=== PATIENT | male | born 1960 | race Caucasian/White ===

== ENCOUNTER 2020-03-05 08:00 | Outpatient (RCR) | payer MEDICARE, BC, MEDICAID, SELFPAY | END 2020-05-26 07:43 | disposition home or self-care (01) | LOC: HO.WCC 08:00 | PROVIDERS: PCP Internal Medicine; Visit Provider Physician Assistant Surgical | DX: I70.233 Atherosclerosis of native arteries of right leg with ulceration of ankle (principal); L89.513 Pressure ulcer of right ankle, stage 3; I69.351 Hemiplegia and hemiparesis following cerebral infarction affecting right dominant side; I69.320 Aphasia following cerebral infarction; G25.81 Restless legs syndrome; I48.91 Unspecified atrial fibrillation; Z79.01 Long term (current) use of anticoagulants; Z95.0 Presence of cardiac pacemaker | CPT/HCPCS: 11042; 15271; 15275; 17250; 99212; 99213; Q4186 ==

== ENCOUNTER 2020-09-14 08:56 | Outpatient (RCR) | payer MEDICARE, BC, SELFPAY | END 2020-11-03 12:17 | disposition home or self-care (01) | LOC: HO.WCC 08:56 | PROVIDERS: Visit Provider Physician Assistant | DX: L89.513 Pressure ulcer of right ankle, stage 3 (principal); I69.351 Hemiplegia and hemiparesis following cerebral infarction affecting right dominant side; I73.9 Peripheral vascular disease, unspecified; I10 Essential (primary) hypertension; I48.91 Unspecified atrial fibrillation; Z95.0 Presence of cardiac pacemaker | CPT/HCPCS: 11042; 15271; 15275; 99212; 99213; Q4186 ==

== ENCOUNTER → 2020-10-25 13:07 | Outpatient (BNVA) | payer MEDICARE, MEDICAID, BC, SELFPAY | PROVIDERS: PCP Internal Medicine; Visit Provider Internal Medicine Cardiovascular Disease | DX: Z45.018 Encounter for adjustment and management of other part of cardiac pacemaker (principal); I48.20 Chronic atrial fibrillation, unspecified; I10 Essential (primary) hypertension | CPT/HCPCS: 93005; 99212 ==

== ENCOUNTER → 2020-12-17 08:27 | Outpatient (REF) | payer MEDICARE, BC, MEDICAID, SELFPAY ==
--- NOTE | 2020-12-17 08:30 | CA_ITS ---
Transthoracic Echocardiogram Patient (Last, First, Middle): Jayden Mendiola, Gender: Male Date of : 1960 Age: 60 Procedure Date: 12/17/2020 Procedure Type: Transthoracic Echocardiogram Location: OP Height: 187.96 cm Weight: 127.01 kg BSA: 2.51 m2 Heart Rate: bpm BP: 135 / 80 mmHg [employer] Supervisor: LE Referring MD: Don Orr MD Symptoms: Z95.0 - Presence of cardiac pacemaker Conclusions: - Normal left ventricular size and systolic function. - There is moderately increased left ventricular wall thickness. - Normal right ventricular cavity size and systolic function. - There is mild dilatation of the ascending aorta measuring 3.90 cm. Findings Left Ventricle Normal left ventricular size and systolic function. There is moderately increased left ventricular wall thickness. The visually estimated ejection fraction is between 60-65%. There is no evidence of regional wall motion abnormalities. There is paradoxical septal motion consistent with a left bundle branch block. Diastolic function is indeterminate on the basis of available data. Right Ventricle Normal right ventricular cavity size and systolic function. Atria Both atria are normal in size. Aortic Valve Normal aortic valve structure and function. There is no aortic valve stenosis. There is no aortic valve regurgitation. Mitral Valve Normal mitral valve structure and function. There is no mitral valve regurgitation. There is no mitral valve stenosis. Pulmonic Valve The pulmonic valve is likely normal. Tricuspid Valve Normal tricuspid valve structure and function. There is no tricuspid valve regurgitation. Tricuspid regurgitation envelope is inadequate for calculation of right ventricular systolic pressure. Indeterminate right atrial pressure. Great Vessels There is mild dilatation of the ascending aorta measuring 3.90 cm. The visualized portions of the pulmonary artery and branches are normal. Venous The inferior vena cava was not well visualized. Pericardium/Pleural There is no evidence of pericardial effusion. Prior Study Comparison No change compared to prior study dated: 03/04/2018. Measurements 2D Linear Measurements IVSd: 1.54 0.6-0.9/0.6-1.0 cm LVIDd: 3.65 3.9-5.3/4.2-5.9 cm LVIDd Index: 1.45 2.4-3.2/2.2-3.1 cm/m2 LVIDs: 2.27 2.0-3.6 cm LVPWd: 1.26 0.7-1.1 cm LA Diam: 4.10 2.7-3.8/3.0-4.0 cm LAIDs Index: 1.63 1.5-2.3 cm/m2 LV Mass: 228.50 67-162/88-224 g LV Mass Index: 91.03 43-95/49-115 g/m2 LVOT Diam: 2.60 3.0+(-)1.3 cm 2D Systolic Function EF 4C: 81.50 >55% EF 2C: 70.40 >55% Mitral Valve MV Pk E: 0.78 MV Decel Time: 119.00 E'Lateral: 9.03 E'Medial: 7.83 E/E' Med: 10.00 E/E' Lat: 8.60 PHT: 35.00 MVA PHT: 6.29 Decel [place]: 6.60 Aortic Valve AoV Pk Michael: 1.05 AoV Pk Grad: 4.00 LVOT LVOT Pk Michael: 0.82 LVOT Mn Michael: 0.52 LVOT VTI: 0.15 LVOT Pk Grad: 3.00 LVOT Mn Grad: 1.00 LVOT Diam: 2.60 LVOT Area: 5.31 Diastolic Function MV Pk E: 0.78 E'Medial: 7.83 E/E' Med: 10.00 E' Laterial: 9.03 E/E' Lat: 8.60 Right Ventricle TAPSE (mm): 1.80 Tricuspid Valve TR Pk Michael: 2.21 TR Pk Grad: 20.00 Great Vessels Aorta Ao Asc: 3.90 2.1-3.4 cm Updated in Other Vendor System with Status of Final Zhou Erazo MD electronically signed on 12/19/2020 10:36:45 PM with status of Final
== END ==
LOC: HO.CARD 08:27
PROVIDERS: PCP Internal Medicine; Visit Provider Internal Medicine Cardiovascular Disease
DX: I48.20 Chronic atrial fibrillation, unspecified (principal); Z95.0 Presence of cardiac pacemaker
CPT/HCPCS: 93306; Q9957

== ENCOUNTER → 2021-05-13 10:50 | Outpatient (REF) | payer MEDICARE, BC, SELFPAY ==
--- NOTE | 2021-05-13 10:55 | HM_ITS ---
Conclusion : 1. Patient was monitored for total of 3 days and 14 hours 2. Underlying rhythm appears to be venricularly paced rhythm with average HR of 67 bpm 3. Underlying AF cannot be ruled out. 4. No other arrhythmias noted 5. No patient reported events MTDD
== END ==
LOC: HO.CARD 10:50
PROVIDERS: PCP Internal Medicine; Visit Provider Nurse Practitioner Family
DX: I48.20 Chronic atrial fibrillation, unspecified (principal); R00.0 Tachycardia, unspecified
CPT/HCPCS: 93242

== ENCOUNTER → 2021-10-24 13:22 | Outpatient (BNVA) | payer MEDICARE, BC, SELFPAY | PROVIDERS: PCP Emergency Medicine; Visit Provider Internal Medicine Cardiovascular Disease | DX: Z45.018 Encounter for adjustment and management of other part of cardiac pacemaker (principal); I48.20 Chronic atrial fibrillation, unspecified | CPT/HCPCS: 93005; 99212 ==

== ENCOUNTER 2022-06-29 13:01 | Outpatient (RCR) | payer MEDICARE, BC, SELFPAY | END 2022-08-10 16:00 | disposition home or self-care (01) | LOC: HO.WCC 13:01 | PROVIDERS: PCP Internal Medicine; Visit Provider Surgery | DX: L89.513 Pressure ulcer of right ankle, stage 3 (principal); G82.22 Paraplegia, incomplete; I73.9 Peripheral vascular disease, unspecified; I69.351 Hemiplegia and hemiparesis following cerebral infarction affecting right dominant side; Z79.01 Long term (current) use of anticoagulants; Z79.82 Long term (current) use of aspirin; Z79.899 Other long term (current) drug therapy | CPT/HCPCS: 11042; 15271; 15275; 99212; Q4187 ==

== ENCOUNTER → 2022-09-27 08:59 | Outpatient (REF) | payer MEDICARE, BC, SELFPAY ==
--- NOTE | 2022-09-27 09:01 | CA_ITS ---
Transthoracic Echocardiogram Patient (Last, First, Middle): Jayden Mendiola, Gender: Male Date of : 1960 Age: 62 Procedure Date: 09/27/2022 Procedure Type: Transthoracic Echocardiogram Location: OP Height: 187.96 cm Weight: 124.74 kg BSA: 2.49 m2 Heart Rate: bpm BP: 130 / 78 mmHg Veterinary Parasitologist: TO Referring MD: Don Orr MD Cake Washer: Don Orr MD Symptoms: I48.20 - Chronic atrial fibrillation, unspecified Study Quality: Technically Difficult/Contrast ECG Rhythm: Ventriculary paced rhythm Conclusions: - 1. Technically limited study despite use of contrast agent 2. Normal LV systolic function with probably mild LVH 3. Limited visualization cardiac valves with normal cardiac valvular Doppler 4. Mildly dilated ascending aorta 4.3 cm 5. Normal RV systolic pressure Findings Procedure Information Contrast agent, definity, is being given per protocol without apparent complications. The quality of the study was technically difficult. Left Ventricle Normal left ventricular size and systolic function. There is mildly increased left ventricular wall thickness. The visually estimated ejection fraction is between 60-65%. Diastolic function is indeterminate on the basis of available data. Right Ventricle The right ventricle was not well visualized. Atria The left atrium was not well visualized. Interatrial shunt cannot be excluded. The right atrium was not well visualized. Aortic Valve The aortic valve was not well visualized. There is no aortic valve stenosis. There is no aortic valve regurgitation. Mitral Valve The mitral valve was not well visualized. There is no mitral valve regurgitation. There is no mitral valve stenosis. Pulmonic Valve The pulmonic valve was not well visualized. Tricuspid Valve The tricuspid valve was not well visualized. There is trace tricuspid valve regurgitation. Normal right atrial pressure. There is no evidence of pulmonary hypertension. Great Vessels The pulmonary artery was not well visualized. There is mild dilatation of the ascending aorta measuring 4.30 cm. Venous The inferior vena cava is normal in size and collapses greater than 50% with inspiration. Pericardium/Pleural There is no evidence of pericardial effusion. Prior Study Comparison Changes noted compared to prior study dated: 12/17/2020. ascending aorta is further enlarged to 4.3 cm. Remainder of the study is technically limited Measurements 2D Linear Measurements IVSd: 1.26 0.6-0.9/0.6-1.0 cm LVIDd: 4.52 3.9-5.3/4.2-5.9 cm LVIDd Index: 1.82 2.4-3.2/2.2-3.1 cm/m2 LVIDs: 2.86 2.0-3.6 cm LVPWd: 0.91 0.7-1.1 cm LA Diam: 3.60 2.7-3.8/3.0-4.0 cm LAIDs Index: 1.45 1.5-2.3 cm/m2 LV Mass: 215.36 67-162/88-224 g LV Mass Index: 86.49 43-95/49-115 g/m2 LVOT Diam: 2.40 3.0+(-)1.3 cm 2D Systolic Function EF 4C: 65.50 >55% Mitral Valve E'Lateral: 9.57 E'Medial: 7.29 Aortic Valve AoV Pk Michael: 1.03 AoV Mn Michael: 0.72 AoV VTI: 0.16 AoV Pk Grad: 4.00 Aov Mn Grad: 2.00 DEONTE Cont.VTI: 3.20 LVOT LVOT Pk Michael: 0.70 LVOT Mn Michael: 0.44 LVOT VTI: 0.11 LVOT Pk Grad: 2.00 LVOT Mn Grad: 1.00 LVOT Diam: 2.40 LVOT Area: 4.52 Diastolic Function E'Medial: 7.29 E' Laterial: 9.57 Tricuspid Valve TR Pk Michael: 1.93 TR Pk Grad: 15.00 RA Press: 3.00 RVSP: 18.00 Great Vessels Aorta Sinus of Valsalva: 4.16 2.0-3.[address] Ridge: 3.36 1.7-3.4 cm Ao Asc: 4.30 2.1-3.4 cm Updated in Other Vendor System with Status of Final Don Orr MD electronically signed on 09/27/2022 3:18:44 PM with status of Final
== END ==
LOC: HO.CARD 08:59
PROVIDERS: PCP Internal Medicine; Visit Provider Internal Medicine Cardiovascular Disease
DX: I48.20 Chronic atrial fibrillation, unspecified (principal)
CPT/HCPCS: 93306; Q9957

== ENCOUNTER 2022-10-02 14:04 | Outpatient (RCR) | payer MEDICARE, BC, SELFPAY | END 2022-10-13 13:22 | disposition home or self-care (01) | LOC: HO.WCC 14:04 | PROVIDERS: PCP Internal Medicine; Visit Provider Physician Assistant | DX: Z09 Encounter for follow-up examination after completed treatment for conditions other than malignant neoplasm (principal); I69.351 Hemiplegia and hemiparesis following cerebral infarction affecting right dominant side; I10 Essential (primary) hypertension; I73.9 Peripheral vascular disease, unspecified; I48.91 Unspecified atrial fibrillation; Z95.0 Presence of cardiac pacemaker; Z91.81 History of falling; Z87.2 Personal history of diseases of the skin and subcutaneous tissue | CPT/HCPCS: 99212 ==

== ENCOUNTER → 2022-10-23 12:31 | Outpatient (BNVA) | payer MEDICARE, BC, SELFPAY | PROVIDERS: PCP Internal Medicine; Referring Provider Internal Medicine; Visit Provider Internal Medicine Cardiovascular Disease | DX: I48.20 Chronic atrial fibrillation, unspecified (principal); I71.20 Thoracic aortic aneurysm, without rupture, unspecified; Z45.018 Encounter for adjustment and management of other part of cardiac pacemaker; Z79.01 Long term (current) use of anticoagulants | CPT/HCPCS: 93005; 99212 ==

== ENCOUNTER → 2022-12-04 23:59 | Outpatient (BNV) | payer MEDICARE, BC, MEDICAID, SELFPAY ==
--- NOTE | 2022-12-12 11:13 | A.OFFVIS_ITS ---
Intake Intake Visit Reasons: Remote Device Check- Biotronik Allergies codeine [CODEINE] Allergy (Unknown, Verified 10/23/22 13:21) UNKNOWN [facility] Medical History Cardiac pacemaker in situ Chronic atrial fibrillation CVA (cerebral vascular accident) HTN (hypertension) Surgical History History of permanent cardiac pacemaker placement Family History Father No problems noted. Mother No problems noted. Office Procedures Cardiac Device Check Cardiac Device Check Details: Remote pacemaker report generated 12/04/2022. Pacemaker function is adequate [id number] Cardiac Device Interrogation, pacemaker Procedure code (CPT) selection complete Coding Level of Care Code Procedure Only Diagnoses CPT Codes Cardiac Device Check - Cardiac Device 12: [id number] Cardiac Device Interrogation, pacemaker ([id number])
== END ==
PROVIDERS: PCP Internal Medicine; Visit Provider Internal Medicine Cardiovascular Disease
DX: I48.20 Chronic atrial fibrillation, unspecified (principal); Z95.0 Presence of cardiac pacemaker
CPT/HCPCS: 93294

== ENCOUNTER 2022-12-11 08:37 | Outpatient (RCR) | payer MEDICARE, BC, MEDICAID, SELFPAY | END 2023-04-23 15:00 | disposition home or self-care (01) | LOC: HO.WCC 08:37 | PROVIDERS: PCP Internal Medicine; Visit Provider Physician Assistant | DX: L89.513 Pressure ulcer of right ankle, stage 3 (principal); I73.9 Peripheral vascular disease, unspecified; I10 Essential (primary) hypertension; I69.351 Hemiplegia and hemiparesis following cerebral infarction affecting right dominant side; Z95.0 Presence of cardiac pacemaker | CPT/HCPCS: 11042; 15271; 97602; 99212; Q4187 ==

== ENCOUNTER → 2023-03-05 23:59 | Outpatient (BNV) | payer MEDICARE, BC, MEDICAID, SELFPAY ==
--- NOTE | 2023-03-05 13:02 | MHC.OFFVIS ---
Intake Intake Visit Reasons: Remote Device Check- Biotronik Allergies codeine [CODEINE] Allergy (Unknown, Verified 10/23/22 13:21) UNKNOWN [facility] Medical History Cardiac pacemaker in situ Chronic atrial fibrillation CVA (cerebral vascular accident) HTN (hypertension) Surgical History History of permanent cardiac pacemaker placement Family History Father No problems noted. Mother No problems noted. Office Procedures Cardiac Device Check Cardiac Device Check Details: Remote pacemaker report generated 03/05/2023. Pacemaker function is adequate [id number] Cardiac Device Interrogation, pacemaker Procedure code (CPT) selection complete Coding Level of Care Code Procedure Only CPT Codes Cardiac Device Check - Cardiac Device 12: [id number] Cardiac Device Interrogation, pacemaker ([id number])
== END ==
PROVIDERS: PCP Internal Medicine; Visit Provider Internal Medicine Cardiovascular Disease
DX: I48.20 Chronic atrial fibrillation, unspecified (principal); Z95.0 Presence of cardiac pacemaker
CPT/HCPCS: 93294

== ENCOUNTER 2023-04-09 09:49 | Outpatient (REF) | payer MEDICARE, BC, MEDICAID, SELFPAY ==
--- NOTE | ~2023-04-09 | XR_ITS ---
EXAMINATION: XR ANKLE, RIGHT CLINICAL INFORMATION: Skin ulcer right ankle with fat layer exposed COMPARISON: None available. TECHNIQUE: AP, lateral, and mortise views of the right ankle. FINDINGS: Diffuse soft tissue swelling at the lower leg and imaged foot with extensive soft tissue calcification, likely vascular. Severe diffuse bony demineralization. Small plantar and dorsal calcaneal spurs. Degenerative changes with hypertrophic change at the midfoot. XR/XR ankle RT min 3V IMPRESSION: Severe bony demineralization with advanced degenerative changes and diffuse soft tissue swelling. MRI recommended for further evaluation if there is clinical concern for osteomyelitis or other pathology.
[2023-04-09 10:21] LABS: Basophils Absolute Auto 0.1 X10*3/uL (0.0-0.2); Basophils Percent Auto 1.1 % (0-2); Eosinophils Absolute Auto 0.2 X10*3/uL (0.0-0.4); Eosinophils Percent Auto 2.3 % (0-4); Hematocrit 47.1 % (42.0-52.0); Hemoglobin 15.5 g/dl (14.0-18.0); Imm Gran Abs Auto 0.03 X10*3/uL (0.00-0.03); Imm Gran Pct Auto 0.5 % (0.0-0.4); Lymphocytes Absolute Auto 1.5 X10*3/uL (1.2-4.9); MANUAL DIFF FLAG NO; Mean Corpuscular HGB Conc 32.9 g/dl (31.0-36.0); Mean Corpuscular Hemoglobin 30.8 pg (27.0-33.0); Mean Corpuscular Volume 93.6 fL (80.0-98.0); Mean Platelet Volume 10.3 fL (9.4-12.4); Monocytes Absolute Auto 0.6 X10*3/uL (0.1-1.2); Monocytes Percent Auto 8.5 % (2-11); Neutrophils Absolute Auto 4.2 x10*3/uL (2.0-8.3); Neutrophils Percent Auto 64.6 % (45-73); Platelet Count 170 X10*3/uL (160-400); Red Blood Count 5.03 X10*6/uL (4.60-5.80); Red Cell Distribution Width 13.3 % (11.0-16.0); White Blood Count 6.4 X10*3/uL (4.8-10.8)
[2023-04-09 10:49] LABS: Alanine Aminotransferase 7 U/L (0-40); Albumin Level 3.9 g/dL (3.5-5.0); Alkaline Phosphatase 69 U/L (39-117); Anion Gap 11 (12-20); Aspartate Amino Transferase 14 U/L (5-37); Bilirubin Total 0.8 mg/dL (0.0-1.0); Blood Urea Nitrogen 15 mg/dL (9-16); C Reactive Protein 0.14 mg/dL (< or = 0.50); Calcium 9.4 mg/dL (8.4-10.2); Carbon Dioxide 28 mmol/L (22-29); Chloride 106 mmol/L (96-108); Estimated Glomerular Filt Rate > 60; Glucose Random 93 mg/dL (60-115); Potassium 4.6 mmol/L (3.3-5.1); Sodium 140 mmol/L (135-145); Total Protein 6.8 g/dL (6.5-8.0)
[2023-04-09 11:05] LABS: Erythrocyte Sedimentation Rate 2 MM/HR (0-15)
== END 2023-04-09 09:50 | disposition home or self-care (01) ==
LOC: HO.LAB 09:49
PROVIDERS: PCP Internal Medicine; Visit Provider Podiatrist
DX: L03.115 Cellulitis of right lower limb (principal); L97.312 Non-pressure chronic ulcer of right ankle with fat layer exposed
CPT/HCPCS: 36415; 73610; 80053; 85025; 85652; 86140

== ENCOUNTER → 2023-06-05 23:59 | Outpatient (BNV) | payer MEDICARE, BC, MEDICAID, SELFPAY ==
--- NOTE | 2023-06-06 10:00 | MHC.OFFVIS ---
Intake Intake Visit Reasons: Remote Device Check- Biotronik Allergies codeine [CODEINE] Allergy (Unknown, Verified 10/23/22 13:21) UNKNOWN [facility] Medical History Cardiac pacemaker in situ Chronic atrial fibrillation CVA (cerebral vascular accident) HTN (hypertension) Surgical History History of permanent cardiac pacemaker placement Family History Father No problems noted. Mother No problems noted. Office Procedures Cardiac Device Check Cardiac Device Check Details: Remote pacemaker report generated 06/05/2023. Pacemaker function is adequate. Patient pacer dependent in the ventricle [id number] Cardiac Device Interrogation, pacemaker Procedure code (CPT) selection complete Assessment & Plan Assessment & Plan (1) Cardiac pacemaker in situ: Comment: Biotronik single-chamber pacemaker placed November of 2016 for complete heart block Code(s): Z95.0 - Presence of cardiac pacemaker Plan: See above Coding Level of Care Code Procedure Only Diagnoses Cardiac pacemaker in situ Z95.0 CPT Codes Cardiac Device Check - Cardiac Device 12: [id number] Cardiac Device Interrogation, pacemaker ([id number])
== END ==
PROVIDERS: PCP Internal Medicine; Visit Provider Internal Medicine Cardiovascular Disease
DX: I48.20 Chronic atrial fibrillation, unspecified (principal); Z95.0 Presence of cardiac pacemaker
CPT/HCPCS: 93294

== ENCOUNTER → 2023-09-04 23:59 | Outpatient (BNV) | payer MEDICARE, BC, MEDICAID, SELFPAY ==
--- NOTE | 2023-09-04 14:00 | MHC.OFFVIS ---
Intake Intake Visit Reasons: Remote Device Check- Biotronik Allergies codeine [CODEINE] Allergy (Unknown, Verified 10/23/22 13:21) [facility]KNOWN [facility] Medical History Cardiac pacemaker in situ Chronic atrial fibrillation CVA (cerebral vascular accident) HTN (hypertension) Surgical History History of permanent cardiac pacemaker placement Family History Father No problems noted. Mother No problems noted. Office Procedures Cardiac Device Check Cardiac Device Check Details: Remote pacemaker report generated 09/03/2023. Pacemaker function is adequate. Patient ventricular pacer dependent. [id number] Cardiac Device Interrogation, pacemaker Procedure code (CPT) selection complete Assessment & Plan Assessment & Plan (1) Cardiac pacemaker in situ: Comment: Biotronik single-chamber pacemaker placed November of 2016 for complete heart block Code(s): Z95.0 - Presence of cardiac pacemaker Plan: See above Coding Level of Care Code Procedure Only Diagnoses Cardiac pacemaker in situ Z95.0 CPT Codes Cardiac Device Check - Cardiac Device 12: [id number] Cardiac Device Interrogation, pacemaker ([id number])
== END ==
PROVIDERS: PCP Internal Medicine; Visit Provider Internal Medicine Cardiovascular Disease
DX: Z95.0 Presence of cardiac pacemaker (principal)
CPT/HCPCS: 93294

== ENCOUNTER → 2023-10-04 09:40 | Outpatient (REF) | payer MEDICARE, BC, MEDICAID, SELFPAY ==
--- NOTE | 2023-10-04 09:43 | CA_ITS ---
Transthoracic Echocardiogram Patient (Last, First, Middle): Jayden Mendiola, Gender: Male Date of : 1960 Age: 63 Procedure Date: 10/04/2023 Procedure Type: Transthoracic Echocardiogram Location: OP Height: 187.96 cm Weight: 129.28 kg BSA: 2.53 m2 Heart Rate: bpm BP: 130 / 80 mmHg Stone Layer: TO Referring MD: Don Orr MD Symptoms: I71.20 - Thoracic aortic aneurysm, without rupture, unspecified Study Quality: Technically Difficult/unable to tolerate ECG Rhythm: Sinus Conclusions: - The left ventricular systolic function is normal. The visually estimated ejection fraction is between 55-60%. - No obvious valvular pathology seen on this study. - There is mild dilatation of the sinuses of Valsalva measuring 4.35 cm and mild dilatation of the ascending aorta measuring 4.10 cm. Findings Procedure Information The study quality is limited by the patients inability to tolerate the test. Left Ventricle Normal left ventricular cavity size. The left ventricular systolic function is normal. The visually estimated ejection fraction is between 55-60%. Regional wall motion abnormalities can not be excluded due to suboptimal endocardial definition. Diastolic function is indeterminate on the basis of available data. There is moderate septal asymmetric hypertrophy. Right Ventricle Normal right ventricular cavity size. There is mildly decreased right ventricular systolic function. Atria The left atrium was not well visualized. The right atrium was not well visualized. Aortic Valve There is a normal trileaflet aortic valve. There is mild calcification of the aortic valve. There is no aortic valve stenosis. There is no aortic valve regurgitation. Mitral Valve The mitral valve was not well visualized. There is mild mitral annular calcification. There is no mitral valve regurgitation. There is no mitral valve stenosis. Pulmonic Valve The pulmonic valve is likely normal. Tricuspid Valve There is trace tricuspid valve regurgitation. There is no evidence of pulmonary hypertension. Great Vessels The aortic arch is normal in size. There is mild dilatation of the sinuses of Valsalva measuring 4.35 cm and mild dilatation of the ascending aorta measuring 4.10 cm. Venous The inferior vena cava is normal in size and collapses greater than 50% with inspiration. Pericardium/Pleural There is no evidence of pericardial effusion. Prior Study Comparison Changes noted compared to prior study dated: 09/27/2022. Ascending aortic dimension smaller, but could also be technical. Recommendations, Care & Conclusions No obvious valvular pathology seen on this study. Measurements 2D Linear Measurements IVSd: 1.35 0.6-0.9/0.6-1.0 cm LVIDd: 4.40 3.9-5.3/4.2-5.9 cm LVIDd Index: 1.74 2.4-3.2/2.2-3.1 cm/m2 LVIDs: 2.78 2.0-3.6 cm LVPWd: 0.93 0.7-1.1 cm LV Mass: 221.55 67-162/88-224 g LV Mass Index: 87.57 43-95/49-115 g/m2 LVOT Diam: 2.50 3.0+(-)1.3 cm Mitral Valve E'Lateral: 9.90 E'Medial: 6.53 Aortic Valve AoV Pk Michael: 0.98 AoV Mn Michael: 0.66 AoV VTI: 0.16 AoV Pk Grad: 4.00 Aov Mn Grad: 2.00 DEONTE Cont.VTI: 3.96 LVOT LVOT Pk Michael: 0.84 LVOT Mn Michael: 0.55 LVOT VTI: 0.13 LVOT Pk Grad: 3.00 LVOT Mn Grad: 1.00 LVOT Diam: 2.50 LVOT Area: 4.91 Diastolic Function E'Medial: 6.53 E' Laterial: 9.90 Right Ventricle TVS' Michael: 8.70 Tricuspid Valve TR Pk Michael: 1.82 TR Pk Grad: 13.00 Great Vessels Aorta Sinus of Valsalva: 4.35 2.0-3.[address] Ridge: 3.57 1.7-3.4 cm Ao Asc: 4.10 2.1-3.4 cm Ao Arch: 3.10 Updated in Other Vendor System with Status of Final Mckay Noriega MD electronically signed on 10/06/2023 12:24:20 PM with status of Final
== END ==
LOC: HO.CARD 09:40
PROVIDERS: PCP Internal Medicine; Visit Provider Internal Medicine Cardiovascular Disease
DX: I71.20 Thoracic aortic aneurysm, without rupture, unspecified (principal)
CPT/HCPCS: 93306

== ENCOUNTER → 2023-10-04 09:43 | Outpatient (BNV) | payer MEDICARE, BC, MEDICAID, SELFPAY | PROVIDERS: PCP Internal Medicine; Visit Provider Internal Medicine | DX: I71.21 Aneurysm of the ascending aorta, without rupture (principal); I42.2 Other hypertrophic cardiomyopathy; I34.81 Nonrheumatic mitral (valve) annulus calcification | CPT/HCPCS: 93306 ==

== ENCOUNTER 2023-10-22 12:49 | Outpatient (AMB) | payer MEDICARE, BC, SELFPAY ==
[2023-10-22 13:07] VITALS: BP 110/68; PULSE 73
--- NOTE | 2023-10-22 13:07 | A.OFFVIS_ITS ---
Vital Signs 10/22/23 13:07 Height 6 ft 2 in BMI Reason not done Patient refused/unable BP 110/68 Blood Pressure Location Lt brachial Position Sitting Pulse 73 Intake Visit Reasons: 1 year follow up Intake Note: [facility] feeling good Fishing Accessories Maker Required: No Rehabilitation Caseworker: Rehabilitation Caseworker Present Accompanied by: Spouse Allergies codeine [CODEINE] Allergy (Unknown, Verified 10/23/22 13:21) UNKNOWN Medication List - Last Reconciled 10/22/23 by Don Orr MD apixaban 5 mg PO BID aspirin (Adult Aspirin Regimen) 81 mg PO DAILY atorvastatin 20 mg PO DAILY baclofen 40 mg PO DAILY lisinopril 10 mg PO DAILY terazosin 2 mg PO BEDTIME HPI Comments Details: Jayden comes for follow-up of his pacemaker as well as atrial fibrillation for annual follow-up. He is accompanied by his . He has been doing well from cardiac perspective. Unfortunately his pacemaker could not be interrogated today as it has a Biotronik pacemaker. Remotely his pacemaker has been followed in working well. His echocardiogram recently showed normal LV ejection fraction with mildly dilated ascending aorta without any significant changes. He denies any bleeding issues or neurologic events. Denies any orthopnea, PND, leg edema. [facility] Medical History HTN (hypertension) CVA (cerebral vascular accident) Cardiac pacemaker in situ Chronic atrial fibrillation Surgical History History of permanent cardiac pacemaker placement Family History Father No problems noted. Mother No problems noted. Review of Systems Const Denies chills, Denies fatigue, Denies fever(s), Denies frequent falls, Denies weakness, Denies weight gain and Denies weight loss ENT Denies dizziness Card Denies chest pain, Denies leg edema, Denies lightheadedness, Denies palpitations, Denies dyspnea, Denies dyspnea on exertion, Denies orthopnea and Denies other (loss of consciousness) Resp Denies cough, Denies dyspnea and Denies dyspnea on exertion GI Denies hematochezia and Denies change in stool character Musc Denies abnormal gait, Denies muscle weakness, Denies numbness, Denies radiating pain into limb and Denies tingling Neuro Denies abnormal gait, Denies dizziness, Denies frequent falls, Denies numbness, Denies tingling and Denies weakness Endo Denies fatigue and Denies palpitations Physical Exam Vital Signs: Last Vital Signs Pulse 73 10/22/23 13:07 BP 110/68 10/22/23 13:07 Office Procedures EKG Details: EKG shows ventricularly paced rhythm 73 beats per minute [id number], Complete Assessment & Plan Assessment & Plan (1) Cardiac pacemaker in situ: Comment: Biotronik single-chamber pacemaker placed November of 2016 for complete heart block Code(s): Z95.0 - Presence of cardiac pacemaker Category: Medical Plan: Cardiac pacemaker in-situ for complete heart block. Pacemaker is working well, single-chamber Biotronik pacemaker. Unfortunately could not be checked phys ically today. Will continue follow remotely every 3 months. Follow up in the clinic in 6 months time. (2) Chronic atrial fibrillation: Code(s): I48.20 - Chronic atrial fibrillation, unspecified Category: Medical Plan: Chronic rate control atrial fibrillation with complete heart block. Prior CVA with residual disability. Continue full oral anticoagulation, currently on Eliquis 5 mg b.i.d.. Also on low-dose aspirin therapy. Semi annual renal function test is recommended. (3) Thoracic aortic aneurysm: Code(s): I71.20 - Thoracic aortic aneurysm, without rupture, unspecified Category: Medical Plan: Mild thoracic aortic aneurysm which has remained stable. No interventions required surgically. Continue medical interventions, currently on lisinopril therapy with well optimized blood pressure. Heart rate is well controlled. Currently also on full oral anticoagulation as well as aspirin therapy. Also on statin therapy with target goal LDL less than 100 mg/dL. Follow up in the clinic in 6 months time, sooner p.r.n.. Thank you for allowing me to partake in his care Orders: Orders Basic Metabolic Panel Today I48.20 - Chronic atrial fibrillation, unspecified Coding Level of Care Code Est Pt Level 4 (90036) Diagnoses Cardiac pacemaker in situ Z95.0 Chronic atrial fibrillation I48.20 Thoracic aortic aneurysm I71.20 CPT Codes EKG - CPT: 53345-[id number], Complete ([id number])
== END 2023-10-22 13:27 | disposition home or self-care (01) ==
PROVIDERS: Visit Provider Internal Medicine Cardiovascular Disease
DX: I48.20 Chronic atrial fibrillation, unspecified (principal); I71.20 Thoracic aortic aneurysm, without rupture, unspecified; Z95.0 Presence of cardiac pacemaker
CPT/HCPCS: 93010; 99214

== ENCOUNTER 2023-10-22 12:49 | Outpatient (REF) | payer MEDICARE, BC, SELFPAY ==
[2023-10-22 15:05] LABS: Anion Gap 14 (12-20); Blood Urea Nitrogen 19 mg/dL (9-16); Calcium 9.6 mg/dL (8.4-10.2); Carbon Dioxide 23 mmol/L (22-29); Chloride 106 mmol/L (96-108); Estimated Glomerular Filt Rate > 60; Glucose Random 86 mg/dL (60-115); Potassium 4.2 mmol/L (3.3-5.1); Sodium 139 mmol/L (135-145)
== END 2023-10-22 12:50 | disposition home or self-care (01) ==
LOC: HO.LAB 12:49
PROVIDERS: PCP Internal Medicine; Visit Provider Internal Medicine Cardiovascular Disease
DX: I48.20 Chronic atrial fibrillation, unspecified (principal); Z95.0 Presence of cardiac pacemaker; I71.20 Thoracic aortic aneurysm, without rupture, unspecified
CPT/HCPCS: 36415; 80048; 93005; 99212

== ENCOUNTER → 2023-12-11 23:59 | Outpatient (BNV) | payer MEDICARE, BC, SELFPAY ==
--- NOTE | 2023-12-17 17:01 | MHC.OFFVIS ---
Intake Visit Reasons: Remote Device Check- Biotronik Allergies codeine [CODEINE] Allergy (Unknown, Verified 10/23/22 13:21) UNKNOWN [facility] Medical History HTN (hypertension) CVA (cerebral vascular accident) Cardiac pacemaker in situ Chronic atrial fibrillation Surgical History History of permanent cardiac pacemaker placement Family History Father No problems noted. Mother No problems noted. Office Procedures Cardiac Device Check Cardiac Device Check Details: remote pacemaker report generated 12/11/2023. Pacemaker function is adequate. Ventricular pacing 100% of the time [id number] Cardiac Device Interrogation, pacemaker Procedure code (CPT) selection complete Assessment & Plan Assessment & Plan (1) Cardiac pacemaker in situ: Comment: Biotronik single-chamber pacemaker placed November of 2016 for complete heart block Code(s): Z95.0 - Presence of cardiac pacemaker Category: Medical Plan: see above Coding Level of Care Code Procedure Only Diagnoses Cardiac pacemaker in situ Z95.0 CPT Codes Cardiac Device Check - Cardiac Device 12: [id number] Cardiac Device Interrogation, pacemaker ([id number])
== END ==
PROVIDERS: PCP Internal Medicine; Visit Provider Internal Medicine Cardiovascular Disease
DX: Z45.018 Encounter for adjustment and management of other part of cardiac pacemaker (principal)
CPT/HCPCS: 93294

== ENCOUNTER → 2024-03-03 23:59 | Outpatient (BNV) | payer MEDICARE, BC, SELFPAY ==
--- NOTE | 2024-03-04 11:42 | MHC.OFFVIS ---
Intake Visit Reasons: Remote device check- Biotronik Allergies codeine [CODEINE] Allergy (Unknown, Verified 10/23/22 13:21) UNKNOWN [facility] Medical History HTN (hypertension) CVA (cerebral vascular accident) Cardiac pacemaker in situ Chronic atrial fibrillation Surgical History History of permanent cardiac pacemaker placement Family History Father No problems noted. Mother No problems noted. Office Procedures Cardiac Device Check Cardiac Device Check Details: Remote pacemaker report generated 03/03/2024. Pacemaker function is adequate. Battery life is at 49% [id number] Cardiac Device Interrogation, pacemaker Procedure code (CPT) selection complete Assessment & Plan Assessment & Plan (1) Cardiac pacemaker in situ: Comment: Biotronik single-chamber pacemaker placed November of 2016 for complete heart block Code(s): Z95.0 - Presence of cardiac pacemaker Category: Medical Plan: See above Coding Level of Care Code Procedure Only Diagnoses Cardiac pacemaker in situ Z95.0 CPT Codes Cardiac Device Check - Cardiac Device 12: [id number] Cardiac Device Interrogation, pacemaker ([id number])
== END ==
PROVIDERS: PCP Internal Medicine; Visit Provider Internal Medicine Cardiovascular Disease
DX: I44.2 Atrioventricular block, complete (principal); Z95.0 Presence of cardiac pacemaker
CPT/HCPCS: 93294

== ENCOUNTER 2024-04-28 12:58 | Outpatient (AMB) | payer MEDICARE, BC, SELFPAY ==
--- NOTE | 2024-04-28 13:13 | MHC.OFFVIS ---
Vital Signs 04/28/24 13:14 Height 6 ft 2 in BP 134/84 Blood Pressure Location Lt brachial Position Sitting Pulse 84 Intake Visit Reasons: 6 mth f/up w/ biotronic Intake Note: 6 month follow-up after Biotronic check feeling good Director Of Retail Marketing Required: No Senior Technical Support Analyst: Senior Technical Support Analyst Present Accompanied by: Spouse Allergies codeine [CODEINE] Allergy (Unknown, Verified 10/23/22 13:21) UNKNOWN Medication List - Last Reconciled 04/28/24 by Don Orr MD apixaban 5 mg PO BID aspirin (Adult Aspirin Regimen) 81 mg PO DAILY atorvastatin 20 mg PO DAILY baclofen 40 mg PO DAILY lisinopril 10 mg PO DAILY terazosin 2 mg PO BEDTIME HPI Comments Details: Jayden comes for follow-up, accompanied by his . He continues to gradually progress in his neurologic function with improved speech. Obviously limited with his overall general function. He has no cardiac symptoms. Denies any prolonged palpitations. No lightheadedness, syncope. No heart failure symptoms of orthopnea, PND, leg edema. Takes all his medications. No bleeding issues or neurologic events. Blood pressure recordings at home have all been below 120 systolic [facility] Medical History HTN (hypertension) CVA (cerebral vascular accident) Cardiac pacemaker in situ Chronic atrial fibrillation Surgical History History of permanent cardiac pacemaker placement Family History Father No problems noted. Mother No problems noted. Review of Systems Const Denies chills, Denies fatigue, Denies fever(s), Denies frequent falls, Denies weakness, Denies weight gain and Denies weight loss ENT Denies dizziness Card Denies chest pain, Denies leg edema, Denies lightheadedness, Denies palpitations, Denies dyspnea, Denies dyspnea on exertion, Denies orthopnea and Denies other (loss of consciousness) Resp Denies cough, Denies dyspnea and Denies dyspnea on exertion GI Denies hematochezia and Denies change in stool character Musc Denies abnormal gait, Denies muscle weakness, Denies numbness, Denies radiating pain into limb and Denies tingling Neuro Denies abnormal gait, Denies dizziness, Denies frequent falls, Denies numbness, Denies tingling and Denies weakness Endo Denies fatigue and Denies palpitations Physical Exam Vital Signs: Last Vital Signs Pulse 84 04/28/24 13:14 BP 134/84 04/28/24 13:14 Const General: cooperative, comfortable, no acute distress, alert and awake Nutritional Appearance: overweight Limitations: wheelchair Neck Neck: Yes trachea midline, Yes supple and Yes no JVD Resp Effort & Inspection: normal respiratory effort Auscultation: clear to auscultation bilaterally Cardio Rate: regular rate Rhythm: regular rhythm Heart sounds: S1 normal heart sound present and S2 normal heart sound present GI Auscultation: normal bowel sounds Skin General skin exam: no rashes or lesions noted Extrem General: Yes no clubbing, cyanosis or edema Office Procedures Cardiac Device Check Cardiac Device Check Details: Single-chamber Biotronik pacemaker in place. Ventricular pacing 100% time. Battery life is 4 and half years. Ventricular sensing is adequate. Ventricular pacing thresholds adequate. Pacing lead impedance is stable. One episode of high ventricular rate consistent with rapid atrial fibrillation [place] [id number] Cardiac Device Check, leadless/single lead pacemaker Procedure code (CPT) selection complete Assessment & Plan Assessment & Plan (1) Chronic atrial fibrillation: Code(s): I48.20 - Chronic atrial fibrillation, unspecified Category: Medical Plan: Chronic rate control atrial fibrillation. Overall has been doing well. No signs or symptoms of heart failure. Continue rate control approach. Prior stroke and therefore high risk for recurrent thromboembolic event. Continue Eliquis therapy. Semi annual renal function test should be pursued. (2) Cardiac pacemaker in situ: Comment: Biotronik single-chamber pacemaker placed November of 2016 for complete heart block Code(s): Z95.0 - Presence of cardiac pacemaker Category: Medical Plan: Cardiac pacemaker in-situ for bradycardia. Pacer dependent 100% time. Continue monitor remotely every 3 months. Follow up in the clinic in 1 year's time. (3) Thoracic aortic aneurysm: Code(s): I71.20 - Thoracic aortic aneurysm, without rupture, unspecified Category: Medical Plan: Mild thoracic aortic aneurysm without any symptoms. Continue to follow annually with echocardiogram. Continue aggressive blood pressure control which most often his well optimized on current therapy. Importance of good blood pressure control was discussed. Continue risk factor modification with statin therapy with target goal LDL less than 100 mg/dL. Will follow up in the clinic in 1 year's time, sooner p.r.n.. Thank you for allowing me to partake in his care Orders: Orders CA echo transthoracic complete 1 Year I71.20 - Thoracic aortic aneurysm, without rupture, unspecified Coding Level of Care Code Est Pt Level 4 (00479) Complex EM visit Add On G2211 Diagnoses Chronic atrial fibrillation I48.20 Cardiac pacemaker in situ Z95.0 Thoracic aortic aneurysm I71.20 CPT Codes Cardiac Device Check - Cardiac Device 1: 59329-CY Cardiac Device Check, leadless/single lead pacemaker ([id number])
[2024-04-28 13:14] VITALS: BP 134/84; PULSE 84
== END 2024-04-28 13:59 | disposition home or self-care (01) ==
PROVIDERS: PCP Internal Medicine; Visit Provider Internal Medicine Cardiovascular Disease
DX: I48.20 Chronic atrial fibrillation, unspecified (principal); Z95.0 Presence of cardiac pacemaker; I71.20 Thoracic aortic aneurysm, without rupture, unspecified
CPT/HCPCS: 93279; 99214; G2211

== ENCOUNTER → 2024-04-28 12:58 | Outpatient (BNVA) | payer MEDICARE, BC, SELFPAY | PROVIDERS: PCP Internal Medicine; Visit Provider Internal Medicine Cardiovascular Disease | DX: I48.20 Chronic atrial fibrillation, unspecified (principal); I71.20 Thoracic aortic aneurysm, without rupture, unspecified; Z95.0 Presence of cardiac pacemaker | CPT/HCPCS: 99212 ==

== ENCOUNTER → 2024-06-02 23:59 | Outpatient (BNV) | payer MEDICARE, BC, SELFPAY ==
--- NOTE | 2024-06-03 16:20 | MHC.OFFVIS ---
Intake Visit Reasons: Remote device check- Biotronik Allergies codeine [CODEINE] Allergy (Unknown, Verified 10/23/22 13:21) UNKNOWN [facility] Medical History HTN (hypertension) CVA (cerebral vascular accident) Cardiac pacemaker in situ Chronic atrial fibrillation Surgical History History of permanent cardiac pacemaker placement Family History Father No problems noted. Mother No problems noted. Office Procedures Cardiac Device Check Cardiac Device Check Details: Remote pacemaker report generated 06/02/2024. Pacemaker function is adequate [id number] Cardiac Device Interrogation, pacemaker Procedure code (CPT) selection complete Assessment & Plan Assessment & Plan (1) Cardiac pacemaker in situ: Comment: Biotronik single-chamber pacemaker placed November of 2016 for complete heart block Code(s): Z95.0 - Presence of cardiac pacemaker Category: Medical Plan: See above Coding Level of Care Code Procedure Only Diagnoses Cardiac pacemaker in situ Z95.0 CPT Codes Cardiac Device Check - Cardiac Device 12: [id number] Cardiac Device Interrogation, pacemaker ([id number])
== END ==
PROVIDERS: PCP Internal Medicine; Visit Provider Internal Medicine Cardiovascular Disease
DX: I44.2 Atrioventricular block, complete (principal); Z95.0 Presence of cardiac pacemaker
CPT/HCPCS: 93294

== ENCOUNTER → 2024-09-04 23:59 | Outpatient (BNV) | payer MEDICARE, BC, SELFPAY ==
--- NOTE | 2024-09-08 14:18 | MHC.OFFVIS ---
Intake Visit Reasons: Remote device check- Biotronik Allergies codeine [CODEINE] Allergy (Unknown, Verified 10/23/22 13:21) UNKNOWN [facility] Medical History HTN (hypertension) CVA (cerebral vascular accident) Cardiac pacemaker in situ Chronic atrial fibrillation Surgical History History of permanent cardiac pacemaker placement Family History Father No problems noted. Mother No problems noted. Office Procedures Cardiac Device Check Cardiac Device Check Details: Remote pacemaker report generated 09/04/2024. Pacemaker function is adequate [id number] Cardiac Device Interrogation, pacemaker Procedure code (CPT) selection complete Assessment & Plan Assessment & Plan (1) Cardiac pacemaker in situ: Comment: Biotronik single-chamber pacemaker placed November of 2016 for complete heart block Code(s): Z95.0 - Presence of cardiac pacemaker Category: Medical Plan: See above Coding Level of Care Code Procedure Only Diagnoses Cardiac pacemaker in situ Z95.0 CPT Codes Cardiac Device Check - Cardiac Device 12: [id number] Cardiac Device Interrogation, pacemaker ([id number])
== END ==
PROVIDERS: PCP Internal Medicine; Visit Provider Internal Medicine Cardiovascular Disease
DX: I44.2 Atrioventricular block, complete (principal); Z95.0 Presence of cardiac pacemaker
CPT/HCPCS: 93294

== ENCOUNTER → 2024-12-04 23:59 | Outpatient (BNV) | payer MEDICARE, BC, SELFPAY ==
--- NOTE | 2024-12-09 14:32 | A.OFFVIS_ITS ---
Intake Visit Reasons: Remote device check- Biotronik Allergies codeine (CODEINE) Allergy (Unknown, Verified 10/23/22 13:21) UNKNOWN [facility] Medical History HTN (hypertension) CVA (cerebral vascular accident) Cardiac pacemaker in situ Chronic atrial fibrillation Surgical History History of permanent cardiac pacemaker placement Family History Father No problems noted. Mother No problems noted. Office Procedures Cardiac Device Check Cardiac Device Check Details: Remote pacemaker report generated 12/04/2024. Pacemaker function is adequate [id number] Cardiac Device Interrogation, pacemaker Procedure code (CPT) selection complete Assessment & Plan Assessment & Plan (1) Cardiac pacemaker in situ: Comment: Biotronik single-chamber pacemaker placed November of 2016 for complete heart block Code(s): Z95.0 - Presence of cardiac pacemaker Category: Medical Plan: See above Coding Level of Care Code Procedure Only Diagnoses Cardiac pacemaker in situ Z95.0 CPT Codes Cardiac Device Check - Cardiac Device 12: [id number] Cardiac Device Interrogation, pacemaker ([id number])
== END ==
PROVIDERS: PCP Internal Medicine; Visit Provider Internal Medicine Cardiovascular Disease
DX: I44.2 Atrioventricular block, complete (principal); Z95.0 Presence of cardiac pacemaker
CPT/HCPCS: 93294

== ENCOUNTER 2024-12-21 09:43 | Inpatient (IN) | payer MEDICARE, BC, SELFPAY ==
[2024-12-21] VITALS (8 sets, daily range): BP systolic 136–182; BP diastolic 76–99; PULSE 74–85; RESP 14–20; TEMP 36.4–38.1; O2SAT 96–97; BMI 39.1; BMI 38.0
--- NOTE | 2024-12-21 | ECG_ITS ---
Test Reason : ST ELEVATION Blood Pressure : */* mmHG Vent. Rate : 81 BPM Atrial Rate : 227 BPM P-R Int : * ms QRS Dur : 150 ms QT Int : 430 ms P-R-T Axes : * -65 119 degrees QTcB Int : 499 ms Ventricular-paced rhythm Abnormal ECG No previous ECGs available Referred By: Cris Thompson Electronically Signed By: Zhou Erazo
--- NOTE | ~2024-12-21 | CT_ITS ---
EXAMINATION: CT HEAD WITHOUT CONTRAST CLINICAL INFORMATION: Altered mental status. COMPARISON: None available. TECHNIQUE: Contiguous axial imaging was performed from the skull base to vertex without intravenous administration of contrast. This CT examination was performed using dose optimization techniques as appropriate, variously including the following: *Automated exposure control *Adjustment of mA and/or kV according to patient size (this includes techniques or standardized protocols for targeted exams where dose is matched to indication/reason for exam; i.e. extremities or head) *Use of iterative reconstruction technique FINDINGS: There is no evidence of intracranial hemorrhage or extra-axial fluid collection. There is no mass effect, or edema. No CT evidence of acute territorial infarct. There is large territory cystic encephalomalacia throughout the left MCA territory in keeping with old infarct. There is a vacuo dilatation of the left lateral ventricle body, occipital horn, and temporal horn. There is wallerian degeneration of the left corticospinal tracts. Ventricles, sulci, and cisterns are otherwise normal in size and configuration for patient age. No hydrocephalus. No midline shift. Negative hyperdense MCA sign. Negative insular ribbon sign. Patchy periventricular and deep white matter hypoattenuation is consistent with mild to moderate small vessel ischemic changes. Normal pituitary. Mild atheromatous calcification of the bilateral carotid siphons. Globes and orbital contents image normally. No extracranial soft tissue abnormalities. The paranasal sinuses, mastoid air cells, and tympanic cavities are normally aerated. No suspicious bony abnormalities. There are no acute fractures evident. CT/CT head/brain wo IV con IMPRESSION: 1. No evidence of acute intracranial abnormality. 2. Cystic encephalomalacia throughout the entire left MCA territory, with ex vacuo dilatation of the left lateral ventricle. There is wallerian degeneration of the left corticospinal tracts. 3. Mild to moderate changes of small vessel ischemia. Electronically signed by: Mike Villalba MD 12/22/2024 02:36 PM EDT
--- NOTE | ~2024-12-21 | CT_ITS ---
CLINICAL HISTORY: ABD pain, constipation, new HORTENCIA CT abdomen and pelvis without IV contrast. COMPARISON: None provided. FINDINGS: Cardiac pacemaker lead present. Minimal atelectasis along the lung bases. Normal gallbladder. Noncontrast appearance of the liver, spleen, pancreas and adrenal glands are unremarkable. Moderate bilateral hydronephrosis. No renal or ureteral calculus. Normal appendix. Large amount of stool present within the distal sigmoid colon/rectum. No mesenteric or retroperitoneal lymphadenopathy. Moderate aortoiliac atherosclerotic vascular calcifications. Urinary bladder is distended. Prostate calcifications present. Flowing marginal osteophytes along the lower thoracic and lumbar spine. No acute fracture. Degenerative changes of the bilateral hips. IMPRESSION: 1. Moderate bilateral hydronephrosis with distention of the urinary bladder. No obstructing renal or ureteral calculus. Suspect a component of outlet obstruction, possibly secondary to large amount of stool within the distal sigmoid colon/rectum compressing the urethra. 2. Large colonic stool burden within the distal sigmoid colon/rectum. A component of fecal impaction may be present. This document has been electronically signed by: Evgeny Crews MD on 12/21/2024 12:53:13
--- NOTE | 2024-12-21 10:02 | PC.NURSE ---
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 He returned home from a 1 week vacation to a local yesterday. admits that he has been increasingly more weak, having a hard time transferring. He has been constipated over the past 8 days, typically he goes every 4-5 days. Has noticed a decrease in urination since (approximately 5 days ago) but admits the patient has not been hydrating very well. Patient lethargic but arrousable. Very slow to respond and difficulty noted with word choosing. shelter monitor applied and paced rhythm noted. Lungs essentially clear bilat. Respirations even and non-labored. Abdomen large soft, with positive bowel sounds. c/o generalized abdominal pain. 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 Erick wraps intact. Original Note: Medical History HTN (hypertension) CVA (cerebral vascular accident) Cardiac pacemaker in situ Chronic atrial fibrillation Surgical History History of permanent cardiac pacemaker placement
[2024-12-21 10:22] LABS: MANUAL DIFF FLAG NO
[2024-12-21 10:23] LABS: Hematocrit 48.9 % (42.0-52.0); Hemoglobin 16.2 g/dl (14.0-18.0); Imm Gran Abs Auto 0.08 X10*3/uL (0.00-0.03); Imm Gran Pct Auto 0.7 % (0.0-0.4); Lymphocytes Absolute Auto 0.6 X10*3/uL (1.2-4.9); Mean Corpuscular HGB Conc 33.1 g/dl (31.0-36.0); Mean Corpuscular Hemoglobin 30.3 pg (27.0-33.0); Mean Corpuscular Volume 91.4 fL (80.0-98.0); NRBC Abs Auto 0.000 X10*3/uL (0.0-0.012); NRBC Pct Auto 0.0 /100WBC (0.0-0.2); Platelet Count 207 X10*3/uL (160-400); Red Blood Count 5.35 X10*6/uL (4.60-5.80); White Blood Count 11.5 X10*3/uL (4.8-10.8)
--- OUTSIDE RECORDS SUMMARY | 2024-12-21 10:24 | XMS_ITS | Data Portability ---
Author Organization [place] - Chriss Keating [facility], [facility] Address [address] [place] [address] Care Team Providers Care Feed Grinder Name Role Phone KIRILL TRACY Referring Provider [phone] Assessment Encounter Date Assessment Date Assessment LastModified by Organization Details LastModified Time 03/28/2024 03/28/2024 Assessment: Patient had improved ability to lift foot to tap TM however struggles to lift foot off and return to neutral. He was able to decrease UE assist to 1 finger hold while standing for 2min before needing to sit. Plan: Increase gait distance and LE flexibility, LE strength Not available 03/28/2024 12:15:50 04/11/2024 04/11/2024 Assessment: Patient has slight hamstring contraction, when in standing he uses tone until VC for quad activation. Able to maintain for about 5s before tone takes over. Enjoyed resisted sit to stands. Able to verbalize he is weak on R side. Plan: Increase gait distance and LE flexibility, LE strength Not available 04/11/2024 12:12:50 04/18/2024 04/18/2024 Assessment: Patient continues to have min hamstring contraction, improved when asked for bilateral contraction. Discussed continuation of care and plan. Plan: Increase gait distance and LE flexibility, LE strength Not available 04/18/2024 12:02:31 05/09/2024 05/09/2024 Assessment: Patient had increased quad strength today. Plan: DC to HEP Not available 05/09/2024 12:19:28 Plan of Treatment Reminders Order Date Submit Date Provider Last Modified By Organization Details Last Modified Time Details Appointments None record ed. Lab None record ed. Referral None record ed. Procedures None record ed. Surgeries None record ed. Imaging None record ed. Medication Orders None record ed. Patient TargetsNo targets recorded. Patient InstructionsNo instructions recorded. Reason for Referral None Reported. Problems Name Problem SNOMED Code Status Onset Date Resolution Date Notes Provider Name and Address Organization Details Recorded Time No complaints 733257715 Active Status : 'A'; Not Available [facility] 4 09:25:06 Pain of right knee joint 8848731204012 00 Active 2023 JOSE L'HEUREUX jeff, [facility] 4 09:11:57 Osteoarthr itis of right knee joint 5848432953877 00 Active 2024 Nellie Grider PA-C [address], [place], [address] , [facility] 5 21:01:49 Primary gonarthros is, bilateral 456369358 Active 2024 Nellie Grider PA-C [address], [place], [address] , [facility] 5 08:59:52 Problem Notes None recorded. Procedures Surgical History Date Name Laterality Status Provider Name and Address Organization Details Recorded Time 09/28/19 90191 Therapeutic Exercise (1:1) completed Beverly Aly PTA [address], [place], [address], [facility] 09/28/2023 13:35:19 09/28/19 67277: Neuromuscular Re-Education completed Beverly Aly [employer] MANAGER [address], [place], [address], [facility] 09/28/2023 13:35:09 09/25/19 94968: Therapeutic Activities (1:1) completed Beverly Aly PTA [address], [place], [address], [facility] 09/25/2023 12:10:47 09/25/19 26589 Therapeutic Exercise (1:1) completed Beverly Aly [employer]CHANGE FLOOR MANAGER [address], [place], [address], [facility] 09/25/2023 12:10:49 09/21/19 24 05740 Therapeutic Exercise (1:1) completed Beverly Aly [employer]CHANGE FLOOR MANAGER [address], [place], [address], [facility] 09/21/2023 12:30:32 09/21/19 24 07964: Gait training completed Beverly Aly EXCHANGE FLOOR MANAGER [address], [place], [address], [facility] 09/21/2023 12:30:21 09/18/19 24 28631 Therapeutic Exercise (1:1) completed Beverly Aly EXCHANGE FLOOR MANAGER [address], [place], [address], [facility] 09/18/2023 11:52:38 09/18/19 24 94389: Gait training completed Beverly Aly EXCHANGE FLOOR MANAGER [address], [place], [address], [facility] 09/18/2023 11:53:08 09/14/19 24 44017: Therapeutic Activities (1:1) completed Beverly Aly PTA [address], [place], [address], [facility] 09/14/2023 12:31:38 09/14/19 24 30048 Therapeutic Exercise (1:1) completed eBverly Aly EXCHANGE FLOOR MANAGER [address], [place], [address], [facility] 09/14/2023 12:31:32 09/11/19 24 58657 Therapeutic Exercise (1:1) completed Beverly Aly EXCH[employer] FLOOR MANAGER [address], [place], [address], [facility] 09/11/2023 11:58:48 09/11/19 24 01230: Gait training completed Beverly Aly EXCHANGE FLOOR MANAGER [address], [place], [address], [facility] 09/11/2023 11:59:01 09/07/19 56401: Therapeutic Activities (1:1) completed Beverly Aly EXCHANGE FLOOR MANAGER [address], [place], [address], [facility] 09/07/2023 12:51:52 09/07/19 32420 Therapeutic Exercise (1:1) completed Beverly Aly EXCHANGE FLOOR MANAGER [address], [place], [address], [facility] 09/07/2023 12:51:52 09/04/19 56285: Therapeutic Activities (1:1) completed Beverly Aly EXCHANGE FLOOR MANAGER [address], [place], [address], [facility] 09/04/2023 11:54:30 09/04/19 74842 Therapeutic Exercise (1:1) completed Beverly Aly EXCH[employer] FLOOR MANAGER [address], [place], [address], [facility] 09/04/2023 11:54:33 08/28/19 61577: Therapeutic Activities (1:1) completed Beverly Aly EXCHANGE FLOOR MANAGER [address], [place], [address], [facility] 08/28/2023 11:54:34 08/28/19 57236 Therapeutic Exercise (1:1) completed Beverly Aly EXCHANGE FLOOR MANAGER [address], [place], [address], [facility] 08/28/2023 11:53:24 08/24/19 26703 Therapeutic Exercise (1:1) completed Beverly Aly EXCHANGE FLOOR MANAGER [address], [place], [address], [facility] 08/24/2023 16:50:17 08/24/19 09532: Gait training completed Beverly Aly EXCHANGE FLOOR MANAGER [address], [place], [address], [facility] 08/24/2023 16:50:15 08/21/19 24 31518 Therapeutic Exercise (1:1) completed Beverly Sheeba, EXCHANGE FLOOR MANAGER [address], [place], [address], [facility] 08/20/2023 18:08:28 08/21/19 24 78352: Gait training completed Beverly Sheeba, EXCHANGE FLOOR MANAGER [address], [place], [address], [facility] 08/20/2023 18:08:28 08/17/19 24 14763 Therapeutic Exercise (1:1) completed Beverly Sheeba, EXCHANGE FLOOR MANAGER [address], [place], [address], [facility] 08/17/2023 11:15:00 08/17/19 24 84000: Gait training completed Beverly Sheeba, EXCHANGE FLOOR MANAGER [address], [place], [address], [facility] 08/17/2023 11:15:00 08/14/19 24 77793 Therapeutic Exercise (1:1) completed Beverly Sheeba, EXCHANGE FLOOR MANAGER [address], [place], [address], [facility] 08/14/2023 11:59:16 08/14/19 24 71426: Gait training completed Beverly Sheeba, EXCHANGE FLOOR MANAGER [address], [place], [address], [facility] 08/14/2023 12:00:19 Imaging Results None recorded. Procedure Notes None recorded. Medical Equipment None Reported. Allergies Allergen ID Allergen Name Allergen Category Reaction Reaction Severity Criticality Documentation Date Start Date Code Code System Note Provider Name and Address Organization Details Recorded Time 341348 codeine medicatio n Not available Not available Not available 10/12/2023 2670 RxNorm KAYLIA L'HEUREUX [facility] 09:09:44 Medications Name Sig Start Date Stop Date Status Note LastModified by Organization Details LastModified Time doxycycline hyclate 100 mg capsule 10/11 completed Not Available Not Available Not Available atorvastatin 20 mg tablet active Not Available Not Available No t Available fluorouracil 5 % topical cream active Not Available Not Availabl e Not Available ciprofloxacin 500 mg tablet 10/11 completed Not Available Not Available Not Available baclofen 20 mg tablet active Not Available Not Available Not Available terazosin 2 mg capsule active Not Available Not Available Not Available nystatin 100,000 unit/gram topical cream active Not Available Not Availabl e Not Available lisinopril 10 mg tablet active Not Available Not Available Not Available amoxicillin 875 mg-potassium clavulanate 125 mg tablet 10/11 completed Not Available Not Available Not Available nitrofurantoin monohydrate/macr ocrystals 100 mg capsule active Not Available Not Available Not Available Nyamyc 100,000 unit/gram topical powder 10/11 completed Not Available Not Available Not Available Eliquis 5 mg tablet active Not Available Not Available Not Available Vitals Date Recorded Body height Body mass index (BMI) Body weight Provider Name and Address Organization Details Last Updated DateTime 09/25/2024 187.96 cm 36.6 kg/m2 732854.83 g [facility] 09/25/2024 08:41:38 Social History Question Answer Notes LastModified by [employer] Details LastModified Time Tobacco Smoking Status Never Smoker JOSE JUDIE [facility] 10/12/2023 09:10:51 What Is Your Relationship Status? Single Information not available 10/12/2023 Sex: Unknown Functional Status Question Answer Note LastModified by [employer] Details LastModified Time Do you use any illicit or recreational drugs? No Information not available 10/12/2023 Do you or have you ever used any other forms of tobacco or nicotine? No Information not available 10/12/2023 What is your level of alcohol consumption? None Information not available 10/12/2023 Mental Status None recorded. Family History Nothing Reported. Medical History Condition Response Allergies/Hayfever N Coronary Artery Disease N Anxiety/Depression N Breathing or lung disorders N Emphysema N Nerve Disorders N Thyroid Problems N COPD N Pacemaker N Anemia N Kidney/Bladder Problems N Vascular Disease N Heart Trouble N Heart Attack ([place]) N Gastrointestinal Disease N Cholesterol Y Diabetes N Autoimmune disease N Bleeding Disorder N Orthotics N Arthritis Y Seizures/Epilepsy N Blood Clot N AIDS/HIV N Congestive Heart Failure (CHF) N Acid Reflux (GERD) N Cancer N Stroke Y Asthma N Circulation Problems N Peripheral Vascular Disease N Sleep Apnea N Hepatitis N Heart Disease N Rheumatoid Arthritis N Arrhythmia N Pulmonary Embolism N Headaches N Fibromyalgia N Hypertension Y Osteoporosis N Past Encounters Encounter ID Performer Location Encounter Start Date Encounter Closed Date Diagnosis/Indication Diagnosis SNOMED-CT Code Diagnosis ICD10 Code Diagnosis Note [id number] Beverly Aly PTA [place] [facility] [address] [place] [address] 08/14/2023 10:48:50 08/14/2023 13:22:14 Muscle weakness 21220068 M62.81 R26.2 [id number] Beverly Aly [employer]OR MANA[employer] [place] [facility] [address] [place] [address] 08/17/2023 11:09:42 08/17/2023 12:27:27 Muscle weakness 00253047 M62.81 R26.2 [id number] Beverly Aly PTA [place] [facility] [address] [place] [place] [address] 08/21/2023 10:52:44 08/21/2023 13:13:07 Muscle weakness 33203368 M62.81 R26.2 [id number] Beverly Aly PTA [place] [facility] [address] [place] [address] 08/24/2023 15:35:22 08/24/2023 16:51:08 Muscle weakness [id number] M62.81 R26.2 [id number] Beverly Aly PTA [place] [facility] [address] [place] [place] [address] 08/28/2023 10:40:01 08/28/2023 13:37:43 Muscle weakness 86280183 M62.81 R26.2 [id number] Beverly Aly [employer]CH[employer] FLOOR MANA[employer] [place] [facility] [address] [place] [place] [address] 09/04/2023 10:43:53 09/04/2023 12:23:11 Muscle weakness 01805590 M62.81 R26.2 [id number] Beverly Aly [employer]CH[employer] FLOOR MANA[employer] [place] [facility] [address] [facility] [place] [address] 09/07/2023 11:09:32 09/07/2023 12:53:44 Muscle weakness [id number] M62.81 R26.2 [id number] Beverly Aly, EXCH[employer] FLOOR MANAGER [place] [facility] [address] [place] [address] 09/11/2023 10:41:19 09/11/2023 13:13:56 Muscle weakness [id number] M62.81 R26.2 [id number] Beverly Aly, EXCH[employer] FLOOR MANAGER [place] [facility] [address] [place] [address] 09/14/2023 11:06:52 09/14/2023 12:37:20 Muscle weakness [id number] M62.81 R26.2 [id number] Beverly Aly, EXCH[employer] FLOOR MANAGER [place] [facility] [address] [place] [address] 09/18/2023 10:48:40 09/18/2023 12:25:44 Muscle weakness [id number] M62.81 R26.2 [id number] Beverly Aly, EXCH[employer] FLOOR MANAGER [facility] [facility] [address] [place] [address] 09/21/2023 11:07:03 09/21/2023 12:36:01 Muscle weakness [id number] M62.81 R26.2 [id number] Beverly Aly, [employer]CH[employer] FLOOR MANAGER [facility] [facility] [address] [place] [address] 09/25/2023 10:39:31 09/25/2023 13:29:19 Muscle weakness [id number] M62.81 R26.2 [id number] Beverly Aly, EXCH[employer] FLOOR MANA[employer] [place] [facility] [address] [place] [address] 09/28/2023 11:13:24 09/28/2023 12:48:52 Muscle weakness 87511442 M62.81 R26.2 [id number] Beverly Aly, [employer]CH[employer] MANA[employer] [facility] [facility] [address] [place] [address] 10/02/2023 10:43:50 10/02/2023 13:04:07 Muscle weakness [id number] M62.81 R26.2 [id number] Beverly Aly, EXCH[employer] FLOOR MANAGER [facility] [facility] [address] [place] [address] 10/05/2023 11:06:55 10/05/2023 12:57:49 Muscle weakness [id number] M62.81 R26.2 [id number] Beverly Aly, EXCH[employer] FLOOR MANAGER [facility] [facility] [address] [place] [address] 10/09/2023 10:49:04 10/09/2023 12:51:53 Muscle weakness [id number] M62.81 R26.2 [id number] [facility] [address] [place] [address] 10/12/2023 08:51:31 11/05/2023 11:21:29 Pain of right knee joint 2038681200 64208 M25.561 Osteoarthr itis of right knee joint 0867382298 34036 M17.11 [id number] Beverly Aly, EXCH[employer] FLOOR MANAGER [place] [facility] [address] [place] [address] 10/16/2023 10:47:52 10/16/2023 12:58:11 Muscle weakness [id number] M62.81 R26.2 [id number] Beverly Aly, EXCH[employer] FLOOR MANAGER [facility] [facility] [address] [place] [address] 10/19/2023 11:02:19 10/19/2023 12:51:24 Muscle weakness [id number] M62.81 R26.2 [id number] Beverly Aly, EXCH[employer] FLOOR MANAGER [facility] [address] [place] [address] 10/23/2023 10:45:11 10/23/2023 13:01:12 Muscle weakness [id number] M62.81 R26.2 [id number] Beverly Aly, EXCH[employer] FLOOR MANAGER [facility] [address] [place] [address] 10/26/2023 11:05:24 10/26/2023 13:03:38 Muscle weakness [id number] M62.81 R26.2 [id number] Beverly Aly, EXCH[employer] FLOOR MANAGER [facility] [address] [place] [address] 11/02/2023 11:13:37 11/02/2023 13:11:37 Muscle weakness [id number] M62.81 R26.2 [id number] Beverly Aly, EXCH[employer] FLOOR MANAGER [facility] [facility] [address] [place] [address] 11/06/2023 10:46:13 11/06/2023 12:56:44 Muscle weakness [id number] M62.81 R26.2 [id number] Beverly Aly EXCH[employer] F[employer]OR MANA[employer] [facility] [facility] [address] [place] [address] 11/09/2023 10:56:53 11/09/2023 12:52:53 Muscle weakness [id number] M62.81 R26.2 [id number] Beverly Aly, EXCH[employer] FLOOR MANAGER [place] [facility] [address] [place] [address] 11/13/2023 10:46:00 11/13/2023 12:44:00 Muscle weakness [id number] M62.81 R26.2 [id number] Beverly Aly EXCH[employer] FLOOR MANAGER [facility] [facility] [address] [place] [address] 11/16/2023 11:12:38 11/16/2023 12:52:39 Muscle weakness [id number] M62.81 R26.2 [id number] Beverly Aly [employer]CH[employer] FLOOR MANAGER [facility] [address] [place] [address] 11/20/2023 10:40:31 11/20/2023 13:42:53 Muscle weakness [id number] M62.81 R26.2 [id number] Beverly Aly EXCH[employer] FLOOR MANA[employer] [facility] [address] [place] [address] 12/04/2023 10:46:33 12/04/2023 12:59:16 Muscle weakness [id number] M62.81 R26.2 [id number] Beverly Aly, EXCH[employer] FLOOR MANAGER [facility] [address] [place] [address] 12/11/2023 10:48:01 12/11/2023 12:47:13 Muscle weakness [id number] M62.81 R26.2 [id number] Beverly Aly, EXCH[employer] FLOOR MANAGER [facility] [address] [place] [address] 12/14/2023 11:17:56 12/14/2023 12:49:22 Muscle weakness [id number] M62.81 R26.2 [id number] Beverly Aly, EXCH[employer] FLOOR MANAGER [facility] [address] [place] [address] 12/25/2023 10:43:53 12/25/2023 12:35:59 Muscle weakness [id number] M62.81 R26.2 [id number] Beverly Aly EXCH[employer] FLOOR MANA[employer] [facility] [facility] [address] [place] [address] 12/28/2023 10:58:13 12/28/2023 13:01:40 Muscle weakness [id number] M62.81 R26.2 [id number] Beverly Aly, EXCH[employer] FLOOR MANAGER [facility] [facility] [address] [place] [address] 01/01/2024 10:44:49 01/01/2024 13:59:17 Muscle weakness [id number] M62.81 R26.2 [id number] Beverly Aly EXCH[employer] FLOOR MANAGER [facility] [address] [place] [address] 2024 11:18:07 2024 12:55:59 Muscle weakness [id number] M62.81 R26.2 [id number] Beverly Aly EXCH[employer] FLOOR MANA[employer] [facility] [address] [place] [address] 01/08/2024 10:44:27 01/08/2024 13:38:31 Muscle weakness [id number] M62.81 R26.2 [id number] Beverly Aly, EXCH[employer] FLOOR MANAGER [facility] [address] [place] [address] 01/11/2024 11:13:43 01/11/2024 12:47:55 Muscle weakness [id number] M62.81 R26.2 [id number] Beverly Aly, EXCH[employer] FLOOR MANAGER [facility] [facility] [address] [place] [address] 01/15/2024 10:41:11 01/15/2024 13:04:51 Muscle weakness [id number] M62.81 R26.2 [id number] Beverly Aly, EXCH[employer] FLOOR MANAGER [facility] [facility] [address] [place] [address] 01/18/2024 10:55:44 01/18/2024 13:00:25 Muscle weakness [id number] M62.81 R26.2 [id number] Beverly Aly EXCH[employer] FLOOR MANAGER [facility] [address] [place] [address] 01/22/2024 10:39:05 01/23/2024 09:21:02 Muscle weakness [id number] M62.81 R26.2 [id number] Beverly lAy [employer]CH[employer] FLOOR MANAGER [facility] [facility] [address] [place] [address] 01/25/2024 11:15:46 01/25/2024 12:52:52 Muscle weakness [id number] M62.81 R26.2 [id number] Beverly Aly EXCH[employer] FLOOR MANAGER [facility] [address] [place] [address] 01/29/2024 10:46:09 01/29/2024 13:12:52 Muscle weakness [id number] M62.81 R26.2 [id number] Beverly Aly EXCH[employer] FLOOR MANA[employer] [facility] [address] [place] [address] 02/01/2024 11:16:35 02/01/2024 12:56:09 Muscle weakness [id number] M62.81 R26.2 [id number] Beverly Aly EXCH[employer] FLOOR MANAGER [facility] [facility] [address] [place] [address] 02/08/2024 11:14:23 02/08/2024 12:51:52 Muscle weakness [id number] M62.81 R26.2 [id number] Beverly Aly EXCH[employer] FLOOR MANAGER [facility] [address] [place] [address] 02/12/2024 10:52:42 02/12/2024 13:09:33 Muscle weakness [id number] M62.81 R26.2 [id number] Beverly Aly EXCH[employer] FLOOR MANA[employer] [facility] [address] [place] [address] 02/15/2024 11:15:20 02/15/2024 13:57:51 Muscle weakness [id number] M62.81 R26.2 [id number] Beverly Sheeba, EXCH[employer] FLOOR MANAGER [facility] [address] [place] [address] 02/22/2024 11:02:35 02/22/2024 12:54:47 Muscle weakness [id number] M62.81 R26.2 [id number] Beverly Aly, EXCH[employer] FLOOR MANAGER [facility] [address] [place] [address] 02/29/2024 11:14:06 02/29/2024 12:58:57 Muscle weakness [id number] M62.81 R26.2 [id number] Beverly Aly, EXCH[employer] FLOOR MANAGER [facility] [address] [place] [address] 03/07/2024 11:12:50 03/07/2024 13:14:44 Muscle weakness [id number] M62.81 R26.2 [id number] Beverly Aly, EXCH[employer] FLOOR MANAGER [facility] [address] [place] [address] 03/21/2024 11:29:20 03/21/2024 12:50:10 Muscle weakness [id number] M62.81 R26.2 [id number] Beverly Aly, EXCH[employer] FLOOR MANAGER [facility] [address] [place] [address] 03/28/2024 11:10:50 03/28/2024 12:57:48 Muscle weakness [id number] M62.81 R26.2 [id number] Beverly Aly, EXCH[employer] FLOOR MANAGER [facility] [address] [place] [address] 04/11/2024 11:23:35 04/11/2024 12:45:34 Muscle weakness [id number] M62.81 R26.2 [id number] Beverly Aly, EXCH[employer] FLOOR MANAGER [facility] [address] [place] [address] 04/18/2024 11:15:14 04/18/2024 13:18:32 Muscle weakness [id number] M62.81 R26.2 [id number] Beverly Aly, EXCH[employer] FLOOR MANAGER [facility] [address] [place] [address] 05/09/2024 11:37:10 05/09/2024 12:50:00 Muscle weakness [id number] M62.81 R26.2 [id number] TODD Acosta - [place] [address] [place] [address] 09/25/2024 08:13:54 10/02/2024 15:22:02 Osteoarthritis of right knee joint 6619032401 61315 M17.11 Primary go narthrosis, bilateral [id number] M17.0 Health Concerns Section Related Observation LastModified by Organization Detai ls LastModified Time None Recorded Concern Status LastModified by Organization Details LastModified Time None Recorded Advance Directives Directive None Recorded Payers Insurance Date Sequence Insurance Name Policy Number Policy Murrell Covered Member ID Murrell Member ID Guarantor Name 10/02/2024 2 [place] [id number] Jayden Mendiola [id number] Jayden Mendiola 09/25/2024 3 [place] [facility] Jayden Mendiola [id number] Jayden Mendiola 09/25/2024 1 [place] [employer] Jayden Stefanie Maury [id number] Jayden Mendiola Notes Date Note Type Note Provider Name and Address Organization Details Recorded Time 03/28/2024 text/html Patient arrives with Dari and reports they have been working on kicking the noodle at home and standing in OT with reaching. Beverly Aly, EXCHANGE FLOOR MANAGER [address] [facility], [place], [address], [facility] 03/28/2024 12:16:11 04/11/2024 text/html Patient arrives with Dari and reports he did some HEP. He states he is not strong and his L knee is sore. Beverly Aly EXCHANGE FLOOR MANAGER [address], [place], [address], [facility] 04/11/2024 12:13:04 04/18/2024 text/html Patient arrives with Dari. He has been standing and walking at home, he had OT and speech this week as well. Beverly Aly EXCHANGE FLOOR MANAGER [address], [place], [address], [facility] 04/18/2024 12:03:37 05/09/2024 text/html Patient arrives with Dari today and states that she called the few neuro rehab outpatients which all have a wait list or are private pay and have made the decision to make today his last session. He is doing well overall and feels they can continue with his HEP. Beverly Sheeba, EXCHANGE FLOOR MANAGER [address], [place], [address], [place] - [facility] 05/09/2024 12:21:12 09/25/2024 text/html *I am seeing the patient today under the supervision of Dr. De Anda who was available but who did not see the patient.HPI: Jayden presents to the office today accompanied by his for a recheck of his right knee. He has a history of a stroke with aphasia, therefore majority of subjective information is obtained from his . He received a cortisone injection at his last visit in October 2023 which provided him with excellent pain relief up until recently. He previously participated in physical therapy and has been performing a home exercise program. Due to compensating for his right knee his left knee is also painful. His symptoms are similar to the right side. Denies any instability.PMH/PSH/M EDS/ALL/FMH/SOC HX/ROS are reviewed in detail per my medical intake sheet. General Exam: Vital signs are as noted belowMental status: Alert and lucid. Normal insight, affect and grooming.HR PAYROLL COORDINATOR: Gross motor coordination is intact. No spasticity or clonus noted. EXAMINATION: The patient is well appearing and in no apparent distress. Alert and oriented x3. He presents in a wheelchair. Bilateral knees reveal no deformity upon inspection. No joint effusion, edema, erythema, ecchymosis, or lesions. Neurovascularly intact. Tenderness present along the medial joint line. ROM is from -5-110 . Patellofemoral crepitus noted. Stability intact with anterior, posterior, and varus/valgus stress at both 0 and 30 degrees of flexion. Positive flexion pinch. 5/5 strength. Calf/leg compartments soft and compressible.Right hip exam reveals painless passive range of motion. No instability. 5/5 strength.X-rays performed previously have been reviewed IMPRESSION: Bilateral Knee osteoarthritisPLAN: The patient was thoroughly counseled today regarding their knee condition, its natural history, and conservative versus surgical treatment options. The patient is interested in receiving an injection with corticosteroid.Bilate ral knees were okay. Prepped sterilely and an injection was administered utilizing 40mg of Kenalog and 5cc of 0.25% Marcaine. The patient tolerated the procedure well. Post-injection precautions were discussed. The patient is aware that the injection can be repeated as often as every 3 months. If his left knee is not improved following today's injection, we will obtain new x-rays at his next visit. All of his questions have been answered.[employer] [facility] speech recognition manager cargo software was used to create portions of this document. An attempt at proofreading has been made to minimize errors. Please call for corrections. Nellie Grider PA-C [address], [place], [address], [facility] - [facility] 09/25/2024 09:00:04
--- OUTSIDE RECORDS SUMMARY | 2024-12-21 10:24 | XMS_ITS ---
Author Name [facility] Organization Unknown Care Team Organization Name Specialty Phone Email Start Date End [facility] 04/18/2024
--- OUTSIDE RECORDS SUMMARY | 2024-12-21 10:24 | XMS_ITS | Patient Health Record ---
Author Organization [facility] Dedrick schaefer [place] Address [address] [facility] [place] [address] Care Team Providers Care Diving Judge Name Role Phone Yang Burgos MD Primary Care Provider Shellie Crocker Unavailable [phone] Rosa Sanchez Unavailable [phone] Allergies Allergen (clinical drug ingredient) Drug/Non Drug Allergy documented on EMR Reaction Allergy Type Onset Date Status codeine Codeine Unknown Drug Allergy Active Reason For Referral No Information Medications Medication SIG (Take, Route, Frequency, Duration) Notes Start Date End Date Status Atorvastatin Calcium 20 MG Orally Once a day Active Docusate Calcium Not -Taking Terazosin HCl 2 MG Orally Once a day Active Cranberry Not-Taking Lac-Hydrin Not-Takin g Doxycycline Hyclate 100 MG 1 capsule Orally Twice a day; Duration: 14 days Not-Taking Doxycycline Hyclate 100 MG 1 capsule Orally Twice a day; Duration: 10 days 04/03/2023 Not-Taking Doxycycline Hyclate 100 MG 1 capsule Orally Twice a day; Duration: 10 day(s) 06/17/2018 Not-Taking Cipro 500 MG 1 tablet Orally every 12 hrs; Duration: 7 days 08/11/2019 Not-Taking Bactrim DS 800-160 MG 1 tablet Orally every 12 hrs; Duration: 10 day(s) 06/11/2018 Not-Taking Amoxicillin 500 MG 1 capsule Orally every 8 hrs Not-Taking Bisacodyl Not-Taking Doxycycline Monohydrate 100 MG 1 capsule Orally Once a day; Duration: 10 days 10/15/2024 Active Senokot Not-Taking Acetaminophen Active Lisinopril 10 MG Orally Act tere Alum & Mag Hydroxide-Simeth Not-Taking Aspirin 81 MG Orally Once a day Active Cipro 500 MG 1 tablet Orally every 12 hrs; Duration: 14 days 09/17/2018 Not-Taking Eliquis Active AFO-fixed . 1 . Wear daily; Duration: . 06/11/2018 Not-Taking Baclofen 20 mg 2x a day Active Doxycycline Monohydrate 100 MG 1 capsule Orally every 12 hrs; Duration: 7 days 05/14/2019 Not-Taking Cipro 500 MG 1 tablet Orally every 12 hrs; Duration: 10 day(s) 05/30/2019 Not-Taking Iodosorb 0.9 % as directed Externally Apply to ulceration daily with dry sterile dressing; Duration: 30 days 05/30/2019 Not-Taking Cipro 500 MG 1 tablet Orally every 12 hrs; Duration: 7 days 10/08/2018 Not-Taking Cipro 500 MG 1 tablet Orally every 12 hrs; Duration: 7 days 03/03/2019 Not-Taking Doxycycline Hyclate 100 MG 1 capsule Orally Twice a day; Duration: 14 days 02/26/2019 Not-Taking Cipro 500 MG 1 tablet Orally every 12 hrs; Duration: 7 days 05/19/2019 Not-Taking Doxycycline Hyclate 100 MG 1 capsule Orally Twice a day; Duration: 10 day(s) 02/23/2020 Not-Taking Doxycycline Hyclate 100 MG 1 capsule Orally Twice a day; Duration: 10 day(s) 06/28/2022 Not-Taking Doxycycline Hyclate 100 MG 1 capsule Orally Twice a day; Duration: 10 day(s) 09/07/2020 Not-Taking Cipro 500 MG 1 tablet Orally every 12 hrs; Duration: 7 days 04/09/2023 Not-Taking Immunizations Vaccine Route Administration Date Status Comme nts COVID-19 Pfizer BioNTech Vaccine Unknown 03/05/2021 Administered First Dose: 07/26/2020 Seond Dose: 08/18/2020 Social History Tobacco Use: Social History Observation Description Date Details (start date - stop date) Never Smoker NA - NA Tobacco Use/Smoking Question Answer Notes Are you a: nonsmoker Additional Findings: Tobacco Non-User Current no n-smoker Alcohol Screen Question Answer Notes Did you have a drink containing alcohol in the p ast year? No Points 0 Interpretation Negative Tobacco use other than smoking: Question Answer Notes Are you an other tobacco user? 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) Active confirmed Vital Signs Blood pressure diastolic 75 mm Hg 11/26/2024 Height 6ft2in in 11/26/2024 Blood pressure systolic 120 mm Hg 11/26/2024 Weight 270 lbs 11/26/2024 BMI 34.66 kg/m2 11/26/2024 Encounters Encounter Location Date Provider Diagnosis [address] [address] 02/13/2024 Shellie Perica Neuropathy due to medical condition G63 ; Atherosclerosis of artery of both lower extremities I70.203 and Tinea unguium B35.[address] [address] 04/22/2024 Shellie Perica Neuropathy due to medical condition G63 ; Atherosclerosis of artery of both lower extremities I70.203 and Tinea unguium B35.[address] [address] 07/04/2024 Shellie Perica Atherosclerosis of artery of both lower extremities I70.203 ; Dependent rubor L53.9 ; Neuropathy due to medical condition G63 and Tinea unguium B35.[address] [address] 09/17/2024 Shellie Perica Dependent rubor L53. 9 ; Peripheral venous insufficiency I87.2 ; Atherosclerosis of artery of both lower extremities I70.203 ; Neuropathy due to medical condition G63 and Tinea unguium B35.[address] [address] 10/15/2024 Rosa Sanchez Wound cellulitis L03.90 and Cellulitis of right lower extremity L03.[address] [address] 11/26/2024 Shellie Griffith Peripheral venous insufficiency I87.2 ; Atherosclerosis of artery of both lower extremities I70.203 ; Neuropathy due to medical condition G63 ; Tinea unguium B35.1 ; Lymphedema I89.0 and Pressure injury of right ankle, stage [address] [address] 10/10/2024 Shellie Gonzalezjustina [address] [address] 10/15/2024 Rosa Sanchez Assessments Encounter Date Diagnosis (ICD Code) Assessment Notes Treatment Notes Treatment Clinical Notes Section Notes 02/13/2024 Neuropathy due to medical condition (ICD-10 - G63) 07/04/2024 Dependent rubor (ICD-10 - L53.9) 07/04/2024 Atherosclerosis of artery of both lower extremities (ICD-10 - I70.203) 04/22/2024 Neuropathy due to medical condition (ICD-10 - G63) 09/17/2024 Dependent rubor (ICD-10 - L53.9) 09/17/2024 Peripheral venous insufficiency (ICD-10 - I87.2) 10/15/2024 Cellulitis of right lower extremity (ICD-10 - L03.115) 10/15/2024 Wound cellulitis (ICD-10 - L03.90) 11/26/2024 Atherosclerosis of artery of both lower extremities (ICD-10 - I70.203) 11/26/2024 Peripheral venous insufficiency (ICD-10 - I87.2) 04/22/2024 Atherosclerosis of artery of both lower extremities (ICD-10 - I70.203) 11/26/2024 Neuropathy due to medical condition (ICD-10 - G63) 09/17/2024 Atherosclerosis of artery of both lower extremities (ICD-10 - I70.203) 07/04/2024 Neuropathy due to medical condition (ICD-10 - G63) 02/13/2024 Atherosclerosis of artery of both lower extremities (ICD-10 - I70.203) 02/13/2024 Tinea unguium (ICD-10 - B35.1) 04/22/2024 Tinea unguium (ICD-10 - B35.1) 09/17/2024 Neuropathy due to medical condition (ICD-10 - G63) 07/04/2024 Tinea unguium (ICD-10 - B35.1) 11/26/2024 Tinea unguium (ICD-10 - B35.1) 11/26/2024 Lymphedema (ICD-10 - I89.0) 09/17/2024 Tinea unguium (ICD-10 - B35.1) 11/26/2024 Pressure injury of right ankle, stage 1 (ICD-10 - L89.511) Plan Of Treatment Pending Test Test Name Order Date X ray : Foot, right 2V 09/10/2018 *CBC With Differential/Platelet 04/03/20 23 C-Reactive Protein, Quant 04/03/2023 *Wound Culture 09/10/2018 Comp. Metabolic Panel (14) 04/03/2023 ESR 04/03/2023 X ray : Foot, right 3V 10/08/2018 X ray : Foot, right 3V 06/11/2018 [id number] NAIL, 6 OR MORE 06/11/2018 [id number] SKIN/TISSUE 06/11/2018 [id number] SKIN LESIONS, OVER 4 06/11/19 19 X ray : Ankle, right 3V 06/28/2022 X ray : Ankle, right 3V 04/03/2023 Next Appt Details Provider Name:Shellie horn, 02/13/2025 01:30:00 PM, [address], [place], [address], Insurance Providers Payer Name Payer Address Payer Phone Subscriber Number Group Number Insured Name Patient Relationship to Insured Coverage Start Date Coverage End Date Medicare National [facility] [employer] [address] [place] [phone] [id number] Jayden Mendiola Self - patient is the insured 8 [facility] Others [address] [place] [address] [phone] [id number] Jayden Mendiola Self - patient is the insured Medical (General) History Medical History History ICD Code Anxiety Measles Hypertension Stroke ulcer Surgical History Surgery Date(Month/Year) achilles tendon pacemaker HT repair R grt toe, Bone biopsy R grt t oe, Exision skinlesion 10/03/2018 Hospitalization History Reason Date(Month/Year)
--- OUTSIDE RECORDS SUMMARY | 2024-12-21 10:24 | XMS_ITS | Clinical Summary ---
Author Organization [facility] Address [address] [address] Phone Care Team Providers Care Biomedical Engineering Technician Name Role Phone Yang Burgos MD Unavailable [phone] Yang Burgos MD Primary Care Provider [phone] Medications apixaban (ELIQUIS) 5 mg tablet Orally Twice a day Active thiamine (VITAMIN B-1) 100 MG tablet 1 tablet Orally Once a day Active Medication-Free Text Terazosin HCl 2 MG Tablet, Si Orally Once a day Active senna (SENOKOT) 8.6 mg tablet 2 tablets at bedtime as needed Orally Once a day Active lisinopril (PRINIVIL,ZESTRI L) 10 MG tablet Take 1 tablet by mouth daily. Active folic acid (FOLVITE) 1 MG tablet Take 1 tablet by mouth daily. Active CRANBERRY FRUIT EXTRACT (CRANBERRY ORAL) 2 capsules Orally Twice a day Active Medication-Free Text Baclofen 5 ml Tablet, Si tablet with food or milk Orally Twice a day Active aspirin 81 MG EC tablet 1 tablet Orally Once a day Active acetaminophen (TYLENOL 8 HOUR) 650 MG CR tablet Orally as needed Active Medication-Free Text Ankle Splint/Night AirForm - Miscellaneous, Sig: Apply to right ankle Externally Daily when recumbent 7 Active silver sulfADIAZINE (SILVADENE) 1 % cream 1 application to affected area Externally Once a day 7 Active Medication-Free Text Foam Dressing Bordered 4 inches Pad, Si pad Externally Daily to R lateral malleolus ulcer Active Active Problems No known active problems Family History Medical History Relation Comments CV disease Father 2 Hypertension Father 2 Cancer Mother 2 Hypertension Mother 2 Relation Status Comments Father 1 Father 2 Mother 1 Alive Mother 2 Social History Tobacco Use Types Packs/Day Years Used Date Smoking Tobacco: Never Assessed Education Answer Date Recorded Are you interested in more education? Not on alina e 09/29/2022 Are you concerned about learning? Not on file 09/29/2022 No 09/29/2022 No 09/29/2022 Digital Access Answer Date Recorded No 10/24/2022 No 10/24/2022 Reliable internet access at home? Not on file 10/24/2022 Device with a working camera? Not on file Sex and Gender Information Value Date Recorded Sex Assigned at Not on file Legal Sex Male 10:34 PM EDT Gender Identity Not on file Sexual Orientation Not on file Last Filed Vital Signs Vital Sign Reading Time Taken Comments Blood Pressure 138/80 07/11/2016 11:35 AM EST Pulse 58 07/11/2016 11:35 AM EST Temperature - - Respiratory Rate - - Oxygen Saturation - - Inhaled Oxygen Concentration - - Weight - - Height - - Body Mass Index - - Plan of Treatment Health Maintenance Due Date Last Done Comments Adult Td,Tdap Booster 1961 CREATININE LEVEL 1961 LIPID PANEL 1961 POTASSIUM LEVEL 1961 DEPRESSION SCREENING 1973 SMOKING Hx and SMOKELESS TOBACCO SCREENING 1974 HEPATITIS C SCREENING 1979 HIV ONE-TIME SCREENING (18-6 5 YEARS) 1979 COLOGUARD 2006 COLONOSCOPY 2006 COLORECTAL CANCER SCREENING 2006 FIT TEST 2006 FOBT 2006 SIGMOIDOSCOPY 2006 VIRTUAL COLONOSCOPY 2006 PNEUMOCOCCAL VACCINES (50+ years) (1 of 1 - PCV) 2011 ZOSTER VACCINES (1 of 2) 2011 COVID-19 VACCINE (4 - 2023-2 5 season) 2024 03/05/2021, 08/18/2020, 07/26/2020 RSV VACCINE (1 - 1-dose 75+ series) 01/05/2036 HEPATITIS A VACCINES Aged Out No long er eligible based on patient's age to complete this topic HIB VACCINES Aged Out No longer eligi ble based on patient's age to complete this topic MENINGOCOCCAL VACCINES (ACWY) Aged Out No longer eligible based on patient's age to complete this topic MENINGOCOCCAL VACCINES (B) Aged Out N o longer eligible based on patient's age to complete this topic Medical Devices Not on file Insurance MEDICARE PART A & B [facility] PPO [facility] [place] [id number] MEDICARE PART A & B [employer] OUT OF STATE PPO [facility] MEDICARE PART A & B [facility] OUT OF [facility] PPO [place] MEDICARE PART A & B [facility]PO [place] MEDICARE PART A & B [facility] PPO [facility] [place] [place] [id number] MEDICARE PART A & B [place] OUT OF STATE PPO [facility] MEDICARE PART A & B [facility] OUT STATE PPO [place] MEDICARE PART A & B [facility] PPO [place] MEDICARE PART A & B [facility] PPO [facility] Care Teams Biomedical Engineering Technician Relationship Specialty Start Date End Date Yang Burgos MD [address] [place] [address] [address] [place] [id number] PCP - General 06/07/17 Yang Burgos MD [address] [place] [address] [address] [place] [id number] Historical LMR Provider 03/22/17 Additional Source Comments The information contained in this document represents components of the legal health record. It is not the complete legal health record.[facility]
[2024-12-21 10:41] LABS: Alanine Aminotransferase < 6 U/L (0-40); Albumin Level 4.1 g/dL (3.5-5.0); Alkaline Phosphatase 74 U/L (39-117); Anion Gap 15 (12-20); Aspartate Amino Transferase 20 U/L (5-37); Blood Urea Nitrogen 26 mg/dL (9-16); Calcium 9.5 mg/dL (8.4-10.2); Carbon Dioxide 26 mmol/L (22-29); Chloride 102 mmol/L (96-108); Creatinine Clr Calc Pharmacy 49.1; Estimated Glomerular Filt Rate 28; Potassium 4.7 mmol/L (3.3-5.1); Sodium 138 mmol/L (135-145); Total Protein 6.9 g/dL (6.5-8.0)
--- NOTE | 2024-12-21 11:06 | ED.WEAKNESS ---
HPI - Weakness General Chief complaint: Weakness Stated complaint: CONSTIPATION PER EMS Time Seen by Provider: 12/21/24 09:53 Source: patient, family and EMS Mode of arrival: EMS Limitations: no limitations History of Present Illness ED Provider: Cris Thompson NP HPI Narrative: Patient is a 64-year-old male with a past medical history of hypertension, atrial fibrillation anticoagulated on Eliquis, cardiac pacemaker since 2017 secondary to complete heart block, CVA in 2016 with resultant right-sided hemiparesis, aphasia, wheelchair-bound predominantly with stand pivot transfers who presents emergency department via EMS with for evaluation. He returned home from a 1 week vacation to a local yesterday. admits that he has been increasingly more weak, having a hard time transferring. He has been constipated over the past 8 days, typically he goes every 4-5 days. Has noticed a decrease in urination since (approximately 5 days ago) but admits the patient has not been hydrating very well, as he does not want to have to urinate frequently. Denies dysuria, hematuria, foul odor to the urine. He has been seen by Urology through [facility] approximately 7 months ago and was started on Gemtesa as he was having urinary urgency but minimal voiding. Denies any fevers or chills. No chest pain or shortness of breath. No numbness or tingling of the extremities. Related Data Home Medications ?Medication ?Instructions ?Recorded ?Confirmed apixaban 5 mg tablet 5 mg PO BID 10/25/20 12/21/24 aspirin 81 mg tablet,delayed 81 mg PO DAILY 10/25/20 12/21/24 release (Adult Aspirin Regimen) atorvastatin 20 mg tablet 20 mg PO BEDTIME 10/25/20 12/21/24 baclofen 20 mg tablet 20 mg PO BID 12/21/24 12/21/24 furosemide 20 mg tablet 20 mg PO DAILY 12/21/24 12/21/24 spironolactone 50 mg tablet 50 mg PO DAILY 12/21/24 12/21/24 tamsulosin 0.4 mg capsule 0.4 mg PO BEDTIME 12/21/24 12/21/24 vibegron 75 mg tablet (Gemtesa) 75 mg PO DAILY 12/21/24 12/21/24 Allergies Allergy/AdvReac Type Severity Reaction Status Date / Time codeine (CODEINE) Allergy Unknown UNKNOWN Verified 12/21/24 09:56 Review of Systems Review of Systems: Yes all other systems are reviewed and are negative [facility] Past Medical History Attestation statement: The following information was validated with the patient. Source: old records reviewed Medical History HTN (hypertension) CVA (cerebral vascular accident) Cardiac pacemaker in situ Chronic atrial fibrillation Surgical History History of permanent cardiac pacemaker placement Family History Family History Father No problems noted. Mother No problems noted. Social History Social History Household Members: Significant Other Housing: House Do you presently have visiting nurse or other home services: No Patient Tobacco Use Status: Never used Tobacco Smoked in Last 30 Days: No Use of substances other than those prescribed or required for medical reasons: No Currently Displaying Signs/Symptoms of Drug Intoxication Withdrawal: No Have you been hit, kicked, punched, or otherwise hurt by someone within the past year? If so, by whom?: No Do you feel safe in your current relationship?: No Is there a partner from a previous relationship who is making you feel unsafe now?: No Are you made to feel afraid or neglected: No Advance Directives: No Advance Directives Information Provided: Yes Do you have a plan to hurt others: No Plan Recently lost weight without trying: No Poor oral hygiene: No service: No Physical Exam Exam: Exam: Appearance: Alert.?Oriented to person, place and time. No acute distress.?Normal affect. Eyes: Pupils equal, round and reactive to light.? ENT: Pharynx normal.?? Neck: Normal inspection.? Neck supple.?? CVS: Heart sounds normal. Normal heart rate and rhythm.? Pulses normal.?? Respiratory: No respiratory distress.? Lung sounds clear to auscultation bilaterally?? Abdomen: Semifirm, with diffuse tenderness upon palpation. Negative Rogers sign. No rebound tenderness at McBurney's point. Negative Rovsing and psoas sign. No CVA tenderness. Hypoactive bowel sounds. No pulsatile mass.?? Skin: Skin warm and dry.? Normal skin color.? Neuro: Baseline right-sided hemiparesis. Moving left upper and lower extremities spontaneously. Sensation is intact bilaterally. Nonambulatory at baseline Vital Signs: Vital Signs: Last Vital Signs Temp 99.0 F 12/22/24 08:00 Pulse 75 12/22/24 08:00 Resp 16 12/22/24 08:00 BP 180/90 H 12/22/24 08:00 Pulse Ox 96 12/22/24 08:00 O2 Del Method Room Air 12/22/24 08:00 BMI result Body Mass Index 39.1 Course Reevaluation(s) Reevaluation #1: CT of the abdomen and pelvis revealing moderate bilateral hydronephrosis with distention of the urinary bladder, no obstructing renal or ureteral calculus seen, concerning for bladder outlet obstruction which may be due to the large stool burden within the distal sigmoid colon/rectum. Plan for patient to receive enema. Patient was able to urinate after CT scan was initially incontinent, then was able to urinate on command, his 3+ leukocyte esterase as well as microscopic hematuria. Will cover with Rocephin, obtain blood cultures, will speak with hospitalist for admission to medicine service Reevaluation #2: Advised by ED education technician that patient is found to be febrile at this time 100.6, lactic acid will be obtained, we will provide acetaminophen for fever management, he is not hypotensive at this time. He has been admitted to medicine service. I reviewed this with Michael BEJARANO, at this time declines additional IV fluid bolus, not meeting sirs criteria as there was no leukocytosis, temp <100.9, no tachycardia. Time: 16:39 Reevaluation #3: Hospitalist in room to evaluate patient, telemetry with concerning tracing for ST-elevation noted in the III, asymptomatic at this time, on review of prior ECG from signal constructor's office, appears to have consistent findings; ventricular paced rhythm, similar QRS/ST morphology in all leads. This was reviewed with my ED attending Dr. Cifuentes who agrees that given the patient is currently asymptomatic, lower suspicion that this is STEMI, obtaining troponin for further evaluation at this time Time: 17:01 Medications Administered Generic Name Dose Route Start Last Admin Trade Name Freq PRN Reason Stop Dose Admin Amlodipine Besylate 5 mg 12/22/24 09:00 12/22/24 08:41 Amlodipine Besylate 5 Mg Tablet PO 5 mg DAILY OLVIN Administration Protocol Apixaban 5 mg 12/21/24 21:00 12/22/24 08:41 Apixaban 5 Mg Tablet PO 5 mg BID OLVIN Administration Aspirin 81 mg 12/22/24 09:00 12/22/24 08:41 Aspirin Enteric Coated 81 Mg Tablet. PO 81 mg DAILY OLVIN Administration Atorvastatin Calcium 20 mg 12/21/24 21:00 12/21/24 21:22 Atorvastatin Calcium 20 Mg Tablet PO 20 mg BEDTIME OLVIN Administration Baclofen 20 mg 12/21/24 21:00 12/22/24 08:41 Baclofen 20 Mg Tablet PO 20 mg BID OLVIN Administration Docusate Sodium 100 mg 12/21/24 21:00 12/22/24 08:41 Docusate Sodium 100 Mg Capsule PO 100 mg BID OLVIN Administration Ampicillin Sodium 1 gm/ Sodium 100 mls @ 200 mls/hr 12/22/24 08:15 12/22/24 09:32 Chloride IV Infused Q8H OLVIN Infusion Polyethylene Glycol 17 gm 12/22/24 09:00 12/22/24 08:41 Polyethylene Glycol 3350 17 Gm Powd.Pack PO 17 gm DAILY OLVIN Administration Sodium Chloride 3 ml 12/22/24 00:00 12/22/24 08:50 0.9 % Sodium Chloride Flush 3 Ml Syringe IVFLUSH 3 ml QSHIFT OLVIN Administration Discontinued Medications Generic Name Dose Route Start Last Admin Trade Name Freq PRN Reason Stop Dose Admin Acetaminophen 975 mg 12/21/24 16:43 12/21/24 17:47 Acetaminophen 325 Mg Tablet PO 12/21/24 16:44 975 mg ONCE ONE Administration Ceftriaxone Sodium 1 gm 12/21/24 16:02 12/21/24 16:41 Ceftriaxone Sodium 1 Gm Vial IVPUSH 12/21/24 16:03 1 gm ONCE ONE Administration Sodium Chloride 1,000 mls @ 999 mls/hr 12/21/24 11:15 12/21/24 13:00 Ns IV 12/21/24 12:15 Infused .Q1H1M OLVIN Infusion Lactated Ringer's 1,000 mls @ 100 mls/hr 12/21/24 19:00 12/22/24 06:47 Lr IVCONT 12/22/24 04:59 Infused .Q10H OLVIN Infusion Lactulose 30 gm 12/21/24 19:00 12/21/24 19:32 Lactulose 20 Gm/30 Ml Solution PO 12/21/24 19:01 30 gm ONCE ONE Administration Mineral Oil 133 ml 12/21/24 16:02 12/21/24 16:41 Mineral Oil Enema 133 Ml Enema IA 12/21/24 16:03 133 ml ONCE ONE Administration Medical Decision Making Medical Decision Making [facility] Narrative: Patient is a 64-year-old male with a past medical history of hypertension, atrial fibrillation anticoagulated on Eliquis, cardiac pacemaker since 2017 secondary to complete heart block, CVA in 2016 with resultant right-sided hemiparesis, aphasia, wheelchair-bound predominantly with stand pivot transfers who presents emergency department via EMS with for evaluation, of generalized weakness as per HPI and concern for constipation over the past 8 days. He baseline aphasia, is able to answer yes no questions, has a residual right-sided hemiparesis which per is not changed from baseline. He is afebrile without tachycardia, hypotension, no signs of systemic toxicity. Serum labs were obtained prior to my assumption of care CBC revealing a mild leukocytosis 11,500 with left shift. No electrolyte derangement. Found to have an HORTENCIA with BUN/creatinine 26/2.34. Per history from he has not been well hydrated and was outdoors a great deal [place] the [place] over the past [place]. I suspect that this is likely due to dehydration. He has diffuse abdominal tenderness on examination which is semifirm, no rigidity or guarding however. Have some degree of constipation resulting in distention as well. And to obtain CT of the abdomen and pelvis without contrast wall evaluate for hydronephrosis, obstructive uropathy, stool burden, bowel obstruction. Pending urinalysis at this time. Patient received 1 L normal saline IV fluid. Differential Diagnosis Differential Diagnoses: The differential diagnosis associated with the presentation includes (See narrative above) Admission/Observation Consideration of admission/observation: Escalation of care including admission/observation considered Lab Data MDM Lab Attestation statement: I reviewed the patient's lab results. (See narrative above) 12/21/24 10:16 12/22/24 06:14 Labs: Lab Results 12/21/24 12/21/24 12/21/24 Range/Units 10:16 11:10 15:33 WBC 11.5 H (4.8-10.8) X10*3/uL RBC 5.35 (4.60-5.80) X10*6/uL Hgb 16.2 (14.0-18.0) g/dl Hct 48.9 (42.0-52.0) % MCV 91.4 (80.0-98.0) fL MCH 30.3 (27.0-33.0) pg MCHC 33.1 (31.0-36.0) g/dl RDW 14.6 (11.0-16.0) % Plt Count 207 (160-400) X10*3/uL MPV 9.5 (9.4-12.4) fL Immature Gran % (Auto) 0.7 H (0.0-0.4) % Neut % (Auto) 80.6 H (45-73) % Lymph % (Auto) 5.6 L (20-40) % [place] % (Auto) 12.1 H (2-11) % Eos % (Auto) 0.6 (0-4) % Baso % (Auto) 0.4 (0-2) % Lymph # (Auto) 0.6 L (1.2-4.9) X10*3/uL [place] # (Auto) 1.4 H (0.1-1.2) X10*3/uL Eos # (Auto) 0.1 (0.0-0.4) X10*3/uL Baso # (Auto) 0.1 (0.0-0.2) X10*3/uL Abs Immat Gran (auto) 0.08 H (0.00-0.03) X10*3/uL Absolute Neuts (auto) 9.2 H (2.0-8.3) x10*3/uL Absolute Nucleated RBC 0.000 (0.0-0.012) X10*3/uL Nucleated RBC % (auto) 0.0 (0.0-0.2) /100WBC Sodium 138 (135-145) mmol/L Potassium 4.7 (3.3-5.1) mmol/L Chloride 102 (96-108) mmol/L Carbon Dioxide 26 (22-29) mmol/L Anion Gap 15 (12-20) BUN 26 H (9-16) mg/dL Creatinine 2.34 H (0.5-1.4) mg/dL Estim Creat Clear Calc 49.1 Estimated GFR 28 Random Glucose 130 H (60-115) mg/dL Calcium 9.5 (8.4-10.2) mg/dL Total Bilirubin 1.8 H (0.0-1.0) mg/dL AST 20 (5-37) U/L ALT < 6 (0-40) U/L Alkaline Phosphatase 74 (39-117) U/L Total Creatine Kinase 48 (38-174) U/L Total Protein 6.9 (6.5-8.0) g/dL Albumin 4.1 (3.5-5.0) g/dL Urine Color Yellow Urine Appearance Turbid Urine pH 5.5 (5.0-9.0) Ur Specific [place] 1.010 (1.005-1.025) Urine Protein 30 (1+) H (Neg-Trace) mg/dL Urine Glucose (UA) Negative (Negative) mg/dL Urine Ketones Negative (Negative) mg/dL Urine Blood Large (3+) H (Negative) Urine Nitrite Negative (Negative) Ur Leukocyte Esterase Large (3+) H (Negative) Urine RBC 0-2 (0-2) /HPF Urine WBC >50 H (0-5) /HPF Ur Squamous Epith Cells 0-2 (0-2) /HPF Urine Bacteria 4+ (None Seen) Hyaline Casts 0-2 (0-2) /LPF Influenza Type A (PCR) NEGATIVE (Negative) Influenza Type B (PCR) NEGATIVE (Negative) RSV RNA Qual (PCR) NEGATIVE (Negative) SARS-CoV-2 RNA (RT-PCR) NEGATIVE (Negative) Radiology Impression Discussion of test interpretation with radiology: I have reviewed the radiologist's reading. Radiologist Impression: CT abdomen and pelvis without IV contrast. COMPARISON: None provided. FINDINGS: Cardiac pacemaker lead present. Minimal atelectasis along the lung bases. Normal gallbladder. Noncontrast appearance of the liver, spleen, pancreas and adrenal glands are unremarkable. Moderate bilateral hydronephrosis. No renal or ureteral calculus. Normal appendix. Large amount of stool present within the distal sigmoid colon/rectum. No mesenteric or retroperitoneal lymphadenopathy. Moderate aortoiliac atherosclerotic vascular calcifications. Urinary bladder is distended. Prostate calcifications present. Flowing marginal osteophytes along the lower thoracic and lumbar spine. No acute fracture. Degenerative changes of the bilateral hips. IMPRESSION: 1. Moderate bilateral hydronephrosis with distention of the urinary bladder. No obstructing renal or ureteral calculus. Suspect a component of outlet obstruction, possibly secondary to large amount of stool within the distal sigmoid colon/rectum compressing the urethra. 2. Large colonic stool burden within the distal sigmoid colon/rectum. A component of fecal impaction may be present. Independent Historian Clinical information obtained from an independent historian. History obtained from or confirmed by: Spouse External Record Review External record reviewed: Outpatient record Chronic Conditions Patient?s care impacted by: Other (See narrative above) Critical Care Time Critical Care Time Critical Care Time: Yes Total Critical Care Time: 45 Attestation: Time is exclusive of separately billable procedures. Time includes: direct patient care, patient reassessment, coordination of patient care, interpretation of data (laboratory data, pulse oximetry, CT abdomen and pelvis), review of patient's medical records, medical consultation and documentation of patient care. Procedures excluded from critical care time: central intravenous line placement and electrocardiography. Discharge Plan Discharge Clinical Impression: HORTENCIA (acute kidney injury) Urinary tract infection Qualifiers: Urinary tract infection type: acute cystitis Hematuria presence: without hematuria Qualified Code(s): N30.00 - Acute cystitis without hematuria Constipation Qualifiers: Constipation type: unspecified constipation type Qualified Code(s): K59.00 - Constipation, unspecified Patient Disposition: Admitted As Inpatient Interventions: Admission Worksheet (ED) Last Done: 12/21/24 18:20 Discharge Date/Time: 12/21/24 20:48
[2024-12-21 12:10] LABS: Resp Syncy Virus RNA Qual PCR NEGATIVE (Negative); SARS COV2 PCR INHOUSE NEGATIVE (Negative)
--- NOTE | 2024-12-21 14:40 | PC.NURSE ---
Patient incontinent of a large amount of urine. Incontinence care and bed change provided.
[2024-12-21 15:44] LABS: Appearance Urine Turbid; Glucose Urine UA Negative (Negative); PH 5.5 (5.0-9.0); Specific Gravity - Urine 1.010 (1.005-1.025); UMIC TRIGGER UACC YES
[2024-12-21 16:00] LABS: UACC Culture Trigger YES
--- NOTE | 2024-12-21 16:51 | MHC.EDTECH ---
This tech took over care of pt at 1600,rounded and introduced self to pt, blood cultures and lactic obtained and sent to lab, placed a [place] cath on pt, pt tolerated well. Rectal temp taken and is 100.6, RN and provider made aware
--- NOTE | 2024-12-21 17:08 | PC.NURSE ---
CT of the abdomen and pelvis revealing moderate bilateral hydronephrosis with distention of the urinary bladder, no obstructing renal or ureteral calculus seen, concerning for bladder outlet obstruction which may be due to the large stool burden within the distal sigmoid colon/rectum. Condom cath applied and mineral enema given as ordered.
--- NOTE | 2024-12-21 17:09 | MHC.EDTECH ---
EKG taken per order and signed by provider
--- NOTE | 2024-12-21 17:34 | PHA.MEDREC ---
Addendum entered by Lennie Corbett RPh 12/21/24 17:42: [facility] reviewed Original Note: Pharmacy Consult ? Medication Reconciliation Pharmacy has completed the medication reconciliation. Spoke with patients at bedside. She had his medication bottles. He is no longer taking lisinopril or terazosin. He took his AM meds today.
[2024-12-21 17:40] LABS: Troponin-I High Sensitivity 23.9 ng/L (<3.5-35.0)
--- NOTE | 2024-12-21 18:35 | PM.IMHP ---
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 HPI obtained from HCP at bedside who report pt has had constipation without bowel movement for the past 10 days. Two days ago pt also noted to have decreased urinary output. Pt with hemiparesis, but normally is able to stand and pivot on his own to transfer from chair to wheelchair. However, since yesterday pt has been too weak to do so. Also noted to have increased confusion and lethargy. Has been complaining of lower abdominal pain. Pt himself seems somnolent but arousable. Denies any chest pain/pressure. In the ED pt with mild fever of 100.6 and mildly hypertensive up to 155/99. Labs were significant for leukocytosis of 11.5, creatinine 2.34, T bili 1.8, and UA positive for UTI. H&H stable. Lactic acid WNL. No significant electrolyte abnormalities. CT?of abdomen showed large colonic stool burden with possible component of fecal impaction, as well as moderate bilateral hydronephrosis with distention of the urinary bladder without obstructing renal or ureteral calculus. Likely secondary to stool burden compressing on the urethra. Pt was treated in the ED with IVF, acetaminophen, enema, and ceftriaxone. Pt is admitted to the hospital for treatment and further evaluation of acute metabolic encephalopathy in the setting of UTI secondary to urinary retention and severe constipation. Review of Systems Review of Systems: Negative except for that which is stated in the HPI. [facility] Medical History HTN (hypertension) CVA (cerebral vascular accident) Cardiac pacemaker in situ Chronic atrial fibrillation Family History Father No problems noted. Mother No problems noted. Surgical History History of permanent cardiac pacemaker placement Social History Household Members: Significant Other Housing: House Do you presently have visiting nurse or other home services: No Patient Tobacco Use Status: Never used Tobacco Smoked in Last 30 Days: No Use of substances other than those prescribed or required for medical reasons: No Currently Displaying Signs/Symptoms of Drug Intoxication Withdrawal: No Have you been hit, kicked, punched, or otherwise hurt by someone within the past year? If so, by whom?: No Do you feel safe in your current relationship?: No Is there a partner from a previous relationship who is making you feel unsafe now?: No Are you made to feel afraid or neglected: No Advance Directives: No Advance Directives Information Provided: Yes Do you have a plan to hurt others: No Plan Recently lost weight without trying: No Poor oral hygiene: No Meds Allergies Allergy/AdvReac Type Severity Reaction Status Date / Time codeine (CODEINE) Allergy Unknown UNKNOWN Verified 12/21/24 09:56 Home Medications ?Medication ?Instructions ?Recorded ?Confirmed ?Last Taken ?Type apixaban 5 mg tablet 5 mg PO BID 10/25/20 12/21/24 12/21/24 History aspirin 81 mg tablet,delayed 81 mg PO DAILY 10/25/20 12/21/24 12/21/24 History release (Adult Aspirin Regimen) atorvastatin 20 mg tablet 20 mg PO BEDTIME 10/25/20 12/21/24 Unknown History baclofen 20 mg tablet 20 mg PO BID 12/21/24 12/21/24 12/21/24 History furosemide 20 mg tablet 20 mg PO DAILY 12/21/24 12/21/24 12/21/24 History spironolactone 50 mg tablet 50 mg PO DAILY 12/21/24 12/21/24 12/21/24 History tamsulosin 0.4 mg capsule 0.4 mg PO BEDTIME 12/21/24 12/21/24 Unknown History vibegron 75 mg tablet (Gemtesa) 75 mg PO DAILY 12/21/24 12/21/24 12/21/24 History Physical Exam Vital Signs and Narrative: Vital Signs: Last Vital Signs Temp 100.6 F H 12/21/24 16:37 Pulse 85 12/21/24 16:37 Resp 20 12/21/24 16:37 BP 155/99 H 12/21/24 16:37 Pulse Ox 96 12/21/24 16:37 O2 Del Method Room Air 12/21/24 16:37 BMI result Body Mass Index 39.1 General: Somnolent but arousable. Hx of aphasia but capable of answering yes no questions. In no acute distress Resp: CTA bilaterally CVS: S1, S2, RRR GI: +BS, mild distension, firm, with suprapubic tenderness : [place] cathter in place and draining clear urine Skin: Warm, dry Neuro: Cranial nerves II-XII grossly intact bilaterally. Motor grossly intact bilaterally Extremities: No edema. Chronic venous stasis changes bilaterally Results Labs 12/21/24 10:16 12/22/24 06:14 Labs: Laboratory Results - last 24 hr 12/21/24 12/21/24 12/21/24 10:16 11:10 15:33 MCV 91.4 MCH 30.3 MCHC 33.1 RDW 14.6 Plt Count 207 MPV 9.5 Immature Gran % (Auto) 0.7 H Neut % (Auto) 80.6 H Lymph % (Auto) 5.6 L [place] % (Auto) 12.1 H Eos % (Auto) 0.6 Baso % (Auto) 0.4 Lymph # (Auto) 0.6 L [place] # (Auto) 1.4 H Eos # (Auto) 0.1 Baso # (Auto) 0.1 Abs Immat Gran (auto) 0.08 H Absolute Neuts (auto) 9.2 H Absolute Nucleated RBC 0.000 Nucleated RBC % (auto) 0.0 Anion Gap 15 Estim Creat Clear Calc 49.1 Estimated GFR 28 Random Glucose 130 H Lactic Acid Calcium 9.5 Total Bilirubin 1.8 H AST 20 ALT < 6 Alkaline Phosphatase 74 Total Creatine Kinase 48 Total Protein 6.9 Albumin 4.1 Urine Color Yellow Urine Appearance Turbid Urine pH 5.5 Ur Specific [place] 1.010 Urine Protein 30 (1+) H Urine Glucose (UA) Negative Urine Ketones Negative Urine Blood Large (3+) H Urine Nitrite Negative Ur Leukocyte Esterase Large (3+) H Urine RBC 0-2 Urine WBC >50 H Ur Squamous Epith Cells 0-2 Urine Bacteria 4+ Hyaline Casts 0-2 Influenza Type A (PCR) NEGATIVE Influenza Type B (PCR) NEGATIVE RSV RNA Qual (PCR) NEGATIVE SARS-CoV-2 RNA (RT-PCR) NEGATIVE 12/21/24 16:48 MCV MCH MCHC RDW Plt Count MPV Immature Gran % (Auto) Neut % (Auto) Lymph % (Auto) [place] % (Auto) Eos % (Auto) Baso % (Auto) Lymph # (Auto) [place] # (Auto) Eos # (Auto) Baso # (Auto) Abs Immat Gran (auto) Absolute Neuts (auto) Absolute Nucleated RBC Nucleated RBC % (auto) Anion Gap Estim Creat Clear Calc Estimated GFR Random Glucose Lactic Acid 1.7 Calcium Total Bilirubin AST ALT Alkaline Phosphatase Total Creatine Kinase Total Protein Albumin Urine Color Urine Appearance Urine pH Ur Specific [place] Urine Protein Urine Glucose (UA) Urine Ketones Urine Blood Urine Nitrite Ur Leukocyte Esterase Urine RBC Urine WBC Ur Squamous Epith Cells Urine Bacteria Hyaline Casts Influenza Type A (PCR) Influenza Type B (PCR) RSV RNA Qual (PCR) SARS-CoV-2 RNA (RT-PCR) Assessment and Plan (1) HORTENCIA (acute kidney injury): Status: Acute (2) Urinary tract infection: Qualifiers: Hematuria presence: without hematuria Urinary tract infection type: acute cystitis Qualified Code(s): N30.00 - Acute cystitis without hematuria Status: Acute (3) Constipation: Qualifiers: Constipation type: unspecified constipation type Qualified Code(s): K59.00 - Constipation, unspecified Status: Acute (4) Acute metabolic encephalopathy: Status: Acute Plan Pt is a 64-year-old male with a PMH significant for?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 Acute metabolic encephalopathy in the setting of acute UTI and urinary retention Pt with increased confusion, lethargy, and decreased urinary output the past few days Imaging showing distended bladder likely secondary from large stool burden compressing urethra [place] catheter in place and pt currently voiding freely; hold on Sims No sepsis Ceftriaxone, started 12/21/2024 Follow urine culture Monitor I/O Acute constipation No reported BM x10 days Imaging showing large stool burden and likely fecal impaction Received enema in the ED Will treat with lactulose x1, colcace bid and miralax daily Monitor output HORTENCIA Creatinine 2.34, previous 1.12 Secondary to acute urinary retention in the setting of above Pt received IVF 1L in the ED, will place on maintenance fluids Hold Lasix, spironolactone Follow BMP Hx of CVA Continue aspirin, statin Chronic lower leg edema Hold furosemide and spironolactone due to HORTENCIA Paroxysmal AFib Continue Eliquis BPH Hold tamsulosin due to HORTENCIA Full Code Attending:?Dr. Rizvi DVT Prophylaxis: On Eliquis Pt will require a hospitalization of at least two nights for treatment of?treatment and further evaluation of HORTENCIA and acute metabolic encephalopathy in the setting of UTI secondary to acute urinary retention and severe constipation. Pt will require hospital level care for administration of IVF, IV antibiotics, close monitoring of labs and I/O. Quality Stroke Does the patient have a stroke diagnosis?: No VTE Prior VTE?: No VTE Risk Level:: Medical - moderate - high VTE Device Contraindication: Treatment Not Indicated VTE Drug Contraindication: N/A - Med Ordered
[2024-12-21] MEDS: Lactated Ringers 1,000 ML 100 ML IVCONT (19:31)
--- NOTE | 2024-12-21 19:41 | PC.NURSE ---
Took over care from CORNELIUS Valadez, bed side report completed and medicated per aug.
--- NOTE | 2024-12-21 20:47 | PC.NURSE ---
report was given, pt transferred to room
--- NOTE | 2024-12-22 01:34 | PC.NURSE ---
Per girlfriend pt did not take aspirin for 12/21.Med given as unscheduled dose 12/21 2121.
[2024-12-22 03:10] VITALS: BP 178/87; PULSE 67; RESP 18; TEMP 36.1; O2SAT 97
[2024-12-22 06:43] LABS: Anion Gap 16 (12-20); Blood Urea Nitrogen 30 mg/dL (9-16); Calcium 8.8 mg/dL (8.4-10.2); Carbon Dioxide 22 mmol/L (22-29); Chloride 106 mmol/L (96-108); Creatinine Clr Calc Pharmacy 54.1; Estimated Glomerular Filt Rate 32; Potassium 4.5 mmol/L (3.3-5.1); Sodium 139 mmol/L (135-145)
[2024-12-22 08:00] VITALS: BP 180/90; PULSE 75; RESP 16; TEMP 37.2; O2SAT 96
--- NOTE | 2024-12-22 08:36 | HO.PM.IMPN ---
Subjective Subjective Date of Service: 12/22/24 Interval History: no bm Physical Exam Exam: Exam: General: Somnolen t but arousable. Hx of aphasia but capable of answeri ng yes no question s. In no acute dis tress Resp: CTA bi laterally CVS: S1, S2, RRR GI: +BS, mild distension, f irm, with suprapub ic tenderness Skin : Warm, dry Extrem ities: No edema. C hronic venous becka is changes bilater ally Vital Signs: Vital Signs: Last Vital Signs Temp 99.0 F 12/22/24 08:00 Pulse 75 12/22/24 08:00 Resp 16 12/22/24 08:00 BP 180/90 H 12/22/24 08:00 Pulse Ox 96 12/22/24 08:00 O2 Del Method Room Air 12/22/24 08:00 BMI result Body Mass Index 38.0 Objective Data Active Medications Acetaminophen (Acetaminophen 325 Mg Tablet) 650 mg PO Q6H PRN PRN Reason: Pain, Mild 1-3,fever,headache Amlodipine Besylate (Amlodipine Besylate 5 Mg Tablet) 5 mg PO DAILY [facility]; Protocol Apixaban (Apixaban 5 Mg Tablet) 5 mg PO BID [facility] Last Admin: 12/21/24 21:21 Dose: 5 mg Documented By: TO Aspirin (Aspirin Enteric Coated 81 Mg Tablet.) 81 mg PO DAILY [facility] Atorvastatin Calcium (Atorvastatin Calcium 20 Mg Tablet) 20 mg PO BEDTIME [facility] Last Admin: 12/21/24 21:22 Dose: 20 mg Documented By: TO Baclofen (Baclofen 20 Mg Tablet) 20 mg PO BID [facility] Last Admin: 12/21/24 21:22 Dose: 20 mg Documented By: TO Calcium Carbonate (Calcium Carbonate 750 Mg Tab.Chew) 750 mg PO Q4H PRN PRN Reason: Heartburn Docusate Sodium (Docusate Sodium 100 Mg Capsule) 100 mg PO BID [facility] Last Admin: 12/21/24 19:32 Dose: 100 mg Documented By: TYLER Ampicillin Sodium 1 gm/ Sodium (Chloride) 100 mls @ 200 mls/hr IV Q8H [facility] Magnesium Hydroxide (Milk Of Magnesia 30 Ml Oral.Susp) 30 ml PO DAILY PRN PRN Reason: Constipation Melatonin (Melatonin 3 Mg Tablet) 6 mg PO BEDTIME PRN PRN Reason: Insomnia Ondansetron HCl (Ondansetron Hcl 4 Mg/2 Ml Vial) 4 mg IVPUSH Q8H PRN PRN Reason: Nausea and Vomiting Polyethylene Glycol (Polyethylene Glycol 3350 17 Gm Powd.Pack) 17 gm PO DAILY [facility] Sodium Chloride (0.9 % Sodium Chloride Flush 3 Ml Syringe) 3 ml IVFLUSH QSHIFT [facility] Last Admin: 12/21/24 21:37 Dose: Not Given Documented By: TO Non-Admin Reason: IV Running Labs 12/21/24 10:16 12/22/24 06:14 Labs: Laboratory Results - last 24 hr 12/21/24 12/21/24 12/21/24 10:16 11:10 15:33 MCV 91.4 MCH 30.3 MCHC 33.1 RDW 14.6 Plt Count 207 MPV 9.5 Immature Gran % (Auto) 0.7 H Neut % (Auto) 80.6 H Lymph % (Auto) 5.6 L Jack % (Auto) 12.1 H Eos % (Auto) 0.6 Baso % (Auto) 0.4 Lymph # (Auto) 0.6 L Jack # (Auto) 1.4 H Eos # (Auto) 0.1 Baso # (Auto) 0.1 Abs Immat Gran (auto) 0.08 H Absolute Neuts (auto) 9.2 H Absolute Nucleated RBC 0.000 Nucleated RBC % (auto) 0.0 Anion Gap 15 Estim Creat Clear Calc 49.1 Estimated GFR 28 Random Glucose 130 H Lactic Acid Calcium 9.5 Total Bilirubin 1.8 H AST 20 ALT < 6 Alkaline Phosphatase 74 Total Creatine Kinase 48 Total Protein 6.9 Albumin 4.1 Urine Color Yellow Urine Appearance Turbid Urine pH 5.5 Ur Specific [place] 1.010 Urine Protein 30 (1+) H Urine Glucose (UA) Negative Urine Ketones Negative Urine Blood Large (3+) H Urine Nitrite Negative Ur Leukocyte Esterase Large (3+) H Urine RBC 0-2 Urine WBC >50 H Ur Squamous Epith Cells 0-2 Urine Bacteria 4+ Hyaline Casts 0-2 Influenza Type A (PCR) NEGATIVE Influenza Type B (PCR) NEGATIVE RSV RNA Qual (PCR) NEGATIVE SARS-CoV-2 RNA (RT-PCR) NEGATIVE 12/21/24 12/22/24 16:48 06:14 MCV MCH MCHC RDW Plt Count MPV Immature Gran % (Auto) Neut % (Auto) Lymph % (Auto) Jack % (Auto) Eos % (Auto) Baso % (Auto) Lymph # (Auto) Jack # (Auto) Eos # (Auto) Baso # (Auto) Abs Immat Gran (auto) Absolute Neuts (auto) Absolute Nucleated RBC Nucleated RBC % (auto) Anion Gap 16 Estim Creat Clear Calc 54.1 Estimated GFR 32 Random Glucose 123 H Lactic Acid 1.7 Calcium 8.8 D Total Bilirubin AST ALT Alkaline Phosphatase Total Creatine Kinase Total Protein Albumin Urine Color Urine Appearance Urine pH Ur Specific [place] Urine Protein Urine Glucose (UA) Urine Ketones Urine Blood Urine Nitrite Ur Leukocyte Esterase Urine RBC Urine WBC Ur Squamous Epith Cells Urine Bacteria Hyaline Casts Influenza Type A (PCR) Influenza Type B (PCR) RSV RNA Qual (PCR) SARS-CoV-2 RNA (RT-PCR) Microbiology Microbiology Results: Microbiology 12/21/24 Unknown Urine Culture - Preliminary Urine clean catch - Clean Catch Midstream Enterococcus/Streptococcus sp 12/21/24 16:16 Blood Culture - Preliminary Blood - Venous Prelim: GPC Gram Stain only Assessment and Plan (1) HORTENCIA (acute kidney injury): Status: Acute Plan 64M PMH 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 Acute metabolic encephalopathy due to urinary tract infection due to urinary obstruction/bilateral hydronephrosis complicated by acute kidney injury and bacteremia Urine and blood culture growing Enterococcus, we will change antibiotics to ampicillin for now, follow up sensitivities Insert Sims catheter, 1500 cc seen on bladder scan Flomax Severe constipation Soapsuds enema Continue MiraLax Hypertension Adding amlodipine Spironolactone on hold for HORTENCIA History of CVA Continue Eliquis, aspirin, statin Paroxysmal AFib Continue Eliquis DVT prophylaxis-Eliquis Full Code reason for continued hospitalization: Cultures pending Quality Stroke Does the patient have a stroke diagnosis?: No VTE Prior VTE?: No VTE Risk Level:: Medical - moderate - high VTE Device Contraindication: Treatment Not Indicated VTE Drug Contraindication: N/A - Med Ordered
[2024-12-22] MEDS: Aspirin Enteric Coated 81 MG TABLET.DR PO (08:41)
[2024-12-22] MEDS: 0.9 % Sodium Chloride Flush 3 ML SYRINGE IVFLUSH ×3 (08:50→21:14)
[2024-12-22] MEDS: Ampicillin Sodium 1 GM in 0.9 % Sodium Chloride 100 ML IV ×2 (08:57→16:09)
--- NOTE | 2024-12-22 09:01 | PC.NURSE ---
Per MD Rizvi Bladder scan now 0800, pt scanned for 1,510ml. Per MD Rizvi insert FC, FC placed without complications, pt tolerated well at bedside. 1,850 ML of concentrated cloudy yellow urine drained.
--- NOTE | 2024-12-22 09:45 | MHC.CM.PN ---
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
--- NOTE | 2024-12-22 10:33 | PC.NURSE ---
0800 MD Rizvi aware Pt BP 180/90, no new orders at this time.
[2024-12-22 12:33] VITALS: BP 126/66; PULSE 73
[2024-12-22 13:03] VITALS: BMI 38.0
[2024-12-22 16:00] VITALS: BP 143/81; PULSE 73; RESP 16; TEMP 37.3; O2SAT 96
[2024-12-22] MEDS: Lactated Ringers 1,000 ML 80 ML IVCONT (16:07)
--- NOTE | 2024-12-22 16:21 | PC.NURSE ---
This AM MD Rizvi made aware pt has been more drowsy than usual per , at baseline pt is able to ambulate with walker and transfer to W/C with assistance. states pts verbal baseline is one word answerers but pt has dysphasia and aphasia is is not always able to indicate what he wants. This shift pt has been mostly sleeping, awakes to verbal stimulation and light touch. Pt occasionally follows commands. Soap lei enema given with AM, no BM produced. Pt given suppository ducolax 15:44 pending results. IVF started per orderers due to pt poor PO intake. Fc draining concentrated yellow urine with sediment noted, All safety measures in place.
--- NOTE | 2024-12-22 16:28 | HO.WOUND ---
Wound Consult: Initial 64yr old? male admitted to [facility] [place] on 12/23/24 - See progress notes and H&P for detailed history.? Wound consult placed for Coccyx, right Ankle and Toribio.? Patient agreeable to assessment and photo documentation, dressings completed by direct care nurse photos reviewed. Bilateral Buttock Etiology: ??Deep Tissue Injury and Stage 2 Pressure In jury Present on Admission Wound Bed: left buttock with dark purple nonblanchable tissue Right buttock open deeper partial thickness tissue loss - appears clean in photo review Terri wound: ?MASD No Induration, Fluctuance or Warmth noted Goals of Treatment: ? Triad and off load pressure Right Ankle Etiology: stage 2 Pressure Injury ??Present on Admission Wound Bed: clean red wound bed Drainage / Odor: unknown Edges: ? irregular Terri wound: ? erythema noted - No Induration, Fluctuance or Warmth noted Goals of Treatment: Durafiber AG for moisture management Right Toribio Etiology: stage 2 Pressure Injury ??Present on Admission Wound Bed: clean red wound bed Drainage / Odor: unknown Edges: ? irregular Terri wound: ? erythema noted - No Induration, Fluctuance or Warmth noted Goals of Treatment: Durafiber AG for moisture management Right Knee Abrasion - adherent yellow slough - durafiber AG for moisture management Recommendations: 1. Turn and Reposition every 2 hours and as needed for patient comfort.? Use pillows or wedges to support off loading positions. 2. Off Load all bony prominences with use of pillows and heel boots if needed.? Apply Preventative foams where needed. ? 3. Monitor for incontinence and moisture control, use barrier creams when needed for prevention and treatment. 4. Provide adequate and supplemental nutrition.? 5. Order low air loss mattress. 6. When applicable maintain blood glucose levels per Providers order. Right Ankle, Toribio and Knee - Off Load Pressure with Q2 hr turns and use of pillows Cleanse and irrigate with NS, Pat dry.? Apply barrier to periwound, lightly pack with Durafiber AG, Cover with dry gauze dressing.? Change every other day. Bilateral Buttock - Off Load Pressure with Q2 hr turns and use of pillows - Cleanse with PH balance spray or wipes, pat dry. ?Apply thin layer of Triad to wound bed - only pat and dab no scrub and rub when soiling occurs. Reapply thin layer PRN after each episode of incontinence. Re-consult wound care Nurse for wound deterioration or wound changes.
--- NOTE | 2024-12-22 16:30 | HO.SKINPHOTO ---
Multiple areas of skin breakdown. Bilateral buttocks triad applied. Right knee site cleansed with nacl, pat dried, durafiber applied, triad to nesha wound, covered with foam. Right stevens/ankle site cleansed with nacl, pat dried, durafiber applied, triad to nesha wound, gauze wrap applied. Foams applied to coccyx and bilateral heels for protection. Heel boots and airloss pump applied. Wound Care Nurse consulted. Left/Right Buttock Left/Right Buttock Right Knee Right Stevens Right Ankle
[2024-12-22 19:24] VITALS: BP 124/59; PULSE 72; RESP 16; TEMP 36.7; O2SAT 95
[2024-12-23] MEDS: Ampicillin Sodium 1 GM in 0.9 % Sodium Chloride 100 ML IV ×3 (00:22→16:36)
[2024-12-23 03:31] VITALS: BP 132/71; PULSE 72; RESP 16; TEMP 36; O2SAT 95
[2024-12-23] MEDS: Lactated Ringers 1,000 ML 80 ML IVCONT ×2 (03:39→15:19)
[2024-12-23 06:30] LABS: Hematocrit 39.0 % (42.0-52.0); Hemoglobin 13.3 g/dl (14.0-18.0); Mean Corpuscular HGB Conc 34.1 g/dl (31.0-36.0); Mean Corpuscular Hemoglobin 31.1 pg (27.0-33.0); Mean Corpuscular Volume 91.1 fL (80.0-98.0); NRBC Abs Auto 0.000 X10*3/uL (0.0-0.012); NRBC Pct Auto 0.0 /100WBC (0.0-0.2); Platelet Count 174 X10*3/uL (160-400); Red Blood Count 4.28 X10*6/uL (4.60-5.80); White Blood Count 7.3 X10*3/uL (4.8-10.8)
[2024-12-23 06:51] LABS: Anion Gap 13 (12-20); Blood Urea Nitrogen 23 mg/dL (9-16); Calcium 8.5 mg/dL (8.4-10.2); Carbon Dioxide 28 mmol/L (22-29); Chloride 108 mmol/L (96-108); Creatinine Clr Calc Pharmacy 88.4; Estimated Glomerular Filt Rate 57; Potassium 4.1 mmol/L (3.3-5.1); Sodium 145 mmol/L (135-145)
[2024-12-23 07:45] VITALS: BP 129/68; PULSE 73; RESP 16; TEMP 36.6; O2SAT 96
[2024-12-23] MEDS: Aspirin Enteric Coated 81 MG TABLET.DR PO (08:45)
[2024-12-23] MEDS: 0.9 % Sodium Chloride Flush 3 ML SYRINGE IVFLUSH ×3 (08:46→21:54)
--- NOTE | 2024-12-23 09:11 | P.PNIM_ITS ---
Subjective Subjective Date of Service: 12/23/24 Interval History: successful BM Physical Exam 2 Exam: Exam: Alert, oriented x3, some aphasia but much more verbal now Lungs clear Abdomen soft and nontender Vital Signs: Vital Signs: Last Vital Signs Temp 97.9 F 12/23/24 07:45 Pulse 73 12/23/24 07:45 Resp 16 12/23/24 07:45 BP 129/68 12/23/24 07:45 Pulse Ox 96 12/23/24 07:45 O2 Del Method Room Air 12/23/24 07:45 BMI result Body Mass Index 38.0 Objective Data Active Medications Acetaminophen (Acetaminophen 325 Mg Tablet) 650 mg PO Q6H PRN PRN Reason: Pain, Mild 1-3,fever,headache Last Admin: 12/22/24 17:02 Dose: 650 mg Documented By: ROBERT Amlodipine Besylate (Amlodipine Besylate 5 Mg Tablet) 5 mg PO DAILY [facility]; Protocol Last Admin: 12/23/24 08:45 Dose: 5 mg Documented By: ROBERT Apixaban (Apixaban 5 Mg Tablet) 5 mg PO BID [facility] Last Admin: 12/23/24 08:45 Dose: 5 mg Documented By: ROBERT Aspirin (Aspirin Enteric Coated 81 Mg Tablet.Dr) 81 mg PO DAILY [facility] Last Admin: 12/23/24 08:45 Dose: 81 mg Documented By: ROBERT Atorvastatin Calcium (Atorvastatin Calcium 20 Mg Tablet) 20 mg PO BEDTIME [facility] Last Admin: 12/22/24 21:15 Dose: 20 mg Documented By: GENESIS Baclofen (Baclofen 20 Mg Tablet) 20 mg PO BID [facility] Last Admin: 12/23/24 08:45 Dose: 20 mg Documented By: ROBERT Calcium Carbonate (Calcium Carbonate 750 Mg Tab.Chew) 750 mg PO Q4H PRN PRN Reason: Heartburn Docusate Sodium (Docusate Sodium 100 Mg Capsule) 100 mg PO BID [facility] Last Admin: 12/23/24 08:45 Dose: 100 mg Documented By: ROBERT Ampicillin Sodium 1 gm/ Sodium (Chloride) 100 mls @ 200 mls/hr IV Q8H [facility] Last Admin: 12/23/24 08:45 Dose: 200 mls/hr Documented By: ROBERT Lactated Ringer's (Lr) 1,000 mls @ 80 mls/hr IVCONT .[id number] [facility] Last Admin: 12/23/24 03:39 Dose: 80 mls/hr Documented By: GENESIS Magnesium Hydroxide (Milk Of Magnesia 30 Ml Oral.Susp) 30 ml PO DAILY PRN PRN Reason: Constipation Melatonin (Melatonin 3 Mg Tablet) 6 mg PO BEDTIME PRN PRN Reason: Insomnia Ondansetron HCl (Ondansetron Hcl 4 Mg/2 Ml Vial) 4 mg IVPUSH Q8H PRN PRN Reason: Nausea and Vomiting Polyethylene Glycol (Polyethylene Glycol 3350 17 Gm Powd.Pack) 17 gm PO DAILY [facility] Last Admin: 12/23/24 09:04 Dose: Not Given Documented By: ROBERT Non-Admin Reason: Large BM Sodium Chloride (0.9 % Sodium Chloride Flush 3 Ml Syringe) 3 ml IVFLUSH QSHIFT [facility] Last Admin: 12/23/24 08:46 Dose: 3 ml Documented By: ROBERT Tamsulosin HCl (Tamsulosin Hcl 0.4 Mg Capsule) 0.4 mg PO BEDTIME [facility] Last Admin: 12/22/24 21:15 Dose: 0.4 mg Documented By: GENESIS Labs 12/23/24 05:29 12/23/24 05:29 Labs: Laboratory Results - last 24 hr 12/23/24 05:29 MCV 91.1 MCH 31.1 MCHC 34.1 RDW 14.5 Plt Count 174 MPV 10.2 Absolute Nucleated RBC 0.000 Nucleated RBC % (auto) 0.0 Anion Gap 13 Estim Creat Clear Calc 88.4 Estimated GFR 57 Random Glucose 91 Calcium 8.5 Microbiology Microbiology Results: Microbiology 12/21/24 Unknown Urine Culture - Final Urine clean catch - Clean Catch Midstream Enterococcus faecalis 12/21/24 16:16 Blood Culture - Preliminary Blood - Venous Prelim: GPC Gram Stain only 12/21/24 16:33 Blood Culture - Preliminary Blood - Venous Prelim: GPC Gram Stain only Assessment and Plan (1) HORTENCIA (acute kidney injury): Status: Acute Plan 64M PMH 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 Acute metabolic encephalopathy due to urinary tract infection due to urinary obstruction/bilateral hydronephrosis complicated by acute kidney injury and bacteremia Urine and blood culture growing Enterococcus, conitnue ampicillin for now, follow up sensitivities Inserted Sims catheter, approximately 2 L residual, continue Sims, continue Flomax outpatient Urology Mental status back to baseline Severe constipation Resolved Hypertension Added amlodipine Spironolactone on hold for HORTENCIA Improved History of CVA Continue Eliquis, aspirin, statin Paroxysmal AFib Continue Eliquis DVT prophylaxis-Eliquis Full Code reason for continued hospitalization: Sensitivities pending Quality Stroke Does the patient have a stroke diagnosis?: No VTE Prior VTE?: No VTE Risk Level:: Medical - moderate - high VTE Device Contraindication: Treatment Not Indicated VTE Drug Contraindication: N/A - Med Ordered
[2024-12-23 15:14] VITALS: BP 115/59; PULSE 73; O2SAT 96
[2024-12-23 16:00] VITALS: BP 115/59; PULSE 73; RESP 16; TEMP 36.9; O2SAT 96
[2024-12-23 19:20] VITALS: BP 130/70; PULSE 73; RESP 18; TEMP 36.2; O2SAT 97
[2024-12-24] MEDS: Ampicillin Sodium 1 GM in 0.9 % Sodium Chloride 100 ML IV ×2 (00:10→08:18)
[2024-12-24] MEDS: Lactated Ringers 1,000 ML 80 ML IVCONT (03:11)
[2024-12-24 04:00] VITALS: BP 143/82; PULSE 74; RESP 18; TEMP 37.1; O2SAT 96
[2024-12-24 05:57] LABS: Hematocrit 38.7 % (42.0-52.0); Hemoglobin 13.2 g/dl (14.0-18.0); Mean Corpuscular HGB Conc 34.1 g/dl (31.0-36.0); Mean Corpuscular Hemoglobin 31.0 pg (27.0-33.0); Mean Corpuscular Volume 90.8 fL (80.0-98.0); NRBC Abs Auto 0.000 X10*3/uL (0.0-0.012); NRBC Pct Auto 0.0 /100WBC (0.0-0.2); Platelet Count 179 X10*3/uL (160-400); Red Blood Count 4.26 X10*6/uL (4.60-5.80); White Blood Count 7.3 X10*3/uL (4.8-10.8)
[2024-12-24] MEDS: Magnesium Sulfate/H2O 2 GM/50 ML PIGGYBACK IV (06:37)
[2024-12-24 06:42] LABS: Anion Gap 10 (12-20); Blood Urea Nitrogen 20 mg/dL (9-16); Calcium 8.2 mg/dL (8.4-10.2); Carbon Dioxide 26 mmol/L (22-29); Chloride 107 mmol/L (96-108); Creatinine Clr Calc Pharmacy 119.2; Estimated Glomerular Filt Rate > 60; Magnesium 1.4 mg/dL (1.6-2.6); Potassium 3.9 mmol/L (3.3-5.1); Sodium 139 mmol/L (135-145)
[2024-12-24 07:33] VITALS: BP 145/78; PULSE 75; RESP 14; TEMP 36.8; O2SAT 93
[2024-12-24] MEDS: 0.9 % Sodium Chloride Flush 3 ML SYRINGE IVFLUSH (07:57)
--- NOTE | 2024-12-24 08:06 | P.DS_ITS ---
DS: Providers Provider Date of Service: 12/24/24 Date of admission: 12/21/24 16:18 Date of discharge: 12/24/24 Primary care physician: Yang Burgos MD Consults: 12/22/24 02:01 Consult to Wound Care Routine Reason for consultation: open area to coccyx,wound to right outer ankle and right stevens DS: Diagnosis Discharge Diagnosis (1) HORTENCIA (acute kidney injury): Status: Acute DS: Summary Hospital Course Hospital Course: from initial hpi: 64-year-old male with a PMH significant for?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 HPI obtained from HCP at bedside who report pt has had constipation without bowel movement for the past 10 days. Two days ago pt also noted to have decreased urinary output. Pt with hemiparesis, but normally is able to stand and pivot on his own to transfer from chair to wheelchair. However, since yesterday pt has been too weak to do so. Also noted to have increased confusion and lethargy. Has been complaining of lower abdominal pain. Pt himself seems somnolent but arousable. Denies any chest pain/pressure. In the ED pt with mild fever of 100.6 and mildly hypertensive up to 155/99. Labs were significant for leukocytosis of 11.5, creatinine 2.34, T bili 1.8, and UA positive for UTI. H&H stable. Lactic acid WNL. No significant electrolyte abnormalities. CT?of abdomen showed large colonic stool burden with possible component of fecal impaction, as well as moderate bilateral hydronephrosis with distention of the urinary bladder without obstructing renal or ureteral calculus. Likely secondary to stool burden compressing on the urethra. Pt was treated in the ED with IVF, acetaminophen, enema, and ceftriaxone. Pt is admitted to the hospital for treatment and further evaluation of acute metabolic encephalopathy in the setting of UTI secondary to urinary retention and severe constipation. hospital course: Patient was admitted for acute metabolic encephalopathy due to urinary tract infection due to urinary obstruction/bilateral hydronephrosis complicated by acute kidney injury and bacteremia. Urine and blood culture grew Enterococcus. Was treated with IV ampicillin and will transitioned to 10 more days of p.o. amoxicillin. Rutledge catheter was placed and there was 2 L residual, we will continue Rutledge until seen by Urology as outpatient, continue Flomax. Mental status and creatinine returned to baseline. For severe constipation received enema and had successful bowel movement. For hypertension spironolactone was initially held for acute kidney injury and amlodipine given instead. Blood pressure now better improved on on discharge will restart spironolactone. For history of CVA was continued on Eliquis, aspirin, statin. For paroxysmal AFib was continued on Eliquis. Due to deconditioning patient will be discharged to long-term facility for short-term rehab he is expected require less than 30 days. Time Attestation Discharge Coordination Time (in mins): 32 Quality: Safe Use of Opioids Does Pt have an Active Cancer Diagnosis on the Problem List?: No Quality: Stroke Does the patient have a stroke diagnosis?: No Physical Exam Exam: Exam: Alert, oriented x3, some aphasia but much more verbal now Lungs clear Abdomen soft and nontender Vital Signs: Vital Signs: Last Vital Signs Temp 98.2 F 12/24/24 07:33 Pulse 75 12/24/24 07:33 Resp 14 12/24/24 07:33 BP 145/78 H 12/24/24 07:33 Pulse Ox 93 12/24/24 07:33 O2 Del Method Room Air 12/24/24 07:33 BMI result Body Mass Index 38.0 DS: Data Data Completed and Pending Labs on day of discharge: Laboratory Results - last 24 hr 12/24/24 05:41 WBC 7.3 RBC 4.26 L Hgb 13.2 L Hct 38.7 L MCV 90.8 MCH 31.0 MCHC 34.1 RDW 14.1 Plt Count 179 MPV 9.7 Absolute Nucleated RBC 0.000 Nucleated RBC % (auto) 0.0 Sodium 139 Potassium 3.9 Chloride 107 Carbon Dioxide 26 Anion Gap 10 L BUN 20 H Creatinine 0.95 Estim Creat Clear Calc 119.2 Estimated GFR > 60 Random Glucose 99 Calcium 8.2 L Magnesium 1.4 L* Preliminary micro results at discharge 12/21/24 16:33 Blood Culture - Preliminary Blood - Venous Enterococcus/Streptococcus sp 12/21/24 16:16 Blood Culture - Preliminary Blood - Venous Enterococcus/Streptococcus sp Discharge Plan Discharge Anticipated Discharge Date/Time: 12/24/24 08:03 Patient Disposition: Xfer Acute Care Hospital Discharge Diagnosis: uti Referrals: Sung Cannon MD [Physician, Urology] - 1 Week Yang Burogs MD [Primary Care Provider, Medical] - 1 Week Discharge Medications: New amoxicillin 875 mg tablet 875 mg PO BID Qty: 20 0RF Continued baclofen 20 mg tablet 20 mg PO BID tamsulosin 0.4 mg capsule 0.4 mg PO BEDTIME furosemide 20 mg tablet 20 mg PO DAILY spironolactone 50 mg tablet 50 mg PO DAILY Gemtesa 75 mg tablet 75 mg PO DAILY apixaban 5 mg tablet 5 mg PO BID atorvastatin 20 mg tablet 20 mg PO BEDTIME aspirin [Adult Aspirin Regimen] 81 mg tablet,delayed release (DR/EC) 81 mg PO DAILY Discharge Orders: Discharge Order (Routine); Ordered 12/24/24 Ordered By: Fritz Rizvi Diet: Advance to usual diet Activity on Discharge: As tolerated Stand Alone Forms: Patient Portal Discharge page Print Language: Dominican Care Plan Goals: reocvery Health Concerns: uti, urinary retentnio Plan of Treatment: keep rutledge for now, follow up with urology 10 more days amoxil Assessment: see above
[2024-12-24] MEDS: Aspirin Enteric Coated 81 MG TABLET.DR PO (08:20)
--- NOTE | 2024-12-24 08:42 | MHC.CM.PN ---
p[t to be dcd to acute care hospitial
--- NOTE | 2024-12-24 08:57 | MHC.CLN ---
NUTRITION PATIENT SCHEDULED FOR DISCHARGE TODAY. SEE BY WOUND RN. SKIN WITH MULTIPLE PRESSURE INJURIES. PO INTAKE VARIABLE. DIET=CARDIAC. MAY BENEFIT FROM NUTRITIONAL SUPPLEMENT TO PROMOTE WOUND HEALING IF POOR PO.
--- NOTE | 2024-12-24 10:30 | HO.PM.IMPN ---
Subjective Subjective Date of Service: 12/24/24 Interval History: successful BM Physical Exam Exam: Exam: Alert, oriented x3, some aphasia but much more verbal now Lungs clear Abdomen soft and nontender Vital Signs: Vital Signs: Last Vital Signs Temp 98.2 F 12/24/24 07:33 Pulse 75 12/24/24 07:33 Resp 14 12/24/24 07:33 BP 145/78 H 12/24/24 07:33 Pulse Ox 93 12/24/24 07:33 O2 Del Method Room Air 12/24/24 07:33 BMI result Body Mass Index 38.0 Objective Data Active Medications Acetaminophen (Acetaminophen 325 Mg Tablet) 650 mg PO Q6H PRN PRN Reason: Pain, Mild 1-3,fever,headache Last Admin: 12/23/24 17:51 Dose: 650 mg Documented By: ROBERT Amlodipine Besylate (Amlodipine Besylate 5 Mg Tablet) 5 mg PO DAILY [facility]; Protocol Last Admin: 12/24/24 08:20 Dose: 5 mg Documented By: KIARA Apixaban (Apixaban 5 Mg Tablet) 5 mg PO BID [facility] Last Admin: 12/24/24 08:20 Dose: 5 mg Documented By: KIARA Aspirin (Aspirin Enteric Coated 81 Mg Tablet.Dr) 81 mg PO DAILY [facility] Last Admin: 12/24/24 08:20 Dose: 81 mg Documented By: KIARA Atorvastatin Calcium (Atorvastatin Calcium 20 Mg Tablet) 20 mg PO BEDTIME [facility] Last Admin: 12/23/24 21:48 Dose: 20 mg Documented By: CROW Baclofen (Baclofen 20 Mg Tablet) 20 mg PO BID [facility] Last Admin: 12/24/24 08:20 Dose: 20 mg Documented By: KIARA Calcium Carbonate (Calcium Carbonate 750 Mg Tab.Chew) 750 mg PO Q4H PRN PRN Reason: Heartburn Docusate Sodium (Docusate Sodium 100 Mg Capsule) 100 mg PO BID [facility] Last Admin: 12/24/24 08:20 Dose: 100 mg Documented By: KIARA Ampicillin Sodium 1 gm/ Sodium (Chloride) 100 mls @ 200 mls/hr IV Q8H [facility] Last Infusion: 12/24/24 08:51 Dose: Infused Documented By: KIARA Lactated Ringer's (Lr) 1,000 mls @ 80 mls/hr IVCONT .[id number] [facility] Last Admin: 12/24/24 03:11 Dose: 80 mls/hr Documented By: CROW Magnesium Hydroxide (Milk Of Magnesia 30 Ml Oral.Susp) 30 ml PO DAILY PRN PRN Reason: Constipation Melatonin (Melatonin 3 Mg Tablet) 6 mg PO BEDTIME PRN PRN Reason: Insomnia Ondansetron HCl (Ondansetron Hcl 4 Mg/2 Ml Vial) 4 mg IVPUSH Q8H PRN PRN Reason: Nausea and Vomiting Polyethylene Glycol (Polyethylene Glycol 3350 17 Gm Powd.Pack) 17 gm PO DAILY [facility] Last Admin: 12/24/24 08:20 Dose: 17 gm Documented By: KIARA Sodium Chloride (0.9 % Sodium Chloride Flush 3 Ml Syringe) 3 ml IVFLUSH QSHIFT [facility] Last Admin: 12/24/24 07:57 Dose: 3 ml Documented By: KIARA Tamsulosin HCl (Tamsulosin Hcl 0.4 Mg Capsule) 0.4 mg PO BEDTIME [facility] Last Admin: 12/23/24 21:47 Dose: 0.4 mg Documented By: CROW Labs 12/24/24 05:41 12/24/24 05:41 Labs: Laboratory Results - last 24 hr 12/24/24 05:41 MCV 90.8 MCH 31.0 MCHC 34.1 RDW 14.1 Plt Count 179 MPV 9.7 Absolute Nucleated RBC 0.000 Nucleated RBC % (auto) 0.0 Anion Gap 10 L Estim Creat Clear Calc 119.2 Estimated GFR > 60 Random Glucose 99 Calcium 8.2 L Magnesium 1.4 L* Microbiology Microbiology Results: Microbiology 12/21/24 16:33 Blood Culture - Final Blood - Venous Enterococcus faecalis 12/21/24 16:16 Blood Culture - Final Blood - Venous Enterococcus faecalis 12/21/24 Unknown Urine Culture - Final Urine clean catch - Clean Catch Midstream Enterococcus faecalis Assessment and Plan (1) HORTENCIA (acute kidney injury): Status: Acute Plan 64M PMH 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 Acute metabolic encephalopathy due to urinary tract infection due to urinary obstruction/bilateral hydronephrosis complicated by acute kidney injury and bacteremia Urine and blood culture growing Enterococcus, conitnue ampicillin for now, complete 2 weeks amoxil on discharge Inserted Sims catheter, approximately 2 L residual, continue Sims, continue Flomax outpatient Urology Mental status back to baseline Severe constipation Resolved Hypertension Added amlodipine Spironolactone on hold for HORTENCIA Improved History of CVA Continue Eliquis, aspirin, statin Paroxysmal AFib Continue Eliquis DVT prophylaxis-Eliquis Full Code reason for continued hospitalization: dispo planning Quality Stroke Does the patient have a stroke diagnosis?: No VTE Prior VTE?: No VTE Risk Level:: Medical - moderate - high VTE Device Contraindication: Treatment Not Indicated VTE Drug Contraindication: N/A - Med Ordered
--- NOTE | 2024-12-24 14:38 | MHC.CM.PN ---
PT TO BE TRNSFERED TODAY TO [facility]
[2024-12-24 16:24] VITALS: BP 127/60; PULSE 76; RESP 16; TEMP 37.1; O2SAT 95
== END 2024-12-24 17:20 | DRG 689 ==
LOC: HO.ED 17:10 → HO.EDOVER 17:21 → HO.S3 19:31
PROVIDERS: Nurse Practitioner Family; Admitting Provider Student in an Organized Health Care Education/Training Program; Emergency Provider Emergency Medicine; PCP Internal Medicine; Visit Provider Internal Medicine
DX: N13.6 Pyonephrosis (principal); G93.41 Metabolic encephalopathy; I44.2 Atrioventricular block, complete; I69.351 Hemiplegia and hemiparesis following cerebral infarction affecting right dominant side; R78.81 Bacteremia; N17.9 Acute kidney failure, unspecified; K59.00 Constipation, unspecified; I48.0 Paroxysmal atrial fibrillation; N40.1 Benign prostatic hyperplasia with lower urinary tract symptoms; B95.2 Enterococcus as the cause of diseases classified elsewhere; I10 Essential (primary) hypertension; R33.8 Other retention of urine; I69.320 Aphasia following cerebral infarction; Z99.3 Dependence on wheelchair; Z20.822 Contact with and (suspected) exposure to COVID-19; Z95.0 Presence of cardiac pacemaker; Z79.01 Long term (current) use of anticoagulants; Z79.82 Long term (current) use of aspirin; Z79.899 Other long term (current) drug therapy
CPT/HCPCS: 36415; 70450; 74176; 80048; 80053; 81001; 82550; 83605; 83735; 84484; 85025; 85027; 87040; 87077; 87086; 87088; 87186; 87205; 87637; 93005; 97162; 97166; 99285; J0290; J0696; J3475; J7120

== ENCOUNTER → 2024-12-21 11:10 | Outpatient (BNV) | payer MEDICARE, BC, SELFPAY | PROVIDERS: Emergency Provider Emergency Medicine; PCP Internal Medicine; Visit Provider Radiology Diagnostic Radiology | DX: K56.41 Fecal impaction (principal) | CPT/HCPCS: 74176 ==

== ENCOUNTER 2024-12-21 16:18 | Outpatient (BNV) | payer MEDICARE, BC, SELFPAY | END 2024-12-21 16:57 | PROVIDERS: Admitting Provider Student in an Organized Health Care Education/Training Program; Emergency Provider Emergency Medicine; PCP Internal Medicine; Visit Provider Internal Medicine Cardiovascular Disease | DX: R94.31 Abnormal electrocardiogram [ECG] [EKG] (principal); Z95.0 Presence of cardiac pacemaker | CPT/HCPCS: 93010 ==

== ENCOUNTER 2024-12-21 16:18 | Outpatient (BNV) | payer MEDICARE, BC, SELFPAY | END 2024-12-22 13:04 | PROVIDERS: Admitting Provider Student in an Organized Health Care Education/Training Program; Emergency Provider Emergency Medicine; PCP Internal Medicine; Visit Provider Radiology Diagnostic Radiology | DX: R41.82 Altered mental status, unspecified (principal) | CPT/HCPCS: 70450 ==

== ENCOUNTER → 2024-12-21 16:18 | Outpatient (BNV) | payer MEDICARE, BC, SELFPAY | PROVIDERS: Admitting Provider Student in an Organized Health Care Education/Training Program; Emergency Provider Emergency Medicine; PCP Internal Medicine; Visit Provider Student in an Organized Health Care Education/Training Program | DX: N17.9 Acute kidney failure, unspecified (principal) | CPT/HCPCS: 99223; 99232; 99239; 99499 ==

== ENCOUNTER → 2025-03-02 23:59 | Outpatient (BNV) | payer MEDICARE, BC, SELFPAY ==
--- NOTE | 2025-03-09 09:30 | MHC.OFFVIS ---
Intake Visit Reasons: Remote device check- Biotronik Allergies codeine (CODEINE) Allergy (Unknown, Verified 12/21/24 09:56) UNKNOWN [facility] Medical History HTN (hypertension) CVA (cerebral vascular accident) Cardiac pacemaker in situ Chronic atrial fibrillation Surgical History History of permanent cardiac pacemaker placement Family History Father No problems noted. Mother No problems noted. Social History Household Members: Significant Other Housing: House Do you presently have visiting nurse or other home services: No Patient Tobacco Use Status: Never used Tobacco service: No Office Procedures Cardiac Device Check Cardiac Device Check Details: Remote pacemaker report generated 03/02/2025. Pacemaker function is adequate. Patient ventricularly pacer dependent [id number] Cardiac Device Interrogation, pacemaker Procedure code (CPT) selection complete Assessment & Plan Assessment & Plan (1) Cardiac pacemaker in situ: Comment: Biotronik single-chamber pacemaker placed November of 2016 for complete heart block Code(s): Z95.0 - Presence of cardiac pacemaker Category: Medical Plan: See above Coding Level of Care Code Procedure Only Diagnoses Cardiac pacemaker in situ Z95.0 CPT Codes Cardiac Device Check - Cardiac Device 12: [id number] Cardiac Device Interrogation, pacemaker ([id number])
== END ==
PROVIDERS: PCP Internal Medicine; Visit Provider Internal Medicine Cardiovascular Disease
DX: I44.2 Atrioventricular block, complete (principal); Z95.0 Presence of cardiac pacemaker
CPT/HCPCS: 93294

== ENCOUNTER 2025-03-10 10:01 | Inpatient (IN) | payer MEDICARE, BC, SELFPAY ==
--- OUTSIDE RECORDS SUMMARY | 2025-02-13 09:30 | XMS_ITS ---
Author Organization [facility] [address] Address [address] [place] [address] [address] Care [address] Builder Name Role Phone Yang Burgos MD Primary Care Provider Shellie Crocker Unavailable [phone] Allergies Allergen (clinical drug ingredient) Drug/Non Drug Allergy documented on EMR Reaction Allergy Type Onset Date Status codeine Codeine Unknown Drug Allergy Active Medications Medication SIG (Take, Route, Frequency, Duration) Notes Start Date End Date Status Senokot Not-Taking Bisacodyl Not-Taking Bactrim DS 800-160 MG 1 tablet Orally every 12 hrs; Duration: 10 day(s) 06/11/2018 Not-Taking Doxycycline Hyclate 100 MG 1 capsule Orally Twice a day; Duration: 10 day(s) 06/17/2018 Not-Taking Docusate Calcium Not -Taking Cipro 500 MG 1 tablet Orally every 12 hrs; Duration: 14 days 09/17/2018 Not-Taking Alum & Mag Hydroxide-Simeth Not-Taking Doxycycline Hyclate 100 MG 1 capsule Orally Twice a day; Duration: 14 days Not-Taking Lac-Hydrin Not-Takin g Cranberry Not-Taking AFO-fixed . 1 . Wear daily; Duration: . 06/11/2018 Not-Taking Doxycycline Hyclate 100 MG 1 capsule Orally Twice a day; Duration: 14 days 02/26/2019 Not-Taking Cipro 500 MG 1 tablet Orally every 12 hrs; Duration: 7 days 03/03/2019 Not-Taking Cipro 500 MG 1 tablet Orally every 12 hrs; Duration: 7 days 10/08/2018 Not-Taking Cipro 500 MG 1 tablet Orally every 12 hrs; Duration: 7 days 05/19/2019 Not-Taking Doxycycline Hyclate 100 MG 1 capsule Orally Twice a day; Duration: 10 day(s) 06/28/2022 Not-Taking Doxycycline Hyclate 100 MG 1 capsule Orally Twice a day; Duration: 10 day(s) 02/23/2020 Not-Taking Iodosorb 0.9 % as directed Externally Apply to ulceration daily with dry sterile dressing; Duration: 30 days 05/30/2019 Not-Taking Cipro 500 MG 1 tablet Orally every 12 hrs; Duration: 10 day(s) 05/30/2019 Not-Taking Doxycycline Monohydrate 100 MG 1 capsule Orally every 12 hrs; Duration: 7 days 05/14/2019 Not-Taking Cipro 500 MG 1 tablet Orally every 12 hrs; Duration: 7 days 04/09/2023 Not-Taking Doxycycline Hyclate 100 MG 1 capsule Orally Twice a day; Duration: 10 day(s) 09/07/2020 Not-Taking Cipro 500 MG 1 tablet Orally every 12 hrs; Duration: 7 days 08/11/2019 Not-Taking Doxycycline Hyclate 100 MG 1 capsule Orally Twice a day; Duration: 10 days 04/03/2023 Not-Taking Amoxicillin 500 MG 1 capsule Orally every 8 hrs Not-Taking Acetaminophen Active Baclofen 20 mg 2x a day Active Terazosin HCl 2 MG Orally Once a day Active Atorvastatin Calcium 20 MG Orally Once a day Active Doxycycline Monohydrate 100 MG 1 capsule Orally Once a day; Duration: 10 days 10/15/2024 Active Eliquis Active Aspirin 81 MG Orally Once a day Active Lisinopril 10 MG Orally Act tere Encounters Encounter Location Date Provider Diagnosis [facility] [address] [id number] 02/13/2025 Shellie Griffith Plan Of Treatment Next Appt Details Provider Name:Shellie horn, 03/27/2025 10:15:00 AM, [address] [place] [address], [id number], Progress Notes * MYLESJayden FDOB:[birth year] (65 yo M)Acc No.[id number]:02/13/2025 Progress Note Patient: Jayden HARRIS Provider: Alivia Griffith DPM :1960 A ge:65 Y S ex:Male Date:02/13/2025 Address:[address] [place] [address] [address], [id number] Pcp:Yang Burgos MD Subjective: * Chief Complaints: * * Medical History: A nxiety, Measles, Hypertension, Stroke, Ulcer. * Medications: T aking Eliquis , Taking Aspirin 81 MG Tablet Delayed Release Orally Once a day , Taking Lisinopril 10 MG Tablet Orally , Taking Acetaminophen , Taking Baclofen , Notes to Pharmacist: 20 mg 2x a day, Taking Terazosin HCl 2 MG Capsule Orally Once a day , Taking Atorvastatin Calcium 20 MG Tablet Orally Once a day , Taking Doxycycline Monohydrate 100 MG Capsule 1 capsule Orally Once a day , Not-Taking/PRN Amoxicillin 500 MG Capsule 1 capsule Orally every 8 hrs , Not-Taking/PRN Cipro 500 MG Tablet 1 tablet Orally every 12 hrs , Not-Taking/PRN Doxycycline Hyclate 100 MG Capsule 1 capsule Orally Twice a day , Not-Taking/PRN Cipro 500 MG Tablet 1 tablet Orally every 12 hrs , Not-Taking/PRN Doxycycline Hyclate 100 MG Capsule 1 capsule Orally Twice a day , Not-Taking/PRN Doxycycline Hyclate 100 MG Capsule 1 capsule Orally Twice a day , Not-Taking/PRN Doxycycline Hyclate 100 MG Capsule 1 capsule Orally Twice a day , Not-Taking/PRN Iodosorb 0.9 % Gel as directed Externally Apply to ulceration daily with dry sterile dressing , Not-Taking/PRN Cipro 500 MG Tablet 1 tablet Orally every 12 hrs , Not-Taking/PRN Doxycycline Monohydrate 100 MG Capsule 1 capsule Orally every 12 hrs , Not-Taking/PRN Cipro 500 MG Tablet 1 tablet Orally every 12 hrs , Not-Taking/PRN Doxycycline Hyclate 100 MG Capsule 1 capsule Orally Twice a day , Not-Taking/PRN Cipro 500 MG Tablet 1 tablet Orally every 12 hrs , Not-Taking/PRN Cipro 500 MG Tablet 1 tablet Orally every 12 hrs , Not-Taking/PRN AFO-fixed . Ankle-Foot Orthotic 1 . Wear daily , Not-Taking/PRN Cipro 500 MG Tablet 1 tablet Orally every 12 hrs , Not-Taking/PRN Alum & Mag Hydroxide-Simeth , Not- Taking/PRN Doxycycline Hyclate 100 MG Capsule 1 capsule Orally Twice a day , Not-Taking/PRN Lac-Hydrin , Not-Taking/PRN Cranberry , Not-Taking/PRN Docusate Calcium , Not-Taking/PRN Senokot , Not-Taking/PRN Bisacodyl , Not-Taking/PRN Bactrim DS 800-160 MG Tablet 1 tablet Orally every 12 hrs , Not-Taking/PRN Doxycycline Hyclate 100 MG Capsule 1 capsule Orally Twice a day * Allergies: C odeine. Objective: * Vitals: Assessment: Plan: * Treatment: * Images: * The named appointment provid er may or may not be the originator of this progress note, and it is not deemed complete until electronically signed by the appointment provider. Sign off status: Pending * Provider: Alivia Griffith DPM Date: 0 02/13/2025 Generated for Lavern coronado/Herrera/Debi on: 1 01:19 PM EDT
[2025-03-10] VITALS (7 sets, daily range): BP systolic 104–146; BP diastolic 67–89; PULSE 76–84; RESP 17–20; TEMP 36.4–36.9; O2SAT 96–100; BMI 36.2
--- NOTE | ~2025-03-10 | CT_ITS ---
EXAMINATION: CT HEAD WITHOUT CONTRAST (STROKE PROTOCOL) CLINICAL INFORMATION: Stroke protocol. Right-sided deficits, leaning to right. COMPARISON: 12/22/2024. TECHNIQUE: Contiguous axial imaging was performed from the skull base to vertex without intravenous administration of contrast. This CT examination was performed using dose optimization techniques as appropriate, variously including the following: *Automated exposure control *Adjustment of mA and/or kV according to patient size (this includes techniques or standardized protocols for targeted exams where dose is matched to indication/reason for exam; i.e. extremities or head) *Use of iterative reconstruction technique FINDINGS: Large territory encephalomalacia involving the entire left MCA territory from prior left MCA stroke. There is wallerian degeneration of the left corticospinal tracts. There is mild ex vacuo dilatation of the left lateral ventricle involving the body, atrium, and temporal horn. There is no evidence of intracranial hemorrhage or extra-axial fluid collection. There is no mass effect, or edema. No CT evidence of acute territorial infarct. Ventricles, sulci, and cisterns are otherwise normal in size and configuration for patient age. No hydrocephalus. No midline shift. Negative hyperdense MCA sign. Negative insular ribbon sign. Patchy periventricular and deep white matter hypoattenuation is consistent with mild to moderate small vessel ischemic changes. Normal pituitary. Mild atheromatous calcification of the bilateral carotid siphons. Globes and orbital contents image normally. No extracranial soft tissue abnormalities. The paranasal sinuses, mastoid air cells, and tympanic cavities are normally aerated. No suspicious bony abnormalities. There are no acute fractures evident. CT/CT head for STROKE IMPRESSION: 1. Large area of cystic encephalomalacia involving the entire left MCA territory, consistent with old infarct. There is wallerian degeneration of the left corticospinal tracts. There is ex vacuo dilatation of the left lateral ventricle. 2. No acute territorial infarct. No intracranial hemorrhage or mass effect. No acute intracranial abnormality. 3. Stable examination when compared with 12/22/2024. This critical result was discussed with Dr. Georgina Dixon at 10:27 AM, 03/10/2025. It was ascertained that the content and urgency of the report was understood at the time of direct communication. Electronically signed by: Mike Villalba MD 03/10/2025 10:32 AM EDT
--- NOTE | ~2025-03-10 | MR_ITS ---
EXAMINATION: MR BRAIN WITHOUT CONTRAST CLINICAL INFORMATION: Right weakness,? TIA. COMPARISON: No prior MRI. CT head 03/10/2025. TECHNIQUE: MRI of the brain was obtained using routine sequences without contrast. Exam performed on a 1.5 T Siemens high-field unit. FINDINGS: There is no diffusion restriction. There is no intracranial hemorrhage, acute infarction, mass effect, or edema. Extensive cystic encephalomalacia throughout the entire left MCA territory, with ex vacuo dilatation of the left lateral ventricle body, atrium, and temporal horn. There is associated patchy hemosiderin deposition likely secondary to previous infarct hemorrhagic transformation. There is diffuse wallerian degeneration of the left corticospinal tracts. Ventricles, sulci, and cisterns are otherwise diffusely somewhat prominent in keeping with age advanced cerebral and cerebellar involutional change. No shift of midline. No additional abnormal hemosiderin deposition is identified. There are scattered punctate and confluent foci of white matter T2 hyperintensity in the periventricular, subcortical, and hemispheric deep white matter. These foci are nonspecific but statistically relate to moderate small vessel ischemic changes. Midline structures demonstrate severe thinning of the corpus callosum. The pituitary gland appears normal. Posterior fossa structures appear normal. Cerebellar tonsils are appropriately located. Attenuation of the left MCA flow void M1 segment is noted. Vascular flow voids are otherwise preserved base. The globes and orbital contents demonstrate no abnormalities. Paranasal sinuses are clear bilaterally. The mastoids and tympanic cavities are normally aerated. Extracranial soft tissues demonstrate no abnormalities. No suspicious bone marrow changes are evident. Atlantoaxial joint demonstrates mild to moderate degenerative changes. MR/MR head/brain wo con IMPRESSION: 1. No evidence of acute intracranial hemorrhage, acute infarction, mass effect, or edema. 2. Large area of cystic encephalomalacia involving the entire left MCA territory frontal infarct. There is wallerian degeneration of the left corticospinal tracts. There is attenuation of the left MCA M1 segment flow void. 3. Age advanced cerebral and cerebellar involutional changes, and moderate changes of small vessel ischemia. Electronically signed by: Mike Villalba MD 03/12/2025 03:27 PM EDT
--- NOTE | ~2025-03-10 | CT_ITS ---
EXAMINATION: CT PELVIS WITH CONTRAST CLINICAL INFORMATION: open wound and drainage on sacrum COMPARISON: Previous CT of the abdomen and pelvis December 2024 TECHNIQUE: Helical scanning was performed with submillimeter collimation through the pelvis with the use of oral contrast and during bolus intravenous injection of 85 mL of Omnipaque 350 intravenous contrast. Sagittal and coronal multiplanar 2-D reconstructions were obtained. This CT examination was performed using dose optimization techniques as appropriate, variously including the following: *Automated exposure control *Adjustment of mA and/or kV according to patient size (this includes techniques or standardized protocols for targeted exams where dose is matched to indication/reason for exam; i.e. extremities or head) *Use of iterative reconstruction technique DLP 5 1 4 mgy/cm FINDINGS: PELVIS: Severe constipation. Question mild stercoral colitis. Diverticulosis of the colon. No evidence of diverticulitis. Visualized small bowel is normal. Visualized appendix is normal. Sims catheter in the bladder. The bladder is empty. Prostate gland does not appear enlarged. Atherosclerotic disease. No aneurysm. No ascites or adenopathy. Diastases of the rectus muscles and small umbilical hernia containing fat. OSSEOUS STRUCTURES: Calcification of the right obturator internus muscle. No fracture or dislocation or evidence of osteomyelitis. There is slight stranding of the soft tissues over the right side of the sacrococcygeal junction. No soft tissue fluid collection. Degenerative changes of the spine and hip joints. CT/CT pelvis w IV con IMPRESSION: No evidence of osteomyelitis. No soft tissue fluid collection. Mild fat stranding seen adjacent to the right sacrococcygeal junction. Severe constipation. Electronically signed by: Elise Jim MD 03/10/2025 05:01 PM EDT
--- NOTE | ~2025-03-10 | XR_ITS ---
EXAMINATION: XR CHEST CLINICAL INFORMATION: weakness COMPARISON: Previous chest x-ray November 2016 TECHNIQUE: Frontal view of the chest was obtained. FINDINGS: Right subclavian single-chamber pacemaker with lead projecting over the right ventricle. Battery is slightly lower in the chest compared to November 2016. The lead is intact. The lungs are clear. The cardiac silhouette is slightly enlarged but similar to prior exam. Hilar and mediastinal contours are unremarkable. No pleural effusion or pneumothorax. Degenerative changes of the spine. XR/XR chest 1V IMPRESSION: Slightly enlarged cardiac silhouette similar to previous exam. No evidence for acute disease in the chest. Electronically signed by: Elise Jim MD 03/10/2025 10:39 AM EDT
--- NOTE | 2025-03-10 10:07 | ECG_ITS ---
Test Reason : STROEK Blood Pressure : */* mmHG Vent. Rate : 90 BPM Atrial Rate : 66 BPM P-R Int : * ms QRS Dur : 148 ms QT Int : 430 ms P-R-T Axes : * -11 177 degrees QTcB Int : 526 ms Ventricular-paced rhythm Abnormal ECG When compared with ECG of 21-Dec-2024 16:57, Vent. rate has increased by 9 bpm Referred By: Georgina Dixon Electronically Signed By: BAILEE MASSEY MD
--- NOTE | 2025-03-10 10:30 | ED.NEUROSD ---
HPI - Neuro Symptoms/Deficit General Chief Complaint: Stroke Stated Complaint: ?STROKE,LWT/7AM,SLURR,PREV DEFICIT MORE,ELIQUIST Time Seen by Provider: 03/10/25 10:02 Source: patient, EMS and old records reviewed Mode of arrival: EMS Limitations: altered mental status History of Present Illness ED Provider: SOLOMON HPI Narrative: 65 yo male with PMH of HTN, PPM, afib on eliquis, HORTENCIA, chronic rutledge with hx of UTI, prior stroke with R sided deficits/aphasia/apraxia here with c/o last known well 7am with then the patient's noted he seemed more weak and leanign to the R side. He states he feels sick. He denies any pain/falls. She told EMS he seemed off last night and not himself. EMS was unable to obtain a stroke score but they did call it in as stroke alert. Given his hx of recurrent OHRTENCIA I did hold CTA until kidney function resulted. feels his sacral wound is getting worse Onset (ago): day(s) (last night but more pronounced 7am) Timing confirmed by: spouse Location: right arm, right leg and altered History of same: Yes Severity: moderate Quality: weak Relieving factors: none Exacerbating factors: none Context: sudden onset On Anticoagulants: Yes Associated symptoms: confusion, loss of appetite, malaise and weakness Treatments Prior to Arrival: none Related Data Home Medications ?Medication ?Instructions ?Recorded ?Confirmed apixaban 5 mg tablet 5 mg PO BID 10/25/20 12/21/24 aspirin 81 mg tablet,delayed 81 mg PO DAILY 10/25/20 12/21/24 release (Adult Aspirin Regimen) atorvastatin 20 mg tablet 20 mg PO BEDTIME 10/25/20 12/21/24 baclofen 20 mg tablet 20 mg PO BID 12/21/24 12/21/24 furosemide 20 mg tablet 20 mg PO DAILY 12/21/24 12/21/24 spironolactone 50 mg tablet 50 mg PO DAILY 12/21/24 12/21/24 tamsulosin 0.4 mg capsule 0.4 mg PO BEDTIME 12/21/24 12/21/24 vibegron 75 mg tablet (Gemtesa) 75 mg PO DAILY 12/21/24 12/21/24 Previous Rx's ?Medication ?Instructions ?Recorded amoxicillin 875 mg tablet 875 mg PO BID #20 tabs 12/24/24 Allergies Allergy/AdvReac Type Severity Reaction Status Date / Time codeine (CODEINE) Allergy Unknown UNKNOWN Verified 03/10/25 10:26 Review of Systems Review of Systems: ROS unable to be obtained due to altered mental status [facility] Past Medical History Attestation statement: The following information was validated with the patient. Source: old records reviewed Medical History HTN (hypertension) CVA (cerebral vascular accident) Cardiac pacemaker in situ Chronic atrial fibrillation Surgical History History of permanent cardiac pacemaker placement Family History Family History Father No problems noted. Mother No problems noted. Social History Social History Household Members: Significant Other Housing: House Do you presently have visiting nurse or other home services: No Patient Tobacco Use Status: Never used Tobacco Smoked in Last 30 Days: No Use of substances other than those prescribed or required for medical reasons: No Advance Directives: Yes Advance Directives Information Provided: Yes Advance Directives on File: No Do you have a plan to hurt others: No Plan service: No Physical Exam Vital Signs: Vital Signs: Last Vital Signs Temp 98.2 F 03/10/25 16:12 Pulse 79 03/10/25 16:12 Resp 20 03/10/25 16:12 BP 123/80 03/10/25 16:12 Pulse Ox 99 03/10/25 16:12 O2 Del Method Room Air 03/10/25 16:12 BMI result Body Mass Index 36.2 Appearance: Alert. Oriented X 1 Mild acute distress. Eyes: Pupils equal, round and reactive to light. ENT: Pharynx dry MM Neck: Normal inspection. Neck supple. CVS: Normal heart rate and rhythm. Pulses normal. Respiratory: No respiratory distress. Breath sounds normal. Abdomen: Soft and nontender. Skin: Skin warm and dry. pale skin color. Normal skin turgor. Buttocks: redness, yellow drainage, open wound Extremities: symmetric bilateral pitting edema less than 1+ Neuro: Oriented X1. confused but follows some commands, R sided chronic deficits, leaning to the right, diffusely weak Course Course Course Narrative: will obtain CT scan of sacrum given concern for wound Medications Administered Discontinued Medications Generic Name Dose Route Start Last Admin Trade Name Ricardo PRN Reason Stop Dose Admin Acetaminophen 650 mg 03/10/25 14:50 03/10/25 15:23 Acetaminophen 325 Mg Tablet PO 03/10/25 14:51 650 mg ONCE ONE Administration Piperacillin Sod/Tazobactam 50 mls @ 100 mls/hr 03/10/25 10:07 03/10/25 12:05 Sod 3.375 gm/ Sodium Chloride IV 03/10/25 10:36 Infused ONCE ONE Infusion Sodium Chloride 1,000 mls @ 999 mls/hr 03/10/25 11:45 03/10/25 14:43 Ns IV 03/10/25 12:45 Infused .Q1H1M OLVIN Infusion Iohexol 85 ml 03/10/25 16:02 03/10/25 16:04 Iohexol 350 Mg/Ml 100 Ml Infus..Btl IV 03/10/25 16:03 85 ml ONCE ONE Administration Medical Decision Making Medical Decision Making MDM Narrative: 65 yo male with PMH of HTN, PPM, afib on eliquis, HORTENCIA, chronic rutledge with hx of UTI, prior stroke with R sided deficits aphasia/apraxia here with c/o weakness, not feeling well at this time possible acute on chronic R sided deficits - he has hx of UTI with similar presentation at this time I am going to obtain CT head for ICH ( I have held CTA given recurrent HORTENCIA), will obtain labs, start on zosyn, anticipate admission. I received sign-out from my colleague Dr. Dixon -head CT shows a large area of cystic encephalomalacia involving the entire left MCA territory consistent with an old infarct. -CT scan of the pelvis: No evidence of osteomyelitis or fluid collection Patient known to have a UTI and already has received antibiotics. I discussed the patient with our hospitalist team, patient to be admitted. Differential Diagnosis Differential Diagnoses: The differential diagnosis associated with the presentation includes ICH, stroke, acute UTI, encephalopathy, dehydration, HORTENCIA Admission/Observation Consideration of admission/observation: Escalation of care including admission/observation considered would admit given presentation pending CT scan signed out to Dr. Mobley 4pm Lab Data [facility] Lab Attestation statement: I reviewed the patient's lab results. 03/10/25 10:57 03/10/25 10:57 Labs: Lab Results 03/10/25 03/10/25 03/10/25 Range/Units 10:56 10:57 11:07 WBC 11.2 H (4.8-10.8) X10*3/uL RBC 5.13 D (4.60-5.80) X10*6/uL Hgb 15.5 (14.0-18.0) g/dl Hct 46.2 (42.0-52.0) % MCV 90.1 (80.0-98.0) fL MCH 30.2 (27.0-33.0) pg MCHC 33.5 (31.0-36.0) g/dl RDW 14.4 (11.0-16.0) % Plt Count 257 D (160-400) X10*3/uL MPV 9.5 (9.4-12.4) fL Immature Gran % (Auto) 1.2 H (0.0-0.4) % Neut % (Auto) 76.9 H (45-73) % Lymph % (Auto) 10.1 L (20-40) % [place] % (Auto) 9.0 (2-11) % Eos % (Auto) 2.3 (0-4) % Baso % (Auto) 0.5 (0-2) % Lymph # (Auto) 1.1 L (1.2-4.9) X10*3/uL [place] # (Auto) 1.0 (0.1-1.2) X10*3/uL Eos # (Auto) 0.3 (0.0-0.4) X10*3/uL Baso # (Auto) 0.1 (0.0-0.2) X10*3/uL Abs Immat Gran (auto) 0.13 H (0.00-0.03) X10*3/uL Absolute Neuts (auto) 8.6 H (2.0-8.3) x10*3/uL Absolute Nucleated RBC 0.000 (0.0-0.012) X10*3/uL Nucleated RBC % (auto) 0.0 (0.0-0.2) /100WBC VBG pH 7.45 H (7.32-7.43) VBG pCO2 39 mmHg VBG pO2 47 mmHg VBG HCO3 28 H (22-26) mmol/L VBG O2 Saturation 77.0 % VBG Base Excess 4.1 mmol/L Sodium 138 (135-145) mmol/L Potassium 4.3 (3.3-5.1) mmol/L Chloride 103 (96-108) mmol/L Carbon Dioxide 23 (22-29) mmol/L Anion Gap 16 (12-20) BUN 18 H (9-16) mg/dL Creatinine 1.05 (0.5-1.4) mg/dL Estim Creat Clear Calc 89.9 Estimated GFR > 60 POC Glucose (60-115) mg/dL Random Glucose 95 (60-115) mg/dL Lactic Acid 2.7 H* (0.5-2.0) mmol/L Lactic Acid F/U @ 2Hr (0.5-2.0) mmol/L Lactic Acid F/U @ 4Hr (0.5-2.0) mmol/L Calcium 9.3 D (8.4-10.2) mg/dL Magnesium 2.4 (1.6-2.6) mg/dL Total Bilirubin 0.9 (0.0-1.0) mg/dL Direct Bilirubin 0.2 (0.0-0.5) mg/dL AST 26 (5-37) U/L ALT < 6 (0-40) U/L Alkaline Phosphatase 79 (39-117) U/L Troponin I High Sens 12.9 (<3.5-35.0) ng/L C-Reactive Protein 0.80 H (< or = 0.50) mg/dL Total Protein 7.3 (6.5-8.0) g/dL Albumin 3.9 (3.5-5.0) g/dL Lipase 19 (8-78) U/L Procalcitonin 0.04 ng/mL TSH 1.83 (0.32-4.0) uIU/mL Urine Color Urine Appearance Urine pH (5.0-9.0) Ur Specific [place] (1.005-1.025) Urine Protein (Neg-Trace) mg/dL Urine Glucose (UA) (Negative) mg/dL Urine Ketones (Negative) mg/dL Urine Blood (Negative) Urine Nitrite (Negative) Ur Leukocyte Esterase (Negative) Urine RBC (0-2) /HPF Urine WBC (0-5) /HPF Ur Squamous Epith Cells (0-2) /HPF Calcium Oxalate Crystal Urine Bacteria (None Seen) Hyaline Casts (0-2) /LPF Influenza Type A (PCR) NEGATIVE (Negative) Influenza Type B (PCR) NEGATIVE (Negative) RSV RNA Qual (PCR) NEGATIVE (Negative) SARS-CoV-2 RNA (RT-PCR) NEGATIVE (Negative) 03/10/25 03/10/25 03/10/25 Range/Units 12:39 13:17 16:34 WBC (4.8-10.8) X10*3/uL RBC (4.60-5.80) X10*6/uL Hgb (14.0-18.0) g/dl Hct (42.0-52.0) % MCV (80.0-98.0) fL MCH (27.0-33.0) pg MCHC (31.0-36.0) g/dl RDW (11.0-16.0) % Plt Count (160-400) X10*3/uL MPV (9.4-12.4) fL Immature Gran % (Auto) (0.0-0.4) % Neut % (Auto) (45-73) % Lymph % (Auto) (20-40) % [place] % (Auto) (2-11) % Eos % (Auto) (0-4) % Baso % (Auto) (0-2) % Lymph # (Auto) (1.2-4.9) X10*3/uL [place] # (Auto) (0.1-1.2) X10*3/uL Eos # (Auto) (0.0-0.4) X10*3/uL Baso # (Auto) (0.0-0.2) X10*3/uL Abs Immat Gran (auto) (0.00-0.03) X10*3/uL Absolute Neuts (auto) (2.0-8.3) x10*3/uL Absolute Nucleated RBC (0.0-0.012) X10*3/uL Nucleated RBC % (auto) (0.0-0.2) /100WBC VBG pH (7.32-7.43) VBG pCO2 mmHg VBG pO2 mmHg VBG HCO3 (22-26) mmol/L VBG O2 Saturation % VBG Base Excess mmol/L Sodium (135-145) mmol/L Potassium (3.3-5.1) mmol/L Chloride (96-108) mmol/L Carbon Dioxide (22-29) mmol/L Anion Gap (12-20) BUN (9-16) mg/dL Creatinine (0.5-1.4) mg/dL Estim Creat Clear Calc Estimated GFR POC Glucose 106 (60-115) mg/dL Random Glucose (60-115) mg/dL Lactic Acid (0.5-2.0) mmol/L Lactic Acid F/U @ 2Hr 2.1 H* (0.5-2.0) mmol/L Lactic Acid F/U @ 4Hr (0.5-2.0) mmol/L Calcium (8.4-10.2) mg/dL Magnesium (1.6-2.6) mg/dL Total Bilirubin (0.0-1.0) mg/dL Direct Bilirubin (0.0-0.5) mg/dL AST (5-37) U/L ALT (0-40) U/L Alkaline Phosphatase (39-117) U/L Troponin I High Sens (<3.5-35.0) ng/L C-Reactive Protein (< or = 0.50) mg/dL Total Protein (6.5-8.0) g/dL Albumin (3.5-5.0) g/dL Lipase (8-78) U/L Procalcitonin ng/mL TSH (0.32-4.0) uIU/mL Urine Color Yellow Urine Appearance Cloudy Urine pH 7.0 (5.0-9.0) Ur Specific [place] 1.015 (1.005-1.025) Urine Protein Negative (Neg-Trace) mg/dL Urine Glucose (UA) Negative (Negative) mg/dL Urine Ketones Negative (Negative) mg/dL Urine Blood Small (1+) H (Negative) Urine Nitrite Negative (Negative) Ur Leukocyte Esterase Large (3+) H (Negative) Urine RBC 3-5 H (0-2) /HPF Urine WBC 11-20 (0-5) /HPF Ur Squamous Epith Cells 3-5 (0-2) /HPF Calcium Oxalate Crystal Present Urine Bacteria 4+ (None Seen) Hyaline Casts 3-5 (0-2) /LPF Influenza Type A (PCR) (Negative) Influenza Type B (PCR) (Negative) RSV RNA Qual (PCR) (Negative) SARS-CoV-2 RNA (RT-PCR) (Negative) 03/10/25 Range/Units 16:49 WBC (4.8-10.8) X10*3/uL RBC (4.60-5.80) X10*6/uL Hgb (14.0-18.0) g/dl Hct (42.0-52.0) % MCV (80.0-98.0) fL MCH (27.0-33.0) pg MCHC (31.0-36.0) g/dl RDW (11.0-16.0) % Plt Count (160-400) X10*3/uL MPV (9.4-12.4) fL Immature Gran % (Auto) (0.0-0.4) % Neut % (Auto) (45-73) % Lymph % (Auto) (20-40) % [place] % (Auto) (2-11) % Eos % (Auto) (0-4) % Baso % (Auto) (0-2) % Lymph # (Auto) (1.2-4.9) X10*3/uL [place] # (Auto) (0.1-1.2) X10*3/uL Eos # (Auto) (0.0-0.4) X10*3/uL Baso # (Auto) (0.0-0.2) X10*3/uL Abs Immat Gran (auto) (0.00-0.03) X10*3/uL Absolute Neuts (auto) (2.0-8.3) x10*3/uL Absolute Nucleated RBC (0.0-0.012) X10*3/uL Nucleated RBC % (auto) (0.0-0.2) /100WBC VBG pH (7.32-7.43) VBG pCO2 mmHg VBG pO2 mmHg VBG HCO3 (22-26) mmol/L VBG O2 Saturation % VBG Base Excess mmol/L Sodium (135-145) mmol/L Potassium (3.3-5.1) mmol/L Chloride (96-108) mmol/L Carbon Dioxide (22-29) mmol/L Anion Gap (12-20) BUN (9-16) mg/dL Creatinine (0.5-1.4) mg/dL Estim Creat Clear Calc Estimated GFR POC Glucose (60-115) mg/dL Random Glucose (60-115) mg/dL Lactic Acid (0.5-2.0) mmol/L Lactic Acid F/U @ 2Hr (0.5-2.0) mmol/L Lactic Acid F/U @ 4Hr 1.9 (0.5-2.0) mmol/L Calcium (8.4-10.2) mg/dL Magnesium (1.6-2.6) mg/dL Total Bilirubin (0.0-1.0) mg/dL Direct Bilirubin (0.0-0.5) mg/dL AST (5-37) U/L ALT (0-40) U/L Alkaline Phosphatase (39-117) U/L Troponin I High Sens (<3.5-35.0) ng/L C-Reactive Protein (< or = 0.50) mg/dL Total Protein (6.5-8.0) g/dL Albumin (3.5-5.0) g/dL Lipase (8-78) U/L Procalcitonin ng/mL TSH (0.32-4.0) uIU/mL Urine Color Urine Appearance Urine pH (5.0-9.0) Ur Specific [place] (1.005-1.025) Urine Protein (Neg-Trace) mg/dL Urine Glucose (UA) (Negative) mg/dL Urine Ketones (Negative) mg/dL Urine Blood (Negative) Urine Nitrite (Negative) Ur Leukocyte Esterase (Negative) Urine RBC (0-2) /HPF Urine WBC (0-5) /HPF Ur Squamous Epith Cells (0-2) /HPF Calcium Oxalate Crystal Urine Bacteria (None Seen) Hyaline Casts (0-2) /LPF Influenza Type A (PCR) (Negative) Influenza Type B (PCR) (Negative) RSV RNA Qual (PCR) (Negative) SARS-CoV-2 RNA (RT-PCR) (Negative) Independent Interpretation I performed an independent interpretation of an: EKG and CT Scan (no ICH) Interpretation: Rate: 90 Rhythm: paced [place]: left Normal QRS complex. ST T wave : inverted t waves I and aVL, no ILA, sig artifact noted qTC: 526 prior studies: paced The study has been interpreted contemporaneously by me. . Radiology Impression Discussion of test interpretation with radiology: I have reviewed the radiologist's reading. Radiologist Impression: No evidence of osteomyelitis. No soft tissue fluid collection. Mild fat stranding seen adjacent to the right sacrococcygeal junction. Slightly enlarged cardiac silhouette similar to previous exam. No evidence for acute disease in the chest. Independent Historian Clinical information obtained from an independent historian. History obtained from or confirmed by: Spouse and EMS External Record Review External record reviewed: Inpatient record and Outpatient record NIH Stroke Scale Internal: Initial- Upon Arrival Level of Consciousness: Not Alert; but arousable by minor stimulation Level of Consciousness Questions: Answers one question correctly Level of Consciousness Commands: Performs one task correctly Best Gaze: Normal Visual: No visual loss Facial Palsy: Minor paralyis Motor Arm (Right): No effort against gravity Motor Arm (Left): Drift Motor Leg (Right): No effort against gravity Motor Leg (Left): Drift Limb Ataxia: Absent Sensory: Normal Best Language: No aphasia Dysarthia: Mild to moderate dysarthria Extinction and Inattention: Visual, tactile, auditory, spatial, or personal inattention Score: 14 Critical Care Time Critical Care Time Critical Care Time: Yes Total Critical Care Time: 60 Attestation: I have personally provided critical care time. Time includes review of lab data, radiology results, discussion with consultants, and monitoring for potential decompensation. Intervention performed as documented. Discharge Plan Discharge Clinical Impression: Weakness, Acidosis, lactic, Acute metabolic encephalopathy, Acute UTI Patient Disposition: Admitted As Inpatient Print Language: Gambian
[2025-03-10 11:05] LABS: MANUAL DIFF FLAG NO
[2025-03-10 11:08] LABS: Hematocrit 46.2 % (42.0-52.0); Hemoglobin 15.5 g/dl (14.0-18.0); Imm Gran Abs Auto 0.13 X10*3/uL (0.00-0.03); Imm Gran Pct Auto 1.2 % (0.0-0.4); Lymphocytes Absolute Auto 1.1 X10*3/uL (1.2-4.9); Mean Corpuscular HGB Conc 33.5 g/dl (31.0-36.0); Mean Corpuscular Hemoglobin 30.2 pg (27.0-33.0); Mean Corpuscular Volume 90.1 fL (80.0-98.0); NRBC Abs Auto 0.000 X10*3/uL (0.0-0.012); NRBC Pct Auto 0.0 /100WBC (0.0-0.2); Platelet Count 257 X10*3/uL (160-400); Red Blood Count 5.13 X10*6/uL (4.60-5.80); White Blood Count 11.2 X10*3/uL (4.8-10.8)
[2025-03-10 11:12] LABS: Venous Blood Gas Refer to POC result
[2025-03-10 11:13] LABS: VBG HCO3 28 mmol/L (22-26); VBG O2 % Saturation 77.0 %
[2025-03-10 11:33] LABS: Alanine Aminotransferase < 6 U/L (0-40); Albumin Level 3.9 g/dL (3.5-5.0); Alkaline Phosphatase 79 U/L (39-117); Anion Gap 16 (12-20); Aspartate Amino Transferase 26 U/L (5-37); Blood Urea Nitrogen 18 mg/dL (9-16); Calcium 9.3 mg/dL (8.4-10.2); Carbon Dioxide 23 mmol/L (22-29); Chloride 103 mmol/L (96-108); Creatinine Clr Calc Pharmacy 89.9; Estimated Glomerular Filt Rate > 60; Lipase 19 U/L (8-78); Magnesium 2.4 mg/dL (1.6-2.6); Potassium 4.3 mmol/L (3.3-5.1); Sodium 138 mmol/L (135-145); Total Protein 7.3 g/dL (6.5-8.0)
[2025-03-10 11:34] LABS: Troponin-I High Sensitivity 12.9 ng/L (<3.5-35.0)
[2025-03-10 11:44] LABS: Resp Syncy Virus RNA Qual PCR NEGATIVE (Negative); SARS COV2 PCR INHOUSE NEGATIVE (Negative)
[2025-03-10 11:55] LABS: Procalcitonin 0.04 ng/mL
--- NOTE | 2025-03-10 12:07 | PC.NURSE ---
JOSE from home. PMH stroke w/ right sided deficits. Patients spouse reports increased right sided deficits. Patient reports feeling a general unwellness [id number]. Patient denies pain and SOB Sims present draining clear yellow urine Patient on eliquis VSS and up to date Plan of care on going
[2025-03-10 12:45] LABS: Appearance Urine Cloudy; Glucose Urine UA Negative (Negative); PH 7.0 (5.0-9.0); Specific Gravity - Urine 1.015 (1.005-1.025); UMIC TRIGGER UACC YES
[2025-03-10 12:54] LABS: UACC Culture Trigger YES
[2025-03-10 13:04] LABS: Reflex Lactate? Lactic Acid Added
--- OUTSIDE RECORDS SUMMARY | 2025-03-10 13:20 | XMS_ITS | Encounter Summary ---
[facility] [address] [place] [address] Care Team Providers Care Vegetable Specker Name Role Phone Physician, No Pcp Primary Care Provider Unavaila ble Encounter Details Date Type Department Care Team (Late st Contact Info) Description 12/25/2024 Lab Requisition [facility] [address] [facility] [place] [address] Jacoby Jackson PA [address] [phone] Encounter for other general examination Social History Tobacco Use Types Packs/Day Years Used Date Smoking Tobacco: Never Assessed Sex and Gender Information Value Date Recorded Sex Assigned at Not on file Legal Sex Male 6:03 PM EST Gender Identity Not on file Sexual Orientation Not on file documented as of this encounter Plan of Treatment Not on file documented as of this encounter Procedures Procedure Name Priority Date/Time Associated Diagnosis Comments CBC WITH AUTO DIFFERENTIAL Routine 12/25/2024 4:58 AM EDT Encounter for other general examination CBC AND DIFFERENTIAL Routine 12/25/2024 4:58 AM EDT Encounter for other general examination MAGNESIUM Routine 12/25/2024 4:58 AM EDT Encounter for other general examination COMPREHENSIVE METABOLIC PANEL Routine 12/25/2024 4:58 AM EDT Encounter for other general examination documented in this encounter Results * (ABNORMAL) CBC auto differential (12/25/2024 4:58 AM EDT) WBC 7.4 4.8 - 10.8 K/[facility] LAB HEMETOLOGY METHOD 12/25/2024 9:[address] [facility] RBC 4.40(L) 4.50 - 5.50 M/mcL LAB HEMETOLOGY METHOD 12/25/2024 9:[address] [facility] Hemoglobin 13.3(L) 13.5 - 17.5 g/dL LAB HEMETOLOGY METHOD 12/25/2024 9:[address] [facility] Hematocrit 40.9(L) 42.0 - 54.0 % LAB HEMETOLOGY METHOD 12/25/2024 9:[address] [facility] MCV 92.5 79.0 - 98.0 FL LAB HEMETOLOGY METHOD 12/25/2024 9:[address] [facility] MCH 30.1 27.0 - 32.0 pcg LAB HEMETOLOGY METHOD 12/25/2024 9:[address] [facility] MCHC 32.5 32.0 - 37.0 g/dL LAB HEMETOLOGY METHOD 12/25/2024 9:[address] [facility] RDW 13.9 11.0 - 15.0 % LAB HEMETOLOGY METHOD 12/25/2024 9:[address] [facility] Platelets 225 130 - 400 K/mcL LAB HEMETOLOGY METHOD 12/25/2024 9:[address] [facility] MPV 10.4 7.0 - 11.0 FL LAB HEMETOLOGY METHOD 12/25/2024 9:[address] [facility] NRBC 0.0 <1.0 % LAB HEMETOLOGY METHOD 12/25/2024 9:[address] [facility] NRBC Absolute 0.00 <0.10 K/mcL LAB HEMETOLOGY METHOD 12/25/2024 9:[address] [facility] Neutrophils Relative 72.2 % LAB HEMETOLOGY METHOD 12/25/2024 9:[address] [facility] Lymphocytes Relative 12.3 % LAB HEMETOLOGY METHOD 12/25/2024 9:[address] [facility] Monocytes Relative 10.0 % LAB HEMETOLOGY METHOD 12/25/2024 9:[address] [facility] Eosinophils Relative 3.5 % LAB HEMETOLOGY METHOD 12/25/2024 9:[address] [facility] Basophils Relative 0.8 % LAB HEMETOLOGY METHOD 12/25/2024 9:[address] [facility] Immature Granulocytes Relative 1.2 % LAB HEMETOLOGY METHOD 12/25/2024 9:[address] [facility] Neutrophils Absolute 5.31 1.50 - 7.00 K/mcL LAB HEMETOLOGY METHOD 12/25/2024 9:[address] [facility] Lymphocytes Absolute 0.91(L) 1.00 - 5.00 K/mcL LAB HEMETOLOGY METHOD 12/25/2024 9:[address] [facility] Monocytes Absolute 0.74 0.20 - 1.00 K/mcL LAB HEMETOLOGY METHOD 12/25/2024 9:[address] [facility] Eosinophils Absolute 0.26 0.00 - 0.50 K/mcL LAB HEMETOLOGY METHOD 12/25/2024 9:[address] [facility] Basophils Absolute 0.06 0.00 - 0.20 K/mcL LAB HEMETOLOGY METHOD 12/25/2024 9:[address] [facility] Immature Granulocytes Absolute 0.09(H) 0.00 - 0.03 K/mcL LAB HEMETOLOGY METHOD 12/25/2024 9:[address] [facility] Blood Venous blood specimen / Unknown 12/25/2024 4:58 AM EDT 12/25/2024 8:16 AM EDT Jacoby BEJARANO LAB BLOOD ORDERABLES Final R esult Performing Organization Address City/[facility]/ZIP Co de Phone Number [facility] [address] [place] [address], [place] [phone] * (ABNORMAL) Magnesium (12/25/2024 4:58 AM EDT) [facility] Magnesium 1.5(L) 1.9 - 2.6 mg/dL LAB CHEMISTRY METHOD 12/25/2024 9:18 AM EDT [facility] Blood Venous blood specimen / Unknown Venipuncture / Unknown 12/25/2024 4:58 AM EDT 12/25/2024 8:16 AM EDT Jacoby BEJARANO LAB BLOOD ORDERABLES Final R esult Performing Organization Address City/[facility]/ZIP Co de Phone Number [facility] [address] [place] [address], [place] [phone] * (ABNORMAL) Comprehensive metabolic panel (12/25/2024 4:58 AM EDT) [facility] Sodium 138 133 - 145 mmol/L LAB CHEMISTRY METHOD 12/25/2024 9:18 AM EDT [facility] Potassium 4.4 3.5 - 5.5 mmol/L LAB CHEMISTRY METHOD 12/25/2024 9:18 AM EDT [facility] Chloride 102 96 - 110 mmol/L LAB CHEMISTRY METHOD 12/25/2024 9:18 AM EDT [facility] CO2 31 21 - 32 mmol/L LAB CHEMISTRY METHOD 12/25/2024 9:18 AM EDT [facility] Anion Gap 5 3 - 11 LAB CHEMISTRY METHOD 12/25/2024 9:18 AM EDT [facility] Glucose 93 70 - 100 mg/dL LAB CHEMISTRY METHOD 12/25/2024 9:18 AM EDT [facility] BUN 13 5 - 25 mg/dL LAB CHEMISTRY METHOD 12/25/2024 9:[address] [facility] Creatinine 0.88 0.70 - 1.30 mg/dL LAB CHEMISTRY METHOD 12/25/2024 9:[address] [facility] eGFR 97 >=60 mL/min/1. 73m2 LAB CHEMISTRY METHOD 12/25/2024 9:[address] [facility] Comment:Calculation based on the Chronic Kidney Disease Epidemiology Collaboration (CKD-EPI) equation refit without adjustment for race. BUN/Creatinine Ratio 14.8 LAB CHEMISTRY METHOD 12/25/2024 9:[address] [facility] Calcium 8.3(L) 8.5 - 10.5 mg/dL LAB CHEMISTRY METHOD 12/25/2024 9:[address] [facility] AST (SGOT) 9(L) 10 - 42 unit/L LAB CHEMISTRY METHOD 12/25/2024 9:[address] [facility] ALT (SGPT) 7(L) 10 - 60 unit/L LAB CHEMISTRY METHOD 12/25/2024 9:[address] [facility] Alkaline Phosphatase 55 42 - 121 unit/L LAB CHEMISTRY METHOD 12/25/2024 9:[address] [facility] Total Protein 5.2(L) 6.0 - 8.0 g/dL LAB CHEMISTRY METHOD 12/25/2024 9:[address] [facility] Albumin 2.5(L) 3.2 - 5.0 g/dL LAB CHEMISTRY METHOD 12/25/2024 9:[address] [facility] Total Bilirubin 1.2 0.0 - 1.4 mg/dL LAB CHEMISTRY METHOD 12/25/2024 9:[address] [facility] Blood Venous blood specimen / Unknown Venipuncture / Unknown 12/25/2024 4:58 AM EDT 12/25/2024 8:16 AM EDT us Jacoby BEJARANO LAB BLOOD ORDERABLES Final R esult [facility] [address] [place] [address], [place] [phone] documented in this encounter Visit Diagnoses Diagnosis Encounter for other general examination documented in this encounter Care Teams Vegetable Specker Relationship Specialty Start Date End Date Physician, No Pcp PCP - General 01/08/25 documented as of this encounter
--- OUTSIDE RECORDS SUMMARY | 2025-03-10 13:20 | XMS_ITS | Encounter Summary ---
Author Organization [facility] Address [address] [place] [address] Care Team Providers Care Sterile Processing Manager Name Role Phone Physician, No Pcp Primary Care Provider Unavaila ble Encounter Details Date Type Department Care Team (Late st Contact Info) Description 01/08/2025 Lab Requisition [facility] - Main Lab [address] [facility] [place] [address] Jacoby Jackson PA [address] [phone] Encounter for other general examination Social History [...] Procedure Name Priority Date/Time Associated Diagnosis Comments COMPLETE BLOOD COUNT Routine 01/08/2025 7:22 AM EDT Encounter for other general examination BASIC METABOLIC PANEL Routine 01/08/2025 7:22 AM EDT Encounter for other general examination documented in this encounter Results * (ABNORMAL) Complete blood count (01/08/2025 7:22 AM EDT) WBC 8.8 4.8 - 10.8 K/[facility] LAB HEMETOLOGY METHOD 01/08/2025 11:27 AM EDT [facility] RBC 4.20(L) 4.50 - 5.50 M/[facility] LAB HEMETOLOGY METHOD 01/08/2025 11:27 AM EDT [facility] Hemoglobin 12.6(L) 13.5 - 17.5 g/dL LAB HEMETOLOGY METHOD 01/08/2025 11:27 AM EDT [facility] Hematocrit 38.1(L) 42.0 - 54.0 % LAB HEMETOLOGY METHOD [facility] MCV 91.6 79.0 - 98.0 FL LAB HEMETOLOGY METHOD 01/08/2025 11:27 AM EDT [facility] MCH 30.3 27.0 - 32.0 pcg LAB HEMETOLOGY METHOD 01/08/2025 11:27 AM EDT [facility] MCHC 33.1 32.0 - 37.0 g/dL LAB HEMETOLOGY METHOD 01/08[facility]2025 [facility] RDW 13.8 11.0 - 15.0 % LAB HEMETOLOGY METHOD 01/08/2025 11:27 AM EDT [facility] Platelets 330 130 - 400 K/mcL LAB HEMETOLOGY METHOD 01/08/2025 11:27 AM EDT [facility] MPV 9.9 7.0 - 11.0 FL LAB HEMETOLOGY METHOD 01/08[facility]2025 [facility] NRBC 0.0 <1.0 % LAB HEMETOLOGY METHOD 01/08/2025 11:27 AM EDT [facility] NRBC Absolute 0.00 <0.10 K/mcL LAB HEMETOLOGY METHOD 01/08/2025 11:27 AM T [facility] Blood Venous blood specimen / Unknown Venipuncture / Unknown 01/08/2025 7:22 AM EDT 01/08/2025 10:53 AM EDT us Jacoby BEJARANO LAB BLOOD ORDERABLES Final R esult [facility] [address] [place] [address], * (ABNORMAL) Basic metabolic panel (01/08/2025 7:22 AM EDT) Sodium 138 133 - 145 mmol/L LAB CHEMISTRY METHOD 01/08/2025 12:06 PM [facility] Potassium 4.3 3.5 - 5.5 mmol/L LAB CHEMISTRY METHOD 01/08/2025 12:06 PM [facility] Chloride 104 96 - 110 mmol/L LAB CHEMISTRY METHOD 01/08/2025 12:06 PM [facility] CO2 28 21 - 32 mmol/L LAB CHEMISTRY METHOD 01/08/2025 12:06 PM [facility] Anion Gap 6 3 - 11 LAB CHEMISTRY METHOD 01/08/2025 12:06 PM [facility] Glucose 82 70 - 100 mg/dL LAB CHEMISTRY METHOD 01/08/2025 12:06 PM [facility] BUN 24 5 - 25 mg/dL LAB CHEMISTRY METHOD 01/08/2025 12:06 PM [facility] Creatinine 0.93 0.70 - 1.30 mg/dL LAB CHEMISTRY METHOD 01/08/2025 12:06 PM [facility] LAB eGFR 92 >=60 mL/min/1. 73m2 LAB CHEMISTRY METHOD 01/08/2025 12:06 PM [facility] Comment:Calculation based on the Chronic Kidney Disease Epidemiology Collaboration (CKD-EPI) equation refit without adjustment for race. BUN/Creatinine Ratio 25.8 LAB CHEMISTRY METHOD 01/08/2025 12:06 PM [facility] Calcium 8.4(L) 8.5 - 10.5 mg/dL LAB CHEMISTRY METHOD 01/08/2025 12:06 PM [facility] Blood Venous blood specimen / Unknown Venipuncture / Unknown 01/08/2025 7:22 AM EDT 01/08/2025 10:53 AM EDT us Jacoby BEJARANO LAB BLOOD ORDERABLES Final R esult [facility] ([facility] [address] [place] [address], documented in this encounter Visit Diagnoses Diagnosis Encounter for other general examination documented in this encounter Care Teams Sterile Processing Manager Relationship Specialty Start Date End Date Physician, No Pcp PCP - General 01/08/25 documented as of this encounter
--- OUTSIDE RECORDS SUMMARY | 2025-03-10 13:20 | XMS_ITS | Patient Health Record ---
Author Organization [facility] Dedrick schaefer Abran Address [address] [facility] [place] [address] Care Team Providers Care Parole Or Probation Officer Name Role Phone aYng Burgos MD Primary Care Provider Shellie Crocker Unavailable [phone] Rosa Sanchez Unavailable [phone] Allergies Allergen (clinical drug ingredient) Drug/Non Drug Allergy documented on EMR Reaction Allergy Type Onset Date Status codeine Codeine Unknown Drug Allergy Active Reason For Referral No Information Medications Medication SIG (Take, Route, Frequency, Duration) Notes Start Date End Date Status Cipro 500 MG 1 tablet Orally every 12 hrs; Duration: 7 days 04/09/2023 Not-Taking Doxycycline Hyclate 100 MG 1 capsule Orally Twice a day; Duration: 10 day(s) 09/07/2020 Not-Taking Doxycycline Hyclate 100 MG 1 capsule Orally Twice a day; Duration: 10 day(s) 06/28/2022 Not-Taking Doxycycline Hyclate 100 MG 1 capsule Orally Twice a day; Duration: 10 day(s) 02/23/2020 Not-Taking Senokot Not-Taking Bisacodyl Not-Taking Cipro 500 MG 1 tablet Orally every 12 hrs; Duration: 7 days 08/11/2019 Not-Taking Bactrim DS 800-160 MG 1 tablet Orally every 12 hrs; Duration: 10 day(s) 06/11/2018 Not-Taking Doxycycline Hyclate 100 MG 1 capsule Orally Twice a day; Duration: 10 days 04/03/2023 Not-Taking Doxycycline Hyclate 100 MG 1 capsule Orally Twice a day; Duration: 10 day(s) 06/17/2018 Not-Taking Iodosorb 0.9 % as directed Externally Apply to ulceration daily with dry sterile dressing; Duration: 30 days 05/30/2019 Not-Taking Cipro 500 MG 1 tablet Orally every 12 hrs; Duration: 10 day(s) 05/30/2019 Not-Taking Doxycycline Monohydrate 100 MG 1 capsule Orally every 12 hrs; Duration: 7 days 05/14/2019 Not-Taking Cipro 500 MG 1 tablet Orally every 12 hrs; Duration: 7 days 05/19/2019 Not-Taking Eliquis Active AFO-fixed . 1 . Wear daily; Duration: . 06/11/2018 Not-Taking Aspirin 81 MG Orally Once a day Active Cipro 500 MG 1 tablet Orally every 12 hrs; Duration: 14 days 09/17/2018 Not-Taking Lisinopril 10 MG Orally Act tere Alum & Mag Hydroxide-Simeth Not-Taking Acetaminophen Active Doxycycline Hyclate 100 MG 1 capsule Orally Twice a day; Duration: 14 days Not-Taking Doxycycline Hyclate 100 MG 1 capsule Orally Twice a day; Duration: 14 days 02/26/2019 Not-Taking Cipro 500 MG 1 tablet Orally every 12 hrs; Duration: 7 days 03/03/2019 Not-Taking Cipro 500 MG 1 tablet Orally every 12 hrs; Duration: 7 days 10/08/2018 Not-Taking Amoxicillin 500 MG 1 capsule Orally every 8 hrs Not-Taking Baclofen 20 mg 2x a day Active Lac-Hydrin Not-Takin g Terazosin HCl 2 MG Orally Once a day Active Cranberry Not-Taking Atorvastatin Calcium 20 MG Orally Once a day Active Docusate Calcium Not -Taking Doxycycline Monohydrate 100 MG 1 capsule Orally Once a day; Duration: 10 days 10/15/2024 Active Immunizations Vaccine Route Administration Date Status Comme [...] primary osteoarthritis of the ankle and/or foot (710816739) Primary osteoarthritis, right ankle and foot (M19.071) Active confirmed Problem Lymphedema (00933487) Lymphedema (I89.0) Active confirmed Problem Bilateral atherosclerosis of arteries of lower limbs (disorder) (40779701628667029 ) Atherosclerosis of artery of both lower extremities (I70.203) Active confirmed Problem Polyneuropathy (38060394) 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) Active confirmed Vital Signs Blood pressure diastolic 75 mm Hg 11/26/2024 Height 6ft2in in 11/26/2024 Blood pressure systolic 120 mm Hg 11/26/2024 Weight 270 lbs 11/26/2024 BMI 34.66 kg/m2 11/26/2024 Encounters Encounter Location Date Provider Diagnosis [address] [phone] 04/22/2024 Shellie Perica Neuropathy due to medical condition G63 ; Atherosclerosis of artery of both lower extremities I70.203 and Tinea unguium B35.[address] [address] 07/04/2024 Shellie Perica Atherosclerosis of artery of both lower extremities I70.203 ; Dependent rubor L53.9 ; Neuropathy due to medical condition G63 and Tinea unguium B35.[address] [address] 09/17/2024 Shellie Perica Dependent rubor L53. 9 ; Peripheral venous insufficiency I87.2 ; Atherosclerosis of artery of both lower extremities I70.203 ; Neuropathy due to medical condition G63 and Tinea unguium B35.[address] [address] 10/15/2024 Rosa Sanchez Wound cellulitis L03.90 and Cellulitis of right lower extremity L03.[address] [address] 11/26/2024 Shellie Perica Peripheral venous insufficiency I87.2 ; Atherosclerosis of artery of both lower extremities I70.203 ; Neuropathy due to medical condition G63 ; Tinea unguium B35.1 ; Lymphedema I89.0 and Pressure injury of right ankle, stage 1 L89.511 [facility] [address] [address] 10/10/2024 Shellie Griffith [facility] [address] 10/15/2024 Rosa Sanchez [facility] [address] [address] 02/12/2025 Shellie Griffith Assessments Encounter Date Diagnosis (ICD Code) Assessment Notes Treatment Notes Treatment Clinical Notes Section Notes 07/04/2024 Dependent rubor (ICD-10 - L53.9) 07/04/2024 [...] due to medical condition (ICD-10 - G63) 04/22/2024 Tinea unguium (ICD-10 - B35.1) 09/17/2024 [...] X ray : Foot, right 3V 06/11/2018 [id number] NAIL, 6 OR MORE 06/11/2018 [id number] SKIN/TISSUE 06/11/2018 29450-[id number] SKIN LESIONS, OVER 4 06/11/19 19 X ray : Ankle, right 3V 06/28/2022 X ray : Ankle, right 3V 04/03/2023 Next Appt Details Provider Name:Shellie horn, 03/27/2025 10:15:00 AM, [address] [place], [address], Insurance Providers Payer Name Payer Address Payer Phone Subscriber Number Group Number Insured Name Patient Relationship to Insured Coverage Start Date Coverage End Date Medicare National Govt [facility] [address] [place] [phone] [id number] Jayden Mendiola Self - patient is the insured [facility] Others [address] [place] [address] [phone] [id number] [phone] [id number] Jayden Mendiola Self - patient is the insured Medical (General) History Medical History History ICD Code Anxiety Measles Hypertension Stroke ulcer Surgical History Surgery Date(Month/Year) achilles tendon pacemaker HT repair R grt toe, Bone biopsy R grt t oe, Exision skinlesion 10/03/2018 Hospitalization History Reason Date(Month/Year)
--- OUTSIDE RECORDS SUMMARY | 2025-03-10 13:20 | XMS_ITS | Encounter Summary ---
Author Organization [facility] Address [address] [place] [address] Care Team Providers Care Field Cane Scaler Helper Name Role Phone Physician, No Pcp Primary Care Provider Unavaila ble Encounter Details Date Type Department Care Team (Late st Contact Info) Description 01/01/2025 Lab Requisition [facility] - Main Lab [address] [facility] [place] [address] Jacoby Jackson PA [address] [phone] Encounter for other general examination Social History [...] Associated Diagnosis Comments COMPLETE BLOOD COUNT Routine 01/01/2025 6:28 AM EDT Encounter for other general examination BASIC METABOLIC PANEL Routine 01/01/2025 6:28 AM EDT Encounter for other general examination documented in this encounter Results * (ABNORMAL) Complete blood count (01/01/2025 6:28 AM EDT) WBC 8.6 4.8 - 10.8 K/[facility] LAB HEMETOLOGY METHOD 01/01/2025 9:30 AM EDT [facility] RBC 4.30(L) 4.50 - 5.50 M/[facility] LAB HEMETOLOGY METHOD 01/01/2025 9:30 AM EDT [facility] Hemoglobin 13.1(L) 13.5 - 17.5 g/dL LAB HEMETOLOGY METHOD 01/01/2025 9:30 AM EDT [facility] Hematocrit 39.9(L) 42.0 - 54.0 % LAB HEMETOLOGY METHOD 01/01/2025 9:30 AM EDT [facility] MCV 91.9 79.0 - 98.0 FL LAB HEMETOLOGY METHOD 01/01/2025 9:30 AM EDT [facility] MCH 30.2 27.0 - 32.0 pcg LAB HEMETOLOGY METHOD 01/01/2025 9:30 AM EDT [facility] MCHC 32.8 32.0 - 37.0 g/dL LAB HEMETOLOGY METHOD 01/01/2025 9:30 AM EDT [facility] RDW 13.8 11.0 - 15.0 % LAB HEMETOLOGY METHOD 01/01/2025 9:30 AM EDT [facility] Platelets 312 130 - 400 K/mcL LAB HEMETOLOGY METHOD 01/01/2025 9:30 AM EDT [facility] MPV 10.0 7.0 - 11.0 FL LAB HEMETOLOGY METHOD 01/01/2025 9:30 AM EDT [facility] NRBC 0.0 <1.0 % LAB HEMETOLOGY METHOD 01/01/2025 9:30 AM EDT [facility] NRBC Absolute 0.00 <0.10 K/mcL LAB HEMETOLOGY METHOD 01/01/2025 9:30 AM EDT [facility] Blood Venous blood specimen / Unknown Venipuncture / Unknown 01/01/2025 6:28 AM EDT 01/01/2025 8:40 AM EDT us Jacoby BEJARANO LAB BLOOD ORDERABLES Final R esult [facility] [address] [place] [address], * Basic metabolic panel (01/01/2025 6:28 AM EDT) Sodium 138 133 - 145 mmol/L LAB CHEMISTRY METHOD 01/01/2025 9:51 AM [facility] LAB Potassium 4.2 3.5 - 5.5 mmol/L LAB CHEMISTRY METHOD 01/01/2025 9:51 AM [facility] Chloride 104 96 - 110 mmol/L LAB CHEMISTRY METHOD 01/01/2025 9:51 AM [facility] CO2 30 21 - 32 mmol/L LAB CHEMISTRY METHOD 01/01/2025 9:51 AM [facility] Anion Gap 4 3 - 11 LAB CHEMISTRY METHOD 01/01/2025 9:51 AM [facility] Glucose 86 70 - 100 mg/dL LAB CHEMISTRY METHOD 01/01/2025 9:51 AM [facility] BUN 21 5 - 25 mg/dL LAB CHEMISTRY METHOD 01/01/2025 9:51 AM [facility] Creatinine 0.94 0.70 - 1.30 mg/dL LAB CHEMISTRY METHOD 01/01/2025 9:51 AM [facility] LAB eGFR 91 >=60 mL/min/1. 73m2 LAB CHEMISTRY METHOD 01/01/2025 9:51 AM [facility] LAB Comment:Calculation based on the Chronic Kidney Disease Epidemiology Collaboration (CKD-EPI) equation refit without adjustment for race. BUN/Creatinine Ratio 22.3 LAB CHEMISTRY METHOD 01/01/2025 9:51 AM [facility] Calcium 8.8 8.5 - 10.5 mg/dL LAB CHEMISTRY METHOD 01/01/2025 9:51 AM [facility] Blood Venous blood specimen / Unknown Venipuncture / Unknown 01/01/2025 6:28 AM EDT 01/01/2025 8:40 AM EDT us Jacoby BEJARANO LAB BLOOD ORDERABLES Final R esult [facility] [address] [place] [address], documented in this encounter Visit Diagnoses Diagnosis Encounter for other general examination documented in this encounter Care Teams Field Cane Scaler Helper Relationship Specialty Start Date End Date Physician, No Pcp PCP - General 01/08/25 documented as of this encounter
--- OUTSIDE RECORDS SUMMARY | 2025-03-10 13:20 | XMS_ITS | Clinical Summary ---
Author Organization [address] [facility] Address [address] [place] [address] Phone Care Team Providers Care Rn Perioperative Name Role Phone Physician, No Pcp Primary Care Provider Unavaila ble Encounters Date Type Department Care Team Description 01/15/2025 Lab Requisition [facility] Lab [address] [place] [phone] Jacoby Jackson PA Encounter for other general examination 01/08/2025 Lab Requisition [facility] Lab [address] [place] [address] Jacoby Jackson PA Encounter for other general examination 01/01/2025 Lab Requisition [facility] Lab [address] [place] [address] Jacoby Jackson PA Encounter for other general examination 12/25/2024 Lab Requisition [facility] Lab [address] [place] [address] Jacoby Jackson PA Encounter for other general examination from Last 3 Months Social History Tobacco Use Types Packs/Day Years Used Date Smoking Tobacco: Never Assessed Sex and Gender Information Value Date Recorded Sex Assigned at Not on file Legal Sex Male 6:03 PM EST Gender Identity Not on file Sexual Orientation Not on file Plan of Treatment Health Maintenance Due Date Last Done Comments Colorectal Cancer Screening: Colonoscopy 1960 Zoster Vaccines (1 of 2) 2011 Depression Screening 06/04/2024 Cholesterol Screening (Lipid Panel) 12/26/2024 HIV Screening 12/26/2024 Hepatitis C Screening 12/26/2024 Medicare Annual Wellness Visit 12/26/2024 Social Influencers of Health Screening 12/26/2024 COVID-19 Vaccine ( season) 2025 03/05/2021, 08/18/2020, 07/26/2020 Influenza Vaccine (#1) 2025 , 03/08/2022, 03/10/2021, Additional history exists Hypertension/CHF/CAD Annual BMP Blood Test 01/15/2026 01/15/2025, 01/08/2025, 01/01/2025, Additional history exists DTaP,Tdap,and Td Vaccines (2 - Tdap) 01/25/2027 01/25/2017 RSV Immunization Adult Patients (1 - 1-dose 75+ series) 01/05/2036 Pneumococcal Vaccine: 50+ Years Completed 05/23/2023 HIB Vaccines Aged Out No longer eligi ble based on patient's age to complete this topic HPV Vaccines Aged Out No longer eligi ble based on patient's age to complete this topic Hepatitis A Vaccines Aged Out No long er eligible based on patient's age to complete this topic Hepatitis B Vaccines Aged Out No long er eligible based on patient's age to complete this topic IPV Vaccines Aged Out No longer eligi ble based on patient's age to complete this topic MMR Vaccines Aged Out No longer eligi ble based on patient's age to complete this topic Meningococcal ACWY Vaccine Aged Out N o longer eligible based on patient's age to complete this topic Meningococcal B Vaccine Aged Out No l onger eligible based on patient's age to complete this topic RSV Immunization Patients Under 20 months Aged Out No longer eligible based on patient's age to complete this topic Varicella Vaccines Aged Out No longer eligible based on patient's age to complete this topic Procedures Procedure Name Priority Date/Time Associated Diagnosis Comments COMPLETE BLOOD COUNT Routine 01/15/2025 6:56 AM EDT Encounter for other general examination BASIC METABOLIC PANEL Routine 01/15/2025 6:56 AM EDT Encounter for other general examination COMPLETE BLOOD COUNT Routine 01/08/2025 7:22 AM EDT Encounter for other general examination BASIC METABOLIC PANEL Routine 01/08/2025 7:22 AM EDT Encounter for other general examination COMPLETE BLOOD COUNT Routine 01/01/2025 6:28 AM EDT Encounter for other general examination BASIC METABOLIC PANEL Routine 01/01/2025 6:28 AM EDT Encounter for other general examination CBC WITH AUTO DIFFERENTIAL Routine 12/25/2024 4:58 AM EDT Encounter for other general examination MAGNESIUM Routine 12/25/2024 4:58 AM EDT Encounter for other general examination COMPREHENSIVE METABOLIC PANEL Routine 12/25/2024 4:58 AM EDT Encounter for other general examination CBC AND DIFFERENTIAL Routine 12/25/2024 4:58 AM EDT Encounter for other general examination from Last 3 Months Results * (ABNORMAL) Complete blood count (01/15/2025 6:56 AM EDT) Only the most recent of3 resultswithin the time period is included. [facility] Signature WBC 8.4 4.8 - 10.8 K/mcL LAB HEMETOLOGY METHOD [facility]25 [facility] RBC 4.20(L) 4.50 - 5.50 M/mcL LAB HEMETOLOGY METHOD 01/15/2025 10:43 AM [facility] LAB Hemoglobin 12.6(L) 13.5 - 17.5 g/dL LAB HEMETOLOGY METHOD 01/15/2025 10:43 AM [facility] LAB Hematocrit 38.9(L) 42.0 - 54.0 % LAB HEMETOLOGY METHOD 01/15/2025 10:43 [facility] MCV 93.1 79.0 - 98.0 FL LAB HEMETOLOGY METHOD 01/15/2025 10:43 AM [facility] LAB MCH 30.1 27.0 - 32.0 pcg LAB HEMETOLOGY METHOD 01/15/2025 10:43 AM EDT [facility] LAB MCHC 32.4 32.0 - 37.0 g/dL LAB HEMETOLOGY METHOD 01/15/2025 10:43 AM EDT [facility] LAB RDW 13.7 11.0 - 15.0 % LAB HEMETOLOGY METHOD 01/15/2025 10:43 AM EDT [facility] LAB Platelets 300 130 - 400 K/mcL LAB HEMETOLOGY METHOD 01/15/2025 10:43 AM EDT [facility] LAB MPV 10.0 7.0 - 11.0 FL LAB HEMETOLOGY METHOD 01/15/2025 10:43 AM EDT [facility] LAB NRBC 0.0 <1.0 % LAB HEMETOLOGY METHOD 01/15/2025 10:43 AM EDT [facility] LAB NRBC Absolute 0.00 <0.10 K/mcL LAB HEMETOLOGY METHOD 01/15/2025 10:43 AM EDT [facility] LAB Blood Venous blood specimen / Unknown Venipuncture / Unknown 01/15/2025 6:56 AM EDT 01/15/2025 9:03 AM EDT us Jacoby BEJARANO LAB BLOOD ORDERABLES Final R esult [facility] LAB [address] [place] [address], * Basic metabolic panel (01/15/2025 6:56 AM EDT) Only the most recent of3 resultswithin the time period is included. Sodium 139 133 - 145 mmol/L LAB CHEMISTRY METHOD 01/15/2025 11:53 AM EDT [facility] LAB Potassium 4.5 3.5 - 5.5 mmol/L LAB CHEMISTRY METHOD 01/15/2025 11:53 AM EDT [facility] LAB Chloride 104 96 - 110 mmol/L LAB CHEMISTRY METHOD 01/15/2025 11:53 AM [facility] LAB CO2 29 21 - 32 mmol/L LAB CHEMISTRY METHOD 01/15/2025 11:53 AM [facility] LAB Anion Gap 6 3 - 11 LAB CHEMISTRY METHOD 01/15/2025 11:53 AM [facility] LAB Glucose 81 70 - 100 mg/dL LAB CHEMISTRY METHOD 01/15/2025 11:53 AM [facility] LAB BUN 21 5 - 25 mg/dL LAB CHEMISTRY METHOD 01/15/2025 11:53 AM [facility] LAB Creatinine 0.92 0.70 - 1.30 mg/dL LAB CHEMISTRY METHOD 01/15/2025 11:53 AM [facility] LAB eGFR 93 >=60 mL/min/1. 73m2 LAB CHEMISTRY METHOD 01/15/2025 11:53 AM [facility] LAB Comment:Calculation based on the Chronic Kidney Disease Epidemiology Collaboration (CKD-EPI) equation refit without adjustment for race. BUN/Creatinine Ratio 22.8 LAB CHEMISTRY METHOD 01/15/2025 11:53 AM [facility] LAB Calcium 8.6 8.5 - 10.5 mg/dL LAB CHEMISTRY METHOD 01/15/2025 11:53 AM [facility] LAB Blood Venous blood specimen / Unknown Venipuncture / Unknown 01/15/2025 6:56 AM EDT 01/15/2025 9:03 AM EDT us Jacoby BEJARANO LAB BLOOD ORDERABLES Final R esult [facility] LAB [address] [place] [address], * (ABNORMAL) CBC auto differential (12/25/2024 4:58 AM EDT) WBC 7.4 4.8 - 10.8 K/mcL LAB HEMETOLOGY METHOD 12/25/2024 9:09 AM [facility] LAB RBC 4.40(L) 4.50 - 5.50 M/mcL LAB HEMETOLOGY METHOD 12/25/2024 9:09 AM [facility] LAB Hemoglobin 13.3(L) 13.5 - 17.5 g/dL LAB HEMETOLOGY METHOD 12/25/2024 9:09 AM [facility] LAB Hematocrit 40.9(L) 42.0 - 54.0 % LAB HEMETOLOGY METHOD 12/25/2024 9:09 AM [facility] LAB MCV 92.5 79.0 - 98.0 FL LAB HEMETOLOGY METHOD 12/25/2024 9:09 AM [facility] LAB MCH 30.1 27.0 - 32.0 pcg LAB HEMETOLOGY METHOD 12/25/2024 9:09 AM [facility] LAB MCHC 32.5 32.0 - 37.0 g/dL LAB HEMETOLOGY METHOD 12/25/2024 9:09 AM [facility] LAB RDW 13.9 11.0 - 15.0 % LAB HEMETOLOGY METHOD 12/25/2024 9:09 AM [facility] LAB Platelets 225 130 - 400 K/mcL LAB HEMETOLOGY METHOD 12/25/2024 9:09 AM [facility] LAB MPV 10.4 7.0 - 11.0 FL LAB HEMETOLOGY METHOD 12/25/2024 9:09 AM [facility] LAB NRBC 0.0 <1.0 % LAB HEMETOLOGY METHOD 12/25/2024 9:09 AM [facility] LAB NRBC Absolute 0.00 <0.10 K/mcL LAB HEMETOLOGY METHOD 12/25/2024 9:09 AM [facility] LAB Neutrophils Relative 72.2 % LAB HEMETOLOGY METHOD 12/25/2024 9:09 AM [facility] Lymphocytes Relative 12.3 % LAB HEMETOLOGY METHOD 12/25/2024 9:09 AM [facility] LAB Monocytes Relative 10.0 % LAB HEMETOLOGY METHOD 12/25/2024 9:09 AM [facility] LAB Eosinophils Relative 3.5 % LAB HEMETOLOGY METHOD 12/25/2024 9:09 AM [facility] Basophils Relative 0.8 % LAB HEMETOLOGY METHOD 12/25/2024 9:09 AM [facility] Immature Granulocytes Relative 1.2 % LAB HEMETOLOGY METHOD 12/25/2024 9:09 AM [facility] LAB Neutrophils Absolute 5.31 1.50 - 7.00 K/mcL LAB HEMETOLOGY METHOD 12/25/2024 9:09 AM [facility] LAB Lymphocytes Absolute 0.91(L) 1.00 - 5.00 K/mcL LAB HEMETOLOGY METHOD 12/25/2024 9:09 AM [facility] LAB Monocytes Absolute 0.74 0.20 - 1.00 K/mcL LAB HEMETOLOGY METHOD 12/25/2024 9:09 AM [facility] LAB Eosinophils Absolute 0.26 0.00 - 0.50 K/mcL LAB HEMETOLOGY METHOD 12/25/2024 9:09 AM [facility] Basophils Absolute 0.06 0.00 - 0.20 K/mcL LAB HEMETOLOGY METHOD 12/25/2024 9:09 AM [facility] LAB Immature Granulocytes Absolute 0.09(H) 0.00 - 0.03 K/mcL LAB HEMETOLOGY METHOD 12/25/2024 9:09 AM [facility] LAB Blood Venous blood specimen / Unknown 12/25/2024 4:58 AM EDT 12/25/2024 8:16 AM EDT Jacoby BEJARANO LAB BLOOD ORDERABLES Final R esult Performing Organization Address [facility]/ZIP Co de Phone Number [facility] LAB [address] [place] [address], [place] [phone] * (ABNORMAL) Magnesium (12/25/2024 4:58 AM EDT) [facility] Magnesium 1.5(L) 1.9 - 2.6 mg/dL LAB CHEMISTRY METHOD 12/25/2024 9:18 AM EDT [facility] Blood Venous blood specimen / Unknown Venipuncture / Unknown 12/25/2024 4:58 AM EDT 12/25/2024 8:16 AM EDT Jacoby BEJARANO LAB BLOOD ORDERABLES Final R esult Performing Organization Address City/[facility]/ZIP Co de Phone Number [facility] [address] [place] [address], [place] [phone] * (ABNORMAL) Comprehensive metabolic panel (12/25/2024 4:58 AM EDT) [facility] Sodium 138 133 - 145 mmol/L LAB CHEMISTRY METHOD 12/25/2024 9:18 AM EDT [facility] LAB Potassium 4.4 3.5 - 5.5 mmol/L LAB CHEMISTRY METHOD 12/25/2024 9:18 AM EDT [facility] LAB Chloride 102 96 - 110 mmol/L LAB CHEMISTRY METHOD 12/25/2024 9:18 AM EDT [facility] LAB CO2 31 21 - 32 mmol/L LAB CHEMISTRY METHOD 12/25/2024 9:18 AM EDT [facility] LAB Anion Gap 5 3 - 11 LAB CHEMISTRY METHOD 12/25/2024 9:18 AM EDT [facility] Glucose 93 70 - 100 mg/dL LAB CHEMISTRY METHOD 12/25/2024 9:18 AM [facility] LAB BUN 13 5 - 25 mg/dL LAB CHEMISTRY METHOD 12/25/2024 9:18 AM [facility] LAB Creatinine 0.88 0.70 - 1.30 mg/dL LAB CHEMISTRY METHOD 12/25/2024 9:18 AM [facility] LAB eGFR 97 >=60 mL/min/1. 73m2 LAB CHEMISTRY METHOD 12/25/2024 9:18 AM [facility] LAB Comment:Calculation based on the Chronic Kidney Disease Epidemiology Collaboration (CKD-EPI) equation refit without adjustment for race. BUN/Creatinine Ratio 14.8 LAB CHEMISTRY METHOD 12/25/2024 9:18 AM [facility] LAB Calcium 8.3(L) 8.5 - 10.5 mg/dL LAB CHEMISTRY METHOD 12/25/2024 9:18 AM [facility] LAB AST (SGOT) 9(L) 10 - 42 unit/L LAB CHEMISTRY METHOD 12/25/2024 9:18 AM [facility] LAB ALT (SGPT) 7(L) 10 - 60 unit/L LAB CHEMISTRY METHOD 12/25/2024 9:18 AM [facility] LAB Alkaline Phosphatase 55 42 - 121 unit/L LAB CHEMISTRY METHOD 12/25/2024 9:18 AM [facility] Total Protein 5.2(L) 6.0 - 8.0 g/dL LAB CHEMISTRY METHOD 12/25/2024 9:18 AM [facility] LAB Albumin 2.5(L) 3.2 - 5.0 g/dL LAB CHEMISTRY METHOD 12/25/2024 9:18 AM [facility] Total Bilirubin 1.2 0.0 - 1.4 mg/dL LAB CHEMISTRY METHOD 12/25/2024 9:18 AM [facility] Blood Venous blood specimen / Unknown Venipuncture / Unknown 12/25/2024 4:58 AM EDT 12/25/2024 8:16 AM EDT us Jacoby BEJARANO LAB BLOOD ORDERABLES Final R esult [facility] ([facility] LAB [address] [place] [address], [place] [phone] from Last 3 Months Insurance MEDICARE [facility] [place] Care Teams Rn Perioperative Relationship Specialty Start Date End Date Physician, No Pcp PCP - General 01/08/25
--- OUTSIDE RECORDS SUMMARY | 2025-03-10 13:20 | XMS_ITS ---
Author Organization [facility] Care Team Providers Care Special Events Manager Name Role Phone Alem Dickerson Unavailable Unavailable Jacoby Jules Unavailable Unavailable Janet Rivero Unavailable Unavailable Janet Rivero Unavailable Unavailable Allergies and adverse reactions Code CodeSystem Substance Reaction Severity StartDate Concern Status 2670 RXNORM Codeine Unknown Unknown active Care Team Name Role Address Phone Organization Dates Alem Dickerson [address] [facility] [address], [place], [address], [place] (Office): : [facility] 12/23/2015 - 01/19/2017 Jacoby Jules [address] [facility] [address], [place], [address], [place] (Office[place] : [facility] 12/23/2015 - 01/19/2017 Janet Rivero [address] [facility] [address], [place], [address], [place] (Office): : [facility] 12/23/2015 - 01/19/2017 Janet Rivero [address] [place] [address] [address], [place], [address], [place] (Office): : [facility] 12/23/2015 - 01/19/2017 Immunizations Immunization Status Vaccine Details Vaccine Code CodeSystem Date Notes Influenza completed Influenza, split virus, trivalent, injectable, contains preservative lotNumber: [id number] expiry: 11/21/2016 Mfg: Seqirus Given 0.5 ml Left Deltoid intramuscularly 141 CVX created date: 03/15/2016 consent date: 03/15/2016 administer ed date: 03/15/2016 Educated by Michael Tompkins RN on 03/15/2016 VIS given to HCP 02/24/16 TB 1 Step Mantoux (PPD) completed tuberculin skin test; purified protein derivative solution, intradermal lotNumber: [id number] expiry: 02/02/2017 Mfg: Aplasol Given 0.1 ml Right Forearm subcutaneously 96 CVX created date: 03/30/2016 consent date: 03/30/2016 administer ed date: 03/30/2016 TB 2 Step Mantoux Skin Test completed tuberculin skin test; purified protein derivative solution, intradermal lotNumber: [id number] expiry: 02/02/2017 Mfg: PAR PAR pharmaceutic Given 0.1 ml Right Forearm intradermally Step 1 of Multi-step with next step required 96 CVX created date: 04/06/2016 consent date: 04/06/2016 administer ed date: 04/06/2016 TB 2 Step Mantoux Skin Test completed tuberculin skin test; purified protein derivative solution, intradermal Given 0.1 ml Left Forearm subcutaneously Step 2 of Multi-step with next step required 96 CVX created date: 04/19/2016 consent date: 04/19/2016 administer ed date: 04/06/2016 PCV (Prevnar) 13 completed pneumococcal conjugate vaccine, 13 valent lotNumber: [id number] expiry: 03/04/2017 Mfg: [employer] Given 0.5 ml Left Deltoid intramuscularly 133 CVX created date: 08/08/2016 consent date: 08/07/2016 administer ed date: 08/08/2016 Influenza (high dose) aborted Influenza, high-dose, split virus, trivalent, injectable, preservative free 135 CVX created date: 10/16/2016 consent date: 10/16/2016 Mental Status Section Date Assessment Total Score Description 01/19/2017 BIMS 10 moderate cognit tere impairment CAM 0 No delirium ind icated PHQ-9 00 12/13/2016 BIMS 09 moderate cognit tere impairment CAM 0 No delirium ind icated PHQ-9 00 Insurance Providers Problems Problem # Description Date of onset Resolved Date Code CodeSystem Concern Status 1 DYSPHAGIA, OROPHARYNGEAL PHASE [address] active 2 ENCOUNTER FOR OTHER SPECIFIED AFTERCARE [address] active 3 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 [address] active 4 OTHER LACK OF COORDINATION [address] active 5 UNSPECIFIED SEQUELAE OF UNSPECIFIED CEREBROVASCULAR DISEASE [address] active 6 APHASIA FOLLOWING UNSPECIFIED CEREBROVASCULAR DISEASE [address] active 7 DYSPHAGIA FOLLOWING CEREBRAL INFARCTION [address] active 8 MUSCLE WEAKNESS (GENERALIZED) [address] active 9 OTHER ABNORMALITIES OF GAIT AND MOBILITY [address] active 10 ACUTE KIDNEY FAILURE, UNSPECIFIED [address] active 11 APHASIA [address] active 12 DISORDER OF PROSTATE, UNSPECIFIED [address] active 13 ESSENTIAL (PRIMARY) HYPERTENSION [address] active 14 GASTRITIS, UNSPECIFIED, WITH BLEEDING [address] active 15 GENERALIZED ANXIETY DISORDER [address] active 16 HEMIPLEGIA AND HEMIPARESIS FOLLOWING UNSPECIFIED CEREBROVASCULAR DISEASE AFFECTING UNSPECIFIED SIDE [address] active 17 HYPERLIPIDEMIA, UNSPECIFIED [address] active 18 IRON DEFICIENCY ANEMIA SECONDARY TO BLOOD LOSS (CHRONIC) [address] active 19 ISCHEMIC CARDIOMYOPATHY [address] active 20 OCCLUSION AND STENOSIS OF UNSPECIFIED CEREBRAL ARTERY [address] active 21 OTHER CEREBRAL INFARCTION [address] active 22 SEPSIS, UNSPECIFIED ORGANISM [address] active 23 UNSPECIFIED ATRIAL FIBRILLATION [address] active Reason for Referral No Reasons for Referral Entered Social History Social History Observation Description Start Date End Date Code Code System Current Smoking Status Tobacco smoking consumption unknown 241712152 SNOMED CT Sex Assigned At Male 1960 [address]-8 [facility] Gender Identity Sexual Orientation Vital Signs Code Code System Vitals Name Values and Units Timing Information 9279-1 [facility] Respiratory Rate Value=18.0 Units=/m in 01/19/2017 8462-4 [facility] Blood Pressure-Diastolic Value=85 Un its=mmHg 01/19/2017 8480-6 [facility] Blood Pressure-Systolic Ioyxx=854 Un its=mmHg 01/19/2017 8310-5 [facility] Body Temperature Value=96.9 Units= F 01/19/2017 8867-4 [facility] Heart rate Value=60.0 Units=/min 04467-5 [facility] O2 % BldC Oximetry Value=96.0 Units= % 01/19/2017 53190-8 [facility] Pain Level Value=0.0 01/15/2017 14937-3 [facility] Weight Chgof=649.0 Units=Lbs 08/2016 8302-2 [facility] Height Value=74.0 Units=Inches 12/30/2015
--- OUTSIDE RECORDS SUMMARY | 2025-03-10 13:20 | XMS_ITS | Encounter Summary ---
[facility] [address] [place] [address] Care Team Providers Care Chief Accountant Name Role Phone Physician, No Pcp Primary Care Provider Unavaila ble Encounter Details Date Type Department Care Team (Late st Contact Info) Description 01/15/2025 Lab Requisition [facility] Lab [address] [facility] [place] [address] Jacoby Jackson PA [address] [phone] Encounter for other general examination Social History [...] encounter Results * (ABNORMAL) Complete blood count (01/15/2025 6:56 AM EDT) WBC 8.4 4.8 - 10.8 K/[facility] LAB HEMETOLOGY METHOD 01/15/2025 10:[address] [facility] RBC 4.20(L) 4.50 - 5.50 M/[facility] LAB HEMETOLOGY METHOD 01/15/2025 10:[address] [facility] Hemoglobin 12.6(L) 13.5 - 17.5 g/dL LAB HEMETOLOGY METHOD 01/15/2025 10:[address] [facility] Hematocrit 38.9(L) 42.0 - 54.0 % LAB HEMETOLOGY METHOD 01/15/2025 10:[address] [facility] MCV 93.1 79.0 - 98.0 FL LAB HEMETOLOGY METHOD 01/15/2025 10:[address] [facility] MCH 30.1 27.0 - 32.0 pcg LAB HEMETOLOGY METHOD 01/15/2025 10:[address] [facility] MCHC 32.4 32.0 - 37.0 g/dL LAB HEMETOLOGY METHOD 01/15/2025 10:[address] [facility] RDW 13.7 11.0 - 15.0 % LAB HEMETOLOGY METHOD 01/15/2025 10:[address] [facility] Platelets 300 130 - 400 K/mcL LAB HEMETOLOGY METHOD 01/15/2025 10:[address] [facility] MPV 10.0 7.0 - 11.0 FL LAB HEMETOLOGY [facility]25 [facility] NRBC 0.0 <1.0 % LAB HEMETOLOGY METHOD 01/15/2025 10:[address] [facility] NRBC Absolute 0.00 <0.10 K/mcL LAB HEMETOLOGY METHOD 01/15/2025 10:[address] [facility] Blood Venous blood specimen / Unknown Venipuncture / Unknown 01/15/2025 6:56 AM EDT 01/15/2025 9:03 AM EDT us Jacoby BEJARANO LAB BLOOD ORDERABLES Final R esult [facility] [address] [place] [address], * Basic metabolic panel (01/15/2025 6:56 AM EDT) Sodium 139 133 - 145 mmol/L LAB CHEMISTRY METHOD 01/15/2025 11:53 AM [facility] Potassium 4.5 3.5 - 5.5 mmol/L LAB CHEMISTRY METHOD 01/15/2025 11:53 AM [facility] Chloride 104 96 - 110 mmol/L LAB CHEMISTRY METHOD 01/15/2025 11:53 AM [facility] CO2 29 21 - 32 mmol/L LAB CHEMISTRY METHOD 01/15/2025 11:53 AM [facility] Anion Gap 6 3 - 11 LAB CHEMISTRY METHOD 01/15/2025 11:53 AM [facility] Glucose 81 70 - 100 mg/dL LAB CHEMISTRY METHOD 01/15/2025 11:53 AM [facility] BUN 21 5 - 25 mg/dL LAB CHEMISTRY METHOD 01/15/2025 11:53 AM [facility] Creatinine 0.92 0.70 - 1.30 mg/dL LAB CHEMISTRY METHOD 01/15/2025 11:53 AM [facility] LAB eGFR 93 >=60 mL/min/1. 73m2 LAB CHEMISTRY METHOD 01/15/2025 11:53 AM [facility] Comment:Calculation based on the Chronic Kidney Disease Epidemiology Collaboration (CKD-EPI) equation refit without adjustment for race. BUN/Creatinine Ratio 22.8 LAB CHEMISTRY METHOD 01/15/2025 11:53 AM [facility] Calcium 8.6 8.5 - 10.5 mg/dL LAB CHEMISTRY METHOD 01/15/2025 11:53 AM [facility] Blood Venous blood specimen / Unknown Venipuncture / Unknown 01/15/2025 6:56 AM EDT 01/15/2025 9:03 AM EDT us Jacoby BEJARANO LAB BLOOD ORDERABLES Final R esult [facility] ([facility]) [facility] [address] [place] [address], documented in this encounter Visit Diagnoses Diagnosis Encounter for other general examination documented in this encounter Care Teams Chief Accountant Relationship Specialty Start Date End Date Physician, No Pcp PCP - General 01/08/25 documented as of this encounter
--- OUTSIDE RECORDS SUMMARY | 2025-03-10 13:20 | XMS_ITS | Clinical Summary ---
Author Organization [facility] Address [address] [address] Phone Care Team Providers Care Case Liner Name Role Phone Yang Burgos MD Unavailable [phone] Yang Burgos MD Primary Care Provider [phone] Medications apixaban (ELIQUIS) 5 mg tablet Orally [...] HEPATITIS C SCREENING 1979 HIV ONE-TIME SCREENING (18-65 YEARS) 1979 COLOGUARD 2006 COLONOSCOPY 2006 COLORECTAL CANCER SCREENING 2006 FIT TEST 2006 FOBT 2006 SIGMOIDOSCOPY 2006 VIRTUAL COLONOSCOPY 2006 PNEUMOCOCCAL VACCINES (50+ years) (1 of 1 - PCV) 2011 ZOSTER VACCINES (1 of 2) 2011 INFLUENZA VACCINE (#1) 2025 , 03/10/2021, 03/03/2020, Additional history exists COVID-19 VACCINE ( - 2024- season) 2025 03/05/2021, 08/18/2020, 07/26/2020 RSV VACCINE (1 - [...] topic Medical Devices Not on file Insurance [place] [id number] MEDICARE PART A & B [facility] PPO [facility] MEDICARE PART A & B [facility] PPO [facility] MEDICARE PART A & B [facility] OUT [facility] PPO [place] MEDICARE PART A & B [facility] [place] [id number] MEDICARE PART A & B [facility] PPO [facility] [id number] MEDICARE PART A & B [place] [facility]PO [facility] MEDICARE PART A & B [place] OF [place] PPO [place] MEDICARE PART A & B [facility] PPO [place] MEDICARE PART A & B [facility] PPO [facility] Care Teams Case Liner Relationship Specialty Start Date End Date Yang Burgos MD [address] [place] [address] [address] [place] [address] PCP - General 06/07/17 Yang Burgos MD [address] [place] [address] [address] [place] [address] Historical LMR Provider 03/22/17 Additional Source Comments The information contained in this document represents components of the legal health record. It is not the complete legal health record.[facility]
[2025-03-10 13:43] LABS: ~Lactic Acid-LAB USE ONLY 2.1 mmol/L (0.5-2.0)
[2025-03-10 15:19] LABS: Reflex Lactate? 2 Y
[2025-03-10] MEDS: iohexoL 350 MG/ML 100 ML INFUS..BTL 85 ML IV (16:04)
[2025-03-10 16:38] LABS: Glucose, Whole Blood 106 mg/dL (60-115)
[2025-03-10 17:18] LABS: ~Lactic Acid-LAB USE ONLY 1.9 mmol/L (0.5-2.0)
--- NOTE | 2025-03-10 19:43 | PHA.MEDREC ---
Addendum entered by Rivas Salgado RPh 03/10/25 19:49: med rec reviewed Original Note: Pharmacy Consult ? Medication Reconciliation Pharmacy has completed the medication reconciliation. Spoke to patient at bedside to confirm med list. had a list of patent medications. Patient is no longer taking Gemtesa 75 mg. Patient had all his morning medications today.
--- NOTE | 2025-03-10 22:23 | P.HPHOSP_ITS ---
History of Present Illness Date of Service: 03/10/25 Attending physician on admission: Jethro Mi Chief Complaint: R weakness Patient is a 65-year-old male with a past medical history significant for history CVA with right-sided deficits, AFib on Eliquis, hypertension, CKD 3, chronic Sims catheter and class 2 obesity, who presented to the ED due to right-sided weakness starting this morning with associated confusion. Last known well time was 07:00. His noted that he has been leaning to the right. He has had right-sided deficits from a previous stroke however seem to be worse earlier today, now improved. The patient denies any chest pain, shortness of breath, nausea, vomiting, abdominal pain. He has a chronic Sims catheter which has been draining normally. He also has a stage II sacral pressure ulcer. The patient is a very poor historian and is unable to provide much history at this time. Per the ED note, the patient reported that he was feeling sick, denied any pain or falls. He told EMS that he felt off last night and not himself. He has been having lack of appetite, malaise, weakness and confusion. Head CT with evidence of previous stroke, no acute stroke. UA positive and patient was started on Zosyn per previous urine cultures. Lactic acidosis improved with 1 L IV fluids. Pelvic CT due to stage II sacral decubitus ulcer negative for osteomyelitis. Review of Systems 2 Review of Systems: Yes Unobtainable due to mental condition and Unobtainable due to mental status [facility] Medical History HTN (hypertension) CVA (cerebral vascular accident) Cardiac pacemaker in situ Chronic atrial fibrillation Family History Father No problems noted. Mother No problems noted. Surgical History History of permanent cardiac pacemaker placement Social History Household Members: Significant Other Housing: House Do you presently have visiting nurse or other home services: No Patient Tobacco Use Status: Never used Tobacco Smoked in Last 30 Days: No Use of substances other than those prescribed or required for medical reasons: No Advance Directives: Yes Advance Directives Information Provided: Yes Advance Directives on File: No Do you have a plan to hurt others: No Plan service: No Meds Allergies Allergy/AdvReac Type Severity Reaction Status Date / Time codeine (CODEINE) Allergy Unknown UNKNOWN Verified 03/10/25 10:26 Active Medications: Current Medications Acetaminophen (Acetaminophen 325 Mg Tablet) 975 mg PO Q6H PRN PRN Reason: Pain, Mild 1-3,fever,headache Apixaban (Apixaban 5 Mg Tablet) 5 mg PO BID [facility] Aspirin (Aspirin Enteric Coated 81 Mg Tablet.Dr) 81 mg PO DAILY [facility] Calcium Carbonate (Calcium Carbonate 750 Mg Tab.Chew) 750 mg PO Q4H PRN PRN Reason: Heartburn Piperacillin Sod/Tazobactam (Sod 3.375 gm/ Sodium Chloride) 50 mls @ 100 mls/hr IV Q6H [facility] Last Admin: 03/10/25 21:27 Dose: 100 mls/hr Magnesium Hydroxide (Milk Of Magnesia 30 Ml Oral.Susp) 30 ml PO DAILY PRN PRN Reason: Constipation Melatonin (Melatonin 3 Mg Tablet) 6 mg PO BEDTIME PRN PRN Reason: Insomnia Oxycodone HCl (Oxycodone Hcl Immed Release 5 Mg Tablet) 5 mg PO Q6H PRN PRN Reason: Pain, Severe (Pain Scale 7-10) Sodium Chloride (0.9 % Sodium Chloride Flush 3 Ml Syringe) 3 ml IVFLUSH QSHIFT [facility] Tramadol HCl (Tramadol Hcl 50 Mg Tablet) 50 mg PO Q6H PRN PRN Reason: Pain, Moderate(Pain Scale 4-6) Home Medications ?Medication ?Instructions ?Recorded ?Confirmed ?Last Taken ?Type apixaban 5 mg tablet 5 mg PO BID 10/25/20 5 03/10/25 History aspirin 81 mg tablet,delayed 81 mg PO DAILY 10/25/20 1 03/10/25 History release (Adult Aspirin Regimen) atorvastatin 20 mg tablet 20 mg PO BEDTIME 10/25/2003/09/25 History baclofen 20 mg tablet 20 mg PO BID 12/21/2403/10/25 History furosemide 20 mg tablet 20 mg PO DAILY 07/2012/2603/10/25 History spironolactone 50 mg tablet 50 mg PO DAILY 12/21/2403/10/25 History tamsulosin 0.4 mg capsule 0.4 mg PO BEDTIME 12/21/24 1 03/09/25 History acetaminophen 325 mg tablet 650 mg PO Q6H PRN Fever Or Pain 03/10/25 03/10/25 Unknown History ascorbic acid (vitamin C) 500 mg 500 mg PO DAILY 03/1003/10/25 03/10/25 History tablet (Vitamin C) finasteride 5 mg tablet 5 mg PO DAILY 03/10/2503/1003/10/25 History magnesium oxide 400 mg PO BID 03/10/2503/1003/10/25 History multivitamin 1 tab PO DAILY 03/10/2512/2603/10/25 History polyethylene glycol 3350 17 17 g PO DAILY PRN Constipa tion 03/10/25 03/10/25 Unknown History gram/dose oral powder (Miralax) Physical Exam 2 Vital Signs and Narrative: Vital Signs: Last Vital Signs Temp 97.5 F 03/10/25 21:17 Pulse 81 03/10/25 21:17 Resp 17 03/10/25 21:17 BP 115/79 03/10/25 21:17 Pulse Ox 96 03/10/25 21:17 O2 Del Method Room Air 03/10/25 21:17 BMI result Body Mass Index 36.2 General: Alert, oriented to person, no acute distress Resp: CTA bilaterally CVS: regular rate, irregularly irregular GI: +BS, NT, no distention Skin: Warm, dry. open wound R buttocks draining yellow with erythema Neuro: Cranial nerves II-XII grossly intact bilaterally. Motor grossly intact bilaterally. leaning to R. chronic diffuse R weakness. sensation intact and equal BLE. Extremities: No pitting edema Psych: confused, unable to follow conversation well Results Labs 03/10/25 10:57 03/10/25 10:57 Labs: Laboratory Results - last 24 hr 03/10/25 03/10/25 03/10/25 10:56 10:57 11:07 MCV 90.1 MCH 30.2 MCHC 33.5 RDW 14.4 Plt Count 257 D MPV 9.5 Immature Gran % (Auto) 1.2 H Neut % (Auto) 76.9 H Lymph % (Auto) 10.1 L [place] % (Auto) 9.0 Eos % (Auto) 2.3 Baso % (Auto) 0.5 Lymph # (Auto) 1.1 L [place] # (Auto) 1.0 Eos # (Auto) 0.3 Baso # (Auto) 0.1 Abs Immat Gran (auto) 0.13 H Absolute Neuts (auto) 8.6 H Absolute Nucleated RBC 0.000 Nucleated RBC % (auto) 0.0 VBG pH 7.45 H VBG pCO2 39 VBG pO2 47 VBG HCO3 28 H VBG O2 Saturation 77.0 VBG Base Excess 4.1 Anion Gap 16 Estim Creat Clear Calc 89.9 Estimated GFR > 60 POC Glucose Random Glucose 95 Lactic Acid 2.7 H* Lactic Acid F/U @ 2Hr Lactic Acid F/U @ 4Hr Calcium 9.3 D Magnesium 2.4 Total Bilirubin 0.9 Direct Bilirubin 0.2 AST 26 ALT < 6 Alkaline Phosphatase 79 Troponin I High Sens 12.9 C-Reactive Protein 0.80 H Total Protein 7.3 Albumin 3.9 Lipase 19 Procalcitonin 0.04 TSH 1.83 Urine Color Urine Appearance Urine pH Ur Specific [place] Urine Protein Urine Glucose (UA) Urine Ketones Urine Blood Urine Nitrite Ur Leukocyte Esterase Urine RBC Urine WBC Ur Squamous Epith Cells Calcium Oxalate Crystal Urine Bacteria Hyaline Casts Influenza Type A (PCR) NEGATIVE Influenza Type B (PCR) NEGATIVE RSV RNA Qual (PCR) NEGATIVE SARS-CoV-2 RNA (RT-PCR) NEGATIVE 03/10/25 03/10/25 03/10/25 12:39 13:17 16:34 MCV MCH MCHC RDW Plt Count MPV Immature Gran % (Auto) Neut % (Auto) Lymph % (Auto) [place] % (Auto) Eos % (Auto) Baso % (Auto) Lymph # (Auto) [place] # (Auto) Eos # (Auto) Baso # (Auto) Abs Immat Gran (auto) Absolute Neuts (auto) Absolute Nucleated RBC Nucleated RBC % (auto) VBG pH VBG pCO2 VBG pO2 VBG HCO3 VBG O2 Saturation VBG Base Excess Anion Gap Estim Creat Clear Calc Estimated GFR POC Glucose 106 Random Glucose Lactic Acid Lactic Acid F/U @ 2Hr 2.1 H* Lactic Acid F/U @ 4Hr Calcium Magnesium Total Bilirubin Direct Bilirubin AST ALT Alkaline Phosphatase Troponin I High Sens C-Reactive Protein Total Protein Albumin Lipase Procalcitonin TSH Urine Color Yellow Urine Appearance Cloudy Urine pH 7.0 Ur Specific [place] 1.015 Urine Protein Negative Urine Glucose (UA) Negative Urine Ketones Negative Urine Blood Small (1+) H Urine Nitrite Negative Ur Leukocyte Esterase Large (3+) H Urine RBC 3-5 H Urine WBC 11-20 Ur Squamous Epith Cells 3-5 Calcium Oxalate Crystal Present Urine Bacteria 4+ Hyaline Casts 3-5 Influenza Type A (PCR) Influenza Type B (PCR) RSV RNA Qual (PCR) SARS-CoV-2 RNA (RT-PCR) 03/10/25 16:49 MCV MCH MCHC RDW Plt Count MPV Immature Gran % (Auto) Neut % (Auto) Lymph % (Auto) [place] % (Auto) Eos % (Auto) Baso % (Auto) Lymph # (Auto) [place] # (Auto) Eos # (Auto) Baso # (Auto) Abs Immat Gran (auto) Absolute Neuts (auto) Absolute Nucleated RBC Nucleated RBC % (auto) VBG pH VBG pCO2 VBG pO2 VBG HCO3 VBG O2 Saturation VBG Base Excess Anion Gap Estim Creat Clear Calc Estimated GFR POC Glucose Random Glucose Lactic Acid Lactic Acid F/U @ 2Hr Lactic Acid F/U @ 4Hr 1.9 Calcium Magnesium Total Bilirubin Direct Bilirubin AST ALT Alkaline Phosphatase Troponin I High Sens C-Reactive Protein Total Protein Albumin Lipase Procalcitonin TSH Urine Color Urine Appearance Urine pH Ur Specific [place] Urine Protein Urine Glucose (UA) Urine Ketones Urine Blood Urine Nitrite Ur Leukocyte Esterase Urine RBC Urine WBC Ur Squamous Epith Cells Calcium Oxalate Crystal Urine Bacteria Hyaline Casts Influenza Type A (PCR) Influenza Type B (PCR) RSV RNA Qual (PCR) SARS-CoV-2 RNA (RT-PCR) Imaging Radiologist's Impressions: Impressions Head CT 03/10/25 10:09 IMPRESSION: 1. Large area of cystic encephalomalacia involving the entire left MCA territory, consistent with old infarct. There is wallerian degeneration of the left corticospinal tracts. There is ex vacuo dilatation of the left lateral ventricle. 2. No acute territorial infarct. No intracranial hemorrhage or mass effect. No acute intracranial abnormality. 3. Stable examination when compared with 12/22/2024. This critical result was discussed with Dr. Georgina Dixon at 10:27 AM, 03/10/2025. It was ascertained that the content and urgency of the report was understood at the time of direct communication. Electronically signed by: Mike Villalba MD 03/10/2025 10:32 AM EDT RP Chest X-Ray 03/10/25 10:25 IMPRESSION: Slightly enlarged cardiac silhouette similar to previous exam. No evidence for acute disease in the chest. Electronically signed by: Elise Jim MD 03/10/2025 10:39 AM EDT RP Pelvis CT 03/10/25 15:58 IMPRESSION: No evidence of osteomyelitis. No soft tissue fluid collection. Mild fat stranding seen adjacent to the right sacrococcygeal junction. Severe constipation. Electronically signed by: Elise Jim MD 03/10/2025 05:01 PM EDT RP Assessment and Plan (1) Acute metabolic encephalopathy: Status: Acute (2) Acute UTI: Status: Acute (3) Right sided weakness: Status: Acute (4) Sacral decubitus ulcer, stage II: Status: Acute (5) Acute lactic acidosis: Status: Acute (6) CKD stage 3a, GFR 45-59 ml/min: Status: Acute (7) Class 2 obesity: Status: Acute Plan Patient is a 65-year-old male with a past medical history significant for history CVA with right-sided deficits, AFib on Eliquis, hypertension, CKD 3, chronic Sims catheter and class 2 obesity, who presented to the ED due to right-sided weakness starting this morning with associated confusion. Acute metabolic encephalopathy secondary to UTI - Zosyn per previous urine culture, pending culture now - monitor CBC and BMP Right-sided weakness, head CT negative for acute CVA - MRI brain - echo - neurology consult - neuro checks - aspiration precautions Stage II sacral decubitus ulcer, no osteo on CT - general surgery and wound care consult Acute lactic acidosis, likely secondary to UTI and poor p.o. intake, resolved with IV fluids Chronic AFib - Eliquis HTN - spironolactone CKD 3, at baseline - avoid nephrotoxins when possible Class 2 obesity - weight loss encouraged Full code, patient would like to rediscuss tomorrow with family VTE prophylaxis: Eliquis Patient with acute metabolic encephalopathy secondary to UTI, with associated right-sided weakness, requiring admission for at least 2 midnights stay for IV antibiotics and further evaluation. Quality Stroke Does the patient have a stroke diagnosis?: No VTE Prior VTE?: No VTE Risk Level:: Medical - moderate - high VTE Device Contraindication: Treatment Not Indicated VTE Drug Contraindication: N/A - Med Ordered
[2025-03-10] MEDS: 0.9 % Sodium Chloride Flush 3 ML SYRINGE IVFLUSH (23:08)
[2025-03-11] VITALS (9 sets, daily range): BP systolic 101–128; BP diastolic 63–85; PULSE 69–81; RESP 12–18; TEMP 36.3–36.9; O2SAT 95–98; BMI 36.5; BMI 36.1
[2025-03-11 04:48] LABS: MANUAL DIFF FLAG NO
[2025-03-11 04:54] LABS: Hematocrit 39.6 % (42.0-52.0); Hemoglobin 13.1 g/dl (14.0-18.0); Imm Gran Abs Auto 0.10 X10*3/uL (0.00-0.03); Imm Gran Pct Auto 1.2 % (0.0-0.4); Lymphocytes Absolute Auto 1.7 X10*3/uL (1.2-4.9); Mean Corpuscular HGB Conc 33.1 g/dl (31.0-36.0); Mean Corpuscular Hemoglobin 29.8 pg (27.0-33.0); Mean Corpuscular Volume 90.2 fL (80.0-98.0); NRBC Abs Auto 0.000 X10*3/uL (0.0-0.012); NRBC Pct Auto 0.0 /100WBC (0.0-0.2); Platelet Count 223 X10*3/uL (160-400); Red Blood Count 4.39 X10*6/uL (4.60-5.80); White Blood Count 8.3 X10*3/uL (4.8-10.8)
[2025-03-11 05:09] LABS: Anion Gap 13 (12-20); Blood Urea Nitrogen 14 mg/dL (9-16); Calcium 8.5 mg/dL (8.4-10.2); Carbon Dioxide 25 mmol/L (22-29); Chloride 107 mmol/L (96-108); Creatinine Clr Calc Pharmacy 102.7; Estimated Glomerular Filt Rate > 60; Potassium 3.9 mmol/L (3.3-5.1); Sodium 141 mmol/L (135-145)
[2025-03-11 05:11] LABS: Cholesterol 116 mg/dL (<200); HDL Cholesterol 41 mg/dL (>40); Triglycerides 71 mg/dL (<150)
--- NOTE | 2025-03-11 07:00 | CA_ITS ---
Transthoracic Echocardiogram Patient (Last, First, Middle): Jayden Mendiola, Gender: M Date of : 1960 Age: 65 Procedure Date: 03/11/2025 Procedure Type: Transthoracic Echocardiogram Location: ER Height: 177.8 cm Weight: 113.85 kg BSA: 2.30 m2 Heart Rate: 81 bpm BP: 109 / 74 mmHg Contemporary Or Modern Dancer: OLEGARIO Referring MD: Lanette Reardon PA-C Product Assembler: Don Orr MD Symptoms: ?TIA Study Quality: Fair ECG Rhythm: Ventriculary paced rhythm Conclusions: - 1. Technically limited study despite use of contrast agent 2. LV ejection fraction appears to be preserved with LVEF of 55 60% with moderate left ventricular hypertrophy 3. Limited visualization of cardiac valves with normal cardiac valvular Dopplers 4. Normal measured RV systolic pressure Findings Procedure Information Contrast agent, definity, is being given per protocol without apparent complications. The quality of the study was technically difficult. Left Ventricle There is moderately increased left ventricular wall thickness. The left ventricular systolic function is normal. The visually estimated ejection fraction is between 55-60%. Regional wall motion abnormalities can not be excluded due to suboptimal endocardial definition. There is paradoxical septal motion consistent with a right ventricular pacemaker. Diastolic function is indeterminate on the basis of available data. Right Ventricle The right ventricle was not well visualized. Atria The left atrium was not well visualized. Interatrial shunt cannot be excluded. The right atrium was not well visualized. Aortic Valve The aortic valve was not well visualized. There is no aortic valve stenosis. Mitral Valve There is mild anterior mitral leaflet thickening. There is mild mitral annular calcification. There is no mitral valve stenosis. Pulmonic Valve The pulmonic valve was not well visualized. Tricuspid Valve The tricuspid valve was not well visualized. The right ventricular systolic pressure is normal. Great Vessels The aorta was not well visualized. The pulmonary artery was not well visualized. Venous The inferior vena cava was not well visualized. Pericardium/Pleural The pericardium was not well visualized. Measurements 2D Linear Measurements IVSd: 1.54 0.6-0.9/0.6-1.0 cm LVIDd: 3.73 3.9-5.3/4.2-5.9 cm LVIDd Index: 1.62 2.4-3.2/2.2-3.1 cm/m2 LVIDs: 2.57 2.0-3.6 cm LVPWd: 1.53 0.7-1.1 cm LA Diam: 3.90 2.7-3.8/3.0-4.0 cm LAIDs Index: 1.70 1.5-2.3 cm/m2 LV Mass: 302.75 67-162/88-224 g LV Mass Index: 131.63 43-95/49-115 g/m2 LVOT Diam: 2.90 3.0+(-)1.3 cm Mitral Valve MV Pk E: 0.78 MV Decel Time: 148.00 E'Lateral: 10.30 E'Medial: 7.07 E/E' Med: 11.10 E/E' Lat: 7.60 PHT: 43.00 MVA PHT: 5.12 Decel [place]: 5.30 Aortic Valve AoV Pk Michael: 0.94 AoV Mn Michael: 0.65 AoV VTI: 0.18 AoV Pk Grad: 4.00 Aov Mn Grad: 2.00 DEONTE Cont.VTI: 5.38 LVOT LVOT Pk Michael: 0.59 LVOT Mn Michael: 0.42 LVOT VTI: 0.15 LVOT Pk Grad: 1.00 LVOT Mn Grad: 1.00 LVOT Diam: 2.90 LVOT Area: 6.61 Diastolic Function MV Pk E: 0.78 E'Medial: 7.07 E/E' Med: 11.10 E' Laterial: 10.30 E/E' Lat: 7.60 Right Ventricle TVS' Michael: 10.00 Tricuspid Valve TR Pk Michael: 2.38 TR Pk Grad: 23.00 RA Press: 8.00 RVSP: 31.00 Great Vessels Aorta Sinus of Valsalva: 2.90 2.0-3.5 cm Ao Asc: 3.80 2.1-3.4 cm Pulmonary Valve PV Pk Michael: 1.26 Peak PV Grad: 6.00 Updated in Other Vendor System with Status of Final Don Orr MD electronically signed on 03/11/2025 1:11:56 PM with status of Final
[2025-03-11] MEDS: Aspirin Enteric Coated 81 MG TABLET.DR PO (08:35)
[2025-03-11] MEDS: 0.9 % Sodium Chloride Flush 3 ML SYRINGE IVFLUSH ×3 (08:38→21:16)
--- NOTE | 2025-03-11 10:20 | P.CNNE_ITS ---
History of Present Illness Data of Consult Service Date: 03/11/25 Primary Care Provider: Yang Burgos MD [facility] Reason for consult: Increased weakness This is a 65-year-old male patient with a past medical history of hypertension, ppm, AFib on Eliquis, HORTENCIA, chronic Sims with history of UTI, and prior stroke with right-sided deficits, aphasia, and apraxia. He presented to the emergency room on 12/2024 for reports of increased weakness and leaning to the right side at home. He stated to his that he felt ?sick?. Workup in the ER revealed a likely UTI and lactic acidosis which improved with fluids. CT brain imaging was nonacute. The patient is present today with his at bedside. His tells me that prior to coming to the emergency room, Jayden had increased weakness and lethargy at home. She noticed he was leaning to the right side and when he was drinking fluids it was coming right out of his mouth. He does have a history of right- sided weakness however generally, he is able to maintain a stable position while seated and can hold fluids with in his mouth. She tells me that since coming to the hospital and receiving treatment, he has since returned to relative baseline function both physically and cognitively. He has some mild slight residual generalized weakness but is very close to being back to his ?normal self?. She does have some concerns today regarding his right leg spasticity which has seemingly been more difficult to manage and has been keeping him awake at night. She notes that in certain positions his leg has more spastic movements. He is currently on baclofen 20 mg twice daily. At higher doses he was somnolent during the day. 03/10/25 CT head/brain: 1. Large area of cystic encephalomalacia involving the entire left MCA territory, consistent with old infarct. There is wallerian degeneration of the left corticospinal tracts. There is ex vacuo dilatation of the left lateral ventricle. 2. No acute territorial infarct. No intracranial hemorrhage or mass effect. No acute intracranial abnormality. 3. Stable examination when compared with 12/22/2024. Review of Systems 2 Review of Systems: Yes all other systems are reviewed and are negative Neurologic: Reports Abnormal speech present [facility] Past Medical History Medical History HTN (hypertension) CVA (cerebral vascular accident) Cardiac pacemaker in situ Chronic atrial fibrillation Family History Family History Father No problems noted. Mother No problems noted. Surgical History Surgical History History of permanent cardiac pacemaker placement Social History Social History Household Members: Significant Other Housing: House Do you presently have visiting nurse or other home services: No Patient Tobacco Use Status: Never used Tobacco service: No Meds Allergies Allergy/AdvReac Type Severity Reaction Status Date / Time codeine (CODEINE) Allergy Unknown UNKNOWN Verified 03/10/25 10:26 Active Medications: Current Medications Acetaminophen (Acetaminophen 325 Mg Tablet) 975 mg PO Q6H PRN PRN Reason: Pain, Mild 1-3,fever,headache Apixaban (Apixaban 5 Mg Tablet) 5 mg PO BID [facility] Last Admin: 03/11/25 08:35 Dose: 5 mg Ascorbic Acid (Ascorbic Acid 500 Mg Tablet) 500 mg PO DAILY [facility] Last Admin: 03/11/25 08:36 Dose: 500 mg Aspirin (Aspirin Enteric Coated 81 Mg Tablet.Dr) 81 mg PO DAILY [facility] Last Admin: 03/11/25 08:35 Dose: 81 mg Atorvastatin Calcium (Atorvastatin Calcium 20 Mg Tablet) 20 mg PO BEDTIME [facility] Last Admin: 03/10/25 23:03 Dose: 20 mg Baclofen (Baclofen 20 Mg Tablet) 20 mg PO BID [facility] Last Admin: 03/11/25 08:35 Dose: 20 mg Calcium Carbonate (Calcium Carbonate 750 Mg Tab.Chew) 750 mg PO Q4H PRN PRN Reason: Heartburn Finasteride (Finasteride 5 Mg Tablet) 5 mg PO DAILY [facility] Last Admin: 03/11/25 08:37 Dose: 5 mg Furosemide (Furosemide 20 Mg Tablet) 20 mg PO DAILY [facility]; Protocol Last Admin: 03/11/25 08:36 Dose: 20 mg Piperacillin Sod/Tazobactam (Sod 3.375 gm/ Sodium Chloride) 50 mls @ 100 mls/hr IV Q6H [facility] Last Infusion: 03/11/25 09:24 Dose: Infused Magnesium Hydroxide (Milk Of Magnesia 30 Ml Oral.Susp) 30 ml PO DAILY PRN PRN Reason: Constipation Magnesium Oxide (Magnesium Oxide 400 Mg Tablet) 400 mg PO BID [facility] Last Admin: 03/11/25 08:36 Dose: 400 mg Melatonin (Melatonin 3 Mg Tablet) 6 mg PO BEDTIME PRN PRN Reason: Insomnia Multivitamins/Vitamin C (Multivitamin Tablet) 1 tab PO DAILY [facility] Last Admin: 03/11/25 08:37 Dose: 1 tab Oxycodone HCl (Oxycodone Hcl Immed Release 5 Mg Tablet) 5 mg PO Q6H PRN PRN Reason: Pain, Severe (Pain Scale 7-10) Polyethylene Glycol (Polyethylene Glycol 3350 17 Gm Powd.Pack) 17 gm PO DAILY PRN PRN Reason: Constipation Sodium Chloride (0.9 % Sodium Chloride Flush 3 Ml Syringe) 3 ml IVFLUSH QSHIFT [facility] Last Admin: 03/11/25 08:38 Dose: 3 ml Spironolactone (Spironolactone 25 Mg Tablet) 50 mg PO DAILY [facility]; Protocol Last Admin: 03/11/25 08:36 Dose: 50 mg Tamsulosin HCl (Tamsulosin Hcl 0.4 Mg Capsule) 0.4 mg PO BEDTIME [facility] Last Admin: 03/10/25 23:03 Dose: 0.4 mg Tramadol HCl (Tramadol Hcl 50 Mg Tablet) 50 mg PO Q6H PRN PRN Reason: Pain, Moderate(Pain Scale 4-6) Last Admin: 03/10/25 23:03 Dose: 50 mg Home Medications ?Medication ?Instructions ?Recorded ?Confirmed ?Last Taken ?Type apixaban 5 mg tablet 5 mg PO BID 10/25/20 5 03/10/25 History aspirin 81 mg tablet,delayed 81 mg PO DAILY 10/25/20 1 03/10/25 History release (Adult Aspirin Regimen) atorvastatin 20 mg tablet 20 mg PO BEDTIME 10/25/2003/09/25 History baclofen 20 mg tablet 20 mg PO BID 12/21/2403/10/25 History furosemide 20 mg tablet 20 mg PO DAILY 12/21/24 10/12/2603/10/25 History spironolactone 50 mg tablet 50 mg PO DAILY 12/21/2403/10/25 History tamsulosin 0.4 mg capsule 0.4 mg PO BEDTIME 12/21/24 1 03/09/25 History acetaminophen 325 mg tablet 650 mg PO Q6H PRN Fever Or Pain 03/10/25 03/10/25 Unknown History ascorbic acid (vitamin C) 500 mg 500 mg PO DAILY 03/1003/10/25 03/10/25 History tablet (Vitamin C) finasteride 5 mg tablet 5 mg PO DAILY 03/10/2503/1003/10/25 History magnesium oxide 400 mg PO BID 03/10/2503/1003/10/25 History multivitamin 1 tab PO DAILY 03/10/2512/2603/10/25 History polyethylene glycol 3350 17 17 g PO DAILY PRN Constipa tion 03/10/25 03/10/25 Unknown History gram/dose oral powder (Miralax) Physical Exam 2 Vital Signs: Vital Signs: Last Vital Signs Temp 98.4 F 03/11/25 01:47 Pulse 80 03/11/25 07:45 Resp 12 03/11/25 07:45 BP 125/83 03/11/25 08:36 Pulse Ox 98 03/11/25 07:45 O2 Del Method Room Air 03/11/25 07:45 BMI result Body Mass Index 36.2 Const: General: cooperative and no acute distress O rientation/consciousness: oriented to person, oriented to place and oriented to time Neuro: General: oriented to person, oriented to place, oriented to time and Unable to assess gait Speech: Abnormal speech present garbled and slurred and Expressive aphasia present Gait exam (Neuro): Unable to assess gait Motor exam (neuro): Abnormal motor strength present (Right upper and lower extremity weakness secondary to prior CVA) and Motor abnormalites present other (Right lower extremity spasticity. Right upper extremity spasticity and contracture) Results Labs 03/11/25 04:15 03/11/25 04:15 Labs: Short CBC 03/10/25 03/11/25 Range/Units 10:57 04:15 WBC 11.2 H 8.3 (4.8-10.8) X10*3/uL Hgb 15.5 13.1 L (14.0-18.0) g/dl Hct 46.2 39.6 L (42.0-52.0) % Plt Count 257 D 223 (160-400) X10*3/uL BMP 03/10/25 03/11/25 10:57 04:15 Sodium 138 141 Potassium 4.3 3.9 Chloride 103 107 Carbon Dioxide 23 25 BUN 18 H 14 Creatinine 1.05 0.92 Calcium 9.3 D 8.5 D Liver Function 03/10/25 Range/Units 10:57 Total Bilirubin 0.9 (0.0-1.0) mg/dL Direct Bilirubin 0.2 (0.0-0.5) mg/dL AST 26 (5-37) U/L ALT < 6 (0-40) U/L Alkaline Phosphatase 79 (39-117) U/L Albumin 3.9 (3.5-5.0) g/dL Urine 03/10/25 Range/Units 12:39 Urine Color Yellow Urine Appearance Cloudy Urine pH 7.0 (5.0-9.0) Ur Specific [place] 1.015 (1.005-1.025) Urine Protein Negative (Neg-Trace) mg/dL Urine Glucose (UA) Negative (Negative) mg/dL Assessment and Plan (1) Right sided weakness: Status: Acute (2) Acute metabolic encephalopathy: Status: Acute Plan This is a 65-year-old male patient with a past medical history of hypertension, ppm, AFib on Eliquis, HORTENCIA, chronic Sims with history of UTI, and prior stroke with right-sided deficits, aphasia, and apraxia. He presented to the emergency room on 12/2024 for reports of increased weakness and leaning to the right side at home. His labs indicated likely urinary tract infection with a lactic acidosis. He has since been treated with IV fluids and IV antibiotics and reports that he is feeling much better. His also notes that he is still slightly weak though has returned to his general baseline cognitive and physical functioning. A brain MRI has already been ordered. CT was negative for any acute findings. It is unlikely that his transient symptoms including increased weakness and lethargy represent a new event. Still okay to proceed with brain MRI to rule out any acute findings the less likely. -continue current treatment plan -could consider increasing his nighttime dose of baclofen and keeping daytime dose the same in efforts to improve his sleep quality in relation to his spasticity symptoms Procedures Date of Service Date of Service: 03/11/25
--- NOTE | 2025-03-11 10:33 | PC.NURSE ---
Pt had bowel movement during PT this morning, was cleaned and full bed change done by RN. BM was noted to be hard. Sacral wound bleeding small amount, cleaned and pink foam dressing placed. Pt took morning meds whole with pudding, no issues. MRI screening form done and sent. Pt and family understand plan of care.
--- NOTE | 2025-03-11 11:08 | MHC.CM.PN ---
IMM 03/11/25, Pt. 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 He was at [facility] acute re[facility] in January, came home with services from [facility] and is just about to be DC from there. PCP is Yang Burgos, HCP is on file, Dari. For DME, he has: w/c, yane walker, shower chair, grab bars, stair lift, ramp, raised toilet. He was able to transfer into their truck after rehab last time, prior to DC they were using a nick lift. DCP; home with services, CM to follow for DC needs.
--- NOTE | 2025-03-11 11:18 | HO.WOUND ---
Wound Consult: Initial 65yr old? male admitted to [facility] on 03/10/25 - See progress notes and H&P for detailed history.? Wound consult placed for sacral wound.? Patient agreeable to assessment and photo documentation. at bedside, patient was able to communicate at times but communication was difficult as patient was experiencing aphasia. The patient uses the outpt wound clinic for the right ankle and sacrum. He has an unna boot applied weekly by the wound clinic to heal the right lateral ankle. The boot was removed by ED staff on admission. Of importance the patient does not walk more than 6 feet in a day and not every day - this may be impacting the success of the unna boot. Educated to discuss with provider at follow up appt. The left heel is not followed by the wound clinic at this time - the and patient were educated to bring this wound to their attention at the next follow up visit. Recommend continued outpt wound care with out pt wound clinic. Patient does not have a hospital bed at home but does have a sleep number bed and has a specialty seat cushion of when he is up in the chair. They report he is often in the chair since when lying in bed he has right sided restless leg syndrome impacting his sleep, relaxation and comfort, encouraged patient and to discuss with providers to assess for systemic treatment of restless leg syndrome. The patient and were educated to limit uninterrupted sit time to 1-2 hour, educated to stand and march to allow blood flow changes back to the sacrum - demonstrate understanding. Sacrum Etiology: ??Deep Tissue Injury in evolution Present on Admission Wound Bed: Left sacral side with intact light purple pink slow to bal tissue previously open on last admission Right open deeper tissue loss with marbled wound bed red purple and yellow slough Terri wound: ?MASD No Induration, Fluctuance or Warmth noted Goals of Treatment: ? Triad and off load pressure Bilateral Inner Thigh - DTI - Device related (Brief at home use) - Discussed brief use - Triad applied and no brief in place. Left Heel Etiology: Unstageable Pressure Injury ??Present on Admission 5cm x 1cm x 0.2cm Wound Bed: central lesion with red moist wound bed - superior and inferior sites with adherent slough and necrotic tissue Drainage / Odor: unknown Edges: ?well defined Terri wound: ? erythema noted - No Induration, Fluctuance or Warmth noted Goals of Treatment: Medihoney and Durafiber AG for moisture management Left Ankle Etiology: stage 3 Pressure Injury ??Present on Admission Wound Bed: red moist wound bed with adherent slough to edge Drainage / Odor: dark brown drainage noted on dressing Edges: ? well defined Terri wound: red erythema noted - No Induration, Fluctuance or Warmth noted Goals of Treatment: Medihoney and Durafiber AG for moisture management Right Knee Abrasion - stable no interventions needed at this time. Recommendations: 1. Turn and Reposition every 2 hours and as needed for patient comfort.? Use pillows or wedges to support off loading positions. 2. Off Load all bony prominences with use of pillows and heel boots if needed.? Apply Preventative foams where needed. ? 3. Monitor for incontinence and moisture control, use barrier creams when needed for prevention and treatment. 4. Provide adequate and supplemental nutrition.? 5. Order low air loss mattress. 6. When applicable maintain blood glucose levels per Providers order. Left heel and Right Ankle - Off Load Pressure with Q2 hr turns and use of pillows - Float heels off of bed surface. Consider Heel Boot Protectors (Purple Boots) if patient is not ambulating. Cleanse with PH balance spray or wipes, pat dry. ?Apply layer of Medihoney to wound bed. ?Cover with durafiber ag and ?foam dressing to aid in off loading and protection from friction. Change Daily while inpatient.? Medihoney available from wound nurse ? tube left at bedside for use. Sacrum - Off Load Pressure with Q2 hr turns and use of pillows - Cleanse with PH balance spray or wipes, pat dry. ?Apply thin layer of Triad to wound bed. Do not remove all of paste between applications as this may cause further skin damage.? Cover with foam dressing to aid in off loading and protection from friction. Change every other day and PRN. Bilateral Inner Thighs - Discontinue brief use while in bed. Off Load Pressure with Q2 hr turns and use of pillows - Cleanse with PH balance spray or wipes, pat dry. ?Apply thin layer of barrier cream to affected area.? Apply twice daily and Reapply thin layer PRN after each episode of incontinence. Re-consult wound care Nurse for wound deterioration or wound changes.
--- NOTE | 2025-03-11 12:58 | PM.CNGS ---
History of Present Illness Consult details Consult date: 03/11/25 <Abby Suarez PA-C - Last Filed: 03/11/25 13:54> Reason for consult: wound care <Abby Suarez PA-C - Last Filed: 03/11/25 13:54> Requesting physician: Lanette Reardon <Abby Suarez PA-C - Last Filed: 03/11/25 13:54> Narrative: 65-year-old male with PMH significant for history CVA with right-sided deficits, AFib on Eliquis, hypertension, CKD 3, chronic Sims catheter, known stage II sacral ulcer, who presented to the ED due to right-sided weakness with associated confusion. His noted that he has been leaning to the right. He has had right-sided deficits from a previous stroke however seem to be worsened prior to presentation. The patient denied any chest pain, shortness of breath, nausea, vomiting, abdominal pain. Head CT was obtained which was negative for acute CVA. He was found to have a UTI. Pelvic CT was also obtained as he has a known sacral ulcer which showed no evidence of osteomyelitis, no soft tissue fluid collection, mild fat stranding seen adjacent to the right sacrococcygeal junction. General surgery was consulted for evaluation of his sacral ulcer. Patient did not participate much in the interview and HPI was obtained through EMR and his at bedside. Seen with weatherization technicianDiana. <Abby Suarez PA-C - Last Filed: 03/11/25 13:54> [facility] Past Medical History Medical History: Medical History HTN (hypertension) CVA (cerebral vascular accident) Cardiac pacemaker in situ Chronic atrial fibrillation <Abby Suarez PA-C - Last Filed: 03/11/25 13:54> Family History Family History: Family History Father No problems noted. Mother No problems noted. <Abby Suarez PA-C - Last Filed: 03/11/25 13:54> Surgical History Surgical History: Surgical History History of permanent cardiac pacemaker placement <Abby Suarez PA-C - Last Filed: 03/11/25 13:54> Social History Social History: Social History Household Members: Significant Other Housing: House Do you presently have visiting nurse or other home services: No Patient Tobacco Use Status: Never used Tobacco Smoked in Last 30 Days: No Use of substances other than those prescribed or required for medical reasons: No Advance Directives: Yes Advance Directives Information Provided: Yes Advance Directives on File: No Do you have a plan to hurt others: No Plan service: No <Abby Suarez PA-C - Last Filed: 03/11/25 13:54> Meds Allergies/Adverse reactions: Allergies Allergy/AdvReac Type Severity Reaction Status Date / Time codeine (CODEINE) Allergy Unknown UNKNOWN Verified 03/10/25 10:26 <Abby Suraez PA-C - Last Filed: 03/11/25 13:54> Active Medications: Current Medications Acetaminophen (Acetaminophen 325 Mg Tablet) 975 mg PO Q6H PRN PRN Reason: Pain, Mild 1-3,fever,headache Apixaban (Apixaban 5 Mg Tablet) 5 mg PO BID [facility] Last Admin: 03/11/25 08:35 Dose: 5 mg Ascorbic Acid (Ascorbic Acid 500 Mg Tablet) 500 mg PO DAILY [facility] Last Admin: 03/11/25 08:36 Dose: 500 mg Aspirin (Aspirin Enteric Coated 81 Mg Tablet.Dr) 81 mg PO DAILY [facility] Last Admin: 03/11/25 08:35 Dose: 81 mg Atorvastatin Calcium (Atorvastatin Calcium 20 Mg Tablet) 20 mg PO BEDTIME [facility] Last Admin: 03/10/25 23:03 Dose: 20 mg Baclofen (Baclofen 20 Mg Tablet) 20 mg PO BID [facility] Last Admin: 03/11/25 08:35 Dose: 20 mg Calcium Carbonate (Calcium Carbonate 750 Mg Tab.Chew) 750 mg PO Q4H PRN PRN Reason: Heartburn Finasteride (Finasteride 5 Mg Tablet) 5 mg PO DAILY [facility] Last Admin: 03/11/25 08:37 Dose: 5 mg Furosemide (Furosemide 20 Mg Tablet) 20 mg PO DAILY [facility]; Protocol Last Admin: 03/11/25 08:36 Dose: 20 mg Piperacillin Sod/Tazobactam (Sod 3.375 gm/ Sodium Chloride) 50 mls @ 100 mls/hr IV Q6H [facility] Last Infusion: 03/11/25 09:24 Dose: Infused Magnesium Hydroxide (Milk Of Magnesia 30 Ml Oral.Susp) 30 ml PO DAILY PRN PRN Reason: Constipation Magnesium Oxide (Magnesium Oxide 400 Mg Tablet) 400 mg PO BID [facility] Last Admin: 03/11/25 08:36 Dose: 400 mg Melatonin (Melatonin 3 Mg Tablet) 6 mg PO BEDTIME PRN PRN Reason: Insomnia Multivitamins/Vitamin C (Multivitamin Tablet) 1 tab PO DAILY [facility] Last Admin: 03/11/25 08:37 Dose: 1 tab Oxycodone HCl (Oxycodone Hcl Immed Release 5 Mg Tablet) 5 mg PO Q6H PRN PRN Reason: Pain, Severe (Pain Scale 7-10) Polyethylene Glycol (Polyethylene Glycol 3350 17 Gm Powd.Pack) 17 gm PO DAILY PRN PRN Reason: Constipation Sodium Chloride (0.9 % Sodium Chloride Flush 3 Ml Syringe) 3 ml IVFLUSH QSHIFT [facility] Last Admin: 03/11/25 08:38 Dose: 3 ml Spironolactone (Spironolactone 25 Mg Tablet) 50 mg PO DAILY [facility]; Protocol Last Admin: 03/11/25 08:36 Dose: 50 mg Tamsulosin HCl (Tamsulosin Hcl 0.4 Mg Capsule) 0.4 mg PO BEDTIME [facility] Last Admin: 03/10/25 23:03 Dose: 0.4 mg Tramadol HCl (Tramadol Hcl 50 Mg Tablet) 50 mg PO Q6H PRN PRN Reason: Pain, Moderate(Pain Scale 4-6) Last Admin: 03/11/25 11:26 Dose: 50 mg <Abby Suarez PA-C - Last Filed: 03/11/25 13:54> Home medications: Home Medications ?Medication ?Instructions ?Recorded ?Confirmed ?Last Taken ?Type apixaban 5 mg tablet 5 mg PO BID 10/25/20 03/10/25 03/10/25 History aspirin 81 mg tablet,delayed 81 mg PO DAILY 10/25/20 03/10/25 03/10/25 History release (Adult Aspirin Regimen) atorvastatin 20 mg tablet 20 mg PO BEDTIME 10/25/20 03/10/25 03/09/25 History baclofen 20 mg tablet 20 mg PO BID 12/21/24 03/10/25 03/10/25 History furosemide 20 mg tablet 20 mg PO DAILY 12/21/24 03/10/25 03/10/25 History spironolactone 50 mg tablet 50 mg PO DAILY 12/21/24 03/10/25 03/10/25 History tamsulosin 0.4 mg capsule 0.4 mg PO BEDTIME 12/21/24 03/10/25 03/09/25 History acetaminophen 325 mg tablet 650 mg PO Q6H PRN Fever Or Pain 03/10/25 03/10/25 Unknown History ascorbic acid (vitamin C) 500 mg 500 mg PO DAILY 03/10/25 03/10/25 03/10/25 History tablet (Vitamin C) finasteride 5 mg tablet 5 mg PO DAILY 03/10/25 03/10/25 03/10/25 History magnesium oxide 400 mg PO BID 03/10/25 03/10/25 03/10/25 History multivitamin 1 tab PO DAILY 03/10/25 03/10/25 03/10/25 History polyethylene glycol 3350 17 17 g PO DAILY PRN Constipation 03/10/25 03/10/25 Unknown History gram/dose oral powder (Miralax) <Abby Suarez PA-C - Last Filed: 03/11/25 13:54> Physical Exam Vital Signs: Vital Signs: Last Vital Signs Temp 97.7 F 03/11/25 12:34 Pulse 80 03/11/25 12:34 Resp 17 03/11/25 12:34 BP 120/85 03/11/25 12:34 Pulse Ox 97 03/11/25 12:34 O2 Del Method Room Air 03/11/25 12:34 BMI result Body Mass Index 36.2 <TODD Sylvester Last Filed: 03/11/25 13:54> Const: General: comfortable, no acute distress and alert <TODD Sylvester Last Filed: 03/11/25 13:54> Resp: Effort & Inspection: normal respiratory effort <TODD Sylvester Last Filed: 03/11/25 13:54> Back/Spine/Pelvis: Other: sacrum with 2.5cm x 3 cm shallow ulcer, with some granulation tissue, some intact dermis visible, surrounding tissue soft, surrouning nonblanchable erythema; dressing just changed but no significant drainage <Abby Suarez PA-C - Last Filed: 03/11/25 13:54> Skin: Other: warm and dry wounds as noted <TODD Sylvester Last Filed: 03/11/25 13:54> Extrem: Other: left heel - three shallow ulcers with nonviable tissue over the most inferior; surrounding tissue soft with nonblanchable erythema, no significant drainage noted <TODD Sylvester Last Filed: 03/11/25 13:54> Results Labs Result diagrams: 03/11/25 04:15 03/11/25 04:15 <TODD Sylvester Last Filed: 03/11/25 13:54> Labs: Abnormal lab results 03/10/25 03/10/25 03/11/25 Range/Units 10:57 13:17 04:15 RBC 4.39 L (4.60-5.80) X10*6/uL Hgb 13.1 L (14.0-18.0) g/dl Hct 39.6 L (42.0-52.0) % Immature Gran % (Auto) 1.2 H (0.0-0.4) % Lymph % (Auto) 19.8 L (20-40) % [place] % (Auto) 11.2 H (2-11) % Eos % (Auto) 6.5 H (0-4) % Eos # (Auto) 0.5 H (0.0-0.4) X10*3/uL Abs Immat Gran (auto) 0.10 H (0.00-0.03) X10*3/uL Lactic Acid 2.7 H* (0.5-2.0) mmol/L Lactic Acid F/U @ 2Hr 2.1 H* (0.5-2.0) mmol/L Short CBC 03/11/25 Range/Units 04:15 WBC 8.3 (4.8-10.8) X10*3/uL Hgb 13.1 L (14.0-18.0) g/dl Hct 39.6 L (42.0-52.0) % Plt Count 223 (160-400) X10*3/uL BMP 03/11/25 04:15 Sodium 141 Potassium 3.9 Chloride 107 Carbon Dioxide 25 BUN 14 Creatinine 0.92 Calcium 8.5 D Urine 03/10/25 Range/Units 12:39 Urine Color Yellow Urine Appearance Cloudy Urine pH 7.0 (5.0-9.0) Ur Specific [place] 1.015 (1.005-1.025) Urine Protein Negative (Neg-Trace) mg/dL Urine Glucose (UA) Negative (Negative) mg/dL All other labs normal. <TODD Sylvester Last Filed: 03/11/25 13:54> Imaging Additional studies: pelvis CT and labs reviewed <TODD Sylvester Last Filed: 03/11/25 13:54> Assessment and Plan (1) Sacral decubitus ulcer, stage II: Status: Acute <Abby Suarez PA-C - Last Filed: 03/11/25 13:54> 65 year old male with multiple medical comorbidities including chronic stage II sacral ulcer admitted to the medical service for acute metabolic encephalopathy secondary to UTI. General surgery was consulted for his sacral wound. Seen with wound care, CORNELIUS Ortiz. The sacrum is currently clean appearing and there is nothing to debride. Will defer wound care recommendations per weatherization technician- Apply thin layer of Triad to wound bed, cover with foam dressing to aid in off loading and protection from friction, change every other day and PRN. Cont nutritional support, frequent turning and offloading, padding pressure points. He does have a wound of his left heal with very small amount of nonviable tissue and would benefit from enzymatic debridement with medihoney. Further recommendations as per weatherization technician- apply layer of Medihoney to wound bed, cover with durafiber ag and foam dressing; change daily and PRN. Will sign off. Please reconsult with clinical changes. <TODD Sylvester Last Filed: 03/11/25 13:54> Procedures Date of Service Date of Service: 03/11/25 <TODD Sylvester Last Filed: 03/11/25 13:54> 03/11/25 <Jayden Wellington MD - Last Filed: 03/11/25 13:57>
--- NOTE | 2025-03-11 16:33 | HO.NURTONUR ---
PER MD: Patient is a 65-year-old male with a past medical history significant for history CVA with right-sided deficits, AFib on Eliquis, hypertension, CKD 3, chronic Rutledge catheter and class 2 obesity, who presented to the ED due to right-sided weakness starting this morning with associated confusion. Last known well time was 07:00. His noted that he has been leaning to the right. He has had right-sided deficits from a previous stroke however seem to be worse earlier today, now improved. The patient denies any chest pain, shortness of breath, nausea, vomiting, abdominal pain. He has a chronic Rutledge catheter which has been draining normally. He also has a stage II sacral pressure ulcer. The patient is a very poor historian and is unable to provide much history at this time. Per the ED note, the patient reported that he was feeling sick, denied any pain or falls. He told EMS that he felt off last night and not himself. He has been having lack of appetite, malaise, weakness and confusion. Head CT with evidence of previous stroke, no acute stroke. UA positive and patient was started on Zosyn per previous urine cultures. Lactic acidosis improved with 1 L IV fluids. Pelvic CT due to stage II sacral decubitus ulcer negative for osteomyelitis. PER RN: Alert and oriented but has hard time communicating, can answer yes/ no questions. Family at bedside very helpful Right sided deficits from previous stroke Chronic rutledge (since November) Admit: UTI, encephalopathy, right sided weakness, sacral ulcer I covered the sacral ulcer with pink foam padding IV: 22 g in left FA, nothing running Pain: intermittently in legs, PRNs have been helping Meds: takes whole in pudding Able to feed self Plan: to get MRI
--- NOTE | 2025-03-11 17:02 | P.PNIM_ITS ---
Subjective Subjective Date of Service: 03/11/25 Interval History: Presented with r sided weakness, stroke ruled, MRI pending, also found to have UTI, possible cause of weaknes Physical Exam 2 Vital Signs: Vital Signs: Last Vital Signs Temp 97.6 F 03/11/25 16:27 Pulse 80 03/11/25 16:27 Resp 16 03/11/25 16:27 BP 128/83 03/11/25 16:27 Pulse Ox 97 03/11/25 16:27 O2 Del Method Room Air 03/11/25 16:27 BMI result Body Mass Index 36.2 Const: Other: alert, NAD Extrem: Other: left heel - three shallow ulcers with nonviable tissue over the most inferior; surrounding tissue soft with nonblanchable erythema, no significant drainage noted Objective Data Active Medications Acetaminophen (Acetaminophen 325 Mg Tablet) 975 mg PO Q6H PRN PRN Reason: Pain, Mild 1-3,fever,headache Apixaban (Apixaban 5 Mg Tablet) 5 mg PO BID [facility] Last Admin: 03/11/25 08:35 Dose: 5 mg Documented By: RHETT Ascorbic Acid (Ascorbic Acid 500 Mg Tablet) 500 mg PO DAILY [facility] Last Admin: 03/11/25 08:36 Dose: 500 mg Documented By: RHETT Aspirin (Aspirin Enteric Coated 81 Mg Tablet.) 81 mg PO DAILY [facility] Last Admin: 03/11/25 08:35 Dose: 81 mg Documented By: RHETT Atorvastatin Calcium (Atorvastatin Calcium 20 Mg Tablet) 20 mg PO BEDTIME [facility] Last Admin: 03/10/25 23:03 Dose: 20 mg Documented By: YOEL Baclofen (Baclofen 20 Mg Tablet) 20 mg PO BID [facility] Last Admin: 03/11/25 08:35 Dose: 20 mg Documented By: RHETT Calcium Carbonate (Calcium Carbonate 750 Mg Tab.Chew) 750 mg PO Q4H PRN PRN Reason: Heartburn Finasteride (Finasteride 5 Mg Tablet) 5 mg PO DAILY [facility] Last Admin: 03/11/25 08:37 Dose: 5 mg Documented By: RHETT Furosemide (Furosemide 20 Mg Tablet) 20 mg PO DAILY [facility]; Protocol Last Admin: 03/11/25 08:36 Dose: 20 mg Documented By: RHETT Piperacillin Sod/Tazobactam (Sod 3.375 gm/ Sodium Chloride) 50 mls @ 100 mls/hr IV Q6H [facility] Last Infusion: 03/11/25 15:42 Dose: Infused Documented By: RHETT Magnesium Hydroxide (Milk Of Magnesia 30 Ml Oral.Susp) 30 ml PO DAILY PRN PRN Reason: Constipation Magnesium Oxide (Magnesium Oxide 400 Mg Tablet) 400 mg PO BID [facility] Last Admin: 03/11/25 08:36 Dose: 400 mg Documented By: RHETT Melatonin (Melatonin 3 Mg Tablet) 6 mg PO BEDTIME PRN PRN Reason: Insomnia Multivitamins/Vitamin C (Multivitamin Tablet) 1 tab PO DAILY [facility] Last Admin: 03/11/25 08:37 Dose: 1 tab Documented By: RHETT Oxycodone HCl (Oxycodone Hcl Immed Release 5 Mg Tablet) 5 mg PO Q6H PRN PRN Reason: Pain, Severe (Pain Scale 7-10) Polyethylene Glycol (Polyethylene Glycol 3350 17 Gm Powd.Pack) 17 gm PO DAILY PRN PRN Reason: Constipation Sodium Chloride (0.9 % Sodium Chloride Flush 3 Ml Syringe) 3 ml IVFLUSH QSHIFT [facility] Last Admin: 03/11/25 14:58 Dose: 3 ml Documented By: RHETT Spironolactone (Spironolactone 25 Mg Tablet) 50 mg PO DAILY [facility]; Protocol Last Admin: 03/11/25 08:36 Dose: 50 mg Documented By: RHETT Tamsulosin HCl (Tamsulosin Hcl 0.4 Mg Capsule) 0.4 mg PO BEDTIME [facility] Last Admin: 03/10/25 23:03 Dose: 0.4 mg Documented By: YOEL Tramadol HCl (Tramadol Hcl 50 Mg Tablet) 50 mg PO Q6H PRN PRN Reason: Pain, Moderate(Pain Scale 4-6) Last Admin: 03/11/25 11:26 Dose: 50 mg Documented By: RHETT Labs 03/11/25 04:15 03/11/25 04:15 Labs: Laboratory Results - last 24 hr 03/10/25 03/11/25 16:49 04:15 MCV 90.2 MCH 29.8 MCHC 33.1 RDW 14.6 Plt Count 223 MPV 9.6 Immature Gran % (Auto) 1.2 H Neut % (Auto) 60.7 Lymph % (Auto) 19.8 L [place] % (Auto) 11.2 H Eos % (Auto) 6.5 H Baso % (Auto) 0.6 Lymph # (Auto) 1.7 [place] # (Auto) 0.9 Eos # (Auto) 0.5 H Baso # (Auto) 0.1 Abs Immat Gran (auto) 0.10 H Absolute Neuts (auto) 5.1 Absolute Nucleated RBC 0.000 Nucleated RBC % (auto) 0.0 Anion Gap 13 Estim Creat Clear Calc 102.7 Estimated GFR > 60 Random Glucose 93 Lactic Acid F/U @ 4Hr 1.9 Calcium 8.5 D Triglycerides 71 Cholesterol 116 LDL Cholesterol, Calc 61 HDL Cholesterol 41 Microbiology Microbiology Results: Microbiology 03/10/25 Unknown Urine Culture - Preliminary Urine clean catch - Clean Catch Midstream Culture in progress. 03/10/25 10:56 Blood Culture - Preliminary Blood - Venous No growth after 24 hours. 03/10/25 10:59 Blood Culture - Preliminary Blood - Venous No growth after 24 hours. Assessment and Plan (1) Acute UTI: Status: Acute (2) Right sided weakness: Status: Acute Plan Patient is a 65-year-old male with a past medical history significant for history CVA with right-sided deficits, AFib on Eliquis, hypertension, CKD 3, chronic Sims catheter and class 2 obesity, who presented to the ED due to right-sided weakness starting this morning with associated confusion. Acute metabolic encephalopathy secondary to UTI - Zosyn per previous urine culture, pending culture now - monitor CBC and BMP Right-sided weakness, head CT negative for acute CVA - MRI brain - echo - neurology consult - neuro checks - aspiration precautions Stage II sacral decubitus ulcer, no osteo on CT - general surgery and wound care consult--see note Acute lactic acidosis, likely secondary to UTI and poor p.o. intake, resolved with IV fluids Chronic AFib - Eliquis HTN - spironolactone CKD 3, at baseline - avoid nephrotoxins when possible Class 2 obesity - weight loss encouraged Full code, patient would like to rediscuss tomorrow with family VTE prophylaxis: Eliquis Patient with acute metabolic encephalopathy secondary to UTI, with associated right-sided weakness, requiring admission for at least 2 midnights stay for IV antibiotics and further evaluation. Quality Stroke Does the patient have a stroke diagnosis?: No VTE Prior VTE?: No VTE Risk Level:: Medical - moderate - high VTE Device Contraindication: Treatment Not Indicated VTE Drug Contraindication: N/A - Med Ordered
[2025-03-12 04:00] VITALS: BP 128/64; PULSE 68; RESP 19; TEMP 36.6; O2SAT 99
[2025-03-12 07:12] LABS: MANUAL DIFF FLAG NO
[2025-03-12 07:15] LABS: Hematocrit 45.6 % (42.0-52.0); Hemoglobin 15.4 g/dl (14.0-18.0); Imm Gran Abs Auto 0.10 X10*3/uL (0.00-0.03); Imm Gran Pct Auto 1.2 % (0.0-0.4); Lymphocytes Absolute Auto 1.3 X10*3/uL (1.2-4.9); Mean Corpuscular HGB Conc 33.8 g/dl (31.0-36.0); Mean Corpuscular Hemoglobin 30.4 pg (27.0-33.0); Mean Corpuscular Volume 89.9 fL (80.0-98.0); NRBC Abs Auto 0.000 X10*3/uL (0.0-0.012); NRBC Pct Auto 0.0 /100WBC (0.0-0.2); Platelet Count 212 X10*3/uL (160-400); Red Blood Count 5.07 X10*6/uL (4.60-5.80); White Blood Count 8.5 X10*3/uL (4.8-10.8)
[2025-03-12 07:35] LABS: Anion Gap 12 (12-20); Blood Urea Nitrogen 13 mg/dL (9-16); Calcium 9.1 mg/dL (8.4-10.2); Carbon Dioxide 27 mmol/L (22-29); Chloride 105 mmol/L (96-108); Creatinine Clr Calc Pharmacy 100.4; Estimated Glomerular Filt Rate > 60; Potassium 4.1 mmol/L (3.3-5.1); Sodium 140 mmol/L (135-145)
[2025-03-12 07:51] VITALS: BP 112/70; PULSE 69; RESP 20; TEMP 36.1; O2SAT 99
[2025-03-12] MEDS: Aspirin Enteric Coated 81 MG TABLET.DR PO (09:57)
[2025-03-12 11:12] VITALS: BMI 36.1
--- NOTE | 2025-03-12 11:14 | MHC.CLN ---
CONSULT PT WITH INCREASED NUTRITION NEEDS R/T PRESSURE INJURIES DIET RX: CARDIAC-RECOMMEND LIBERALIZING TO 2GM NA RECOMMEND ADDING ENSURE MAX BID TO PROVIDE 300KCALS, 60G PROTEIN MONITOR PO INTAKE AND ENCOURAGE SUPPLEMENTS SEE FULL ASSESSMENT
[2025-03-12 11:29] VITALS: BP 112/71; PULSE 67; RESP 20; TEMP 36.7; O2SAT 99
--- NOTE | 2025-03-12 14:13 | MHC.CM.PN ---
EMR REVIEWED, PT W/TIA, UTI, CM MET W/PT AND S.O. TO DISCUSS DISPO PT/OT RECOMMENDING ACUTE REHAB, S.O. REPORTS PT WAS AT [facility] IN JANUARY AND THEY WOULD PREFER PT RETURN THERE, CM DID ATTEMPT TO DISCUSS STR'S HOWEVER PT'S S.O. WAS HESITANT ABOUT PT GOING TO A STR AND HAD NO PREFERRED SNF, REF PLACED TO [facility], MRI PENDING, CM WILL CONT TO FOLLOW DC NEEDS.
--- NOTE | 2025-03-12 14:49 | HO.PM.IMPN ---
Subjective Subjective Date of Service: 03/12/25 Interval History: No new issues MRI pending Physical Exam Vital Signs: Vital Signs: Last Vital Signs Temp 98.1 F 03/12/25 11:29 Pulse 67 03/12/25 11:29 Resp 20 03/12/25 11:29 BP 112/71 03/12/25 11:29 Pulse Ox 99 03/12/25 11:29 O2 Del Method Room Air 03/12/25 11:29 BMI result Body Mass Index 36.1 Const: Other: alert, NAD Extrem: Other: left heel - three shallow ulcers with nonviable tissue over the most inferior; surrounding tissue soft with nonblanchable erythema, no significant drainage noted Objective Data Active Medications Acetaminophen (Acetaminophen 325 Mg Tablet) 975 mg PO Q6H PRN PRN Reason: Pain, Mild 1-3,fever,headache Last Admin: 03/11/25 21:15 Dose: 975 mg Documented By: LILLIAN Apixaban (Apixaban 5 Mg Tablet) 5 mg PO BID [facility] Last Admin: 03/12/25 09:56 Dose: 5 mg Documented By: DELFIN Ascorbic Acid (Ascorbic Acid 500 Mg Tablet) 500 mg PO DAILY [facility] Last Admin: 03/12/25 09:56 Dose: 500 mg Documented By: DELFIN Aspirin (Aspirin Enteric Coated 81 Mg Tablet.) 81 mg PO DAILY [facility] Last Admin: 03/12/25 09:57 Dose: 81 mg Documented By: DELFIN Atorvastatin Calcium (Atorvastatin Calcium 20 Mg Tablet) 20 mg PO BEDTIME [facility] Last Admin: 03/11/25 21:16 Dose: 20 mg Documented By: LILLIAN Baclofen (Baclofen 20 Mg Tablet) 20 mg PO BID [facility] Last Admin: 03/12/25 09:56 Dose: 20 mg Documented By: DELFIN Calcium Carbonate (Calcium Carbonate 750 Mg Tab.Chew) 750 mg PO Q4H PRN PRN Reason: Heartburn Finasteride (Finasteride 5 Mg Tablet) 5 mg PO DAILY [facility] Last Admin: 03/12/25 09:57 Dose: 5 mg Documented By: DELFIN Furosemide (Furosemide 20 Mg Tablet) 20 mg PO DAILY [facility]; Protocol Last Admin: 03/12/25 09:56 Dose: 20 mg Documented By: DELFIN Piperacillin Sod/Tazobactam (Sod 3.375 gm/ Sodium Chloride) 50 mls @ 100 mls/hr IV Q6H [facility] Last Infusion: 03/12/25 10:27 Dose: Infused Documented By: DELFIN Magnesium Hydroxide (Milk Of Magnesia 30 Ml Oral.Susp) 30 ml PO DAILY PRN PRN Reason: Constipation Magnesium Oxide (Magnesium Oxide 400 Mg Tablet) 400 mg PO BID [facility] Last Admin: 03/12/25 09:57 Dose: 400 mg Documented By: DELFIN Melatonin (Melatonin 3 Mg Tablet) 6 mg PO BEDTIME PRN PRN Reason: Insomnia Multivitamins/Vitamin C (Multivitamin Tablet) 1 tab PO DAILY [facility] Last Admin: 03/12/25 09:56 Dose: 1 tab Documented By: DELFIN Oxycodone HCl (Oxycodone Hcl Immed Release 5 Mg Tablet) 5 mg PO Q6H PRN PRN Reason: Pain, Severe (Pain Scale 7-10) Polyethylene Glycol (Polyethylene Glycol 3350 17 Gm Powd.Pack) 17 gm PO DAILY PRN PRN Reason: Constipation Sodium Chloride (0.9 % Sodium Chloride Flush 3 Ml Syringe) 3 ml IVFLUSH QSHIFT [facility] Last Admin: 03/12/25 09:57 Dose: Not Given Documented By: DELFIN Non-Admin Reason: IV Running Spironolactone (Spironolactone 25 Mg Tablet) 50 mg PO DAILY [facility]; Protocol Last Admin: 03/12/25 09:56 Dose: 50 mg Documented By: DELFIN Tamsulosin HCl (Tamsulosin Hcl 0.4 Mg Capsule) 0.4 mg PO BEDTIME [facility] Last Admin: 03/11/25 21:16 Dose: 0.4 mg Documented By: LILLIAN Tramadol HCl (Tramadol Hcl 50 Mg Tablet) 50 mg PO Q6H PRN PRN Reason: Pain, Moderate(Pain Scale 4-6) Last Admin: 03/12/25 12:02 Dose: 50 mg Documented By: DELFIN Labs 03/13/25 06:37 03/13/25 06:37 Labs: Laboratory Results - last 24 hr 03/12/25 06:56 MCV 89.9 MCH 30.4 MCHC 33.8 RDW 14.6 Plt Count 212 MPV 9.5 Immature Gran % (Auto) 1.2 H Neut % (Auto) 69.7 Lymph % (Auto) 15.5 L [place] % (Auto) 7.6 Eos % (Auto) 5.3 H Baso % (Auto) 0.7 Lymph # (Auto) 1.3 [place] # (Auto) 0.7 Eos # (Auto) 0.5 H Baso # (Auto) 0.1 Abs Immat Gran (auto) 0.10 H Absolute Neuts (auto) 6.0 Absolute Nucleated RBC 0.000 Nucleated RBC % (auto) 0.0 Anion Gap 12 Estim Creat Clear Calc 100.4 Estimated GFR > 60 Random Glucose 90 Calcium 9.1 D Microbiology Microbiology Results: Microbiology 03/10/25 10:56 Blood Culture - Preliminary Blood - Venous No growth after 48 hours. 03/10/25 10:59 Blood Culture - Preliminary Blood - Venous No growth after 48 hours. 03/10/25 Unknown Urine Culture - Final Urine clean catch - Clean Catch Midstream Assessment and Plan (1) Acute UTI: Status: Acute (2) Right sided weakness: Status: Acute Plan Patient is a 65-year-old male with a past medical history significant for history CVA with right-sided deficits, AFib on Eliquis, hypertension, CKD 3, chronic Sims catheter and class 2 obesity, who presented to the ED due to right-sided weakness starting this morning with associated confusion. 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 intake, resolved with IV fluids Chronic AFib - Eliquis HTN - spironolactone CKD 3, at baseline - avoid nephrotoxins when possible Class 2 obesity - weight loss encouraged Full code, patient would like to rediscuss tomorrow with family VTE prophylaxis: Eliquis PT is recommending short term rehab Quality Stroke Does the patient have a stroke diagnosis?: No VTE Prior VTE?: No VTE Risk Level:: Medical - moderate - high VTE Device Contraindication: Treatment Not Indicated VTE Drug Contraindication: N/A - Med Ordered
[2025-03-12 15:27] VITALS: BP 112/68; PULSE 62; RESP 16; TEMP 36.6; O2SAT 97
[2025-03-12] MEDS: oxyCODONE HCl Immed Release 5 MG TABLET PO (18:02)
[2025-03-12 19:37] VITALS: BP 112/63; PULSE 60; RESP 16; TEMP 36; O2SAT 95
[2025-03-12] MEDS: 0.9 % Sodium Chloride Flush 3 ML SYRINGE IVFLUSH (21:57)
[2025-03-12 23:25] VITALS: BP 123/74; PULSE 63; RESP 17; TEMP 35.9; O2SAT 98
[2025-03-13 03:06] VITALS: BP 109/64; PULSE 65; RESP 18; TEMP 36.1; O2SAT 97
[2025-03-13 06:45] LABS: MANUAL DIFF FLAG NO
[2025-03-13 06:53] LABS: Hematocrit 44.7 % (42.0-52.0); Hemoglobin 14.4 g/dl (14.0-18.0); Imm Gran Abs Auto 0.13 X10*3/uL (0.00-0.03); Imm Gran Pct Auto 1.5 % (0.0-0.4); Lymphocytes Absolute Auto 1.2 X10*3/uL (1.2-4.9); Mean Corpuscular HGB Conc 32.2 g/dl (31.0-36.0); Mean Corpuscular Hemoglobin 29.4 pg (27.0-33.0); Mean Corpuscular Volume 91.4 fL (80.0-98.0); NRBC Abs Auto 0.000 X10*3/uL (0.0-0.012); NRBC Pct Auto 0.0 /100WBC (0.0-0.2); Platelet Count 215 X10*3/uL (160-400); Red Blood Count 4.89 X10*6/uL (4.60-5.80); White Blood Count 8.5 X10*3/uL (4.8-10.8)
[2025-03-13 07:04] LABS: Anion Gap 11 (12-20); Blood Urea Nitrogen 13 mg/dL (9-16); Calcium 8.8 mg/dL (8.4-10.2); Carbon Dioxide 27 mmol/L (22-29); Chloride 106 mmol/L (96-108); Creatinine Clr Calc Pharmacy 106.1; Estimated Glomerular Filt Rate > 60; Potassium 4.0 mmol/L (3.3-5.1); Sodium 140 mmol/L (135-145)
--- NOTE | 2025-03-13 07:46 | P.CDIM_ITS ---
PROVIDER RESPONSE TEXT: To clarify, the appropriate diagnosis supported by the clinical indicators: Pressure Injury left ankle Stage 3 QUERY TEXT: PHYSICIAN'S DOCUMENTATION REQUEST Date of Query: 03/12/2025 08:43 AM EDT Patient Name: Jayden Mendiola Admit Date: 03/10/2025 Dear Seth Baltazar MD, A review of the medical record indicates additional documentation may be needed. Please review below and update the documentation accordingly. Clinical Indicators: Wound care consultation note dated 03/11/25 - Left ankle stage 3 pressure injury - Present on Admission. Red moist wound bed with adherent slough to edge. Off load pressure with Q2 hr turns and use of pillows. Based on the above, could you please provide further information regarding the ulcer/wound/injury: Pressure Injury left ankle Stage 3 Other specifics Please specify Other (explain) Clinically unable to determine (explain) Thank you, Natividad Su, CCS, CDIS Use of terms such as suspected, likely, concern for, or probable (associated with a specific diagnosis that is being evaluated, monitored, or treated as if it exists) are acceptable and can be coded in the inpatient setting, when documented at the time of discharge. Please use your independent medical judgment in providing your response. THIS QUERY IS PART OF THE PERMANENT MEDICAL RECORD
--- NOTE | 2025-03-13 07:46 | P.CDIM_ITS ---
PROVIDER RESPONSE TEXT: To clarify, the appropriate diagnosis supported by the clinical indicators: Deep Tissue Injury (DTI) bilateral inner thigh: suspec vito QUERY TEXT: PHYSICIAN'S DOCUMENTATION REQUEST Date of Query: 03/12/2025 08:47 AM EDT Patient Name: Jayden Mendiola Admit Date: 03/10/2025 Dear Seth Baltazar MD, A review of the medical record indicates additional documentation may be needed. Please review below and update the documentation accordingly. Clinical Indicators: Wound care consultation note dated 03/11/25 - DTI bilateral inner thigh - device related (brief at home use). Triad applied, off load pressure with Q2 hr turns and use of pillows. Cleanse with PH balance spray or wipes, pat dry. Barrier cream. Based on the above, could you please provide further information regarding the ulcer/wound/injury: Deep Tissue Injury (DTI) bilateral inner thigh possible, probable, suspected etc. Non-healing surgical wound Please specify the location and laterality of the ulcer/wound Other (explain) Clinically unable to determine (explain) Thank you, Natividad Su, CCS, CDIS Use of terms such as suspected, likely, concern for, or probable (associated with a specific diagnosis that is being evaluated, monitored, or treated as if it exists) are acceptable and can be coded in the inpatient setting, when documented at the time of discharge. Please use your independent medical judgment in providing your response. THIS QUERY IS PART OF THE PERMANENT MEDICAL RECORD
[2025-03-13 08:22] VITALS: BP 127/69; PULSE 62; RESP 19; TEMP 36.2; O2SAT 98
[2025-03-13 10:34] VITALS: BP 127/69; PULSE 62; O2SAT 98
[2025-03-13] MEDS: Aspirin Enteric Coated 81 MG TABLET.DR PO (10:36)
--- NOTE | 2025-03-13 11:15 | P.PNIM_ITS ---
Subjective Subjective Date of Service: 03/13/25 Interval History: MRI no acute finding, and no new issue Physical Exam 2 Vital Signs: Vital Signs: Last Vital Signs Temp 97.2 F 03/13/25 08:22 Pulse 62 03/13/25 10:34 Resp 19 03/13/25 08:22 BP 127/69 03/13/25 10:34 Pulse Ox 98 03/13/25 10:34 O2 Del Method Room Air 03/13/25 08:22 BMI result Body Mass Index 36.1 Const: Other: alert, NAD Extrem: Other: left heel - three shallow ulcers with nonviable tissue over the most inferior; surrounding tissue soft with nonblanchable erythema, no significant drainage noted Objective Data Active Medications Acetaminophen (Acetaminophen 325 Mg Tablet) 975 mg PO Q6H PRN PRN Reason: Pain, Mild 1-3,fever,headache Last Admin: 03/11/25 21:15 Dose: 975 mg Documented By: LILLIAN Apixaban (Apixaban 5 Mg Tablet) 5 mg PO BID [facility] Last Admin: 03/13/25 10:37 Dose: 5 mg Documented By: RUBY Ascorbic Acid (Ascorbic Acid 500 Mg Tablet) 500 mg PO DAILY [facility] Last Admin: 03/13/25 10:37 Dose: 500 mg Documented By: RUBY Aspirin (Aspirin Enteric Coated 81 Mg Tablet.Dr) 81 mg PO DAILY [facility] Last Admin: 03/13/25 10:36 Dose: 81 mg Documented By: RUBY Atorvastatin Calcium (Atorvastatin Calcium 20 Mg Tablet) 20 mg PO BEDTIME [facility] Last Admin: 03/12/25 21:56 Dose: 20 mg Documented By: LILLIAN Baclofen (Baclofen 20 Mg Tablet) 20 mg PO BID [facility] Last Admin: 03/13/25 10:38 Dose: 20 mg Documented By: RUBY Calcium Carbonate (Calcium Carbonate 750 Mg Tab.Chew) 750 mg PO Q4H PRN PRN Reason: Heartburn Finasteride (Finasteride 5 Mg Tablet) 5 mg PO DAILY [facility] Last Admin: 03/13/25 10:39 Dose: 5 mg Documented By: RUBY Furosemide (Furosemide 20 Mg Tablet) 20 mg PO DAILY [facility]; Protocol Last Admin: 03/13/25 10:36 Dose: 20 mg Documented By: RUBY Piperacillin Sod/Tazobactam (Sod 3.375 gm/ Sodium Chloride) 50 mls @ 100 mls/hr IV Q6H [facility] Last Admin: 03/13/25 10:38 Dose: 100 mls/hr Documented By: RUBY Magnesium Hydroxide (Milk Of Magnesia 30 Ml Oral.Susp) 30 ml PO DAILY PRN PRN Reason: Constipation Magnesium Oxide (Magnesium Oxide 400 Mg Tablet) 400 mg PO BID [facility] Last Admin: 03/13/25 10:37 Dose: 400 mg Documented By: RUBY Melatonin (Melatonin 3 Mg Tablet) 6 mg PO BEDTIME PRN PRN Reason: Insomnia Multivitamins/Vitamin C (Multivitamin Tablet) 1 tab PO DAILY [facility] Last Admin: 03/12/25 09:56 Dose: 1 tab Documented By: DELFIN Oxycodone HCl (Oxycodone Hcl Immed Release 5 Mg Tablet) 5 mg PO Q6H PRN PRN Reason: Pain, Severe (Pain Scale 7-10) Last Admin: 03/12/25 18:02 Dose: 5 mg Documented By: NANCY Polyethylene Glycol (Polyethylene Glycol 3350 17 Gm Powd.Pack) 17 gm PO DAILY PRN PRN Reason: Constipation Sodium Chloride (0.9 % Sodium Chloride Flush 3 Ml Syringe) 3 ml IVFLUSH QSHIFT [facility] Last Admin: 03/12/25 21:57 Dose: 3 ml Documented By: LILLIAN Spironolactone (Spironolactone 25 Mg Tablet) 50 mg PO DAILY [facility]; Protocol Last Admin: 03/13/25 10:35 Dose: 50 mg Documented By: RUBY Tamsulosin HCl (Tamsulosin Hcl 0.4 Mg Capsule) 0.4 mg PO BEDTIME [facility] Last Admin: 03/12/25 21:56 Dose: 0.4 mg Documented By: LILLIAN Tramadol HCl (Tramadol Hcl 50 Mg Tablet) 50 mg PO Q6H PRN PRN Reason: Pain, Moderate(Pain Scale 4-6) Last Admin: 03/12/25 12:02 Dose: 50 mg Documented By: DELFIN Labs 03/13/25 06:37 03/13/25 06:37 Labs: Laboratory Results - last 24 hr 03/13/25 06:37 MCV 91.4 MCH 29.4 MCHC 32.2 RDW 14.6 Plt Count 215 MPV 9.4 Immature Gran % (Auto) 1.5 H Neut % (Auto) 70.7 Lymph % (Auto) 14.6 L [place] % (Auto) 8.5 Eos % (Auto) 4.1 H Baso % (Auto) 0.6 Lymph # (Auto) 1.2 [place] # (Auto) 0.7 Eos # (Auto) 0.4 Baso # (Auto) 0.1 Abs Immat Gran (auto) 0.13 H Absolute Neuts (auto) 6.0 Absolute Nucleated RBC 0.000 Nucleated RBC % (auto) 0.0 Anion Gap 11 L Estim Creat Clear Calc 106.1 Estimated GFR > 60 Random Glucose 96 Calcium 8.8 Microbiology Microbiology Results: Microbiology 03/10/25 10:56 Blood Culture - Preliminary Blood - Venous No growth after 48 hours. 03/10/25 10:59 Blood Culture - Preliminary Blood - Venous No growth after 48 hours. 03/10/25 Unknown Urine Culture - Final Urine clean catch - Clean Catch Midstream Assessment and Plan (1) Acute UTI: Status: Acute (2) Right sided weakness: Status: Acute Plan Patient is a 65-year-old male with a past medical history significant for history CVA with right-sided deficits, AFib on Eliquis, hypertension, CKD 3, chronic Sims catheter and class 2 obesity, who presented to the ED due to right-sided weakness starting this morning with associated confusion. 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 intake, resolved with IV fluids Chronic AFib - Eliquis HTN - spironolactone CKD 3, at baseline - avoid nephrotoxins when possible Class 2 obesity - weight loss encouraged Full code, patient would like to rediscuss tomorrow with family VTE prophylaxis: Eliquis PT is recommending short term rehab Quality Stroke Does the patient have a stroke diagnosis?: No VTE Prior VTE?: No VTE Risk Level:: Medical - moderate - high VTE Device Contraindication: Treatment Not Indicated VTE Drug Contraindication: N/A - Med Ordered
--- NOTE | 2025-03-13 11:45 | MHC.CM.PN ---
CM met with Patient and his at bedside to discuss dc planning. Patient will only consider going to [facility], who does not have an available bed and not sure if a bed will open up over the weekend. Patient was active with [facility] and he and his are discussing a dc to home. MD is aware and CM will follow.
[2025-03-13 12:00] VITALS: BP 129/82; PULSE 61; RESP 18; TEMP 37.2; O2SAT 98
--- NOTE | 2025-03-13 12:50 | MHC.CM.PN ---
Pr Patient's request, a referral has been made to [facility]. MD is aware and CM will follow.
--- NOTE | 2025-03-13 13:48 | MHC.CM.PN ---
[facility] will have a bed for Patient tomorrow; transportation has been set up for tomorrow at 3PM, via [facility]. Patient and family are very pleased.
--- NOTE | 2025-03-13 14:09 | MHC.CM.PN ---
IMM discussed verbally with Patient at bedside; Original was left with Patient and a copy has been placed on the chart.
--- NOTE | 2025-03-13 14:34 | MHC.CLN ---
F/U PT WITH INCREASED NUTRITION NEEDS R/T PRESSURE INJURIES DIET RX: 2GM NA RECEIVING ENSURE MAX BID TO PROVIDE 300KCALS, 60G PROTEIN MONITOR PO INTAKE AND ENCOURAGE SUPPLEMENTS
[2025-03-13 16:00] VITALS: BP 149/67; PULSE 63; RESP 16; TEMP 36.6; O2SAT 95
--- NOTE | 2025-03-13 16:16 | HO.WOUND ---
Wound Consult: Initial 65yr old? male admitted to [facility] on 03/10/25 - See progress notes and H&P for detailed history.? Wound consult placed for concern to F/C site patient has other known pressure wounds POA that were not assessed at today consultation. Patient agreeable to assessment and not photo documentation. Perineal and F/C area assessed for dried drainage, cath securement device in use and appropriately placed. Bilateral Device DTI sites appear to be improving light pink linear areas noted remain intact. Mild erythema noted to scrotum and bilateral groin and inner thighs, recommend continue to treat with barrier cream. After assessment the perienal area appears to be in need of routine cleansing and F/C care per protocol. The patient will benefit from warm washing with mild soap and water to the area and dried well. No concern for infection or open tissue noted at this time. There is no concern for drainage from the penis tip at this time other than WNL moisture. Recommend thorough cleansing and barrier cream application to pink areas and monitor for improvement. For worsening drainage or wound development notify provider and reconsult wound care. Details from prior consultation: at bedside, patient was able to communicate at times but communication was difficult as patient was experiencing aphasia. The patient uses the outpt wound clinic for the right ankle and sacrum. He has an unna boot applied weekly by the wound clinic to heal the right lateral ankle. The boot was removed by ED staff on admission. Of importance the patient does not walk more than 6 feet in a day and not every day - this may be impacting the success of the unna boot. Educated to discuss with provider at follow up appt. The left heel is not followed by the wound clinic at this time - the and patient were educated to bring this wound to their attention at the next follow up visit. Recommend continued outpt wound care with out pt wound clinic. Patient does not have a hospital bed at home but does have a sleep number bed and has a specialty seat cushion of when he is up in the chair. They report he is often in the chair since when lying in bed he has right sided restless leg syndrome impacting his sleep, relaxation and comfort, encouraged patient and to discuss with providers to assess for systemic treatment of restless leg syndrome. The patient and were educated to limit uninterrupted sit time to 1-2 hour, educated to stand and march to allow blood flow changes back to the sacrum - demonstrate understanding. Sacrum Etiology: ??Deep Tissue Injury in evolution Present on Admission Wound Bed: Left sacral side with intact light purple pink slow to bal tissue previously open on last admission Right open deeper tissue loss with marbled wound bed red purple and yellow slough Terri wound: ?MASD No Induration, Fluctuance or Warmth noted Goals of Treatment: ? Triad and off load pressure Bilateral Inner Thigh - DTI - Device related (Brief at home use) - Discussed brief use - Triad applied and no brief in place. Left Heel Etiology: Unstageable Pressure Injury ??Present on Admission 5cm x 1cm x 0.2cm Wound Bed: central lesion with red moist wound bed - superior and inferior sites with adherent slough and necrotic tissue Drainage / Odor: unknown Edges: ?well defined Terri wound: ? erythema noted - No Induration, Fluctuance or Warmth noted Goals of Treatment: Medihoney and Durafiber AG for moisture management Left Ankle Etiology: stage 3 Pressure Injury ??Present on Admission Wound Bed: red moist wound bed with adherent slough to edge Drainage / Odor: dark brown drainage noted on dressing Edges: ? well defined Terri wound: red erythema noted - No Induration, Fluctuance or Warmth noted Goals of Treatment: Medihoney and Durafiber AG for moisture management Right Knee Abrasion - stable no interventions needed at this time. Recommendations: 1. Turn and Reposition every 2 hours and as needed for patient comfort.? Use pillows or wedges to support off loading positions. 2. Off Load all bony prominences with use of pillows and heel boots if needed.? Apply Preventative foams where needed. ? 3. Monitor for incontinence and moisture control, use barrier creams when needed for prevention and treatment. 4. Provide adequate and supplemental nutrition.? 5. Order low air loss mattress. 6. When applicable maintain blood glucose levels per Providers order. Left heel and Right Ankle - Off Load Pressure with Q2 hr turns and use of pillows - Float heels off of bed surface. Consider Heel Boot Protectors (Purple Boots) if patient is not ambulating. Cleanse with PH balance spray or wipes, pat dry. ?Apply layer of Medihoney to wound bed. ?Cover with durafiber ag and ?foam dressing to aid in off loading and protection from friction. Change Daily while inpatient.? Medihoney available from wound nurse ? tube left at bedside for use. Sacrum - Off Load Pressure with Q2 hr turns and use of pillows - Cleanse with PH balance spray or wipes, pat dry. ?Apply thin layer of Triad to wound bed. Do not remove all of paste between applications as this may cause further skin damage.? Cover with foam dressing to aid in off loading and protection from friction. Change every other day and PRN. Bilateral Inner Thighs - Discontinue brief use while in bed. Off Load Pressure with Q2 hr turns and use of pillows - Cleanse with PH balance spray or wipes, pat dry. ?Apply thin layer of barrier cream to affected area.? Apply twice daily and Reapply thin layer PRN after each episode of incontinence. Re-consult wound care Nurse for wound deterioration or wound changes.
[2025-03-13 19:50] VITALS: BP 132/76; PULSE 63; RESP 20; TEMP 36.6; O2SAT 97
[2025-03-13] MEDS: 0.9 % Sodium Chloride Flush 3 ML SYRINGE IVFLUSH (20:46)
[2025-03-14] VITALS: BP 114/72; PULSE 62; RESP 20; TEMP 37.1; O2SAT 99
[2025-03-14 04:00] VITALS: BP 125/75; PULSE 63; RESP 20; TEMP 37.1; O2SAT 97
[2025-03-14 08:00] VITALS: BP 119/67; PULSE 62; RESP 20; TEMP 36.7; O2SAT 99
[2025-03-14] MEDS: Aspirin Enteric Coated 81 MG TABLET.DR PO (08:32)
--- NOTE | 2025-03-14 10:28 | MHC.CM.PN ---
PT SCHEDULED TO DC TO [facility] TODAY AT 1500 HOURS VIA [facility] AND [facility]
[2025-03-14] MEDS: oxyCODONE HCl Immed Release 5 MG TABLET PO (10:48)
--- NOTE | 2025-03-14 11:17 | PM.DS ---
DS: Providers Provider Date of Service: 03/14/25 Date of admission: 03/10/25 18:42 Date of discharge: 03/14/25 Primary care physician: Yang Burgos MD Consults: 03/10/25 22:18 Consult to Neurology Routine Consulting Provider: [facility] Reason for consultation: ?TIA, R weakness, back to baseline 03/10/25 22:43 Consult to Wound Care Routine Reason for consultation: sacral decubitus ulcer 03/11/25 00:01 Consult to General Surgery Routine Consulting Provider: [facility] [place] General Surgeons Reason for consultation: stage 2 sacarl decub ulcer, stranding on CT DS: Diagnosis Discharge Diagnosis (1) Acute UTI: Status: Acute (2) Right sided weakness: Status: Acute DS: Summary Hospital Course Hospital Course: admission hpi Chief Complaint: R weakness Patient is a 65-year-old male with a past medical history significant for history CVA with right-sided deficits, AFib on Eliquis, hypertension, CKD 3, chronic Rutledge catheter and class 2 obesity, who presented to the ED due to right-sided weakness starting this morning with associated confusion. Last known well time was 07:00. His noted that he has been leaning to the right. He has had right-sided deficits from a previous stroke however seem to be worse earlier today, now improved. The patient denies any chest pain, shortness of breath, nausea, vomiting, abdominal pain. He has a chronic Rutledge catheter which has been draining normally. He also has a stage II sacral pressure ulcer. The patient is a very poor historian and is unable to provide much history at this time. Per the ED note, the patient reported that he was feeling sick, denied any pain or falls. He told EMS that he felt off last night and not himself. He has been having lack of appetite, malaise, weakness and confusion. Head CT with evidence of previous stroke, no acute stroke. UA positive and patient was started on Zosyn per previous urine cultures. Lactic acidosis improved with 1 L IV fluids. Pelvic CT due to stage II sacral decubitus ulcer negative for osteomyelitis. hospital course: Patient is a 65-year-old male with a past medical history significant for history CVA with right-sided deficits, AFib on Eliquis, hypertension, CKD 3, chronic Rutledge catheter and class 2 obesity, who presented to the ED due to right-sided weakness starting this morning with associated confusion with inital concern of acute stroke. Acute metabolic encephalopathy secondary to UTI, treated with Zosyn in the hospital. Urine culture so far negative. Has history of Enterococcus which appear to be colonization. Will treat emprically with Augmentin for 7 days. His chronic rutledge changed today 03/12 Right-sided weakness, head CT negative for acute CVA, seen by neurology team . MRI showed no acute finding, no further testing at this time. Continue usual medication Stage II sacral decubitus ulcer, no osteo on CT - general surgery and wound care consult recommendation: Recommendations: 1. Turn and Reposition every 2 hours and as needed for patient comfort.? Use pillows or wedges to support off loading positions. 2. Off Load all bony prominences with use of pillows and heel boots if needed.? Apply Preventative foams where needed. ? 3. Monitor for incontinence and moisture control, use barrier creams when needed for prevention and treatment. 4. Provide adequate and supplemental nutrition.? 5. Order low air loss mattress. 6. When applicable maintain blood glucose levels per Providers order. Left heel and Right Ankle - Off Load Pressure with Q2 hr turns and use of pillows - Float heels off of bed surface. Consider Heel Boot Protectors (Purple Boots) if patient is not ambulating. Cleanse with PH balance spray or wipes, pat dry. ?Apply layer of Medihoney to wound bed. ?Cover with durafiber ag and ?foam dressing to aid in off loading and protection from friction. Change Daily while inpatient.? Medihoney available from wound nurse ? tube left at bedside for use. Sacrum - Off Load Pressure with Q2 hr turns and use of pillows - Cleanse with PH balance spray or wipes, pat dry. ?Apply thin layer of Triad to wound bed. Do not remove all of paste between applications as this may cause further skin damage.? Cover with foam dressing to aid in off loading and protection from friction. Change every other day and PRN. Bilateral Inner Thighs - Discontinue brief use while in bed. Off Load Pressure with Q2 hr turns and use of pillows - Cleanse with PH balance spray or wipes, pat dry. ?Apply thin layer of barrier cream to affected area.? Apply twice daily and Reapply thin layer PRN after each episode of incontinence. Re-consult wound care Nurse for wound deterioration or wound changes. Acute lactic acidosis, likely secondary to UTI and poor p.o. intake, resolved with IV fluids Chronic AFib - Eliquis HTN - spironolactone CKD 3, at baseline - avoid nephrotoxins when possible Class 2 obesity - weight loss encouraged To Short term rehab Time Attestation Discharge Coordination Time (in mins): 40 Quality: Safe Use of Opioids Does Pt have an Active Cancer Diagnosis on the Problem List?: No Quality: Stroke Does the patient have a stroke diagnosis?: No Physical Exam Vital Signs: Vital Signs: Last Vital Signs Temp 98.1 F 03/12/25 11:29 Pulse 67 03/12/25 11:29 Resp 20 03/12/25 11:29 BP 112/71 03/12/25 11:29 Pulse Ox 99 03/12/25 11:29 O2 Del Method Room Air 03/12/25 11:29 BMI result Body Mass Index 36.1 DS: Data Data Completed and Pending Labs on day of discharge: Laboratory Results - last 24 hr 03/12/25 06:56 WBC 8.5 RBC 5.07 Hgb 15.4 Hct 45.6 MCV 89.9 MCH 30.4 MCHC 33.8 RDW 14.6 Plt Count 212 MPV 9.5 Immature Gran % (Auto) 1.2 H Neut % (Auto) 69.7 Lymph % (Auto) 15.5 L [place] % (Auto) 7.6 Eos % (Auto) 5.3 H Baso % (Auto) 0.7 Lymph # (Auto) 1.3 [place] # (Auto) 0.7 Eos # (Auto) 0.5 H Baso # (Auto) 0.1 Abs Immat Gran (auto) 0.10 H Absolute Neuts (auto) 6.0 Absolute Nucleated RBC 0.000 Nucleated RBC % (auto) 0.0 Sodium 140 Potassium 4.1 Chloride 105 Carbon Dioxide 27 Anion Gap 12 BUN 13 Creatinine 0.94 Estim Creat Clear Calc 100.4 Estimated GFR > 60 Random Glucose 90 Calcium 9.1 D Preliminary micro results at discharge 03/10/25 10:56 Blood Culture - Preliminary Blood - Venous No growth after 24 hours. 03/10/25 10:59 Blood Culture - Preliminary Blood - Venous No growth after 24 hours. Discharge Plan Discharge Anticipated Discharge Date/Time: 03/14/25 12:50 Patient Disposition: Xfer Inpatient Rehab Fac Discharge Diagnosis: UTI, metabolic encephalopathy, Referrals: [facility] [Outside] - 1 Week Yang Burgos MD [Primary Care Provider, Medical] - 1 Week Discharge Medications: New amoxicillin-pot clavulanate 875-125 mg tablet 1 tab PO BID Qty: 10 0RF Continued baclofen 20 mg tablet 20 mg PO BID tamsulosin 0.4 mg capsule 0.4 mg PO BEDTIME furosemide 20 mg tablet 20 mg PO DAILY spironolactone 50 mg tablet 50 mg PO DAILY finasteride 5 mg tablet 5 mg PO DAILY multivitamin Tablet 1 tab PO DAILY acetaminophen 325 mg Tablet 650 mg PO Q6H PRN (Reason: Fever Or Pain) ascorbic acid (vitamin C) [Vitamin C] 500 mg Tablet 500 mg PO DAILY polyethylene glycol 3350 [Miralax] 17 gram/dose Powder 17 g PO DAILY PRN (Reason: Constipation) magnesium oxide 400 mg magnesium Tablet 400 mg PO BID apixaban 5 mg tablet 5 mg PO BID atorvastatin 20 mg tablet 20 mg PO BEDTIME aspirin [Adult Aspirin Regimen] 81 mg tablet,delayed release (DR/EC) 81 mg PO DAILY Discharge Orders: Discharge Order (Routine); Ordered 03/14/25 Ordered By: Seth Baltazar Diet: Advance to usual diet Activity on Discharge: As tolerated Stand Alone Forms: Patient Portal Discharge page Print Language: Indonesian Care Plan Goals: recovery from encephalopathy, uti Health Concerns: recovery from uti, weakness, stroke concern Plan of Treatment: take augmenin for uti to short term rehab wound care recommendation: Recommendations: 1. Turn and Reposition every 2 hours and as needed for patient comfort.? Use pillows or wedges to support off loading positions. 2. Off Load all bony prominences with use of pillows and heel boots if needed.? Apply Preventative foams where needed. ? 3. Monitor for incontinence and moisture control, use barrier creams when needed for prevention and treatment. 4. Provide adequate and supplemental nutrition.? 5. Order low air loss mattress. 6. When applicable maintain blood glucose levels per Providers order. Left heel and Right Ankle - Off Load Pressure with Q2 hr turns and use of pillows - Float heels off of bed surface. Consider Heel Boot Protectors (Purple Boots) if patient is not ambulating. Cleanse with PH balance spray or wipes, pat dry. ?Apply layer of Medihoney to wound bed. ?Cover with durafiber ag and ?foam dressing to aid in off loading and protection from friction. Change Daily while inpatient.? Medihoney available from wound nurse ? tube left at bedside for use. Sacrum - Off Load Pressure with Q2 hr turns and use of pillows - Cleanse with PH balance spray or wipes, pat dry. ?Apply thin layer of Triad to wound bed. Do not remove all of paste between applications as this may cause further skin damage.? Cover with foam dressing to aid in off loading and protection from friction. Change every other day and PRN. Bilateral Inner Thighs - Discontinue brief use while in bed. Off Load Pressure with Q2 hr turns and use of pillows - Cleanse with PH balance spray or wipes, pat dry. ?Apply thin layer of barrier cream to affected area.? Apply twice daily and Reapply thin layer PRN after each episode of incontinence. Assessment: see above
[2025-03-14 11:54] VITALS: BP 121/68; PULSE 61; RESP 20; TEMP 36.7; O2SAT 98
--- OUTSIDE RECORDS SUMMARY | 2025-03-17 20:00 | XMS_ITS | Clinical Summary ---
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 Name Role Phone DEMARCUS OSULLIVAN, KIRILL Unavailable Unavailable DARLING RN, GEOFFREY Unavailable Unavailable CURTIS PT, LAURA Unavailable Unavailable [facility], GALEN Unavailable Unavai lable ACOSTA OT, GALEN Unavailable Unavailable Payers Payer Name Policy Type Policy Number Effective Date Expira tion Date MEDICARE - [facility] [place] - [id number] Problems Condition Name Condition Details Condition Category Status Onset Date Resolution Date Last Treatment Date Treating Clinician Comments VENOUS INSUFFICIENC Y (CHRONIC) (PERIPHERAL) Active 06-04 00:00: 00 NON-PRS CHRONIC ULCER OTH PRT R LOW LEG W FAT LAYER EXPOSED Active 06-04 00:00: 00 HEMIPLGA FOLLOWING CEREBRAL INFRC AFF RIGHT DOMINANT SIDE Active 06-04 00:00: 00 PRESSURE ULCER OF LEFT HEEL, STAGE 2 Active 06-04 00:00: 00 PAROXYSMAL ATRIAL FIBRILLATION Active 06-04 00:00: 00 HYPERTENSIVE CHRONIC KIDNEY DISEASE W STG 1-4/UNSP CHR KDNY Active 06-04 00:00: 00 CHRONIC KIDNEY DISEASE, STAGE 3 UNSPECIFIED Active 06-04 00:00: 00 BENIGN PROSTATIC HYPERPLASIA WITHOUT LOWER URINRY TRACT SYMP Active 06-04 00:00: 00 PRESSURE ULCER OF SA[place] REGION, STAGE 1 Active 06-04 00:00: 00 OTH SPEECH/LANG DEFICITS FOLLOWING CEREBRAL INFARCTION Active 06-04 00:00: 00 CONSTIPATION , UNSPECIFIED Active 06-04 00:00: 00 LYMPHEDEMA, NOT ELSEWHERE CLASSIFIED Active 06-04 00:00: 00 PRESENCE OF CARDIAC PACEMAKER Active 06-04 00:00: 00 Problems related to health literacy Active 06-04 00:00: 00 DEPENDENCE ON WHEELCHAIR Active 06-04 00:00: 00 ENCOUNTER FOR FITTING AND ADJUSTMENT OF URINARY DEVICE Active 06-04 00:00: 00 SHELTER (CURRENT) USE OF ASPIRIN Active 06-04 00:00: 00 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 Ordering Clinician Indication Dosage Frequency Signature (SIG) Comments Components furosemide 20 mg tablet 12-28 00:00: 00 Yes [id number] 1 tablet DAILY 1 tablet DAILY (route: oral) Med Classific ation: Cardiovas cular Therapy Agents baclofen 20 mg tablet 12-09 00:00: 00 Yes [id number] 1 tablet 2 TIMES DAILY 1 tablet 2 TIMES DAILY (route: oral) Med Classific ation: Locomotor System aspirin 81 mg tablet,georges yed release 01-18 00:00: 00 Yes [id number] 1 tablet DAILY 1 tablet DAILY (route: oral) Med Classific ation: Hematolog ical Agents Colace 100 mg capsule 01-18 00:00: 00 Yes [id number] 1 capsule 2 TIMES DAILY 1 capsule 2 TIMES DAILY (route: oral) Med Classific ation: Gastroint estinal Therapy Agents Eliquis 5 mg tablet 01-18 00:00: 00 Yes [id number] 1 tablet 2 TIMES DAILY 1 tablet 2 TIMES DAILY (route: oral) Med Classific ation: Hematolog ical Agents finasteride 5 mg tablet 01-18 00:00: 00 Yes [id number] 1 tablet DAILY 1 tablet DAILY (route: oral) Med Classific ation: Genitouri nary Therapy Lipitor 20 mg tablet 01-18 00:00: 00 Yes [id number] 1 tablet DAILY 1 tablet DAILY (route: oral) Med Classific ation: Cardiovas cular Therapy Agents magnesium 400 mg (as magnesium oxide) tablet 01-18 00:00: 00 Yes [id number] 1 tablet DAILY 1 tablet DAILY (route: oral) Med Classific ation: Electroly te Balance-N utritiona l Products Miralax 17 gram oral powder packet 01-18 00:00: 00 Yes [id number] 1 packet DAILY 1 packet DAILY (route: oral) Med Classific ation: Gastroint estinal Therapy Agents multivitami n tablet 01-18 00:00: 00 Yes [id number] 1 tablet DAILY 1 tablet DAILY (route: oral) Med Classific ation: Electroly te Balance-N utritiona l Products spironolact one 50 mg tablet 01-18 00:00: 00 Yes [id number] 1 tablet DAILY 1 tablet DAILY (route: oral) Med Classific ation: Cardiovas cular Therapy Agents tamsulosin 0.4 mg capsule 01-18 00:00: 00 Yes [id number] 1 capsule DAILY 1 capsule DAILY (route: oral) Med Classific ation: Genitouri nary Therapy Tylenol 325 mg tablet 01-18 00:00: 00 Yes [id number] 2 tablet EVERY 6 HOURS 2 tablet EVERY 6 HOURS (route: oral) Med Classific ation: Analgesic , Anti-infl ammatory or Antipyret ic Vital Signs Vital Name Observation Time Observation Value Commen ts Temperature 2025-03-09 09:31:00.000 97.9 [degF] Temperature 2025-03-04 12:00:00.000 97.1 [degF] Temperature 2025-03-02 10:04:00.000 97.4 [degF] Temperature 2025-02-26 09:46:00.000 97.9 [degF] Temperature 2025-02-25 12:30:00.000 96.8 [degF] Temperature 2025-02-18 12:32:00.000 96.6 [degF] Temperature 2025-02-17 14:03:00.000 98.5 [degF] Temperature 2025-02-16 10:07:00.000 97.3 [degF] Temperature 2025-02-11 12:36:00.000 98 [degF] Temperature 2025-02-10 14:08:00.000 98.9 [degF] Temperature 2025-02-09 11:10:00.000 97.4 [degF] Temperature 2025-02-05 14:28:00.000 98.2 [degF] Temperature 2025-02-05 11:38:00.000 98.8 [degF] Temperature 2025-02-04 12:03:00.000 96.8 [degF] Temperature 2025-02-03 11:25:00.000 97.7 [degF] Temperature 2025-01-30 14:05:00.000 98.6 [degF] Temperature 2025-01-29 15:29:00.000 98.1 [degF] Temperature 2025-01-28 11:23:00.000 96.8 [degF] Temperature 2025-01-26 10:02:00.000 97.6 [degF] Temperature 2025-01-26 09:37:00.000 97.9 [degF] Temperature 2025-01-23 10:06:00.000 96.6 [degF] Temperature 2025-01-21 09:40:00.000 98 [degF] Temperature 2025-01-20 11:04:00.000 96.9 [degF] Temperature 2025-01-18 14:45:00.000 97.6 [degF] BMI (%) 2025-01-18 14:45:00.000 32 kg/m2 Height 2025-01-18 14:45:00.000 75 [in_us] Pulse 2025-03-09 09:31:00.000 70 /min Pulse 2025-03-04 12:00:00.000 60 /min Pulse 2025-03-02 10:04:00.000 74 /min Pulse 2025-02-26 09:46:00.000 72 /min Pulse 2025-02-25 12:30:00.000 68 /min Pulse 2025-02-18 12:32:00.000 68 /min Pulse 2025-02-17 14:03:00.000 73 /min Pulse 2025-02-16 10:07:00.000 77 /min Pulse 2025-02-11 12:36:00.000 70 /min Pulse 2025-02-10 14:08:00.000 67 /min Pulse 2025-02-09 11:10:00.000 70 /min Pulse 2025-02-05 14:28:00.000 70 /min Pulse 2025-02-05 11:38:00.000 70 /min Pulse 2025-02-04 12:03:00.000 72 /min Pulse 2025-02-03 11:25:00.000 72 /min Pulse 2025-01-30 14:05:00.000 73 /min Pulse 2025-01-29 15:29:00.000 76 /min Pulse 2025-01-28 11:23:00.000 72 /min Pulse 2025-01-27 14:03:00.000 72 /min Pulse 2025-01-26 10:02:00.000 72 /min Pulse 2025-01-26 09:37:00.000 72 /min Pulse 2025-01-23 10:06:00.000 74 /min Pulse 2025-01-21 09:40:00.000 74 /min Pulse 2025-01-20 11:04:00.000 68 /min Pulse 2025-01-18 14:45:00.000 78 /min O2 Saturation (%) 2025-03-09 09:31:00.000 98 % O2 Saturation (%) 2025-03-04 12:00:00.000 95 % O2 Saturation (%) 2025-03-02 10:04:00.000 97 % O2 Saturation (%) 2025-02-26 09:46:00.000 98 % O2 Saturation (%) 2025-02-25 12:30:00.000 97 % O2 Saturation (%) 2025-02-18 12:32:00.000 97 % O2 Saturation (%) 2025-02-17 14:03:00.000 97 % O2 Saturation (%) 2025-02-16 10:07:00.000 96 % O2 Saturation (%) 2025-02-11 12:36:00.000 97 % O2 Saturation (%) 2025-02-10 14:08:00.000 97 % O2 Saturation (%) 2025-02-09 11:10:00.000 99 % O2 Saturation (%) 2025-02-05 14:28:00.000 97 % O2 Saturation (%) 2025-02-05 11:38:00.000 96 % O2 Saturation (%) 2025-02-04 12:03:00.000 97 % O2 Saturation (%) 2025-02-03 11:25:00.000 98 % O2 Saturation (%) 2025-01-30 14:05:00.000 96 % O2 Saturation (%) 2025-01-29 15:29:00.000 98 % O2 Saturation (%) 2025-01-28 11:23:00.000 98 % O2 Saturation (%) 2025-01-27 14:03:00.000 98 % O2 Saturation (%) 2025-01-26 10:02:00.000 98 % O2 Saturation (%) 2025-01-26 09:37:00.000 98 % O2 Saturation (%) 2025-01-23 10:06:00.000 97 % O2 Saturation (%) 2025-01-21 09:40:00.000 99 % O2 Saturation (%) 2025-01-20 11:04:00.000 98 % O2 Saturation (%) 2025-01-18 14:45:00.000 97 % Respirations 2025-03-09 09:31:00.000 17 /min Respirations 2025-03-04 12:00:00.000 18 /min Respirations 2025-03-02 10:04:00.000 17 /min Respirations 2025-02-26 09:46:00.000 18 /min Respirations 2025-02-25 12:30:00.000 18 /min Respirations 2025-02-18 12:32:00.000 18 /min Respirations 2025-02-17 14:03:00.000 18 /min Respirations 2025-02-16 10:07:00.000 18 /min Respirations 2025-02-11 12:36:00.000 18 /min Respirations 2025-02-10 14:08:00.000 18 /min Respirations 2025-02-09 11:10:00.000 18 /min Respirations 2025-02-05 14:28:00.000 18 /min Respirations 2025-02-05 11:38:00.000 20 /min Respirations 2025-02-04 12:03:00.000 18 /min Respirations 2025-02-03 11:25:00.000 18 /min Respirations 2025-01-30 14:05:00.000 18 /min Respirations 2025-01-29 15:29:00.000 18 /min Respirations 2025-01-28 11:23:00.000 18 /min Respirations 2025-01-27 14:03:00.000 18 /min Respirations 2025-01-26 10:02:00.000 18 /min Respirations 2025-01-26 09:37:00.000 18 /min Respirations 2025-01-23 10:06:00.000 18 /min Respirations 2025-01-21 09:40:00.000 18 /min Respirations 2025-01-20 11:04:00.000 16 /min Respirations 2025-01-18 14:45:00.000 16 /min Weight (lbs) 2025-01-18 14:45:00.000 260 [lb_av] Systolic Blood Pressure 2025-03-09 09:31:00.000 116 mm [Hg] Systolic Blood Pressure 2025-03-04 12:00:00.000 118 mm [Hg] Systolic Blood Pressure 2025-03-02 10:04:00.000 112 mm [Hg] Systolic Blood Pressure 2025-02-26 09:46:00.000 116 mm [Hg] Systolic Blood Pressure 2025-02-25 12:30:00.000 118 mm [Hg] Systolic Blood Pressure 2025-02-18 12:32:00.000 116 mm [Hg] Systolic Blood Pressure 2025-02-17 14:03:00.000 125 mm [Hg] Systolic Blood Pressure 2025-02-16 10:07:00.000 120 mm [Hg] Systolic Blood Pressure 2025-02-11 12:36:00.000 114 mm [Hg] Systolic Blood Pressure 2025-02-10 14:08:00.000 136 mm [Hg] Systolic Blood Pressure 2025-02-09 11:10:00.000 110 mm [Hg] Systolic Blood Pressure 2025-02-05 14:28:00.000 121 mm [Hg] Systolic Blood Pressure 2025-02-05 11:38:00.000 134 mm [Hg] Systolic Blood Pressure 2025-02-04 12:03:00.000 118 mm [Hg] Systolic Blood Pressure 2025-02-03 11:25:00.000 118 mm [Hg] Systolic Blood Pressure 2025-01-30 14:05:00.000 119 mm [Hg] Systolic Blood Pressure 2025-01-29 15:29:00.000 120 mm [Hg] Systolic Blood Pressure 2025-01-28 11:23:00.000 118 mm [Hg] Systolic Blood Pressure 2025-01-27 14:03:00.000 119 mm [Hg] Systolic Blood Pressure 2025-01-26 10:02:00.000 112 mm [Hg] Systolic Blood Pressure 2025-01-26 09:37:00.000 112 mm [Hg] Systolic Blood Pressure 2025-01-23 10:06:00.000 110 mm [Hg] Systolic Blood Pressure 2025-01-21 09:40:00.000 120 mm [Hg] Systolic Blood Pressure 2025-01-20 11:04:00.000 116 mm [Hg] Systolic Blood Pressure 2025-01-18 14:45:00.000 116 mm [Hg] Diastolic Blood Pressure 2025-03-09 09:31:00.000 70 mm [Hg] Diastolic Blood Pressure 2025-03-04 12:00:00.000 62 mm [Hg] Diastolic Blood Pressure 2025-03-02 10:04:00.000 68 mm [Hg] Diastolic Blood Pressure 2025-02-26 09:46:00.000 68 mm [Hg] Diastolic Blood Pressure 2025-02-25 12:30:00.000 77 mm [Hg] Diastolic Blood Pressure 2025-02-18 12:32:00.000 74 mm [Hg] Diastolic Blood Pressure 2025-02-17 14:03:00.000 75 mm [Hg] Diastolic Blood Pressure 2025-02-16 10:07:00.000 70 mm [Hg] Diastolic Blood Pressure 2025-02-11 12:36:00.000 80 mm [Hg] Diastolic Blood Pressure 2025-02-10 14:08:00.000 80 mm [Hg] Diastolic Blood Pressure 2025-02-09 11:10:00.000 70 mm [Hg] Diastolic Blood Pressure 2025-02-05 14:28:00.000 78 mm [Hg] Diastolic Blood Pressure 2025-02-05 11:38:00.000 84 mm [Hg] Diastolic Blood Pressure 2025-02-04 12:03:00.000 78 mm [Hg] Diastolic Blood Pressure 2025-02-03 11:25:00.000 72 mm [Hg] Diastolic Blood Pressure 2025-01-30 14:05:00.000 78 mm [Hg] Diastolic Blood Pressure 2025-01-29 15:29:00.000 68 mm [Hg] Diastolic Blood Pressure 2025-01-28 11:23:00.000 70 mm [Hg] Diastolic Blood Pressure 2025-01-27 14:03:00.000 68 mm [Hg] Diastolic Blood Pressure 2025-01-26 10:02:00.000 70 mm [Hg] Diastolic Blood Pressure 2025-01-26 09:37:00.000 70 mm [Hg] Diastolic Blood Pressure 2025-01-23 10:06:00.000 68 mm [Hg] Diastolic Blood Pressure 2025-01-21 09:40:00.000 74 mm [Hg] Diastolic Blood Pressure 2025-01-20 11:04:00.000 70 mm [Hg] Diastolic Blood Pressure 2025-01-18 14:45:00.000 74 mm [Hg] Plan of Treatment Planned Activity Planned Date Details Comments Future Scheduled Test SKILLED NU RSE TO EVALUATE PATIENT, IDENTIFY PRIMARY AND CO-MORBID CONDITIONS CODED PER CODING GUIDELINES, AND DEVELOP PATIENT SPECIFIC PLAN OF CARE THAT INCLUDES PATIENT GOAL FOR HOME HEALTH. [code = SKILLED NURSE TO EVALUATE PATIENT, IDENTIFY PRIMARY AND CO-MORBID CONDITIONS CODED PER CODING GUIDELINES, AND DEVELOP PATIENT SPECIFIC PLAN OF CARE THAT INCLUDES PATIENT GOAL FOR HOME HEALTH.] Future Scheduled Test SKILLED NU RSE TO REVIEW PATIENT MEDICATIONS (PRESCRIPTION/OTC). INSTRUCT PATIENT/CAREGIVER ON ALL MEDICATIONS INCLUDING PURPOSE, WHEN TO TAKE, IMPORTANCE OF MEDICATION ADHERENCE, MONITORING OF EFFECTIVENESS, ADVERSE DRUG REACTIONS, POSSIBLE SIDE EFFECTS, AND WHEN TO NOTIFY AGENCY OR PHYSICIAN/PROVIDER OF ANY CONCERNS. [code = SKILLED NURSE TO REVIEW PATIENT MEDICATIONS (PRESCRIPTION/OTC). INSTRUCT PATIENT/CAREGIVER ON ALL MEDICATIONS INCLUDING PURPOSE, WHEN TO TAKE, IMPORTANCE OF MEDICATION ADHERENCE, MONITORING OF EFFECTIVENESS, ADVERSE DRUG REACTIONS, POSSIBLE SIDE EFFECTS, AND WHEN TO NOTIFY AGENCY OR PHYSICIAN/PROVIDER OF ANY CONCERNS.] Future Scheduled Test PATIENT DURAN S A RISK OF HOSPITALIZATION AND ED USE. SKILLED NURSE TO ESTABLISH SUPPORT MEASURES TO MINIMIZE RISK OF HOSPITALIZATION AND ED USE, AND INSTRUCT PATIENT/CAREGIVER ON METHODS TO REDUCE AVOIDABLE HOSPITALIZATION AND ED USE. [code = PATIENT HAS A RISK OF HOSPITALIZATION AND ED USE. SKILLED NURSE TO ESTABLISH SUPPORT MEASURES TO MINIMIZE RISK OF HOSPITALIZATION AND ED USE, AND INSTRUCT PATIENT/CAREGIVER ON METHODS TO REDUCE AVOIDABLE HOSPITALIZATION AND ED USE.] Future Scheduled Test SKILLED NU RSE TO PROVIDE INSTRUCTION TO PATIENT/CAREGIVER RELATED TO DISCHARGE PLANNING. [code = SKILLED NURSE TO PROVIDE INSTRUCTION TO PATIENT/CAREGIVER RELATED TO DISCHARGE PLANNING.] Future Scheduled Test SKILLED NU RSE TO PERFORM ENVIRONMENTAL SAFETY RISK ASSESSMENT AND FALL RISK ASSESSMENT AND PROVIDE INSTRUCTION TO IMPLEMENT ENVIRONMENTAL SAFETY AND FALL PREVENTION STRATEGIES THROUGHOUT THE CERTIFICATION PERIOD. SKILLED NURSE WILL MAINTAIN SITUATIONAL AWARENESS AND WILL NOTIFY CLINICAL DOCK LOADER AND PHYSICIAN/PROVIDER WITH ANY CHANGE IN CONDITION. [code = SKILLED NURSE TO PERFORM ENVIRONMENTAL SAFETY RISK ASSESSMENT AND FALL RISK ASSESSMENT AND PROVIDE INSTRUCTION TO IMPLEMENT ENVIRONMENTAL SAFETY AND FALL PREVENTION STRATEGIES THROUGHOUT THE CERTIFICATION PERIOD. SKILLED NURSE WILL MAINTAIN SITUATIONAL AWARENESS AND WILL NOTIFY CLINICAL DOCK LOADER AND PHYSICIAN/PROVIDER WITH ANY CHANGE IN CONDITION.] Future Scheduled Test SKILLED NU RSE FOR OBSERVATION AND ASSESSMENT OF PATIENT S PAIN LEVEL AND EFFECTIVENESS OF PAIN MANAGEMENT REGIMEN. SKILLED NURSE TO INSTRUCT PATIENT/CAREGIVER REGARDING PHARMACOLOGIC AND NON-PHARMACOLOGIC PAIN CONTROL MEASURES. SKILLED NURSE TO REPORT TO PHYSICIAN IF PAIN LEVEL IS OUTSIDE OF ESTABLISHED PARAMETERS. [code = SKILLED NURSE FOR OBSERVATION AND ASSESSMENT OF PATIENT S PAIN LEVEL AND EFFECTIVENESS OF PAIN MANAGEMENT REGIMEN. SKILLED NURSE TO INSTRUCT PATIENT/CAREGIVER REGARDING PHARMACOLOGIC AND NON-PHARMACOLOGIC PAIN CONTROL MEASURES. SKILLED NURSE TO REPORT TO PHYSICIAN IF PAIN LEVEL IS OUTSIDE OF ESTABLISHED PARAMETERS.] Future Scheduled Test SKILLED NU RSE TO ASSESS PATIENT'S SKIN INTEGRITY AND INSTRUCT PATIENT/CAREGIVER ON MEASURES TO PREVENT PRESSURE ULCERS. [code = SKILLED NURSE TO ASSESS PATIENT'S SKIN INTEGRITY AND INSTRUCT PATIENT/CAREGIVER ON MEASURES TO PREVENT PRESSURE ULCERS.] Future Scheduled Test SKILLED NU RSE TO INSTRUCT PATIENT/CAREGIVER ON SIGNS AND SYMPTOMS, RISK FACTORS, COMPLICATIONS, AND MANAGEMENT OF ATRIAL FIBRILLATION. [code = SKILLED NURSE TO INSTRUCT PATIENT/CAREGIVER ON SIGNS AND SYMPTOMS, RISK FACTORS, COMPLICATIONS, AND MANAGEMENT OF ATRIAL FIBRILLATION.] Future Scheduled Test NEED FOR S KILLED TEACHING AND INTERVENTION RELATED TO WOUNDS RLE, L HEEL, COCCYX SKILLED NURSE OR TRAINED PATIENT/CAREGIVER TO PERFORM WOUND CARE USING CLEAN TECHNIQUE, CLEANSE/IRRIGATE WITH NS, PAT DRY WITH GAUZE COCCYX STG1 PU: TRIAD TO BED, COVER WITH FOAM BORDER DAILY R ANKLE ULCERS: TRIAD TO PERIWOUND, PLUROGEL THEN IOPEX TO BED, COVER WITH DRY CLEAN DSG EVERY 3 DAYS R KNEE PARTIAL THICKNESS: PLUROGEL TO WOUND BED, COVER WITH DRY CLEAN DSG EVERY 3 DAYS L HEEL ST2 PU: PLUROGEL TO WOUND BED, COVER WITH DRY CLEAN DSG EVERY 3 DAYS WOUND CARE WILL BE PERFORMED BY TRAINED CAREGIVER ON DAYS WHEN SKILLED NURSE IS NOT SCHEDULED FOR A VISIT. DISCONTINUE WOUND CARE/SUPPLIES ONCE WOUND IS HEALED. [code = NEED FOR SKILLED TEACHING AND INTERVENTION RELATED TO WOUNDS RLE, L HEEL, COCCYX SKILLED NURSE OR TRAINED PATIENT/CAREGIVER TO PERFORM WOUND CARE USING CLEAN TECHNIQUE, CLEANSE/IRRIGATE WITH NS, PAT DRY WITH GAUZE COCCYX STG1 PU: TRIAD TO BED, COVER WITH FOAM BORDER DAILY R ANKLE ULCERS: TRIAD TO PERIWOUND, PLUROGEL THEN IOPEX TO BED, COVER WITH DRY CLEAN DSG EVERY 3 DAYS R KNEE PARTIAL THICKNESS: PLUROGEL TO WOUND BED, COVER WITH DRY CLEAN DSG EVERY 3 DAYS L HEEL ST2 PU: PLUROGEL TO WOUND BED, COVER WITH DRY CLEAN DSG EVERY 3 DAYS WOUND CARE WILL BE PERFORMED BY TRAINED CAREGIVER ON DAYS WHEN SKILLED NURSE IS NOT SCHEDULED FOR A VISIT. DISCONTINUE WOUND CARE/SUPPLIES ONCE WOUND IS HEALED.] Future Scheduled Test SKILLED NU RSE FOR O/A, TEACHING AND MANAGEMENT OF BPH FOR EARLY IDENTIFICATION OF EXACERBATION OF DISEASE PROCESS [code = SKILLED NURSE FOR O/A, TEACHING AND MANAGEMENT OF BPH FOR EARLY IDENTIFICATION OF EXACERBATION OF DISEASE PROCESS] Future Scheduled Test SKILLED NU RSE TO INSTRUCT PATIENT/CAREGIVER AND PERFORM CARE AND MANAGEMENT OF INDWELLING URINARY CATHETER. 16 /10 VALERO CATHETER INSERTION VIA STERILE TECHNIQUE, CHANGE Q 4 WEKES AND PRN FOR LEAKING OR MALFUNCTIONING CATHETER. IRRIGATE URINARY CATHETER WITH 30-60CC NORMAL SALINE PRN BLOCKAGE/LEAKAGE, HEAVY SEDIMENT. 1 - 3 PRN ALF VISITS FOR CATHETER CHANGE(S) AND/OR TROUBLESHOOTING. [code = SKILLED NURSE TO INSTRUCT PATIENT/CAREGIVER AND PERFORM CARE AND MANAGEMENT OF INDWELLING URINARY CATHETER. 16 /10 VALERO CATHETER INSERTION VIA STERILE TECHNIQUE, CHANGE Q 4 WEKES AND PRN FOR LEAKING OR MALFUNCTIONING CATHETER. IRRIGATE URINARY CATHETER WITH 30-60CC NORMAL SALINE PRN BLOCKAGE/LEAKAGE, HEAVY SEDIMENT. 1 - 3 PRN ALF VISITS FOR CATHETER CHANGE(S) AND/OR TROUBLESHOOTING.] Future Scheduled Test SKILLED NU RSE FOR O/A, TEACHING RELATED TO CONSTIPATION FOR EARLY IDENTIFICATION OF EXACERBATION OF DISEASE PROCESS. [code = SKILLED NURSE FOR O/A, TEACHING RELATED TO CONSTIPATION FOR EARLY IDENTIFICATION OF EXACERBATION OF DISEASE PROCESS.] Future Scheduled Test SKILLED NU RSE FOR O/A AND SKILLED TEACHING IN MANAGEMENT OF PE CIRCULATORY/VASCULAR DISEASE. [code = SKILLED NURSE FOR O/A AND SKILLED TEACHING IN MANAGEMENT OF PE CIRCULATORY/VASCULAR DISEASE.] Future Scheduled Test SKILLED NU RSE FOR O/A OF MUSCULOSKELETAL STATUS AND TEACHING ON MEASURES TO MANAGE R HEMIPLEGIA AND TO MAINTAIN SAFETY WITH ACTIVITY [code = SKILLED NURSE FOR O/A OF MUSCULOSKELETAL STATUS AND TEACHING ON MEASURES TO MANAGE R HEMIPLEGIA AND TO MAINTAIN SAFETY WITH ACTIVITY] Future Scheduled Test SKILLED NU RSE TO INSTRUCT PATIENT/CAREGIVER ON WARNING SIGNS OF CVA, RISK FACTORS, AND METHODS TO MANAGE SHELTER EFFECTS OF CVA. [code = SKILLED NURSE TO INSTRUCT PATIENT/CAREGIVER ON WARNING SIGNS OF CVA, RISK FACTORS, AND METHODS TO MANAGE SHELTER EFFECTS OF CVA.] Future Scheduled Test PHYSICAL T HERAPIST TO EVALUATE PATIENT FOR STRENGTH [code = PHYSICAL THERAPIST TO EVALUATE PATIENT FOR STRENGTH] Future Scheduled Test OCCUPATION AL THERAPIST TO EVALUATE PATIENT FOR ADLS [code = OCCUPATIONAL THERAPIST TO EVALUATE PATIENT FOR ADLS] Future Scheduled Test PHYSICAL T HERAPIST TO EVALUATE PATIENT SECONDARY TO FUNCTIONAL DEFICITS/SAFETY CONCERNS. PHYSICAL THERAPIST TO ASSESS BEST PRACTICE INTERVENTIONS TO ASSIST PATIENTS TO IMPROVE OR STABILIZE MEDICAL STATUS AND PREVENT RE-HOSPITALIZATION. MEASURES INCLUDING REVIEW AND IDENTIFICATION OF CONCERNS FOR THE FOLLOWING AREAS: DRUG REGIMEN, ENVIRONMENTAL SAFETY ISSUES AND FALLS, PRESSURE ULCERS, PAIN, AND DISEASE MANAGEMENT. PHYSICAL THERAPY TO ESTABLISH /UPGRADE/DOWNGRADE THERAPEUTIC EXERCISE PROGRAM AND INSTRUCT PATIENT/CAREGIVER ON EXERCISE PRECAUTIONS WITH WRITTEN HOME PROGRAM. MAY INCLUDE PROM, AAROM, AROM, RROM APPROPRIATE TO IMPROVE FUNCTIONAL STRENGTH AND RANGE OF MOTION. PHYSICAL THERAPY TO INSTRUCT PATIENT/CAREGIVER ON SAFE TRANSFER TECHNIQUES USING PROPER BODY MECHANICS AND EQUIPMENT. PHYSICAL THERAPY TO INSTRUCT PATIENT/CAREGIVER ON GAIT TRAINING TECHNIQUES USING APPROPRIATE ASSISTIVE DEVICE, PROPER BODY MECHANICS TO IMPROVE MOBILITY, AND PREVENT INJURY OF PATIENT AND/OR CAREGIVER. PHYSICAL THERAPY TO ASSESS AND RECOMMEND HOME SAFETY ADAPTATIONS AND EDUCATE PATIENT /CAREGIVER ON FALL PREVENTION STRATEGIES. PHYSICAL THERAPY TO INSTRUCT PATIENT/CAREGIVER ON BALANCE AND BALANCE STRATEGIES TO IMPROVE SAFE MOBILITY AND REDUCE RISK FOR FALL AND INJURY SUMMARY OF THERAPY EVAL/ASSESSMENT FINDINGS AND REASON(S) SKILLS OF A THERAPIST ARE INDICATED: PHYSICAL THERAPY EVALUATION (01/20/25) PATIENT IS A 65 YO APHASIC MALE WITH PHYSICAL THERAPY REFERRAL AFTER HOSPITALIZATION 12/13/24 AND SNF STAY ([facility] 12/24-01/16/25) DUE TO WEAKNESS, CONSTIPATION AND REDUCED URINE OUTPUT, MD DX: UROSEPSIS. 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 CG [facility] REPORTS PATIENT HAS RESTLESS LEGS SYNDROME. FALL HISTORY: CG REPORTS FALL OCCURED IN SNF, NO FALLS SINCE HOME PLOF: PATIENT IS MOSTLY WHEELCHAIR BOUND SINCE CVA 2016 RESULTING IN R SIDE HEMIPLEGIA. CG REPORTS PATIENT USED TO BE ABLE TO TRANSFER MOD I WITH BAR AND HEMIWALKER, ABLE TO STAND FOR SEVERAL MINUTES. CG REPORTS PATIENT ABLE TO AMB 20-25' MOD I WITH HEMIWALKER. PATIENT ATTENDED WEEKLY [facility], [facility], AND [facility] FOR WEEKLY PT. PATIENT LIVES IN SINGLE FAMILY HOME (SMALL CEMENT THRESHOLD RAMP TO NEGOTIATE) WITH CG LIAT BRAGG WHO ASSISTS (44 HRS/WK PAID CG ASSIST THRU ACCESS) WITH ADLS/IADLS, MOSTLY WHEELCHAIR BOUND, INDEP WITH WHEELCHAIR USAGE, ABLE TO TRANSFER MOD I WITH HEMIWALKER AND GRAB BARS INCLUDING IN -> OUT OF BED. PATIENT SLEPT IN BED. MAHSA REPORTS THAT PATIENT HAS NOT USED STAIR CHAIR FOR SOME TIME. AMB WITH HEMIWALKER NOT ATTEMPTED IN SNF DUE TO SAFETY ISSUE, SNF UTILIZED PARALLEL BARS. CLOF: DME: CUSTOM MANUAL AND POWER WHEELCHAIR, POWER RECLINER, HEMIWALKER, GAIT BELT, HINGED KNEE BRACE, RAISED TOILET, BED RAIL, BED WITH ADJUSTABLE HEIGHT, STAIR CHAIR, MULTIPLE GRAB BARS/RAILS IN HOME, INCLUDING 8' RAIL INDOORS. PATIENT HAS A VALERO CATHETER AND MULTIPLE WOUNDS: VENOUS ULCERS R ANKLE, PRESSURE ULCER STG 2 L HEEL, PRESSURE ULCER STG 1 COCCYX, PARTIAL THICKNESS R KNEE. PATIENT HAS BILAT NON-PITTING EDEMA, EDUC ON EDEMA CONTROL. LEFT LE WFL, NO ROM R LE, STRENGTH LEFT LE 4+5, RIGHT LE 1/5. PATIENT INDEP WITH WHEELCHAIR MOBILITY ON LEVEL SURFACES, ASSIST TO PROPEL BACKWARDS UP INCLINE. PATIENT CURRENTLY SLEEPING IN RECLINER. CG MAHSA REPORTS THAT PATIENT AND CG EDUC ON SLIDE BOARD TRANSFER AT SNF. SLIDE BOARD IN HOME. ATTEMPTED SLIDE BOARD TRANSFER IN -->OUT OF BED WITH PATIENT REFUSING. PATIENT COMPLETED WHEELCHAIR -->RECLINER STAND PIVOT TRANSFER WITH GRAB BAR, SIT -->STAND FROM WHEELCHAIR TO RAIL WITH SUPERVISION AND VERBAL CUES TO INCREASE COM COM OVER THIAGO, REQUIRING MULTIPLE HINGING AT HIPS TO ATTAIN MOMENTUM. ONCE ACHIEVING STAND, PATIENT DEMO DELAY ACHIEVING UPRIGHT RIGHT TKE. STATIC STAND = FAIR-. PATIENT DEMO DECREASED STANDING ENDURANCE, 30 SEC MAX. PATIENT AMB 8' OUTDOORS (DOWN SIDEWALK DECLINE) WITH RAIL AND CLOSE SUPERVISION WITH WHEELCHAIR FOLLOW. PATIENT DEMO DIMINISHED BILAT LE STEP LENGTHS WITH R MORE DIMINISHED THAN LEFT, LEFT LE ADVANCEMENT WITH FOOT FLAT AT INITAL CONTACT. CG REPORTS THAT PATIENT DID NOT AMB WITH HEM[facility]WALKER AT [facility] [facility], AMB IN PARALLEL BARS, HEMIWALKER GAIT TRAINING NOT ATTEMPTED. PATIENT PRESENTS WITH THE FOLLOWING DEFICITS: DECREASED R LE ROM AND STRENGTH, DECREASED ENDURANCE, DIMINISHED STANDING BALANCE, RESULTING IN TRANSFERS AND AMB. [facility] FREQ 2X2WKS, 1X2 WKS TO ADDRESS DEFICITS, MAX SAFETY AND FUNCTIONAL LEVEL IN HOME ENVIRONMENT WITH THER EXER, ESTABLISH HEP, TRANSFER AND GAIT TRAINING. PATIENT AND CG INFORMED ABOUT PHYSICAL THERAPY POC INCLUDING FREQ, VERBALIZED ACCEPTANCE. MD NOTIFIED ABOUT PATIENT STATUS AND POC. [code = PHYSICAL THERAPIST TO EVALUATE PATIENT SECONDARY TO FUNCTIONAL DEFICITS/SAFETY CONCERNS. PHYSICAL THERAPIST TO ASSESS BEST PRACTICE INTERVENTIONS TO ASSIST PATIENTS TO IMPROVE OR STABILIZE MEDICAL STATUS AND PREVENT RE-HOSPITALIZATION. MEASURES INCLUDING REVIEW AND IDENTIFICATION OF CONCERNS FOR THE FOLLOWING AREAS: DRUG REGIMEN, ENVIRONMENTAL SAFETY ISSUES AND FALLS, PRESSURE ULCERS, PAIN, AND DISEASE MANAGEMENT. PHYSICAL THERAPY TO ESTABLISH /UPGRADE/DOWNGRADE THERAPEUTIC EXERCISE PROGRAM AND INSTRUCT PATIENT/CAREGIVER ON EXERCISE PRECAUTIONS WITH WRITTEN HOME PROGRAM. MAY INCLUDE PROM, AAROM, AROM, RROM APPROPRIATE TO IMPROVE FUNCTIONAL STRENGTH AND RANGE OF MOTION. PHYSICAL THERAPY TO INSTRUCT PATIENT/CAREGIVER ON SAFE TRANSFER TECHNIQUES USING PROPER BODY MECHANICS AND EQUIPMENT. PHYSICAL THERAPY TO INSTRUCT PATIENT/CAREGIVER ON GAIT TRAINING TECHNIQUES USING APPROPRIATE ASSISTIVE DEVICE, PROPER BODY MECHANICS TO IMPROVE MOBILITY, AND PREVENT INJURY OF PATIENT AND/OR CAREGIVER. PHYSICAL THERAPY TO ASSESS AND RECOMMEND HOME SAFETY ADAPTATIONS AND EDUCATE PATIENT /CAREGIVER ON FALL PREVENTION STRATEGIES. PHYSICAL THERAPY TO INSTRUCT PATIENT/CAREGIVER ON BALANCE AND BALANCE STRATEGIES TO IMPROVE SAFE MOBILITY AND REDUCE RISK FOR FALL AND INJURY SUMMARY OF THERAPY EVAL/ASSESSMENT FINDINGS AND REASON(S) SKILLS OF A THERAPIST ARE INDICATED: PHYSICAL THERAPY EVALUATION (01/20/25) PATIENT IS A 65 YO APHASIC MALE WITH PHYSICAL THERAPY REFERRAL AFTER HOSPITALIZATION 12/13/24 AND SNF STAY ([facility] 12/24-01/16/25) DUE TO WEAKNESS, CONSTIPATION AND REDUCED URINE OUTPUT, DX: UROSEPSIS. 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 CG MAHSA REPORTS PATIENT HAS RESTLESS LEGS SYNDROME. FALL HISTORY: CG REPORTS FALL OCCURED IN SNF, NO FALLS SINCE HOME PLOF: PATIENT IS MOSTLY WHEELCHAIR BOUND SINCE CVA 2015 RESULTING IN R SIDE HEMIPLEGIA. CG REPORTS PATIENT USED TO BE ABLE TO TRANSFER MOD I WITH BAR AND HEMIWALKER, ABLE TO STAND FOR SEVERAL MINUTES. CG REPORTS PATIENT ABLE TO AMB 20-25' MOD I WITH HEMIWALKER. PATIENT ATTENDED [facility], [facility], [facility] OUTPATIENT OT [facility]IC, AND [facility] FOR WEEKLY PT. PATIENT LIVES IN SINGLE FAMILY HOME (SMALL CEMENT THRESHOLD RAMP TO NEGOTIATE) WITH CG LIAT BRAGG WHO ASSISTS (44 HRS/WK PAID CG ASSIST THRU ACCESS) WITH ADLS/IADLS, MOSTLY WHEELCHAIR BOUND, INDEP WITH WHEELCHAIR USAGE, ABLE TO TRANSFER MOD I WITH HEMIWALKER AND GRAB BARS INCLUDING IN -> OUT OF BED. PATIENT SLEPT IN BED. MA[facility]SA REPORTS THAT PATIENT HAS NOT USED STAIR CHAIR FOR SOME TIME. AMB WITH HEMIWALKER NOT ATTEMPTED IN SNF DUE TO SAFETY ISSUE, SNF UTILIZED PARALLEL BARS. CLOF: DME: CUSTOM MANUAL AND POWER WHEELCHAIR, POWER RECLINER, HEMIWALKER, GAIT BELT, HINGED KNEE BRACE, RAISED TOILET, BED RAIL, BED WITH ADJUSTABLE HEIGHT, STAIR CHAIR, MULTIPLE GRAB BARS/RAILS IN HOME, INCLUDING 8' RAIL INDOORS. PATIENT HAS A VALERO CATHETER AND MULTIPLE WOUNDS: VENOUS ULCERS R ANKLE, PRESSURE ULCER STG 2 L HEEL, PRESSURE ULCER STG 1 COCCYX, PARTIAL THICKNESS R KNEE. PATIENT HAS BILAT NON-PITTING EDEMA, EDUC ON EDEMA CONTROL. LEFT LE WFL, NO ROM R LE, STRENGTH LEFT LE 4+5, RIGHT LE 1/5. PATIENT INDEP WITH WHEELCHAIR MOBILITY ON LEVEL SURFACES, ASSIST TO PROPEL BACKWARDS UP INCLINE. PATIENT CURRENTLY SLEEPING IN RECLINER. CG [facility] REPORTS THAT PATIENT AND CG EDUC ON SLIDE BOARD TRANSFER AT SNF. SLIDE BOARD IN HOME. ATTEMPTED SLIDE BOARD TRANSFER IN -->OUT OF BED WITH PATIENT REFUSING. PATIENT COMPLETED WHEELCHAIR -->RECLINER STAND PIVOT TRANSFER WITH GRAB BAR, SIT -->STAND FROM WHEELCHAIR TO RAIL WITH SUPERVISION AND VERBAL CUES TO INCREASE COM COM OVER THIAGO, REQUIRING MULTIPLE HINGING AT HIPS TO ATTAIN MOMENTUM. ONCE ACHIEVING STAND, PATIENT DEMO DELAY ACHIEVING UPRIGHT RIGHT TKE. STATIC STAND = FAIR-. PATIENT DEMO DECREASED STANDING ENDURANCE, 30 SEC MAX. PATIENT AMB 8' OUTDOORS (DOWN SIDEWALK DECLINE) WITH RAIL AND CLOSE SUPERVISION WITH WHEELCHAIR FOLLOW. PATIENT DEMO DIMINISHED BILAT LE STEP LENGTHS WITH R MORE DIMINISHED THAN LEFT, LEFT LE ADVANCEMENT WITH FOOT FLAT AT INITAL CONTACT. CG REPORTS THAT PATIENT DID NOT AMB WITH HEMIWALKER AT [facility], AMB IN PARALLEL BARS, HEMIWALKER GAIT TRAINING NOT ATTEMPTED. PATIENT PRESENTS WITH THE FOLLOWING DEFICITS: DECREASED R LE ROM AND STRENGTH, DECREASED ENDURANCE, DIMINISHED STANDING BALANCE, RESULTING IN TRANSFERS AND AMB. SKILLED [facility] FREQ 2X2WKS, 1X2 WKS TO ADDRESS DEFICITS, MAX SAFETY AND FUNCTIONAL LEVEL IN HOME ENVIRONMENT WITH THER EXER, ESTABLISH HEP, TRANSFER AND GAIT TRAINING. PATIENT AND CG INFORMED ABOUT PHYSICAL THERAPY POC INCLUDING FREQ, VERBALIZED ACCEPTANCE. MD NOTIFIED ABOUT PATIENT STATUS AND POC.] Future Scheduled Test OCCUPATION AL THERAPIST TO EVALUATE PATIENT SECONDARY TO FUNCTIONAL DEFICITS/SAFETY CONCERNS IDENTIFIED DURING EVALUATION OCCUPATIONAL THERAPY TO ESTABLISH /UPGRADE/DOWNGRADE THERAPEUTIC EXERCISE PROGRAM AND INSTRUCT PATIENT/CAREGIVER ON EXERCISE PRECAUTIONS WITH WRITTEN HOME PROGRAM. MAY INCLUDE PROM, AAROM, AROM, RROM APPROPRIATE TO IMPROVE FUNCTIONAL STRENGTH AND/OR RANGE OF MOTION. OCCUPATIONAL THERAPY TO INSTRUCT PATIENT/CAREGIVER ON BED MOBILITY TECHNIQUES TO IMPROVE PATIENT MOBILITY AND POSITIONING TECHNIQUES TO ENHANCE PARTICIPATION IN ADL S AND IMPROVE PATIENT COMFORT AND DECREASE RISK OF SKIN BREAKDOWN. OCCUPATIONAL THERAPY TO INSTRUCT PATIENT/CAREGIVER ON SAFE TRANSFER TECHNIQUES USING PROPER BODY MECHANICS AND EQUIPMENT TO ENHANCE PARTICIPATION IN ADL S. OCCUPATIONAL THERAPY TO INSTRUCT PATIENT/CAREGIVER ON BALANCE AND BALANCE STRATEGIES TO IMPROVE SAFETY DURING ACTIVITIES OF DAILY LIVING AND REDUCE RISK OF INJURIES AND FALLS. OCCUPATIONAL THERAPY TO RECOMMEND ORTHOTICS/PROSTHETICS/SPLINTING FOR PAIN RELIEF, MAINTAINING JOINT ALIGNMENT, PROTECTION OF JOINT INTEGRITY, AND IMPROVED FUNCTION. OCCUPATIONAL THERAPY TO PROVIDE PATIENT/CAREGIVER WITH INSTRUCTIONS AND RECOMMENDATIONS TO IMPROVE ADL S INCLUDING WHILE USING APPROPRIATE ADAPTIVE DEVICES RECOMMENDED. OCCUPATIONAL THERAPY TO PROVIDE PATIENT/CAREGIVER WITH INSTRUCTIONS AND RECOMMENDATIONS TO IMPROVE IADL S INCLUDING WHILE USING APPROPRIATE ADAPTIVE DEVICES RECOMMENDED. SUMMARY OF THERAPY EVAL/ASSESSMENT FINDINGS AND REASON(S) SKILLS OF A THERAPIST ARE INDICATED: OCCUPATIONAL THERAPY EVALUATION: PATIENT IS A 65 Y/O MALE REFERRED TO SKILLED HOME HEALTH OCCUPATIONAL THERAPY SERVICES AFTER BEING D/C HOME FROM SNF, AFTER HOSPITAL STAY FOR UROSEPSIS. PMHX: CVA (2016) WITH RIGHT HEIPARESIS, EXPRESSIVE APHASIA, PACEMAKER, BPH, CHRONIC LYMPHEDEMA (B) LE. PRECAUTIONS:PACEMAKER - RIGHT CHEST WALL, RIGHT HEIPARESIS, EXPRESSIVE APHASIA. AVAILABLE DME/AE/SERVICES:AFO, W/C - NATIONAL SEATING, POWER W/C, BED BAR, ELECTRIC W/C, RESTING HAND SPLINT, GAIT BELT, TOILET GRAB BAR, WALK IN SHOWER (UPSTAIRS), STAIR LIFT - LEADING TO UPSTAIRS/SHOWER, HANDICAP KITCHEN RECOMMENDED DME/AE/SERVICES: GRAB BAR RIGHT SIDE OF TOILET, WEAR RESTING HAND SPLINT FOR 1 HOUR A DAY APPOINTMENTS:NEXT SUNDAY UROLOGY, TUES PCP PLOF: W/C MOBILITY (I), SET UP FOR LB/UB DRESSING, (S) WITH SHOWERING CLOF: PATIENT RESIDES IN HIS PRIVATE HOME WITH HIS LIFE PARTNER. HOME IS A RAISED RANCH, WITH PATIENT STAYING ON THE GROUND FLOOR OF THE HOME/WITH ENTRANCE IN THE GARAGE. 1/2 BATH AND HANDICAP ACCESSIBLE KITCHEN AVAILABLE. -AVILABLE CAREGIVER(S): GENNY -FUNCTIONAL MOBILITY: (I) AT W/C LEVEL -FUNCTIONAL TRANSFERS: CG -BED MOBILITY:PATIENT CURRENTLY SLEEPING IN RECLINER -TOILET TRANSFERS: MIN (A) -TOILETING TASK (HYGIENE/PANT MANAGEMENT): MIN (A) -TUB/SHOWER TRANSFERS: SPONGE BATHING ONLY, FULL BATHROOM IS LOCATED UPSTAIRS, HAS A STAIR LIFT. -SHOWERING TASK: NA -GROOMING: SET UP -SELF FEEDING: SET UP -UB BATHING/DRESSING: SETUP -LB BATHING/DRESSING: MOD (A) -MEDICATION MANAGEMENT: CAREGIVER ASSISTS -COOKING: ASSIST -LAUNDRY: ASSIST -UE ROM: (R) CONTRACTURE AT PIP, DIP JOINTS. PATIENT WOULD BENEFIT FROM CONTACTURE MANAGEMENT/ESTABLISHMENT OF WEAR SCHEDULE OF RESTING HAND SPLINT -UE STRENGTH: (L) UE 5/5 MMT - FUNCTIONAL MEASURES: MOD. HOOD 46/100 POC: PATIENT WOULD BENEFIT FROM SKILLED HOME HEALTH OCCUPATIONAL THERAPY SERVICES 2W4. PATIENT TO BENEFIT FROM THE FOLLOWING INTERVENTIONS: ADL RETRAINING, THER. EXERCISE, THERA. ACTIVITY, TOILET TRANSFER TRAINING, SHOWER TRANSFER TRAINING, FALL PREVENTION, TEACHING OF ENERGY CONSERVATION/COMPENSATORY STRATGIES, PAIN MANAGEMENT, AE/DME TEACHING, CAREGIVER TRAINING, CONTRACTURE MANAGEMENT AND DISCHARGE PLANNING. PATIENT/CAREGIVER IN AGREEMENT OF POC AND EVALUATION ON THIS DATE. [code = OCCUPATIONAL THERAPIST TO EVALUATE PATIENT SECONDARY TO FUNCTIONAL DEFICITS/SAFETY CONCERNS IDENTIFIED DURING EVALUATION OCCUPATIONAL THERAPY TO ESTABLISH /UPGRADE/DOWNGRADE THERAPEUTIC EXERCISE PROGRAM AND INSTRUCT PATIENT/CAREGIVER ON EXERCISE PRECAUTIONS WITH WRITTEN HOME PROGRAM. MAY INCLUDE PROM, AAROM, AROM, RROM APPROPRIATE TO IMPROVE FUNCTIONAL STRENGTH AND/OR RANGE OF MOTION. OCCUPATIONAL THERAPY TO INSTRUCT PATIENT/CAREGIVER ON BED MOBILITY TECHNIQUES TO IMPROVE PATIENT MOBILITY AND POSITIONING TECHNIQUES TO ENHANCE PARTICIPATION IN ADL S AND IMPROVE PATIENT COMFORT AND DECREASE RISK OF SKIN BREAKDOWN. OCCUPATIONAL THERAPY TO INSTRUCT PATIENT/CAREGIVER ON SAFE TRANSFER TECHNIQUES USING PROPER BODY MECHANICS AND EQUIPMENT TO ENHANCE PARTICIPATION IN ADL S. OCCUPATIONAL THERAPY TO INSTRUCT PATIENT/CAREGIVER ON BALANCE AND BALANCE STRATEGIES TO IMPROVE SAFETY DURING ACTIVITIES OF DAILY LIVING AND REDUCE RISK OF INJURIES AND FALLS. OCCUPATIONAL THERAPY TO RECOMMEND ORTHOTICS/PROSTHETICS/SPLINTING FOR PAIN RELIEF, MAINTAINING JOINT ALIGNMENT, PROTECTION OF JOINT INTEGRITY, AND IMPROVED FUNCTION. OCCUPATIONAL THERAPY TO PROVIDE PATIENT/CAREGIVER WITH INSTRUCTIONS AND RECOMMENDATIONS TO IMPROVE ADL S INCLUDING WHILE USING APPROPRIATE ADAPTIVE DEVICES RECOMMENDED. OCCUPATIONAL THERAPY TO PROVIDE PATIENT/CAREGIVER WITH INSTRUCTIONS AND RECOMMENDATIONS TO IMPROVE IADL S INCLUDING WHILE USING APPROPRIATE ADAPTIVE DEVICES RECOMMENDED. SUMMARY OF THERAPY EVAL/ASSESSMENT FINDINGS AND REASON(S) SKILLS OF A THERAPIST ARE INDICATED: OCCUPATIONAL THERAPY EVALUATION: PATIENT IS A 65 Y/O MALE REFERRED TO SKILLED HOME HEALTH OCCUPATIONAL THERAPY SERVICES AFTER BEING D/C HOME FROM SNF, AFTER HOSPITAL STAY FOR UROSEPSIS. PMHX: CVA (2016) WITH RIGHT HEIPARESIS, EXPRESSIVE APHASIA, PACEMAKER, BPH, CHRONIC LYMPHEDEMA (B) LE. PRECAUTIONS:PACEMAKER - RIGHT CHEST WALL, RIGHT HEIPARESIS, EXPRESSIVE APHASIA. AVAILABLE DME/AE/SERVICES:AFO, W/C - NATIONAL SEATING, POWER W/C, BED BAR, ELECTRIC W/C, RESTING HAND SPLINT, GAIT BELT, TOILET GRAB BAR, WALK IN SHOWER (UPSTAIRS), STAIR LIFT - LEADING TO UPSTAIRS/SHOWER, HANDICAP KITCHEN RECOMMENDED DME/AE/SERVICES: GRAB BAR RIGHT SIDE OF TOILET, WEAR RESTING HAND SPLINT FOR 1 HOUR A DAY APPOINTMENTS:NEXT SUNDAY UROLOGY, TUES PCP PLOF: W/C MOBILITY (I), SET UP FOR LB/UB DRESSING, (S) WITH SHOWERING CLOF: PATIENT RESIDES IN HIS PRIVATE HOME WITH HIS LIFE PARTNER. HOME IS A RAISED RANCH, WITH PATIENT STAYING ON THE GROUND FLOOR OF THE HOME/WITH ENTRANCE IN THE GARAGE. 1/2 BATH AND HANDICAP ACCESSIBLE KITCHEN AVAILABLE. -AVILABLE CAREGIVER(S): GENNY -FUNCTIONAL MOBILITY: (I) AT W/C LEVEL -FUNCTIONAL TRANSFERS: CG -BED MOBILITY:PATIENT CURRENTLY SLEEPING IN RECLINER -TOILET TRANSFERS: MIN (A) -TOILETING TASK (HYGIENE/PANT MANAGEMENT): MIN (A) -TUB/SHOWER TRANSFERS: SPONGE BATHING ONLY, FULL BATHROOM IS LOCATED UPSTAIRS, HAS A STAIR LIFT. -SHOWERING TASK: NA -GROOMING: SET UP -SELF FEEDING: SET UP -UB BATHING/DRESSING: SETUP -LB BATHING/DRESSING: MOD (A) -MEDICATION MANAGEMENT: CAREGIVER ASSISTS -COOKING: ASSIST -LAUNDRY: ASSIST -UE ROM: (R) CONTRACTURE AT PIP, DIP JOINTS. PATIENT WOULD BENEFIT FROM CONTACTURE MANAGEMENT/ESTABLISHMENT OF WEAR SCHEDULE OF RESTING HAND SPLINT -UE STRENGTH: (L) UE 5/5 MMT - FUNCTIONAL MEASURES: MOD. HOOD 46/100 POC: PATIENT WOULD BENEFIT FROM SKILLED HOME HEALTH OCCUPATIONAL THERAPY SERVICES 2W4. PATIENT TO BENEFIT FROM THE FOLLOWING INTERVENTIONS: ADL RETRAINING, THER. EXERCISE, THERA. ACTIVITY, TOILET TRANSFER TRAINING, SHOWER TRANSFER TRAINING, FALL PREVENTION, TEACHING OF ENERGY CONSERVATION/COMPENSATORY STRATGIES, PAIN MANAGEMENT, AE/DME TEACHING, CAREGIVER TRAINING, CONTRACTURE MANAGEMENT AND DISCHARGE PLANNING. PATIENT/CAREGIVER IN AGREEMENT OF POC AND EVALUATION ON THIS DATE.] Goal Patient Goal - T RANSFER INDEPENDENTLY AGAIN Goal Provider Goal - A PLAN OF CARE WILL BE ESTABLISHED THAT MEETS PATIENT'S ALF NEEDS AND INCLUDES PATIENT GOAL FOR HOME HEALTH. Goal Provider Goal - PATIENT/CAREGIVER WILL VERBALIZE UNDERSTANDING OF EDUCATION PROVIDED ON MEDICATIONS BY THE END OF THE CERTIFICATION PERIOD. Goal Provider Goal - PATIENT WILL HAVE SUPPORT MEASURES ESTABLISHED TO PREVENT HOSPITALIZATION AND ED USE AND PATIENT/CAREGIVER WILL VERBALIZE/DEMONSTRATE METHODS TO REDUCE AVOIDABLE HOSPITALIZATION AND ED USE BY END OF EPISODE. Goal Provider Goal - PATIENT/CAREGIVER WILL VERBALIZE UNDERSTANDING OF DISCHARGE PLANNING INSTRUCTIONS BY DATE OF DISCHARGE. Goal Provider Goal - PATIENT/CAREGIVER WILL VERBALIZE/DEMONSTRATE EFFECTIVE ENVIRONMENTAL SAFETY AND FALL PREVENTION STRATEGIES, WILL REMAIN SAFE IN THE COMMUNITY, AND WILL BE FREE OF DANGER TO SELF AND OTHERS THROUGHOUT THE CERTIFICATION PERIOD. Goal Provider Goal - PATIENT/CAREGIVER WILL DEMONSTRATE UNDERSTANDING OF PHARMACOLOGIC AND NONPHARMACOLOGIC PAIN CONTROL MEASURES AND PATIENT WILL HAVE IMPROVEMENT IN PAIN INTERFERING WITH ACTIVITY EVIDENCED BY PAIN AT A LEVEL THAT IS ACCEPTABLE TO THE PATIENT AND PAIN LEVEL WITHIN ESTABLISHED PARAMETERS BY END OF CERTIFICATION PERIOD. Goal Provider Goal - PATIENT/CAREGIVER WILL VERBALIZE UNDERSTANDING OF PRESSURE ULCER PREVENTION BY END OF THE EPISODE. Goal Provider Goal - PATIENT/CAREGIVER WILL VERBALIZE UNDERSTANDING OF SIGNS AND SYMPTOMS, COMPLICATIONS, AND MANAGEMENT OF ATRIAL FIBRILLATION THROUGHOUT THE CERTIFICATION PERIOD. Goal Provider Goal - WOUND CARE WILL BE COMPLETED AND PATIENT WILL HAVE IMPROVED WOUND STATUS EVIDENCED BY NO SIGNS AND SYMPTOMS OF INFECTION, DECREASED WOUND SIZE, AND/OR NO COMPLICATIONS BY THE END OF THE CERTIFICATION PERIOD. Goal Provider Goal - PATIENT/CAREGIVER WILL VERBALIZE UNDERSTANDING OF GENITOURINARY DISEASE PROCESS, AND EXACERBATIONS OF GENITOURINARY DISEASE WILL BE PROMPTLY IDENTIFIED FOR EARLY INTERVENTION THROUGHOUT THE CERTIFICATION PERIOD. Goal Provider Goal - PATIENT WILL VERBALIZE TOLERANCE OF CATHETER CHANGE AND KNOWLEDGE OF REQUIRED CARE TO MANAGE INDWELLING URINARY CATHETER WITHOUT COMPLICATIONS BY THE END OF THE CERTIFICATION PERIOD. Goal Provider Goal - EXACERBATIONS OF GASTROINTESTINAL DISEASE WILL BE PROMPTLY IDENTIFIED AND INTERVENTIONS IMPLEMENTED TO MINIMIZE RISKS TO PATIENT BY END OF EPISODE. Goal Provider Goal - PATIENT/CAREGIVER WILL VERBALIZE/DEMONSTRATE THE ABILITY TO MANAGE CIRCULATORY DISEASE PROCESS AND EXACERBATIONS WILL BE IDENTIFIED FOR EARLY INTERVENTION THROUGHOUT THE CERTIFICATION PERIOD. Goal Provider Goal - PATIENT/CAREGIVER WILL VERBALIZE/DEMONSTRATE ABILITY TO MANAGE MUSCULOSKELETAL DISEASE WHILE MAINTAINING SAFETY THROUGHOUT THE EPISODE. Goal Provider Goal - PATIENT/CAREGIVER WILL DEMONSTRATE COMPLIANCE WITH TREATMENT REGIME AND VERBALIZE SIGNS AND SYMPTOMS TO REPORT WELL POSSIBLE COMPLICATIONS OF CVA BY END OF EPISODE. Goal Provider Goal - A PHYSICAL THERAPY EVALUATION TO BE COMPLETED WITH RECOMMENDATIONS AND/OR WRITTEN PLAN OF TREATMENT ESTABLISHED FOR PHYSICIAN S SIGNATURE. Goal Provider Goal - OCCUPATIONAL THERAPY EVALUATION TO BE COMPLETED WITH RECOMMENDATIONS AND WRITTEN PLAN OF TREATMENT ESTABLISHED FOR THE PHYSICIAN S SIGNATURE. Goal Provider Goal - PHYSICAL THERAPY EVALUATION TO BE COMPLETED WITH RECOMMENDATIONS AND/OR WRITTEN TREATMENT PLAN OF CARE ESTABLISHED FOR THE PHYSICIAN S SIGNATURE PATIENT/CAREGIVER VERBALIZES UNDERSTANDING OF THE INITIAL BEST PRACTICE RECOMMENDATIONS. PHYSICIAN TO BE NOTIFIED APPROPRIATE FOR ANY CHANGES OR COMPLICATIONS THROUGHOUT THE CERTIFICATION PERIOD. PATIENT/CAREGIVER WILL PERFORM THERAPEUTIC EXERCISE/S AND DEMONSTRATE PARTICIPATION IN A HOME PROGRAM. PATIENT/CAREGIVER WILL DEMONSTRATE SAFE TRANSFERS USING APPROPRIATE ASSISTIVE DEVICE, BODY MECHANICS AND EQUIPMENT. PATIENT/CAREGIVER WILL DEMONSTRATE IMPROVED GAIT TECHNIQUES TO MINIMIZE RISK OF INJURY. PATIENT/CAREGIVER WILL DEMONSTRATE/VERBALIZE UNDERSTANDING OF RECOMMENDATIONS TO INCREASE SAFETY IN THE HOME AND FALL PREVENTION. PATIENT/CAREGIVER WILL DEMONSTRATE IMPROVED BALANCE AND REDUCE THE RISK OF FALLS AND INJURY. Goal Provider Goal - OCCUPATIONAL THERAPIST TO EVALUATE PATIENT SECONDARY TO FUNCTIONAL DEFICITS/SAFETY CONCERNS IDENTIFIED DURING EVALUATION. PATIENT/CAREGIVER WILL PERFORM THERAPEUTIC EXERCISE/S AND DEMONSTRATE PARTICIPATION IN A HOME PROGRAM. PATIENT/CAREGIVER WILL DEMONSTRATE IMPROVED BED MOBILITY TECHNIQUES. PATIENT/CAREGIVER WILL DEMONSTRATE SAFE TRANSFERS USING APPROPRIATE ASSISTIVE DEVICE, BODY MECHANICS AND EQUIPMENT. PATIENT/CAREGIVER WILL DEMONSTRATE IMPROVED BALANCE AND REDUCE THE RISK OF FALLS AND INJURY. PATIENT/CAREGIVER WILL DEMONSTRATE PROPER APPLICATION AND WEARING OF ORTHOTICS/PROSTHETICS/SPLINT. PATIENT/CAREGIVER WILL DEMONSTRATE IMPROVED ABILITY TO PERFORM ACTIVITIES OF DAILY LIVING. PATIENT/CAREGIVER WILL DEMONSTRATE IMPROVED ABILITY TO PERFORM INSTRUMENTAL ACTIVITIES OF DAILY LIVING. Progress Notes Progress Notes <paragraph>[Visit Date: 2024 by GEOFFREY HASTINGS RN]:</paragraph><paragraph>SNV</paragraph><paragraph></paragraph><paragraph>ABNO RMAL VITALS: WNL AFEBRILE </paragraph><paragraph></paragraph><paragraph>FALLS: NO FALLS</paragraph><paragraph></paragraph><paragraph>PHYSICAL ASSESSMENT FINDINGS: PT AWAKE AND ALERT VS STABLE LUNGS CLEAR DIM NAD. FC PATENT CLEAR YELLOW URINE HAS UROLOGY FOLLOW-UP THIS WEEK. UNNA BOOT IN PLACE POS CMS TO TOES. WOUND IMPROVEMENT PER CG. REVIEWED DIET PROTEIN INTAKE. FLUID INTAKE TO PREVENT DEHYDRATION. INFECTION CONTROL FREQ HAND WASHING ESPECIALLY AFTER HANDLING DRAINAGE BAG</paragraph><paragraph></paragraph><paragraph>MEDICATION CHANGES: NONE</paragraph><paragraph></paragraph><paragraph>HANDS ON CARE: ASSESSMENT TEACHING DIET INFECTION CONTROL </paragraph><paragraph></paragraph><paragraph>PATIENT/CAREGIVER TEACH BACK:VERBALIZED UNDERSTANDING </paragraph><paragraph></paragraph><paragraph>NEXT APPOINTMENT: UROLOGIST SAQIB</paragraph><paragraph></paragraph><paragraph>NEW ORDERS: N</paragraph><paragraph></paragraph><paragraph>INSTRUCTED PATIENT AND CAREGIVER TO CALL [facility] WITH ANY QUESTIONS OR CHANGES IN CONDITION</paragraph> Encounters Start Date/Time End Date/Time Encounter Type Admission Type Attending [facility] Care Department Encounter ID Discharge Date Discharge Status Discharge Condition Discharge Reason Percent Goals Met 2025-01-18 00:00:00 2025-03-18 00:00:00 Outpatient NEW ADMISSION GEOFFREY HASTINGS FORMERLY [facility] [id number]
== END 2025-03-14 15:20 | DRG 689 ==
LOC: HO.ED 17:56 → HO.EDOVER 18:45 → HO.IMC 03-11 16:20
PROVIDERS: Emergency Medicine; Physician Assistant; Admitting Provider Family Medicine; Emergency Provider Emergency Medicine; PCP Internal Medicine; Visit Provider Internal Medicine
DX: N39.0 Urinary tract infection, site not specified (principal); G93.41 Metabolic encephalopathy; L89.523 Pressure ulcer of left ankle, stage 3; E87.21 Acute metabolic acidosis; I69.351 Hemiplegia and hemiparesis following cerebral infarction affecting right dominant side; I48.20 Chronic atrial fibrillation, unspecified; L89.896 Pressure-induced deep tissue damage of other site; L89.152 Pressure ulcer of sacral region, stage 2; I12.9 Hypertensive chronic kidney disease with stage 1 through stage 4 chronic kidney disease, or unspecified chronic kidney disease; N18.30 Chronic kidney disease, stage 3 unspecified; I69.320 Aphasia following cerebral infarction; I69.390 Apraxia following cerebral infarction; Z96.0 Presence of urogenital implants; E66.812 Obesity, class 2; Z71.3 Dietary counseling and surveillance; Z68.36 Body mass index [BMI] 36.0-36.9, adult; Z20.822 Contact with and (suspected) exposure to COVID-19; Z95.0 Presence of cardiac pacemaker; Z79.01 Long term (current) use of anticoagulants; Z79.82 Long term (current) use of aspirin; Z79.899 Other long term (current) drug therapy
CPT/HCPCS: 36415; 70450; 70551; 71045; 72193; 80048; 80061; 80076; 81001; 82803; 82947; 83605; 83690; 83735; 84145; 84443; 84484; 85025; 86140; 87040; 87086; 87637; 93005; 93306; 97110; 97162; 97166; 97530; 99285; J2543; Q9957; Q9967

== ENCOUNTER → 2025-03-10 10:06 | Outpatient (BNV) | payer MEDICARE, BC, SELFPAY | PROVIDERS: Emergency Provider Emergency Medicine; PCP Internal Medicine; Visit Provider Radiology Diagnostic Radiology | DX: I67.82 Cerebral ischemia (principal); G93.89 Other specified disorders of brain; R53.1 Weakness; S31.000A Unspecified open wound of lower back and pelvis without penetration into retroperitoneum, initial encounter; M53.3 Sacrococcygeal disorders, not elsewhere classified; K59.00 Constipation, unspecified | CPT/HCPCS: 70450; 71045; 72193 ==

== ENCOUNTER → 2025-03-10 10:07 | Outpatient (BNV) | payer MEDICARE, BC, SELFPAY | PROVIDERS: Emergency Provider Emergency Medicine; PCP Internal Medicine; Visit Provider Internal Medicine Cardiovascular Disease | DX: R94.31 Abnormal electrocardiogram [ECG] [EKG] (principal); Z95.0 Presence of cardiac pacemaker | CPT/HCPCS: 93010 ==

== ENCOUNTER 2025-03-10 18:42 | Outpatient (BNV) | payer MEDICARE, BC, SELFPAY | END 2025-03-11 07:00 | PROVIDERS: Admitting Provider Family Medicine; Emergency Provider Emergency Medicine; PCP Internal Medicine; Visit Provider Internal Medicine Cardiovascular Disease | DX: I42.2 Other hypertrophic cardiomyopathy (principal); I51.7 Cardiomegaly | CPT/HCPCS: 93306 ==

== ENCOUNTER 2025-03-10 18:42 | Outpatient (BNV) | payer MEDICARE, BC, SELFPAY | END 2025-03-12 14:22 | PROVIDERS: Admitting Provider Family Medicine; Emergency Provider Emergency Medicine; PCP Internal Medicine; Visit Provider Radiology Diagnostic Radiology | DX: I67.82 Cerebral ischemia (principal); G93.89 Other specified disorders of brain | CPT/HCPCS: 70551 ==

== ENCOUNTER → 2025-03-10 18:42 | Outpatient (BNV) | payer MEDICARE, BC, SELFPAY | PROVIDERS: Admitting Provider Family Medicine; Emergency Provider Emergency Medicine; PCP Internal Medicine; Visit Provider Internal Medicine | DX: G93.41 Metabolic encephalopathy (principal); N39.0 Urinary tract infection, site not specified; R53.1 Weakness; L89.152 Pressure ulcer of sacral region, stage 2; E87.21 Acute metabolic acidosis; N18.31 Chronic kidney disease, stage 3a; E66.812 Obesity, class 2 | CPT/HCPCS: 99223; 99232 ==

== ENCOUNTER → 2025-03-10 18:42 | Outpatient (BNV) | payer MEDICARE, BC, SELFPAY | PROVIDERS: Admitting Provider Family Medicine; Emergency Provider Emergency Medicine; PCP Internal Medicine; Visit Provider Nurse Practitioner | DX: R53.1 Weakness (principal); G93.41 Metabolic encephalopathy | CPT/HCPCS: 99222 ==

== ENCOUNTER → 2025-03-10 18:42 | Outpatient (BNV) | payer MEDICARE, BC, SELFPAY | PROVIDERS: Admitting Provider Family Medicine; Emergency Provider Emergency Medicine; PCP Internal Medicine; Visit Provider Physician Assistant Surgical | DX: L89.152 Pressure ulcer of sacral region, stage 2 (principal) | CPT/HCPCS: 99222 ==

== ENCOUNTER 2025-04-27 12:29 | Outpatient (AMB) | payer MEDICARE, BC, SELFPAY ==
[2025-04-27 12:51] VITALS: BP 108/60; PULSE 80
--- NOTE | 2025-04-27 12:51 | MHC.OFFVIS ---
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 Allergies codeine (CODEINE) Allergy (Unknown, Verified 04/27/25 12:53) UNKNOWN Medication List - Last Reconciled 04/27/25 by DEVENDRA Torres acetaminophen 650 mg PO Q6H PRN amoxicillin-pot clavulanate 875-125 mg 1 tab PO BID apixaban 5 mg PO BID ascorbic acid (vitamin C) (Vitamin C) 500 mg PO DAILY aspirin (Adult Aspirin Regimen) 81 mg PO DAILY atorvastatin 20 mg PO BEDTIME baclofen 20 mg PO BID finasteride 5 mg PO DAILY furosemide 40 mg PO DAILY magnesium oxide 400 mg PO BID multivitamin 1 tab PO DAILY polyethylene glycol 3350 (Miralax) 17 grams PO DAILY PRN spironolactone 100 mg PO DAILY tamsulosin 0.4 mg PO BEDTIME HPI HPI 1 yr f/up w/ biotronic ck: Details: The patient is a 65 year old individual presenting for followup of chronic atrial fibrillation and single chamber biotronic pacemaker interrogation. The patient has a history of chronic atrial fibrillation managed with rate control and Eliquis for anticoagulation, as well as a history of a prior CVA and hypertension. Current cardiac-related medications include Eliquis, aspirin, and atorvastatin 20 mg daily; lisinopril has been discontinued. The patient has been hospitalized twice recently, in December and March 2025. The March admission was for confusion and concern for a TIA, but the patient was ultimately diagnosed with a UTI; a CT scan of the head showed no acute findings. Infections appear to have triggered both hospitalizations and episodes of swelling. A coccyx wound was also addressed during the recent admission and has since healed. The patient is experiencing significant peripheral edema in the legs, which began in December, resolved after rehab post-hospitalization, and has now recurred. The patient's right hand is also swollen. The primary care provider is managing this with furosemide 20 mg twice a day and spironolactone 100 mg. The patient sleeps in a recliner due to back pain, which contributes to dependent edema. He has an upcoming visit with the lymphedema clinic. The patient reports new onset of severe diarrhea, which started last Sunday and they are managing. The patient denies chest pain, palpitations, or abdominal pain. The patient's breathing is reported as good, with no coughing or shortness of breath. is present. [facility] Medical History Class 2 obesity CKD stage 3a, GFR 45-59 ml/min Sacral decubitus ulcer, stage II Right sided weakness HTN (hypertension) CVA (cerebral vascular accident) Cardiac pacemaker in situ Chronic atrial fibrillation Surgical History History of permanent cardiac pacemaker placement Family History Father No problems noted. Mother No problems noted. Social History Household Members: Significant Other Housing: House Do you presently have visiting nurse or other home services: Yes Patient Tobacco Use Status: Never used Tobacco service: No Review of Systems Const All systems reviewed & are unremarkable except as noted in HPI and below ENT Denies dizziness Card Denies chest pain, Denies chest pain at rest, Denies chest pain with activity, Denies rapid heart rate, Reports pedal edema, Denies edema, Reports leg edema, Denies lightheadedness, Denies palpitations, Denies dyspnea, Denies dyspnea on exertion and Denies orthopnea Resp Denies cough, Denies dyspnea and Denies dyspnea on exertion GI Denies hematochezia and Denies change in stool character Musc Details: Right sided weakeness Reports abnormal gait, Reports limited range of motion, Denies muscle cramps, Reports muscle weakness, Denies numbness, Denies radiating pain into limb, Denies stiffness and Denies tingling Neuro Reports abnormal gait, Denies dizziness, Denies numbness and Denies tingling Endo Denies palpitations Physical Exam Vital Signs: Last Vital Signs Pulse 80 04/27/25 12:51 BP 108/60 04/27/25 12:51 Const Other: sitting in wheelchair General: cooperative, healthy appearing, comfortable and no acute distress Orientation/consciousness: patient oriented x3 Neck Neck: Yes normal visual inspection Resp Effort & Inspection: normal respiratory effort Auscultation: clear to auscultation bilaterally, no rales, no rhonchi and no wheezes Cardio Rate: regular rate Rhythm: regular rhythm Heart sounds: S1 normal heart sound present, S2 normal heart sound present, no gallops, no murmurs and no rubs Neuro Other: speech slurred, right sided hemiparesis General: patient oriented x3 Extrem Other: tight swelling of bilateral LE to level of mid thighs General: No calf tenderness Psych Appearance: grossly normal Mental Status: mental status grossly normal Speech and movement: Normal speech and movement present Office Procedures Cardiac Device Check Cardiac Device Check Details: Biotronik single-chamber pacemaker interrogation today shows battery 3.5 years ventricular threshold 1.2 volts at 0.4 milliseconds no alerts VVI to CLS mode with low rate 60. V pacing 100%. [id number] Cardiac Device Check, leadless/single lead pacemaker Procedure code (CPT) selection complete EKG Details: Today, read by me, Ventricular paced rhythm, rate 80 [id number], Complete Assessment & Plan Assessment & Plan (1) Chronic atrial fibrillation: Code(s): I48.20 - Chronic atrial fibrillation, unspecified Category: Medical Plan: History of chronic atrial fibrillation. EKG today showing underlying AFib, V paced rhythm, rate 80. Echocardiogram 03/11/2025 shows EF 55-60%, moderate LVH, normal valve Dopplers, normal RV systolic pressure, diastolic function indeterminate. No reports of heart palpitations. He is not on rate slowing agents. He is on Eliquis for anticoagulation. He has history of CVA and he is also on aspirin. No bleeding issues reported. Labs from 03/13/2025 shows hematocrit 44.7, creatinine 0.89. Recommend biannual CBC and BMP. No med changes made at this time (2) HTN (hypertension): Code(s): I10 - Essential (primary) hypertension Category: Medical Plan: Blood pressure goal less than 130/80. Well controlled at this time. No med changes made (3) Cardiac pacemaker in situ: Comment: Biotronik single-chamber pacemaker placed November of 2016 for complete heart block Code(s): Z95.0 - Presence of cardiac pacemaker Category: Medical Plan: Biotronik single-chamber pacemaker in place. Functioning normally on device check today with battery 3.5 years. Next office interrogation due in 1 year. Continue to follow remotely. (4) Thoracic aortic aneurysm: Code(s): I71.20 - Thoracic aortic aneurysm, without rupture, unspecified Category: Medical Plan: Echocardiogram from 10/04/2023 shows sinus of Valsalva measuring 4.35 cm and mildly dilated ascending aorta 4.1 cm. Most recent echo 03/11/2025, aorta not well visualized. Blood pressure is well controlled. He is on aspirin and statin. (5) CVA (cerebral vascular accident): Comment: Secondary to atrial fibrillation Code(s): I63.9 - Cerebral infarction, unspecified Category: Medical Plan: As above. Residual right-sided weakness, slurred speech. (6) Hospital discharge follow-up: Code(s): Z51.89 - Encounter for other specified aftercare Category: Medical Plan: Recent [facility] reviewed Plan I informed the patient that the pacemaker interrogation was normal, with a good battery life of 3.5 years, and that the EKG looked unchanged. I explained that the recent echocardiogram was reassuring, showing that the heart is pumping strongly. We discussed the significant swelling and that while the heart's pumping function is strong, it may not be relaxing fully (diastolic dysfunction), which can contribute to fluid retention. I noted that this tendency is likely worsened by a sedentary lifestyle and sleeping in a recliner, which are also major contributing factors. I affirmed that the current treatment with diuretics (furosemide and spironolactone) is the correct course of action and is being appropriately managed by the PCP. I recommended elevating the legs and the affected hand on pillows to help gravity assist with fluid drainage. I counseled that improvement will be gradual. I noted the plan to see a lymphedema specialist is a good next step. I instructed the patient to return for re-evaluation if the swelling worsens or if other specialists determine it is a primary cardiac problem. A routine one-year follow-up for the pacemaker is sufficient unless new cardiac concerns arise. Patient Instructions: - Your pacemaker is working well. We will schedule you for a routine check-up in one year. - Continue taking your medications as prescribed by your doctors, including the water pills (Lasix and spironolactone) to help with the swelling. - To help reduce swelling, try to prop your legs and your swollen right hand up on pillows when you are resting. - Keep your upcoming appointment at the lymphedema clinic in two weeks. - Please follow up with your primary doctor to provide the stool sample they requested for your diarrhea. - Contact our office if the swelling in your legs gets worse, or if your other doctors think the problem is caused by your heart. Patient was informed and verbally consented to the use of an ambient scribe for clinic note documentation during this visit. Visit time spent on chart review, interview, assessment, orders, documentation. Coding Level of Care Code Est Pt Level 4 (36837) Complex visit Add On G2211 Diagnoses Chronic atrial fibrillation I48.20 HTN (hypertension) I10 Cardiac pacemaker in situ Z95.0 Thoracic aortic aneurysm I71.20 CVA (cerebral vascular accident) I63.9 Hospital discharge follow-up Z51.89 CPT Codes Cardiac Device Check - Cardiac Device 1: [id number] Cardiac Device Check, leadless/single lead pacemaker ([id number]) EKG - CPT: 93421-[id number], Complete ([id number]) Time Spent (min) 28
== END 2025-04-27 13:28 | disposition home or self-care (01) ==
LOC: HO.HCS 12:29
PROVIDERS: PCP Internal Medicine; Visit Provider Nurse Practitioner Family
DX: I48.20 Chronic atrial fibrillation, unspecified (principal); I10 Essential (primary) hypertension; Z95.0 Presence of cardiac pacemaker; I71.20 Thoracic aortic aneurysm, without rupture, unspecified; I63.9 Cerebral infarction, unspecified; Z51.89 Encounter for other specified aftercare
CPT/HCPCS: 93010; 93279; 99214; G2211

== ENCOUNTER → 2025-04-27 12:29 | Outpatient (BNVA) | payer MEDICARE, BC, SELFPAY | PROVIDERS: PCP Internal Medicine; Visit Provider Nurse Practitioner Family | DX: I48.20 Chronic atrial fibrillation, unspecified (principal); I10 Essential (primary) hypertension; I63.89 Other cerebral infarction; R47.81 Slurred speech; G81.01 Flaccid hemiplegia affecting right dominant side; Z95.0 Presence of cardiac pacemaker; I71.20 Thoracic aortic aneurysm, without rupture, unspecified; Z79.82 Long term (current) use of aspirin; R60.9 Edema, unspecified; Z79.01 Long term (current) use of anticoagulants; Z09 Encounter for follow-up examination after completed treatment for conditions other than malignant neoplasm | CPT/HCPCS: 93005; 99212 ==

== ENCOUNTER → 2025-05-20 15:17 | Outpatient (BNV) | payer MEDICARE, BC, SELFPAY | PROVIDERS: PCP Internal Medicine; Visit Provider Internal Medicine Cardiovascular Disease | DX: Z45.018 Encounter for adjustment and management of other part of cardiac pacemaker (principal) | CPT/HCPCS: 93297 ==